=== PATIENT | female | born 1935 | race Caucasian/White ===

== ENCOUNTER 2020-04-13 07:12 | Inpatient (IN) | payer MEDICARE ==
[~2020-04-13] VITALS: Ht 170 cm; Wt 90.2 kg
[~2020-04-13 07:12] MED LIST: ALBU8.5H2 IH; ASP325T PO; ASP81CT PO; ATOR40TA70 PO; CHOL10003 PO; CLOP75TA PO; CYAN10007 PO; CYAN500T2 PO; ERGO400C PO; ESTR0.3T PO; ESTR0.455 PO; FENO135C4 PO; FENO145T2 PO; FISH OIL 1,2001 EAC1 PO; GEMF600T3 PO; HUM100VI SQ; LISI1TAB10 PO; LISI1TAB6 PO; LVT.112T PO; LVT.15T PO; MAGN250T7 PO; MAGN400T6 PO; MTP25TSR PO; MTP50T PO; MULT-608 PO; NFAMINITAB PO; SIMV40TA4 PO
[2020-04-13] MEDS ORDERED: ACETAMINOPHEN 650 MG SUPP (TYLENOL) ONE (07:26)
[2020-04-13] MEDS ORDERED: LACTATED RINGERS 1,000 ML IV ONE (07:38)
[2020-04-13] MEDS ORDERED: ACETAMINOPHEN 650 MG SUPP (TYLENOL) PR ONE (07:45)
[2020-04-13 07:54] LABS: BASOPHILS % (AUTO) 0 % (0-10); EOSINOPHILS % (AUTO) 0 % (0-10); HEMATOCRIT 35 % (35-52); HEMOGLOBIN 11.5 g/dL (11.5-16.0); LYMPHOCYTES # (AUTO) 0.5 10^3/uL (1.0-4.0); LYMPHOCYTES % (AUTO) 6 % (12-44); MEAN CORPUSCULAR HEMOGLOBIN 27 pg (25-34); MEAN CORPUSCULAR HGB CONC 33 g/dL (32-36); MEAN CORPUSCULAR VOLUME 84 fL (80-99); MEAN PLATELET VOLUME 12.5 fL (9.0-12.2); MONOCYTES # (AUTO) 0.5 10^3/uL (0.0-1.0); MONOCYTES % (AUTO) 6 % (0-12); NEUTROPHILS # (AUTO) 6.9 10^3/uL (1.8-7.8); NEUTROPHILS % (AUTO) 88 % (42-75); PLATELET COUNT 93 10^3/uL (130-400); WHITE BLOOD COUNT 7.9 10^3/uL (4.3-11.0)
[2020-04-13 07:59] LABS: BILIRUBIN,URINE NEGATIVE (NEGATIVE); CLARITY,URINE SL CLOUDY; COLOR,URINE YELLOW; GLUCOSE, URINE (UA) NEGATIVE (NEGATIVE); KETONES,URINE TRACE (NEGATIVE); LEUKOCYTE ESTERASE ,URINE 1+ (NEGATIVE); NITRITE,URINE POSITIVE (NEGATIVE); PH,URINE 5.5 (5-9); PROTEIN,URINE 2+ (NEGATIVE)
[2020-04-13 08:05] LABS: ALBUMIN 3.7 GM/DL (3.2-4.5); POTASSIUM 3.7 MMOL/L (3.6-5.0)
[2020-04-13 08:06] LABS: CALCIUM 8.9 MG/DL (8.5-10.1)
[2020-04-13 08:07] LABS: INR 1.2 (0.8-1.4); PROTHROMBIN TIME PATIENT 15.3 SEC (12.2-14.7); TOTAL PROTEIN 6.9 GM/DL (6.4-8.2)
[2020-04-13 08:09] LABS: BACTERIA,URINE LARGE /HPF; BILIRUBIN,TOTAL 1.3 MG/DL (0.1-1.0); WBC,URINE 25-50 /HPF
[2020-04-13 08:11] LABS: CREATININE SERUM 0.95 MG/DL (0.60-1.30)
--- NOTE | 2020-04-13 08:29 | ED General ---
General Chief Complaint: Fever-Adult/Adol Stated Complaint: FEVER Source of Information: EMS, Family History of Present Illness Date Seen by Provider: Apr 13, 2020 Time Seen by Provider: 07:19 Initial Comments 84-year-old female presents to the emergency room by ambulance today after being found by her son this morning "incoherent". Son reports to the patient's nurse that Bridget his blood sugar started going up last , 4 days ago, Tuesday she had an episode of vomiting and started running fever and this morning he found her "incoherent". EMS reports that the patient was in bed on their arrival in the bed was covered in feces and vomit. Patient is unable to provide any HPI, past medical family or social history secondary to her altered mentation. She is quite febrile at 102 axillary temp. she is moving all 4 extremities equally she does grimace with palpation of the right hip and holds that in a flexed and internally rotated position. 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 She is in a significantly soiled adult diaper, some erythema noted at the pe rineum without any overt ulcerations. This is consistent with only being sick for a couple of days and bedfast for a couple of days. Of note in talking to the son the patient is a full code. Timing/Duration: 2-3 Days Associated Systoms: Fever/Chills Allergies and Home Medications Allergies Coded Allergies: codeine (Verified Allergy, Unknown, 10/14/05) furosemide (Verified Allergy, Unknown, 10/14/05) iodine (Verified Allergy, Unknown, 10/14/05) Home Medications Albuterol 8.5 Gm Hfa.aer.ad, 2 PUFF IH Q4H PRN for SHORTNESS OF BREATH, (Reported) NEEDED FOR SHORTNESS OF BREATH Aspirin 81 Mg Chew, 81 MG PO DAILY, (Reported) Atorvastatin Calcium 40 Mg Tablet, 40 MG PO HS, (Reported) Cholecalciferol 1,000 Unit Tablet, 1,000 UNIT PO DAILY, (Reported) Cyanocobalamin 500 Mcg Tablet, 500 MCG PO DAILY, (Reported) Estrogens Conjugated 0.3 Mg Tab, 0.3 MG PO DAILY, (Reported) Fenofibric Acid (Choline) 135 Mg Capsule.dr, 135 MG PO DAILY, (Reported) Hum Insulin Nph/Reg Insulin Hm 10 Ml Vial, 20 UNIT SQ BEFORE BREAKFAST, (Reported) Hum Insulin Nph/Reg Insulin Hm 10 Ml Vial, 60 UNITS SQ before supper, (Reported) Levothyroxine Sodium 150 Mcg Tablet, 150 MCG PO DAILY, (Reported) Magnesium Oxide 250 Mg Tablet, 250 MG PO DAILY, (Reported) Metoprolol Succinate 25 Mg Tab, 25 MG PO DAILY, (Reported) Multivitamins 1 Tab Tablet, 1 TAB PO DAILY, (Reported) Vitamin C/Vitamin E 1 Tab Tab, 2 TAB PO DAILY, (Reported) Patient Home Medication List Home Medication List Reviewed: Yes Review of Systems Review of Systems Constitutional: other (Patient nonverbal) Unable to complete ROS due to AMS Past Nwxllaz-Eaqskc-Ohwvir Hx Immunizations Up To Date Date of Pneumonia Vaccine: Jun 03, 2009 Date of Influenza Vaccine: May 03, 2013 Physical Exam-Suspected Sepsis Physical Exam Vital Signs Vital Signs - First Documented 04/13/20 04/13/20 07:19 10:20 Temp 39.0 Pulse 114 Resp 39 B/P (MAP) 172/84 (113) Pulse Ox 95 O2 Delivery Room Air O2 Flow Rate 3.00 Capillary Refill : Height, Weight, BMI Height: 5'7.00" Weight: 206lbs. oz. 91.351872jt; BMI Method: General Appearance: WD/WN Eyes: Bilateral Eye Normal Inspection, Bilateral Eye PERRL HEENT: PERRL/EOMI, Other (dry oral mucosa) Respiratory: Lungs Clear, No Respiratory Distress Cardiovascular: Regular Rate, Rhythm, No JVD, Tachycardia Gastrointestinal: Abnormal Bowel Sounds (hyperactive) Rectal: Normal Rectal Tone Back: Normal Inspection Extremity: Normal Capillary Refill, Other (tenderness right hip to palpation; prefers right leg shortened and externally rotated; ) Neurologic/Psychiatric: Other (altered mental status; only yells "Ouch"; will not answer orientation questions or to her name) Skin: normal color, damp, other (erythema at perineum) Focused Exam Lactate Level 04/13/20 07:30: Lactic Acid Level 1.79 Lactic Acid Level Progress/Results/Core Measures Suspected Sepsis Recent Fever Within 48 Hours: Yes Infection Criteria Present: Suspected New Infection New/Unexplained Altered Menta: Yes Within 3hrs of presentation: Admin fluids, Admin ABX, Blood cultures prior to ABX's, Lactate level SIRS Temperature: Pulse: Respiratory Rate: Laboratory Tests 04/13/20 07:30: White Blood Count 7.9 Blood Pressure / Mean: 04/13/20 07:30: Lactic Acid Level 1.79 Laboratory Tests 04/13/20 07:30: Creatinine 0.95, INR Comment 1.2, Platelet Count 93L, Total Bilirubin 1.3H Results/Orders Lab Results Laboratory Tests Test 04/13/20 07:30 04/13/20 07:48 04/13/20 07:50 04/13/20 10:43 Range/Units White Blood Count 7.9 4.3-11.0 10^3/uL Red Blood Count 4.19 3.80-5.11 10^6/uL Hemoglobin 11.5 11.5-16.0 g/dL Hematocrit 35 35-52 % Mean Corpuscular Volume 84 80-99 fL Mean Corpuscular Hemoglobin 27 25-34 pg Mean Corpuscular Hemoglobin Concent 33 32-36 g/dL Red Cell Distribution Width 15.0 H 10.0-14.5 % Platelet Count 93 L 130-400 10^3/uL Mean Platelet Volume 12.5 H 9.0-12.2 fL Immature Granulocyte % (Auto) 0 % Neutrophils (%) (Auto) 88 H 42-75 % Lymphocytes (%) (Auto) 6 L 12-44 % Monocytes (%) (Auto) 6 0-12 % Eosinophils (%) (Auto) 0 0-10 % Basophils (%) (Auto) 0 0-10 % Neutrophils # (Auto) 6.9 1.8-7.8 10^3/uL Lymphocytes # (Auto) 0.5 L 1.0-4.0 10^3/uL Monocytes # (Auto) 0.5 0.0-1.0 10^3/uL Eosinophils # (Auto) 0.0 0.0-0.3 10^3/uL Basophils # (Auto) 0.0 0.0-0.1 10^3/uL Immature Granulocyte # (Auto) 0.0 0.0-0.1 10^3/uL Neutrophils % (Manual) 80 % Lymphocytes % (Manual) 8 % Monocytes % (Manual) 6 % Band Neutrophils 6 % Blood Morphology Comment NORMAL Prothrombin Time 15.3 H 12.2-14.7 SEC INR Comment 1.2 0.8-1.4 Activated Partial Thromboplast Time 45 H 24-35 SEC Urine Color YELLOW Urine Clarity SL CLOUDY Urine pH 5.5 5-9 Urine Specific [place] 1.025 H 1.016-1.022 Urine Protein 2+ H NEGATIVE Urine Glucose (UA) NEGATIVE NEGATIVE Urine Ketones TRACE H NEGATIVE Urine Nitrite POSITIVE H NEGATIVE Urine Bilirubin NEGATIVE NEGATIVE Urine Urobilinogen 0.2 < = 1.0 MG/DL Urine Leukocyte Esterase 1+ H NEGATIVE Urine RBC (Auto) 2+ H NEGATIVE Urine RBC NONE /HPF Urine WBC 25-50 H /HPF Urine Crystals NONE /LPF Urine Bacteria LARGE H /HPF Urine Casts NONE /LPF Urine Mucus NEGATIVE /LPF Urine Culture Indicated YES Sodium Level 133 L 135-145 MMOL/L Potassium Level 3.7 3.6-5.0 MMOL/L Chloride Level 100 98-107 MMOL/L Carbon Dioxide Level 22 21-32 MMOL/L Anion Gap 11 5-14 MMOL/L Blood Urea Nitrogen 21 H 7-18 MG/DL Creatinine 0.95 0.60-1.30 MG/DL Estimat Glomerular Filtration Rate 56 BUN/Creatinine Ratio 22 Glucose Level 219 H 70-105 MG/DL Lactic Acid Level 1.79 0.50-2.00 MMOL/L Calcium Level 8.9 8.5-10.1 MG/DL Corrected Calcium 9.1 8.5-10.1 MG/DL Total Bilirubin 1.3 H 0.1-1.0 MG/DL Aspartate Amino Transf (AST/SGOT) 29 5-34 U/L Alanine Aminotransferase (ALT/SGPT) 29 0-55 U/L Alkaline Phosphatase 98 40-136 U/L Total Protein 6.9 6.4-8.2 GM/DL Albumin 3.7 3.2-4.5 GM/DL Thyroid Stimulating Hormone (TSH) 3.97 0.35-4.94 UIU/ML Free Thyroxine 0.79 0.70-1.48 NG/DL Glucometer 208 H 70-110 MG/DL Micro Results Microbiology 04/13/20 Influenza Types A,B Antigen (TALA) - Final, Complete My Orders Orders - KAREL CORBETT MD Cbc With Automated Diff (04/13/20 07:38) Comprehensive Metabolic Panel (04/13/20 07:38) Blood Culture (04/13/20 07:38) Sputum Culture (04/13/20 07:38) Urinalysis (04/13/20 07:38) Urine Culture (04/13/20 07:38) Protime With Inr (04/13/20 07:38) Partial Thromboplastin Time (04/13/20 07:38) Chest 1 View, Ap/Pa Only (04/13/20 07:38) Ed Iv/Invasive Line Start (04/13/20 07:38) Ed Iv/Invasive Line Start (04/13/20 07:38) Vital Signs Adult Sepsis Patie Q15M (04/13/20 07:38) O2 (04/13/20 07:38) Remove Rings In Anticipation O (04/13/20 07:38) Lactic Acid Analyzer (04/13/20 07:38) Influenza A And B Antigens (04/13/20 07:38) Lactated Ringers (Lr 1000 Ml Iv Solution (04/13/20 07:38) Catheter(Urinary) Insert & Ass 03,15 (04/13/20 07:38) Coronavirus Sars-Cov-2 So 2018 (04/13/20 07:38) Pelvis With Right Hip 2-3views (04/13/20 07:38) Acetaminophen Suppository (Tylenol Suppo (04/13/20 07:45) Thyroid Stimulating Hormone (04/13/20 07:59) Free T4 (Free Thyroxine) (04/13/20 07:59) Ekg Tracing (04/13/20 08:06) Ct Head Wo (04/13/20 08:33) Manual Differential (04/13/20 07:30) Ceftriaxone For Iv Use (Rocephin For I (04/13/20 08:45) Medications Given in ED Current Medications Medications Dose Ordered Sig/Delfino Route Start Time Stop Time Status Last Admin Dose Admin Acetaminophen 650 mg ONCE ONCE MI 04/13/20 07:45 04/13/20 07:46 DC 04/13/20 07:35 650 MG Ceftriaxone Sodium 1000 mg/ Sterile Water 10 ml @ 200 mls/hr ONCE ONCE IV 04/13/20 08:45 04/13/20 08:47 DC 04/13/20 08:52 200 MLS/HR Lactated Ringer's 1,000 ml @ 0 mls/hr Q0M ONCE IV 04/13/20 07:38 04/13/20 07:46 DC 04/13/20 08:02 1,000 MLS/HR Vital Signs/I&O 04/13/20 04/13/20 04/13/20 04/13/20 07:19 10:20 10:21 10:45 Temp 39.0 37.3 36.5 Pulse 114 98 97 Resp 39 18 26 B/P (MAP) 172/84 (113) 134/94 142/67 Pulse Ox 95 98 100 O2 Delivery Room Air Nasal Cannula Nasal Cannula O2 Flow Rate 3.00 2.00 1.00 04/13/20 11:25 Temp 36.6 Pulse 97 Resp 26 B/P (MAP) 142/67 (92) Pulse Ox 100 O2 Delivery Nasal Cannula O2 Flow Rate 2.00 Capillary Refill : Progress Note : Time: 08:34 Progress Note Patient evaluation today includes physical exam, routine blood work to include sepsis protocols. Patient had chest xray with pelvis and right hip to rule out fracture. Later learned from the patient's son she has "post polio syndrome" in that hip. Patient remains primarily non verbal, other than the occasional yelling of "ouch". 0918 Laboratory studies evaluated including CBC, Chem-12, urinalysis, lactic acid. All blood work is grossly within normal limits. Her white blood cell count is 9 with a predominance of neutrophils. Urine is grossly infected with a nitrite positive finding. Case is discussed with Dr. Jamison [facility]. She would like a CT scan of the head done before the patient is admitted. She is advised 1 mg of Haldol IM and half milligram of Ativan IV. At this time the patient is sleeping soundly and not altered or agitated. We will try to do a CT brain without medicating her and if this is not possible we will give her these medications. At this time the patient does not have any objective findings of severe sepsis. She has been fluid resuscitated with 2 L of IV fluids. Rocephin 1 g given for her infection. Plan of care was discussed with the patient son by her nurse. At this time the patient is a full code. ECG Initial ECG Impression Date: Apr 13, 2020 Initial ECG Rhythm: S.Tach Initial ECG Intervals: QRS (LBBB) Initial ECG Intervals paced Initial ECG Comparisson: Unchanged Comment paced rhythm; LBBB - preexisting Diagnostic Imaging Diagonstic Imaging: Xray Plain Films/CT/US/NM/MRI: chest, pelvis Comments [facility] [place], [place] NAME: BRIDGET VAIL [facility] REC#: [id number] PT STATUS: REG ER : 1935 PHYSICIAN: KAREL CORBETT MD ADMIT DATE: 04/13/20/ER Draft Date of Exam:04/13/20 CHEST 1 VIEW, AP/PA ONLY Clinical Indication: Fever of unknown origin. Unable to provide history. Exam: Portable chest x-ray upright view. Comparisons: Chest x-ray dated 10/31/2013. Findings: Lungs/pleura: Interval slight elevation of the right hemidiaphragm with mild bibasilar atelectasis. Otherwise, lungs are clear. There is no pneumothorax. There is no pleural effusion. Mediastinum: Calcified lymph nodes overlying the mediastinal region. Pulmonary vasculature: Unremarkable. Heart: Heart size is within normal limits. Interval placement of cardiac pacemaker overlying the left chest with 2 leads projecting over the heart. Suspected loop recorder overlying the left upper lung field region. Bones/extrathoracic soft tissue: Unremarkable, there are degenerative spurs involving the thoracic spine.. Impression: 1: There is mild elevation of the right hemidiaphragm with mild right basilar atelectasis. There is no definite lung infiltrate seen. 2: Interval placement of cardiac pacemaker and suspected loop recorder overlying the left chest, as described above. Dictated on workstation # [id number] Dict: 04/13/20 0852 Trans: 04/13/20 0857 [facility] [id number] Interpreted by: DARBY AVILES MD Electronically signed by: [facility] [place], [place] NAME: BRIDGET VAIL [facility] REC#: [id number] PT STATUS: REG ER : 1935 PHYSICIAN: KAREL CORBETT MD ADMIT DATE: 04/13/20/ER Signed Date of Exam:04/13/20 PELVIS WITH RIGHT HIP 2-3VIEWS Indication: Patient found down, right hip pain AP view pelvis and 2 views the right hip are obtained Pelvic ring appears intact. Right hip is intact with no fracture or dislocation. There are mild degenerative changes seen in both hips. IMPRESSION: No acute abnormality seen in the pelvis or right hip. Dictated by: Dictated on workstation # [id number] Dict: 04/13/2052 Trans: 04/13/20852 [id number] Interpreted by: DAVID SERRANO MD Electronically signed by: DAVID SERRANO MD 04/13/2053 [facility], [place] NAME: BRIDGET VAIL [facility] REC#: [id number] PT STATUS: REG ER : 1935 PHYSICIAN: KAREL CORBETT MD ADMIT DATE: 04/13/20/ER Draft Date of Exam:04/13/20 CT HEAD WO PROCEDURE: CT head without contrast. TECHNIQUE: Multiple contiguous axial images were obtained through the brain without the use of intravenous contrast. Auto Exposure Controls were utilized during the CT exam to meet ALARA standards for radiation dose reduction. INDICATION: Altered mental status, fever. COMPARISON: None. DISCUSSION: Diffuse brain volume loss is likely age related. White matter hypoattenuation is nonspecific, though greater than expected for age related chronic small vessel ischemic disease. No acute intracranial hemorrhage, mass, midline shift, or hydrocephalus. Small air-fluid levels noted within the right maxillary sinus, possible acute sinusitis. The sinuses, orbits, mastoid air cells, and calvarium are otherwise unremarkable. IMPRESSION: 1. Senescent changes as described. No acute intracranial abnormality identified. 2. Suspect acute right maxillary sinusitis. Dictated on workstation # [id number] Dict: 04/13/2053 Trans: 04/13/2058 [facility] [id number] Interpreted by: MYRA NOBLE MD Electronically signed by: Critical Care Note Critical Care Start Time: 07:19 Stop Time: 09:16 Total Time (minutes) 40 min of critical care time in the evaluation and management of this patient with suspected sepsis. including interpretation of laboratory values, fluid resuscitation, review of medical records, interpretation of xrays, discussion with admitting physician Departure Communication (Admissions) Time/Spoke to Admitting Phy: 09:[address] Jamison Impression Primary Impression: Fever Qualified Codes: R50.9 - Fever, unspecified Additional Impressions: Urinary tract infection Qualified Codes: N30.00 - Acute cystitis without hematuria Altered mental status Qualified Codes: R41.0 - Disorientation, unspecified Disposition: 09 ADMITTED INPATIENT Condition: Stable Admissions Decision to Admit Reason: Admit from ER (General) Decision to Admit/Date: Apr 13, 2020 Time/Decision to Admit Time: 09:10 Departure-Patient Inst. Referrals: MYRA JOSHI MD (PCP/Family) Primary Care Physician KAREL CORBETT MD Apr 13, 2020 08:29
[2020-04-13 08:35] LABS: BAND NEUTROPHILS 6 %; LYMPHOCYTES % (MANUAL) 8 %; MONOCYTES % (MANUAL) 6 %; NEUTROPHILS % (MANUAL) 80 %; RBC MORPH NORMAL
[2020-04-13 08:36] LABS: FREE T4 (FREE THYROXINE) 0.79 NG/DL (0.70-1.48)
[2020-04-13] MEDS ORDERED: cefTRIAXone FOR IV USE 1,000 MG in WATER (STERILE) FOR INJECTION 10 ML IV ONE (08:45)
--- NOTE | 2020-04-13 08:55 | Diagnostic Imaging Report ---
Indication: Patient found down, right hip pain AP view pelvis and 2 views the right hip are obtained Pelvic ring appears intact. Right hip is intact with no fracture or dislocation. There are mild degenerative changes seen in both hips. IMPRESSION: No acute abnormality seen in the pelvis or right hip. Dictated by: Dictated on workstation # [id number]
--- NOTE | 2020-04-13 08:57 | Diagnostic Imaging Report ---
Clinical Indication: Fever of unknown origin. Unable to provide history. Exam: Portable chest x-ray upright view. Comparisons: Chest x-ray dated 10/31/2013. Findings: Lungs/pleura: Interval slight elevation of the right hemidiaphragm with mild bibasilar atelectasis. Otherwise, lungs are clear. There is no pneumothorax. There is no pleural effusion. Mediastinum: Calcified lymph nodes overlying the mediastinal region. Pulmonary vasculature: Unremarkable. Heart: Heart size is within normal limits. Interval placement of cardiac pacemaker overlying the left chest with 2 leads projecting over the heart. Suspected loop recorder overlying the left upper lung field region. Bones/extrathoracic soft tissue: Unremarkable, there are degenerative spurs involving the thoracic spine.. Impression: 1: There is mild elevation of the right hemidiaphragm with mild right basilar atelectasis. There is no definite lung infiltrate seen. 2: Interval placement of cardiac pacemaker and suspected loop recorder overlying the left chest, as described above. Dictated by: Dictated on workstation # [id number]
--- NOTE | 2020-04-13 09:59 | Diagnostic Imaging Report ---
PROCEDURE: CT head without contrast. TECHNIQUE: Multiple contiguous axial images were obtained through the brain without the use of intravenous contrast. Auto Exposure Controls were utilized during the CT exam to meet ALARA standards for radiation dose reduction. INDICATION: Altered mental status, fever. COMPARISON: None. DISCUSSION: Diffuse brain volume loss is likely age related. White matter hypoattenuation is nonspecific, though greater than expected for age related chronic small vessel ischemic disease. No acute intracranial hemorrhage, mass, midline shift, or hydrocephalus. Small air-fluid levels noted within the right maxillary sinus, possible acute sinusitis. The sinuses, orbits, mastoid air cells, and calvarium are otherwise unremarkable. IMPRESSION: 1. Senescent changes as described. No acute intracranial abnormality identified. 2. Suspect acute right maxillary sinusitis. Dictated by: Dictated on workstation # [id number]
--- NOTE | 2020-04-13 10:20 | NUR ---
ANTHONY HAY admitted to room 414-1, with an admitting diagnosis of AMS PUI , on 04/13/20 from ER via CART, accompanied by STAFF.ANTHONY VAIL introduced to surroundings, call light, bed controls, phone, TV, temperature control, lights, meal times, smoking policy, visitor policy, side rail policy, bathrooms and showers. Patient Rights given to patient in the handbook.ANTHONY VAIL verbalizes understanding that [facility] is not responsible for the loss or damage to any personal effects or valuables that are kept in the patients posession during their hospitalization. The following Patient Care Plans were discussed with the PT: Discharge Planning, PAIN CONTROL,IV THERAPY, and TESTS AND PROCEDURES. ANTHONY VAIL verbalizes understanding of Interdisciplinary Patient Education. Patient and/or family were informed about the Rapid Response Team and its purpose.
[2020-04-13 10:21] VITALS: BP 142/67
--- NOTE | 2020-04-13 10:28 | NUR ---
DR MULLINS HERE TO SEE PT
--- NOTE | 2020-04-13 10:30 | NUR ---
PT ADMITTED TO ROOM 414 A PUI AT THIS TIME. BED ALARM IN PLACE.
[2020-04-13] MEDS ORDERED: NS IV 1000 ML 1,000 ML ONE (10:31)
--- NOTE | 2020-04-13 10:57 | History & Physical-Hospitalist ---
History of Present Illness HPI/Chief Complaint CC: Fever with UTI HPI: This is an 84yoWF clinic patient of [facility] who presents to the ER with fever and AMS. Fever was 102 in ER. Sepsis protocol followed. UTI dx but COVID swabbed regardless. Patient in isolation and PPE used to examine. Patient had aggression so ordered Haldol and Ativan for aggression in order to have CT brain done and patient is currently drowsy. Source: RN/MD Exam Limitations: clinical condition Date Seen 04/13/20 Time Seen by a Provider: 11:30 Attending Physician Almita Jamison DO PCP Antonio Walker MD Referring Physician Date of Admission Apr 13, 2020 at 09:10 Home Medications & Allergies Home Medications Reviewed patient Home Medication Reconciliation performed by pharmacy medication reconciliations nuclear fuel enrichment technician and/or nursing. Patients Allergies have been reviewed. Allergies Allergies Coded Allergies codeine (Verified Allergy, Unknown, 10/14/05) furosemide (Verified Allergy, Unknown, 10/14/05) iodine (Verified Allergy, Unknown, 10/14/05) Past Xlfcxdt-Zxzkir-Rctjsj Hx Past Med/Social Hx: Reviewed Nursing Past Med/Soc Hx, Reviewed and Corrections made Patient Social History Marrital Status: single Employed/Student: retired Alcohol Use: Denies Use Recreational Drug Use: No Smoking Status: Never a Smoker Recent Foreign Travel: No Contact w/other who traveled: No Recent Hopitalizations: No Recent Infectious Disease Expo: No Immunizations Up To Date Date of Pneumonia Vaccine: Jun 03, 2009 Date of Influenza Vaccine: May 03, 2013 Past Medical History Surgeries: Pacemaker Endocrine: Diabetes, Insulin dep Review of Systems Constitutional: see HPI, fever, malaise, weakness Psychiatric/Neurological: Other (confusion) Physical Exam Physical Exam Vital Signs Vital Signs - First Documented 04/13/20 04/13/20 07:19 10:20 Temp 39.0 Pulse 114 Resp 39 B/P (MAP) 172/84 (113) Pulse Ox 95 O2 Delivery Room Air O2 Flow Rate 3.00 Capillary Refill : Less Than 3 Seconds Height, Weight, BMI Height: 5'7.00" Weight: 206lbs. oz. 91.079765sc; 31.21 BMI Method: General Appearance: No Apparent Distress, WD/WN, Chronically ill Eyes: Right Eye Normal Inspection, Right Eye PERRL HEENT: PERRL/EOMI, Normal ENT Inspection, Pharynx Normal, Moist Mucous Membranes Neck: Full Range of Motion, Normal Inspection, Non Tender Respiratory: Chest Non Tender, Lungs Clear, Normal Breath Sounds, No Accessory Muscle Use, No Respiratory Distress Cardiovascular: Regular Rate, Rhythm, No Edema, No Gallop, No JVD, No Murmur, Normal Peripheral Pulses Gastrointestinal: Normal Bowel Sounds, No Organomegaly, No Pulsatile Mass, Non Tender, Soft Back: Normal Inspection, No CVA Tenderness, No Vertebral Tenderness Extremity: Normal Capillary Refill, Normal Inspection, Normal Range of Motion, Non Tender, No Calf Tenderness, No Pedal Edema Neurologic/Psychiatric: Disoriented Skin: Normal Color, Warm/Dry Lymphatic: No Adenopathy Results Results/Procedures Labs Laboratory Tests 04/13/20 07:30 Patient resulted labs reviewed. Assessment/Plan Admission Diagnosis Assessment: Sepsis UTI COVID swab pending Delirium Plan: IV abx Monitor fever Supportive care Admission Status: Inpatient Order (span 2 midnights) Reason for Inpatient Admission: ams and uti and covid swabbed Diagnosis/Problems Diagnosis/Problems (1) Fever Status: Acute Qualifiers: Fever type: unspecified Qualified Codes: R50.9 - Fever, unspecified (2) Urinary tract infection Status: Acute Qualifiers: Urinary tract infection type: acute cystitis Hematuria presence: without hematuria Qualified Codes: N30.00 - Acute cystitis without hematuria (3) Altered mental status Status: Acute Qualifiers: Altered mental status type: delirium Qualified Codes: R41.0 - Disorientation, unspecified ALMITA JMAISON DO Apr 13, 2020 10:56
[2020-04-13] MEDS ORDERED: inSUlin ASPART (NovoLOG) 1 UNIT/0.01 ML (CHARGE PER UNIT) ONE (10:59)
[2020-04-13] MEDS ORDERED: inSUlin ASPART (NovoLOG) 1 UNIT/0.01 ML (CHARGE PER UNIT) SC SCH ×3 (11:00→12:00)
[2020-04-13] MEDS: inSUlin ASPART (NovoLOG) 1 UNIT/0.01 ML (CHARGE PER UNIT) SC SCH ×3 (11:00→21:00)
[2020-04-13] MEDS: NS IV 1000 ML 1,000 ML IV SCH ×2 (11:00→21:53)
[2020-04-13 11:25] VITALS: BP 142/67
[2020-04-13] MEDS ORDERED: ACETAMINOPHEN 500 MG TAB (TYLENOL) PO PRN (12:00)
[2020-04-13] MEDS ORDERED: ENOXAPARIN 40 MG/0.4 ML (LOVENOX) SYR SC SCH (12:00)
[2020-04-13] MEDS ORDERED: DOCUSATE SODIUM 100 MG (COLACE) CAP PO PRN (12:00)
[2020-04-13] MEDS ORDERED: CALCIUM CARBONATE 500 MG (TUMS) TAB.CHEW PO PRN (12:00)
[2020-04-13] MEDS ORDERED: LOPERAMIDE 2 MG (IMODIUM) TABLET PO PRN (12:00)
[2020-04-13] MEDS ORDERED: ONDANSETRON 4 MG/2 ML (SDV) Z0FRAN IVP PRN (12:00)
[2020-04-13] MEDS ORDERED: MELATONIN 3 MG TABLET PO PRN (12:00)
[2020-04-13] MEDS ORDERED: HALOPERIDOL 5 MG/ML (HALDOL) VIAL IM PRN (12:00)
[2020-04-13] MEDS ORDERED: HYDROcodone/APAP 5 MG/325 MG (LORTAB) TAB PO PRN (12:00)
[2020-04-13] MEDS ORDERED: diphenhydrAMINE 25 MG TAB (BENADRYL) PO PRN (12:00)
--- NOTE | 2020-04-13 15:02 | NUR ---
PT HAD SELF REMOVED IV WHEN THIS RN ENTERED ROOM RESPIRATIONS NOTED TO BE 36, HR 113 BP 190/84 TEMP 100 96% ON 1L NC DR MURRAY NOTIFIED AND GAVE ORDERS TO CHANGE PO TYLENOL TO SUPPOSITORY AND TO MONITOR BP ONLY FOR NOW.
[2020-04-13] MEDS ORDERED: ACETAMINOPHEN 325 MG SUPP (TYLENOL) ONE (15:14)
[2020-04-13] MEDS: ACETAMINOPHEN 650 MG SUPP (TYLENOL) PR PRN (15:24)
[2020-04-13 15:42] VITALS: BP 178/79
[2020-04-13 16:37] VITALS: BP 141/63
[2020-04-13] MEDS: LORazepam INJ 2 MG/ML (ATIVAN) VIAL IVP PRN (18:25)
--- NOTE | 2020-04-13 18:35 | NUR ---
PT YELLING AND CRYING OUT FOR HELP, WHEN ASKED WHAT'S WRONG PT TEARFULLY SAYS "I DONT KNOW". SHE DENIES ANY PAIN AT THIS TIME. PT WAS REPOSITIONED AND REASSURED THAT EVERYTHING WAS OKAY. PT VOICED UNDERSTANDING AND STOPPED YELLING OUT. PRN ATIVAN GIVEN FOR ANXIETY. WILL CONTINUE TO MONITOR
[2020-04-13 19:06] VITALS: BP 122/57
[2020-04-13] MEDS: SENNA W/DOCUSATE (SENOKOT S) TABLET PO SCH (19:21)
[2020-04-13 23:30] VITALS: BP 128/64
[2020-04-14] VITALS (8 sets, daily range): BP systolic 128–182; BP diastolic 68–82
--- NOTE | 2020-04-14 00:57 | NUR ---
PT'S COVID RESULTS CAME BACK NEGATIVE. DR. MURRAY NOTIFIED- NEW ORDER TO REMOVE PT FROM ISOLATION AT THIS TIME.
[2020-04-14] MEDS: LORazepam INJ 2 MG/ML (ATIVAN) VIAL IVP PRN (01:57)
[2020-04-14] MEDS: NITROGLYCERIN 2% OINT 1 GM UNIT DOSE PACKET TOP PRN (02:05)
[2020-04-14] MEDS: NS IV 1000 ML 1,000 ML IV SCH ×2 (06:16→16:13)
[2020-04-14 06:25] LABS: BASOPHILS % (AUTO) 0 % (0-10); EOSINOPHILS % (AUTO) 0 % (0-10); HEMATOCRIT 31 % (35-52); HEMOGLOBIN 9.9 g/dL (11.5-16.0); LYMPHOCYTES # (AUTO) 0.3 10^3/uL (1.0-4.0); LYMPHOCYTES % (AUTO) 9 % (12-44); MEAN CORPUSCULAR HEMOGLOBIN 27 pg (25-34); MEAN CORPUSCULAR HGB CONC 32 g/dL (32-36); MEAN CORPUSCULAR VOLUME 85 fL (80-99); MEAN PLATELET VOLUME 13.5 fL (9.0-12.2); MONOCYTES # (AUTO) 0.3 10^3/uL (0.0-1.0); MONOCYTES % (AUTO) 9 % (0-12); NEUTROPHILS # (AUTO) 2.5 10^3/uL (1.8-7.8); NEUTROPHILS % (AUTO) 82 % (42-75); PLATELET COUNT 66 10^3/uL (130-400); WHITE BLOOD COUNT 3.1 10^3/uL (4.3-11.0)
[2020-04-14 06:33] LABS: ALANINE AMINOTRANSFERASE 25 U/L (0-55); ALBUMIN 3.1 GM/DL (3.2-4.5); ALKALINE PHOSPHATASE 89 U/L (40-136); BILIRUBIN,TOTAL 0.6 MG/DL (0.1-1.0); BUN/CREATININE RATIO 25; CARBON DIOXIDE 21 MMOL/L (21-32); CHLORIDE 103 MMOL/L (98-107); CREATININE SERUM 0.77 MG/DL (0.60-1.30); GFR ESTIMATED > 60; GLUCOSE 269 MG/DL (70-105); POTASSIUM 3.8 MMOL/L (3.6-5.0); SODIUM 134 MMOL/L (135-145); TOTAL PROTEIN 6.1 GM/DL (6.4-8.2)
[2020-04-14] MEDS: inSUlin ASPART (NovoLOG) 1 UNIT/0.01 ML (CHARGE PER UNIT) SC SCH ×4 (06:38→21:00)
--- NOTE | 2020-04-14 06:39 | NUR ---
BLOOD SUGAR 269 PER AM LABS. SLIDING SCALE INSULIN CALLS FOR NOVOLOG 5 UNITS. HOWEVER THIS PT IS NPO WITH NS INFUSING AT 100 ML/HR. INSTEAD, THIS RN ADMINISTERED NOVOLOG 3 UNITS SQ IN LEFT UPPER ARM. WILL CONTINUE TO MONITOR BLOOD SUGAR LEVELS AND PT CONDITION.
--- NOTE | 2020-04-14 08:30 | NUR ---
PT SON UPDATED VIA PHONE
[2020-04-14] MEDS: cefTRIAXone 1,000 MG/SWFI 10 ML IV PUSH IV SCH ×2 (09:22)
[2020-04-14] MEDS: SENNA W/DOCUSATE (SENOKOT S) TABLET PO SCH ×2 (09:41→20:02)
--- NOTE | 2020-04-14 10:00 | NUR ---
DR EDWARDS AT BEDSIDE, UPDATED ON PT CONDITION, LABS AND VITAL SIGNS. ORDER RECEIVED TO HOLD LOVENOX AT THIS TIME AND TO PLACE CT OF HEAD WO CONTRAST IF PT DOES NOT BECOME MORE ALERT IN ONE HOUR.
--- NOTE | 2020-04-14 10:27 | Progress Note ---
KAREL ELIZABETH MED STUDENT 04/14/20 1027: Subjective Subjective/Events-last exam 84 yo F presents with altered mental status, UTI and bactermeis. pt was laying quietly in bed. pt unable to open eyes. pt was not oriented to person, place or time. pt denied nausea or vomiting. pt denied having any pain. pt also denied having pain with urination. pt kept yelling out "help" but was unable to communicate why she needed help. Review of Systems Pulmonary: No Cough Gastrointestinal: No: Nausea, Vomiting, Abdominal Pain, Diarrhea, Constipation Genitourinary: No Dysuria Focused Exam Lactate Level 04/13/20 07:30: Lactic Acid Level 1.79 Respiratory: Chest Non Tender, Lungs Clear, Normal Breath Sounds, No Accessory Muscle Use, No Respiratory Distress Cardiovascular: Regular Rate, Rhythm, No Murmur, Normal Peripheral Pulses Peripheral Pulses: 2+ Carotid (R), 2+ Carotid (L); 1+ Dorsalis Pedis (R), 1+ Left Dors-Pedis (L); 2+ Radial Pulses (R), 2+ Radial Pulses (L) Skin: normal color, warm/dry Objective Exam Last Set of Vital Signs Vital Signs Date Time Temp Pulse Resp B/P (MAP) Pulse Ox O2 Delivery O2 Flow Rate FiO2 04/14/20 09:50 Nasal Cannula 2.00 04/14/20 08:00 37.1 109 20 158/73 (101) 95 Capillary Refill : Less Than 3 Seconds I&O Intake and Output 04/14/20 00:00 Intake Total 1410 ml Output Total 675 ml Balance 735 ml IV Total 1410 ml Output Urine Total 675 ml Daily Weight Change Unsure/Unresponsive General: Mild Distress Lungs: Clear to Auscultation Heart: Regular Rate, No Murmurs Abdomen: Soft, No Tenderness Extremities: No Cyanosis, No Edema, Normal Pulses Results/Procedures Lab Laboratory Tests 04/13/20 10:43: Glucometer 208H 04/13/20 15:34: Glucometer 237H 04/13/20 21:51: Glucometer 228H 04/14/20 05:30: White Blood Count 3.1L, Red Blood Count 3.64L, Hemoglobin 9.9L, Hematocrit 31L, Mean Corpuscular Volume 85, Mean Corpuscular Hemoglobin 27, Mean Corpuscular Hemoglobin Concent 32, Red Cell Distribution Width 15.1H, Platelet Count 66L, Mean Platelet Volume 13.5H, Immature Granulocyte % (Auto) 0, Neutrophils (%) (Auto) 82H, Lymphocytes (%) (Auto) 9L, Monocytes (%) (Auto) 9, Eosinophils (%) (Auto) 0, Basophils (%) (Auto) 0, Neutrophils # (Auto) 2.5, Lymphocytes # (Auto) 0.3L, Monocytes # (Auto) 0.3, Eosinophils # (Auto) 0.0, Basophils # (Auto) 0.0, Immature Granulocyte # (Auto) 0.0, Sodium Level 134L, Potassium Level 3.8, Chloride Level 103, Carbon Dioxide Level 21, Anion Gap 10, Blood Urea Nitrogen 19H, Creatinine 0.77, Estimat Glomerular Filtration Rate > 60, BUN/Creatinine Ratio 25, Glucose Level 269H, Calcium Level 8.0L, Corrected Calcium 8.7, Total Bilirubin 0.6, Aspartate Amino Transf (AST/SGOT) 30, Alanine Aminotransferase (ALT/SGPT) 25, Alkaline Phosphatase 89, Total Protein 6.1L, Albumin 3.1L 04/14/20 06:33: Glucometer 263H Microbiology 04/13/20 Influenza Types A,B Antigen (TALA) - Final, Complete 04/13/20 Blood Culture - Preliminary, Resulted Gram Negative Bacillus 1 Assessment/Plan Assessment/Plan Assessment & Plan 1 Altered Mental status Hold Ativan and Haldol to see if mental status improves If no improvement with mental status, CT of head, without contrast 2 Urinary Tract Infection continue ceftriaxone add zosyn 3 Bacteremia continue ceftriaxone add zosyn 4 Fever redose acetaminophen suppository prn 5 Normocytic anemia no active bleeding, continue to monitor 6 IDDM check hemoglobin A1C continue NPO status insulin administration per sliding scale 7 Hypothyroidism normal TSH and free T4 levels continue home dose of levothyroxine 8 High blood pressure continue metoprolol 9 high cholesterol continue atorvastatin 10 dvt prophylaxis continue lovenox injections Clinical Quality Measures DVT/VTE Risk/Contraindication: Risk Factor Score Per Nursin RFS Level Per Nursing on Admit: 4+=Very High MELISSA BAUGH MD 04/14/20 0084: Subjective Subjective/Events-last exam Patient altered and not able to communicate or make needs known. Responds to name. Does not open eyes or follow commads Review of Systems Unable to obtain to due altered mental status Objective Exam General: Mild Distress, Other (Not alert or oriented) HEENT: Mucous Memb Moist/[place] Lungs: Clear to Auscultation, Normal Air Movement Heart: Regular Rate, No Murmurs Abdomen: Normal Bowel Sounds, Soft, Other (No guarding or rebound) Extremities: No Edema, No Tenderness/Swelling Skin: No Rashes, No Breakdown Neuro: Other (mumbling to try and answer questions) Assessment/Plan Assessment/Plan Assessment & Plan See Problem List, Patient seen and examined with Erica Elizabeth, MS3 (1) Altered mental status Status: Acute Assessment & Plan: 04/14: Infection vs medication, Add Zosyn, hold sedating medications, CT head today: no acute changes, If no improvement will get MRI in AM Qualifiers: Qualified Codes: R41.0 - Disorientation, unspecified (2) Urinary tract infection Status: Acute Assessment & Plan: 04/14: Added Zosyn today, Continue Rocephin, Continue IVFs, Gram Neg Sang, identification pending Qualifiers: Qualified Codes: N30.00 - Acute cystitis without hematuria (3) Bacteremia Status: Acute (4) Normocytic anemia Status: Acute Assessment & Plan: 04/14: No signs of acute bleeding will continue to monitor (5) Insulin dependent diabetes mellitus Status: Chronic Assessment & Plan: 04/14: NPO, SSI (6) Hypothyroidism Status: Chronic Assessment & Plan: 04/14: Normal TSH/T4, continue home dose Qualifiers: Qualified Codes: E03.9 - Hypothyroidism, unspecified (7) HTN (hypertension) Status: Chronic Qualifiers: Qualified Codes: I10 - Essential (primary) hypertension (8) HLD (hyperlipidemia) Status: Chronic Qualifiers: Qualified Codes: E78.5 - Hyperlipidemia, unspecified (9) DVT prophylaxis Status: Acute Assessment & Plan: Received Lovenox, holding due to thrombocytopenia Supervisory-Addendum Brief Supervisory Addendum Verification and Attestation of Medical Student E/M Service A medical student performed and documented this service in my presence. I reviewed and verified all information documented by the medical student and made modifications to such information, when appropriate. I personally performed the physical exam and medical decision making. Melissa Baugh, Apr 14, 2020,16:52 KAREL ELIZABETH MED STUDENT Apr 14, 2020 10:27 MELISSA BAUGH MD Apr 14, 2020 16:44
--- NOTE | 2020-04-14 11:15 | NUR ---
CM/SS attempted to visit patient for discharge planning. Patient was resting and this sw did not attempt to wake patient. No family at bedside. Will continue to follow and assist with plan of care for discharge.
[2020-04-14] MEDS ORDERED: PIPERACILLIN/TAZO 4.5 GM/NS 100 ML IV ONE ×2 (11:30)
--- NOTE | 2020-04-14 11:44 | NUR ---
PT SON UPDATED VIA PHONE
--- NOTE | 2020-04-14 12:11 | NUR ---
PT TAKEN OFF FLOOR VIA BED FOR CT
--- NOTE | 2020-04-14 12:44 | Diagnostic Imaging Report ---
EXAMINATION: CT head without contrast. TECHNIQUE: Multiple contiguous axial images were obtained through the brain without the use of intravenous contrast. All CT scans use one or more of the following dose optimizing techniques: automated exposure control, MA and/or KvP adjustment based on a patient size and exam type, or iterative reconstruction. HISTORY: Altered mental status. COMPARISON: CT head on 04/13/2020. FINDINGS: No large acute territorial ischemia, mass, or hemorrhage. No midline shift or mass effect. Decreased attenuation is seen in the periventricular and subcortical white matter. The ventricles and cortical sulci are prominent. The basilar cisterns are patent and unremarkable. Left lens implant is noted. Paranasal sinuses are normal. Mastoid air cells are clear. No soft tissue abnormality is seen. No osseus lesions or fractures are seen. IMPRESSION: 1. No large acute territorial ischemia, mass, or hemorrhage. 2. Chronic microvascular disease. 3. Generalized parenchymal volume loss. Dictated by: Dictated on workstation # [id number]
[2020-04-14] MEDS: ACETAMINOPHEN 650 MG SUPP (TYLENOL) PR PRN (12:57)
--- NOTE | 2020-04-14 13:36 | NUR ---
"RD ASSESSMENT PMHx: DM PT INTERACTION: Received dietary consult for MST score. Note pt has AMS, per chart review. Per aide, pt answers yes/no questions, and aide believes pt does not understand the questions she is answering. Note all diet information gathered is per chart review. Note pt is currently NPO x1d. Note no BM has been recorded, and pt currently on bowel regimen of senna BID. Note unable to determine recent wt hx. Note unable to determine current level of DM management, or recent HBA1c. ABNORMAL NUTRITION-RELATED LAB VALUES LOW: Ca 8.4; Pro 5.8 HIGH: glu 115; Est. kcal needs: 1350 kcal | 15 kcal/kg Est. Pro needs: 90 g Pro | 1.0 g Pro/kg PES STATEMENT: Inadequate oral intake (NI-2.1) related to NPO status as evidenced by chart review INTERVENTION: Note pt currently NPO x1d. Would recommend diet advancement as medically able and as tolerated. Did not offer diet education at this time d/t AMS. May offer when family is present at bedside. Will continue to follow and reassess as pt needs, intake, and status change. Piyush Zhong, MS, RD, LD"
[2020-04-14] MEDS: PIPERACILLIN/TAZOBACTAM (BULK) 4.5 GM in NS (IVPB) 100 ML IV SCH (16:13)
--- NOTE | 2020-04-14 18:24 | NUR ---
PT REPOSITIONED AND ORAL CARE GIVEN. PT DID NOT MOAN OR YELL WHEN TURNED. PT OPENED EYES AND LOOKED AT NURSE AND STATED SHE WAS AT THE HOSPITAL WHEN ASKED.
[2020-04-15 00:06] VITALS: BP 162/70
[2020-04-15] MEDS: PIPERACILLIN/TAZOBACTAM (BULK) 4.5 GM in NS (IVPB) 100 ML IV SCH ×3 (01:08→18:04)
[2020-04-15] MEDS: NS IV 1000 ML 1,000 ML IV SCH ×2 (02:45→05:52)
[2020-04-15 04:14] VITALS: BP 165/66
[2020-04-15] MEDS: inSUlin ASPART (NovoLOG) 1 UNIT/0.01 ML (CHARGE PER UNIT) SC SCH ×4 (05:52→20:27)
[2020-04-15 06:15] LABS: BASOPHILS % (AUTO) 1 % (0-10); EOSINOPHILS % (AUTO) 1 % (0-10); HEMATOCRIT 31 % (35-52); HEMOGLOBIN 9.6 g/dL (11.5-16.0); LYMPHOCYTES # (AUTO) 0.4 10^3/uL (1.0-4.0); LYMPHOCYTES % (AUTO) 16 % (12-44); MEAN CORPUSCULAR HEMOGLOBIN 27 pg (25-34); MEAN CORPUSCULAR HGB CONC 32 g/dL (32-36); MEAN CORPUSCULAR VOLUME 86 fL (80-99); MEAN PLATELET VOLUME 13.5 fL (9.0-12.2); MONOCYTES # (AUTO) 0.4 10^3/uL (0.0-1.0); MONOCYTES % (AUTO) 13 % (0-12); NEUTROPHILS # (AUTO) 1.9 10^3/uL (1.8-7.8); NEUTROPHILS % (AUTO) 69 % (42-75); PLATELET COUNT 82 10^3/uL (130-400); WHITE BLOOD COUNT 2.8 10^3/uL (4.3-11.0)
[2020-04-15 06:16] LABS: CHLORIDE 109 MMOL/L (98-107); POTASSIUM 3.7 MMOL/L (3.6-5.0); SODIUM 140 MMOL/L (135-145)
[2020-04-15 06:18] LABS: GLUCOSE 205 MG/DL (70-105); TOTAL PROTEIN 5.8 GM/DL (6.4-8.2)
[2020-04-15 06:19] LABS: CARBON DIOXIDE 23 MMOL/L (21-32)
[2020-04-15 06:20] LABS: BILIRUBIN,TOTAL 0.5 MG/DL (0.1-1.0)
[2020-04-15 06:22] LABS: ALKALINE PHOSPHATASE 82 U/L (40-136); CREATININE SERUM 0.76 MG/DL (0.60-1.30); GFR ESTIMATED > 60
[2020-04-15 06:23] LABS: BUN/CREATININE RATIO 24
[2020-04-15 06:25] LABS: ALANINE AMINOTRANSFERASE 25 U/L (0-55)
[2020-04-15] MEDS: SENNA W/DOCUSATE (SENOKOT S) TABLET PO SCH ×2 (07:46→20:26)
[2020-04-15] MEDS: cefTRIAXone 1,000 MG/SWFI 10 ML IV PUSH IV SCH ×2 (07:46)
[2020-04-15 08:08] VITALS: BP 171/74
--- NOTE | 2020-04-15 08:53 | Progress Note ---
CLARAKAREL MED STUDENT 04/15/20 0853: Subjective Subjective/Events-last exam pt is awake and sitting up in bed watching tv. pt was more alert today than yesterday. pt able to carry on conversation. pt oriented to person and place, but not oriented to time. pt stated that she is feeling much better, said she "must've and gone to [facility]." Review of Systems General: No Chills, No Fatigue Pulmonary: No Dyspnea, No Cough Cardiovascular: No: Chest Pain, Palpitations Gastrointestinal: No: Nausea, Vomiting, Diarrhea, Constipation Genitourinary: No Dysuria Focused Exam Lactate Level 04/13/20 07:30: Lactic Acid Level 1.79 Respiratory: Chest Non Tender, Lungs Clear, Normal Breath Sounds, No Accessory Muscle Use, No Respiratory Distress Cardiovascular: Regular Rate, Rhythm, No Edema, No Murmur, Normal Peripheral Pulses Peripheral Pulses: 2+ Carotid (R), 2+ Carotid (L), 2+ Dorsalis Pedis (R), 2+ Left Dors-Pedis (L), 2+ Radial Pulses (R), 2+ Radial Pulses (L) Skin: normal color, warm/dry; No diaphoresis Objective Exam Last Set of Vital Signs Vital Signs Date Time Temp Pulse Resp B/P (MAP) Pulse Ox O2 Delivery O2 Flow Rate FiO2 04/15/20 08:08 35.8 80 20 171/74 (106) 96 Room Air Capillary Refill : Less Than 3 Seconds I&O Intake and Output 04/15/20 00:00 Intake Total 1240 ml Output Total 1100 ml Balance 140 ml Intake Oral 0 ml IV Total 1240 ml Output Urine Total 1100 ml General: Alert, Cooperative Neck: Supple Lungs: Clear to Auscultation, Other (pt taking shallow breaths ) Heart: Regular Rate, No Murmurs Abdomen: Normal Bowel Sounds, Soft, No Tenderness Extremities: No Cyanosis, No Edema, Normal Pulses Neuro: Normal Speech, Normal Tone Results/Procedures Lab Laboratory Tests 04/14/20 10:52: Glucometer 251H 04/14/20 15:50: Glucometer 215H 04/14/20 18:25: 04/14/20 20:55: Glucometer 192H 04/15/20 05:20: White Blood Count 2.8L, Red Blood Count 3.56L, Hemoglobin 9.6L, Hematocrit 31L, Mean Corpuscular Volume 86, Mean Corpuscular Hemoglobin 27, Mean Corpuscular Hemoglobin Concent 32, Red Cell Distribution Width 15.5H, Platelet Count 82L, Mean Platelet Volume 13.5H, Immature Granulocyte % (Auto) 0, Neutrophils (%) (Auto) 69, Lymphocytes (%) (Auto) 16, Monocytes (%) (Auto) 13H, Eosinophils (%) (Auto) 1, Basophils (%) (Auto) 1, Neutrophils # (Auto) 1.9, Lymphocytes # (Auto) 0.4L, Monocytes # (Auto) 0.4, Eosinophils # (Auto) 0.0, Basophils # (Auto) 0.0, Immature Granulocyte # (Auto) 0.0, Sodium Level 140, Potassium Level 3.7, Chloride Level 109H, Carbon Dioxide Level 23, Anion Gap 8, Blood Urea Nitrogen 18, Creatinine 0.76, Estimat Glomerular Filtration Rate > 60, BUN/Creatinine Ratio 24, Glucose Level 205H, Calcium Level 8.0L, Corrected Calcium 8.8, Total Bilirubin 0.5, Aspartate Amino Transf (AST/SGOT) 25, Alanine Aminotransferase (ALT/SGPT) 25, Alkaline Phosphatase 82, Total Protein 5.8L, Albumin 3.0L 04/15/20 05:47: Glucometer 206H Microbiology 04/13/20 Influenza Types A,B Antigen (TALA) - Final, Complete 04/13/20 Urine Culture - Preliminary, Resulted Gram Negative Sang 04/13/20 Blood Culture - Preliminary, Resulted No growth Assessment/Plan Assessment/Plan Assessment & Plan See Problem List, Patient seen and examined with Karel Elizabeth, MS3 (1) Altered mental status Status: Acute Assessment & Plan: 04/14: Infection vs medication, Add Zosyn, hold sedating medications, CT head today: no acute changes, If no improvement will get MRI in AM Qualifiers: Qualified Codes: R41.0 - Disorientation, unspecified (2) Urinary tract infection Status: Acute Assessment & Plan: 04/14: Added Zosyn today, Continue Rocephin, Continue IVFs, Gram Neg Sang, identification pending Qualifiers: Qualified Codes: N30.00 - Acute cystitis without hematuria (3) Bacteremia Status: Acute (4) Normocytic anemia Status: Acute Assessment & Plan: 04/14: No signs of acute bleeding will continue to monitor (5) Insulin dependent diabetes mellitus Status: Chronic Assessment & Plan: 04/14: NPO, SSI (6) Hypothyroidism Status: Chronic Assessment & Plan: 04/14: Normal TSH/T4, continue home dose Qualifiers: Qualified Codes: E03.9 - Hypothyroidism, unspecified (7) HTN (hypertension) Status: Chronic Qualifiers: Qualified Codes: I10 - Essential (primary) hypertension (8) HLD (hyperlipidemia) Status: Chronic Qualifiers: Qualified Codes: E78.5 - Hyperlipidemia, unspecified (9) DVT prophylaxis Status: Acute Assessment & Plan: Received Lovenox, holding due to thrombocytopenia Clinical Quality Measures DVT/VTE Risk/Contraindication: Risk Factor Score Per Nursin RFS Level Per Nursing on Admit: 4+=Very High MELISSA EDWARDS MD 04/15/20 4523: Subjective Subjective/Events-last exam Patient awake and alert this AM. Denies any pain. She is wanting to eat, will get bedside swallow. BM this AM. Review of Systems General: No Chills; Fatigue, Malaise Pulmonary: No Dyspnea, No Cough Cardiovascular: No: Chest Pain, Palpitations Gastrointestinal: No: Nausea, Vomiting, Diarrhea, Constipation Neurological: Weakness, Incoordination Objective Exam General: Alert, Oriented X3, Cooperative, No Acute Distress HEENT: Mucous Memb Moist/[place] Lungs: Clear to Auscultation, Normal Air Movement Heart: Regular Rate, No Murmurs Abdomen: Normal Bowel Sounds, Soft, No Tenderness, No Masses Extremities: No Edema, No Tenderness/Swelling Skin: No Rashes, No Breakdown Neuro: Normal Speech, Sensation Intact, Cranial Nerves 3-12 NL, Other (Following commads) Assessment/Plan Assessment/Plan (1) E-coli UTI Status: Acute Assessment & Plan: 04/15: Continue IV antibiotics, will transition to PO at discharge (2) Altered mental status Status: Acute Assessment & Plan: 04/15: Resolved this AM, seems to be at baseline Qualifiers: Qualified Codes: R41.0 - Disorientation, unspecified (3) Insulin dependent diabetes mellitus Status: Chronic Assessment & Plan: 04/15: SSI (4) Bacteremia Status: Acute (5) Hypothyroidism Status: Chronic Assessment & Plan: 04/15: Restart home meds as she is able to take PO Qualifiers: Qualified Codes: E03.9 - Hypothyroidism, unspecified (6) Normocytic anemia Status: Acute (7) HTN (hypertension) Status: Chronic Assessment & Plan: 04/15: Restart home meds Qualifiers: Qualified Codes: I10 - Essential (primary) hypertension (8) HLD (hyperlipidemia) Status: Chronic Qualifiers: Qualified Codes: E78.5 - Hyperlipidemia, unspecified (9) Debility Status: Acute Assessment & Plan: - PT ordered, possible IRF consult (10) DVT prophylaxis Status: Acute Assessment & Plan: - OAC KAREL ELIZABETH MED STUDENT Apr 15, 2020 08:53 MELISSA EDWARDS MD Apr 15, 2020 17:59
--- NOTE | 2020-04-15 11:13 | Physical Therapy Evaluation ---
PT Evaluation-General Medical Diagnosis Admission Date Apr 13, 2020 at 09:10 Medical Diagnosis: fever/UTI Onset Date: Apr 13, 2020 Therapy Diagnosis Therapy Diagnosis: generalized weakness/debility Height/Weight Height (Feet): 5 Height (Inches): 7.00 Weight (Pounds): 206 Precautions Precautions/Isolations: Fall Prevention, Standard Precautions, Pressure Ulcer Referral Physician: Amauri Reason for Referral: Evaluation/Treatment Medical History Pertinent Medical History: DM, Post Polio Syndrome Current History EMS secondary patient found "incoherent"/found in bed covered in feces and vomit Reviewed History: Yes Social History Home: Single Level Current Living Status: Alone Entry Into Home: Level Entry Prior Prior Level of Function SCALE: Activities may be completed with or without assistive devices. 2-Mihyjkgxuj-yxtmlef completes the activity by him/herself with no assistance from a helper. 5-Set-up or Clean-up Assistance-helper sets up or cleans up; patient completes activity. [place] assists only prior to or following the activity. 4-Supervision or Touching Assistance-helper provides verbal cues and/or touching/steadying and/or contact guard assistance as patient completes activity. Assistance may be provided throughout the activity or intermittently. 3-Partial/Moderate Assistance-helper does LESS THAN HALF the effort. [place] lifts, holds or supports trunk or limbs, but provides less than half the effort. 2-Substantial/Maximal Assistance-helper does MORE THAN HALF the effort. [place] lifts or holds trunk or limbs and provides more than half the effort. 9-Wroppemic-zhswtl does ALL the effort. Patient does none of the effort to complete the activity. Or, the assistance of 2 or more helpers is required for the patient to complete the activity. If activity was not attempted, code reason: 7-Patient Refused. 9-Not Applicable-not attempted and the patient did not perform the activity before the current illness, exacerbation or injury. 10-Not Attempted due to Environmental Limitations-(lack of equipment, weather restraints, etc.). 88-Not Attempted due to Medical Conditions or Safety Concerns. Bed Mobility: 6 Transfers (B,C,W/C): 6 Gait: 6 Stairs: 9 Wheelchair Mobility: 9 Indoor Mobility (Ambulation): Independent Stairs: Not [place] Prior Devices Use: Walker PT Evaluation-Current Subjective Patient agrees to PT. Objective Patient Orientation: Person, Time, Situation Attachments: Jang Catheter, IV ROM/Strength ROM Lower Extremities bilateral LE WFL Strength Lower Extremities 3/5 grossly bilateral LE Integumentary/Posture Integumentary refer to nursing notes Bladder Incontinence: Jang Cath Posture trunk flexed posture Neuromuscular (Tone, Coordination, Reflexes) diminished coordination due to weakness/debility Sensory Vision: Functional Hearing: Functional Transfers Roll Left to Right (QC): 2 Lying to Sitting/Side of Bed(Q: 2 Sit to Stand (QC): 2 Chair/Mgz-dk-Ndrcd Xfer(QC): 2 chair alarm in recliner and activated Gait Does the Patient Walk?: No and Walking Goal IS indicated Mode of Locomotion: Walk Anticipated Mode of Locomotion: Walk Distance: 3 steps Gait Assistive Device: FWW Comments/Gait Description shuffle gait sequence with trunk flexed posture Balance Sitting Static: Fair Sitting Dynamic: Fair Standing Static: Fair Standing Dynamic: Fair Assessment/Needs 84 y.o. female, will benefit from skilled PT to address functional strength and mobility to improve current LOF to safely return to home or care facility at maximum LOF. Rehab Potential: Fair PT Mcc Goals Flue Lining Dipper Goals PT Mcc Goals Time Frame: Apr 26, 2020 Roll Left & Right (QC): 5 Sit to Lying (QC): 5 Lying-Sitting on Side/Bed(QC): 5 Sit to Stand (QC): 5 Chair/Gtz-qf-Xmxsx Xfer(QC): 5 Toilet Transfer (QC): 5 Car Transfer (QC): 5 Does the Patient Walk: Yes Walk 10 feet (QC): 5 Walk 50ft with 2 Turns (QC): 5 Walk 150 ft (QC): 5 Walking 10ft on Uneven Surface: 5 1 Step (curb) (QC): 9 4 Steps (QC): 9 12 Steps (QC): 9 Picking up an Object (QC): 5 PT Plan Problem List Problem List: Activity Tolerance, Functional Strength, Safety, Balance, Gait, Transfer, Bed Mobility Treatment/Plan Treatment Plan: Continue Plan of Care Treatment Plan: Bed Mobility, Education, Functional Activity Lisa, Functional Strength, Gait, Safety, Therapeutic Exercise, Transfers Treatment Duration: Apr 26, 2020 Frequency: 6 times per week Estimated Hrs Per Day: .25 hour per day Patient and/or Family Agrees t: Yes Time/GCodes Time In: 1045 Time Out: 1102 Total Billed Treatment Time: 17 Total Billed Treatment 1 visit EVModC 17 min MARIANNE DIAZ PT Apr 15, 2020 11:13
--- NOTE | 2020-04-15 11:44 | NUR ---
CM/SS follow up. The patient is alert and oriented x3 at time of visit. She is in good spirits and willing to discuss discharge planning. Son appeared to visit half way through, this sw updated him and discussed discharge planning. CM/SS asked physician if Inpatient Rehab could evaluate patient. She stated yes, this sw contacted June in Inpatient rehab. They will assess to see if patient will meet criteria. Home: The patient lives at home alone. She states that her son does come to check on her everyday. The patient reports that she does have a lxgf-ag-hqolsz and other home modifications. Equipment: The patient reports that she has a 8-fbazogo-admetq, cane, toilet seat riser, and grab bars around shower and toilet. Home Health/ Caregivers/homemaker : None at this time. Patient reports that she is wanting homemaker services. This sw will provide a resource list. CM/SS did discuss going home with home health if denied from irf. Supports: The patient reports that her son helps with her daily needs. He assist with cooking, cleaning, and shopping. CM/SS will continue to follow.
[2020-04-15 12:24] VITALS: BP 162/71
--- NOTE | 2020-04-15 12:56 | NUR ---
IRF Evaluation Determination: Accepted Explanation: Chart review complete and findings discussed with Dr. Jamison - patient accepted for admission. CM/SS notified. Anticipate admission, 04/16/20. Thank you for this referral.
--- NOTE | 2020-04-15 14:39 | Physician Query Clarification ---
Physician Query-General Query to Physician: The medical record reflects the following clinical scenario: History/Risk factors: UTI, Sepsis, Fevers Clinical Findings: Report of being "incoherent" Confusion, GCS as low as 10, now (04/15) more alert, talking and oriented X 2 Treatment: IV ABX, Monitoring, IVF Question: What condition best reflects the above clinical scenario? Please document response in the Progress notes or Discharge Summary. 1. Metabolic encephalopathy 2. Altered mental status (as currently documented) 3. Other , with explanation of the clinical findings 4. Clinically undetermined, no explanation for the clinical findings Please remember a lack of response to the above will prompt a phone page by CDI/coding staff In responding to this query, please exercise your independent professional judgment. The purpose of this communication is to more accurately reflect the complexity of your patients condition. The fact that a question is asked does not imply that any particular answer is desired or expected. Thank you for timely response to this clarification. Ericka Marc, MSN, RN RN Specialist-Clinical Doc Improvement CD -Health Info Mgmt Operations [address] [facility] t: [phone] | f: [phone] If you are unable to reach me at my extension, I may be working from home. Please contact me at [phone] PHYSICIAN RESPONSE: Based on the clinical findings in the record, please respond to the query above on this document as an addendum. Physician Response: Physician Response 2. Altered mental status (as currently documented) If you have questions please contact: Pulp Mill Team Leader: Ext: Thank you for your time and cooperation. Clinical Dock Or Pier Laborer/Pulp Mill Team Leader This is a permanent part of the medical record ERICKA MARC Apr 15, 2020 14:39 ARMANDO MURRAY DO Apr 15, 2020 21:19
--- NOTE | 2020-04-15 15:04 | Physician Query Clarification ---
"Physician Query-General Query to Physician: The medical record reflects the following clinical scenario: History/Risk factors: UTI, Diabetic with Recent elevated Blood Sugars Clinical Findings: Pos blood cultures, Admission VS HR 114, RR 39, Temp 39.0 Treatment: IV ABX, IVFs, Monitoring Question: What condition best reflects the above clinical scenario? Please document response in the Progress notes or Discharge Summary. (Sepsis documented only once in the H and P, not documented as resolved or continued on progress notes) 1. Sepsis, present on admission, now resolving/resolved with IV ABX and IVFs 2. Bacteremia (as currently documented) 3. Other , with explanation of the clinical findings 4. Clinically undetermined, no explanation for the clinical findings Please remember a lack of response to the above will prompt a phone page by CDI/coding staff In responding to this query, please exercise your independent professional judgment. The purpose of this communication is to more accurately reflect the complexity of your patients condition. The fact that a question is asked does not imply that any particular answer is desired or expected. Thank you for timely response to this clarification. Ericka Marc, MSN, RN RN Specialist-Clinical Doc Improvement CD -Health Info Mgmt Operations [address] [facility] t: [phone] | f: [phone] If you are unable to reach me at my extension, I may be working from home. Please contact me at [phone] PHYSICIAN RESPONSE: Based on the clinical findings in the record, please respond to the query above on this document as an addendum. Physician Response: Physician Response 1 If you have questions please contact: Auth Specialist: Ext: Thank you for your time and cooperation. Clinical Digital Project Coordinator/Auth Specialist This is a permanent part of the medical record ERICKA MARC Apr 15, 2020 15:04 MELISSA EDWARDS MD Apr 15, 2020 20:37 ARMANDO MURRAY DO Apr 15, 2020 21:20"
[2020-04-15 15:25] VITALS: BP 148/80
[2020-04-15] MEDS ORDERED: DIPH25CA79 PO (16:02)
[2020-04-15] MEDS ORDERED: LEVO175T5 PO (16:02)
[2020-04-15] MEDS ORDERED: INSU100V7 SC (16:02)
[2020-04-15] MEDS ORDERED: ACET325C7 PO (16:02)
[2020-04-15] MEDS ORDERED: PREG50CA65 PO (16:02)
[2020-04-15] MEDS ORDERED: VIT1CAPS44 PO (16:02)
[2020-04-15] MEDS ORDERED: FENO145T26 PO (16:02)
[2020-04-15] MEDS ORDERED: ATOR10TA66 PO (16:02)
[2020-04-15] MEDS ORDERED: INSU100I29 SQ (16:02)
--- NOTE | 2020-04-15 16:16 | NUR ---
I SPOKE WITH THE PATIENT, HER SON JI, [facility] AND WENT THROUGH THE EXTERNAL MED HISTORY TO COMPLETE THE MED REC. PATIENT'S SON SAYS THAT PATIENT TAKES APIDRA TID PER SLIDING SCALE, BUT PATIENT IS UNAWARE OF WHERE SHE GOT IT AND I VERIFIED WITH [facility] THAT THEY HAVEN'T FILLED IT FENOFIBRATE HAS BEEN NEWLY PRESCRIBED, I VERIFIED WITH [facility] THAT PATIENT HAD PICKED IT UP. SON IS UNAWARE OF IF SHE IS STILL TAKING THIS MEDICATIONS AND SO IS PATIENT. OTC: BENADRYL PRESERVISION TYLENOL
[2020-04-15] MEDS ORDERED: RIVAROXABAN 10 MG TABLET (XARELTO) PO SCH (18:00)
[2020-04-15 19:15] VITALS: BP 166/77
[2020-04-16] VITALS: BP 194/84
[2020-04-16] MEDS: NITROGLYCERIN 2% OINT 1 GM UNIT DOSE PACKET TOP PRN (00:03)
[2020-04-16] MEDS: NS IV 1000 ML 1,000 ML IV SCH ×2 (00:25→09:07)
[2020-04-16 01:42] VITALS: BP 182/84
[2020-04-16] MEDS: PIPERACILLIN/TAZOBACTAM (BULK) 4.5 GM in NS (IVPB) 100 ML IV SCH ×2 (01:45→09:07)
[2020-04-16 04:36] VITALS: BP 187/77
[2020-04-16 06:19] LABS: BASOPHILS % (AUTO) 1 % (0-10); EOSINOPHILS # (AUTO) 0.1 10^3/uL (0.0-0.3); EOSINOPHILS % (AUTO) 4 % (0-10); HEMATOCRIT 31 % (35-52); HEMOGLOBIN 9.9 g/dL (11.5-16.0); LYMPHOCYTES # (AUTO) 0.7 10^3/uL (1.0-4.0); LYMPHOCYTES % (AUTO) 21 % (12-44); MEAN CORPUSCULAR HEMOGLOBIN 27 pg (25-34); MEAN CORPUSCULAR HGB CONC 32 g/dL (32-36); MEAN CORPUSCULAR VOLUME 85 fL (80-99); MEAN PLATELET VOLUME 11.8 fL (9.0-12.2); MONOCYTES # (AUTO) 0.4 10^3/uL (0.0-1.0); MONOCYTES % (AUTO) 10 % (0-12); NEUTROPHILS # (AUTO) 2.3 10^3/uL (1.8-7.8); NEUTROPHILS % (AUTO) 65 % (42-75); PLATELET COUNT 69 10^3/uL (130-400); WHITE BLOOD COUNT 3.6 10^3/uL (4.3-11.0)
[2020-04-16] MEDS ORDERED: LEVOTHYROXINE 75 MCG (LEVOTHROID) TABLET PO SCH (06:30)
[2020-04-16] MEDS ORDERED: LEVOTHYROXINE 100 MCG (LEVOTHROID) TAB PO SCH (06:30)
[2020-04-16 06:33] LABS: ALBUMIN 3.1 GM/DL (3.2-4.5)
[2020-04-16 06:34] LABS: CHLORIDE 105 MMOL/L (98-107); POTASSIUM 3.3 MMOL/L (3.6-5.0); SODIUM 138 MMOL/L (135-145)
[2020-04-16 06:35] LABS: CALCIUM 8.1 MG/DL (8.5-10.1)
[2020-04-16 06:36] LABS: GLUCOSE 194 MG/DL (70-105); TOTAL PROTEIN 5.8 GM/DL (6.4-8.2)
[2020-04-16 06:37] LABS: CARBON DIOXIDE 23 MMOL/L (21-32)
[2020-04-16 06:38] LABS: BILIRUBIN,TOTAL 0.5 MG/DL (0.1-1.0)
[2020-04-16 06:39] LABS: ALKALINE PHOSPHATASE 95 U/L (40-136)
[2020-04-16] MEDS: inSUlin ASPART (NovoLOG) 1 UNIT/0.01 ML (CHARGE PER UNIT) SC SCH (06:39)
[2020-04-16 06:40] LABS: CREATININE SERUM 0.68 MG/DL (0.60-1.30); GFR ESTIMATED > 60
[2020-04-16 06:41] LABS: BUN/CREATININE RATIO 16
[2020-04-16 06:42] LABS: ALANINE AMINOTRANSFERASE 28 U/L (0-55)
[2020-04-16 08:00] VITALS: BP 155/91
[2020-04-16] MEDS ORDERED: NON-FORMULARY MEDICATION 1 EA EA (Levothyroxine Sodium 175 MCG) PO SCH (09:00)
--- NOTE | 2020-04-16 09:05 | NUR ---
[facility] Attempted to meet with patient; however, she was on the bed pineda and request this designer writer to return at a later time. This designer writer exited room and called patient's son, Crispin (DPOA). Crispin provided information in regard to rehab program and intensity of therapy provided. He is agreeable to admission. Will notify him of room number.
[2020-04-16] MEDS: SENNA W/DOCUSATE (SENOKOT S) TABLET PO SCH (09:07)
[2020-04-16] MEDS ORDERED: TRIM/SULFAMETH 160/800 (SEPTRA DS) TAB PO SCH (18:00)
== END 2020-04-16 09:41 | DRG 872 ==
LOC: EDUNIT# 07:12 → ER 07:14 → 4TH 09:10
PROVIDERS: ADMIT Internal Medicine; ATTEND Family Medicine
DX: A41.51 Sepsis due to Escherichia coli [E. coli] (principal); N39.0 Urinary tract infection, site not specified; R41.0 Disorientation, unspecified; E11.9 Type 2 diabetes mellitus without complications; G14 Postpolio syndrome; I10 Essential (primary) hypertension; E78.00 Pure hypercholesterolemia, unspecified; E78.5 Hyperlipidemia, unspecified; E03.9 Hypothyroidism, unspecified; D64.9 Anemia, unspecified; Z79.4 Long term (current) use of insulin; Z20.828 Contact with and (suspected) exposure to other viral communicable diseases; Z95.0 Presence of cardiac pacemaker
CPT/HCPCS: 36415; 51702; 70450; 71045; 80053; 81000; 82962; 83605; 84439; 84443; 85007; 85025; 85027; 85610; 85730; 86022; 87040; 87077; 87088; 87186; 87635; 87804; 93005

== ENCOUNTER 2020-04-16 09:52 | Inpatient (IN) | payer MEDICARE ==
[~2020-04-16] VITALS: Ht 167.7 cm; Wt 88.9 kg
--- NOTE | 2020-04-16 09:41 | NUR ---
ANTHONY YARED admitted to room 227-1, with an admitting diagnosis of ACUTE EXACERBATION AND POST POLIO, on 04/16/20 from 4TH MED/SURG via W/C, accompanied by PT STAFF .ANTHONY VAIL introduced to surroundings, call light, bed controls, phone, TV, temperature control, lights, meal times, smoking policy, visitor policy, side rail policy, bathrooms and showers. Patient Rights given to patient in the handbook.ANTHONY VAIL verbalizes understanding that [facility] is not responsible for the loss or damage to any personal effects or valuables that are kept in the patients posession during their hospitalization. The following Patient Care Plans were discussed with the PT: Discharge Planning, PAIN CONTROL,IV THERAPY, and PT/OT. ANTHONY VAIL verbalizes understanding of Interdisciplinary Patient Education. Patient and/or family were informed about the Rapid Response Team and its purpose. Patient received Patient Rights Booklet, which includes Privacy Act Statement and Data Collection Information Summary.
[~2020-04-16 09:52] MED LIST changes: +ACET325C7 PO; +ALPRAZolam 0.25 MG (XANAX) TAB PO PRN; +ATOR10TA66 PO; +BISACODYL 10 MG SUPP (DULCOLAX) PR PRN; +DIPH25CA79 PO; +DOCUSATE SODIUM 100 MG (COLACE) CAP PO PRN; +FENO145T26 PO; +FLEET ENEMA ADULT 1 EA BTL PR PRN; +INSU100I29 SQ; +INSU100V7 SC; +LACTULOSE SYRUP 10GM/15ML (ENULOSE) 30ML UDC PO PRN; +LEVO175T5 PO; +LOPERAMIDE 2 MG (IMODIUM) TABLET PO PRN; +PREG50CA65 PO; +VIT1CAPS44 PO; +diphenhydrAMINE 25 MG TAB (BENADRYL) PO PRN; +guaiFENesin/CODEINE (ROBITUSSIN AC) 10ML UDC PO PRN
--- NOTE | 2020-04-16 09:55 | PM&R Post Admission Assessment ---
PM&R Date of Visit: Apr 16, 2020 Time of Visit: 10:00 History of Present Illness CC: Debility from metabolic encephalopathy HPI: This is an 84yoWF clinic pt of [facility] who previously was my pt who presents to inpatient rehab for recovery following a lengthy hospital stay on 4th floor in room 414 for several days from UTI and required Haldol and Ativan for significant delirium and agitation. She presents to inpatient rehab. 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 Her bowels are moving, she is eating and drinking, and we will DC the catheter, heplock the fluid, and change the antibiotics to PO in preparation to completing UTI treatment. At this current time she is striving to get better to DC home with family and have an improved quality of life with increased mobility and fall prevention. Past Gjrnsgx-Gkqiuz-Elcdbj Hx Past Med/Social Hx: Reviewed Nursing Past Med/Soc Hx, Reviewed and Corrections made Patient Social History Marrital Status: single Employed/Student: retired Alcohol Use: Denies Use Smoking Status: Former Smoker Recent Hopitalizations: No Immunizations Up To Date Date of Pneumonia Vaccine: Jun 03, 2009 Date of Influenza Vaccine: May 03, 2013 Past Medical History Surgeries: Pacemaker Cardiac: High Cholesterol, Hypertension Endocrine: Diabetes, Insulin dep PM&R Allergy/Meds/Data Review Allergies Coded Allergies: codeine (Verified Allergy, Unknown, 10/14/05) furosemide (Verified Allergy, Unknown, 10/14/05) iodine (Verified Allergy, Unknown, 10/14/05) Home Medications Scheduled Atorvastatin Calcium (Atorvastatin Calcium), 10 MG PO DAILY, (Reported) Fenofibrate Nanocrystallized (Fenofibrate), 145 MG PO DAILY, (Reported) Insulin Detemir (Levemir Flextouch), 10 UNITS SQ DAILY, (Reported) Insulin Glulisine (Apidra), 0 SC TID, (Reported) Levothyroxine Sodium (Levothyroxine Sodium), 175 MCG PO DAILY, (Reported) Pregabalin (Pregabalin), 50 MG PO TID, (Reported) Vit C/E/Zn/Coppr/Lutein/Zeaxan (Preservision Areds 2 Softgel), 1 EACH PO DAILY, (Reported) Scheduled PRN Acetaminophen (Tylenol), 650 MG PO Q6H PRN for PAIN-MILD (1-4), (Reported) Diphenhydramine HCl (Benadryl), 25 MG PO PRN PRN for ALLERGIES, (Reported) Discontinued Medications Albuterol (Proair Hfa), 2 PUFF IH Q4H PRN for SHORTNESS OF BREATH, (Reported) Discontinued Reason: No Longer Taking Aspirin (Aspirin 81 Mg Chew Tab), 81 MG PO DAILY, (Reported) Discontinued Reason: No Longer Taking Atorvastatin Calcium (Atorvastatin Calcium), 40 MG PO HS, (Reported) Discontinued Reason: No Longer Taking Cholecalciferol (Vitamin D), 1,000 UNIT PO DAILY, (Reported) Discontinued Reason: No Longer Taking Cyanocobalamin (Vitamin B-12), 500 MCG PO DAILY, (Reported) Discontinued Reason: No Longer Taking Estrogens Conjugated (Premarin Tab), 0.3 MG PO DAILY, (Reported) Discontinued Reason: No Longer Taking Fenofibric Acid (Choline) (Fenofibric Acid), 135 MG PO DAILY, (Reported) Discontinued Reason: No Longer Taking Hum Insulin Nph/Reg Insulin Hm (Humulin 70-30 Vial), 20 UNIT SQ BEFORE BREAKFAST, (Reported) Discontinued Reason: No Longer Taking Hum Insulin Nph/Reg Insulin Hm (Humulin 70-30 Vial), 60 UNITS SQ before supper, (Reported) Discontinued Reason: No Longer Taking Levothyroxine Sodium (Levothyroxine 150 Mcg Tab), 175 MCG PO DAILY, (Reported) Discontinued Reason: No Longer Taking Magnesium Oxide (Magnesium), 250 MG PO DAILY, (Reported) Discontinued Reason: No Longer Taking Metoprolol Succinate (Toprol Xl), 25 MG PO DAILY, (Reported) Discontinued Reason: No Longer Taking Multivitamins (Multiple Vitamin), 1 TAB PO DAILY, (Reported) Discontinued Reason: No Longer Taking Vitamin C/Vitamin E (Ocuvite), 2 TAB PO DAILY, (Reported) Discontinued Reason: No Longer Taking Current Medications Current Medications Reviewed Review of Systems Constitutional: see HPI, dizziness, malaise, weakness EENTM: no symptoms reported Respiratory: no symptoms reported Cardiovascular: no symptoms reported Gastrointestinal: no symptoms reported Genitourinary: no symptoms reported Musculoskeletal: joint pain, muscle pain, muscle stiffness, muscle cramps Skin: no symptoms reported Psychiatric/Neurological: Anxiety, Depressed All Other Systems Reviewed Negative Unless Noted: Yes Physical Exam Physical Exam Vital Signs Capillary Refill : Height, Weight, BMI Height: 5'7.00" Weight: 206lbs. oz. 91.710551lm; 31.21 BMI Method: General Appearance: No Apparent Distress, WD/WN, Chronically ill Eyes: Bilateral Eye Normal Inspection, Bilateral Eye PERRL HEENT: PERRL/EOMI, Normal ENT Inspection, Pharynx Normal Neck: Full Range of Motion, Normal Inspection, Non Tender, Supple, Carotid Bruit Respiratory: Chest Non Tender, Lungs Clear, Normal Breath Sounds, No Accessory Muscle Use, No Respiratory Distress Cardiovascular: Regular Rate, Rhythm, No Edema, No Gallop, No JVD, No Murmur, Normal Peripheral Pulses Gastrointestinal: Normal Bowel Sounds, No Organomegaly, No Pulsatile Mass, Non Tender, Soft Back: Normal Inspection, No CVA Tenderness, No Vertebral Tenderness Extremity: Normal Capillary Refill, Normal Inspection, Normal Range of Motion, Non Tender, No Calf Tenderness, No Pedal Edema Neurologic/Psychiatric: Alert, Oriented x3, No Motor/Sensory Deficits, Normal Mood/Affect, 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 Norm as Tested, Abnormal Gait, Motor Weakness (generalized 3/5 all extremities) Skin: Normal Color, Warm/Dry Lymphatic: No Adenopathy PM&R Medical Assessment & Plan REHAB/MEDICAL ASSESSMENT AND PLAN: REHAB IMPAIRMENT GROUP: Post polio weakness wit debility ETIOLOGIC DIAGNOSIS: Post polio weakness wit debility The comorbidities that impact the patients function and/or functional outcome by: confusion, remaining delirium, DM, lives alone REHAB PLAN: The patient is being admitted to our comprehensive inpatient rehabilitation facility and can tolerate the intensity of service consisting of at least: 180 minutes of therapy a day, 5 out of 7 days a week Rehab treatment will consist of: PT OT will focus on regaining strength and fall prevention sessions and help ambulate safely and ST will help clear residual delirium The patient/family has a good understanding of our discharge process and will benefit from an interdisciplinary inpatient rehabilitation program. The patient has potential to make improvement and is in need of at least two of the following multidisciplinary therapies including but not limited to physical, occupational, speech, and prosthetics and orthotics. Additionally the patient will need services from respiratory, nutritional services, wound care, psychology, etc. (Customize this to each patient). Given the patients complex condition and risk of further medical complications, rehabilitation services cannot be safely or effectively provided at a lower level of care such as a [place] [facility] facility. BARRIERS TO DISCHARGE: Lives alone ESTIMATED LOS: 7 days DISPOSITION: Home RELEVANT CHANGES SINCE PREADMISSION SCREENING: I have compared the patients medical and functional status at the time of the preadmission screening and there are: no changes PROGNOSIS: Fair REHABILITATION GOALS: 1. PT OT will focus on regaining strength and fall prevention sessions and help ambulate safely and ST will help clear residual delirium All the above goals were reviewed with the patient and he/she is in agreement. By signing this document, I acknowledge that I have personally performed a full physical examination on this patient within 24 hours of admission to this inpatient rehabilitation facility and have determined the patient to be able to tolerate the above course of treatment at an intensive level for a reasonable period of time. I will be completing a detailed individualized Plan of Care for this patient by day #4 of the patients stay based upon the Preadmission Screen, the Post-Admission Evaluation, and the therapy evaluations. Admission Dx/Comorbidities: (1) Altered mental status Status: Resolved ICD Codes: R41.82 - Altered mental status, unspecified (2) Debility Status: Acute ICD Codes: R53.81 - Other malaise (3) HTN (hypertension) Status: Chronic ICD Codes: I10 - Essential (primary) hypertension (4) HLD (hyperlipidemia) Status: Chronic ICD Codes: E78.5 - Hyperlipidemia, unspecified (5) DVT prophylaxis Status: Acute ICD Codes: Z29.9 - Encounter for prophylactic measures, unspecified (6) Normocytic anemia Status: Acute ICD Codes: D64.9 - Anemia, unspecified (7) Hypothyroidism Status: Chronic ICD Codes: E03.9 - Hypothyroidism, unspecified (8) Bacteremia Status: Acute ICD Codes: R78.81 - Bacteremia (9) Insulin dependent diabetes mellitus Status: Chronic (10) Urinary tract infection Status: Acute ICD Codes: N39.0 - Urinary tract infection, site not specified (11) Post-polio syndrome ICD Codes: G14 - Postpolio syndrome Assessment/Plan Assessment and Plan Assess & Plan/Chief Complaint Assessment: Debility Post polio muscle weakness DM HTN HLP Confusion Jang cath will DC Plan: Monitor BP and BS Home meds DC catheter BM regimen ARMANDO MURRAY DO Apr 16, 2020 09:55
[2020-04-16 10:05] VITALS: BP 154/70
--- NOTE | 2020-04-16 10:12 | Progress Note ---
CARRILLO BEASLEY,MED STUDENT 04/16/20 1012: Progress Note HPI: Bridget Stockton is an 84yo female patient who presented to ED via EMS on 04/13 c/o fever and AMS. She states her son comes to visit her often and he found her in her bed "incoherent" and unable to communicate. In ED sepsis protocol was followed and she was given a dx of UTI. She was started on Rocephin and IV fluids and was admitted as an inpatient. When her AMS did not improve the following day Zosyn was added. A head CT did not show any acute changes. Her mental status subsequently improved back to her baseline and she was able to ans wer questions. Due to generalized weakness she was determined to be a good candidate for inpatient rehabilitation. Prior to presentation she lived at home by herself with her dog. She was able to cook for herself, wash dishes, do her laundry, walk comfortably from her bedroom to the kitchen and to the living room, and transfer herself to and from her bed and chair to walking by herself and uses a walker due to a hx of falls. She has a son that lives in town and comes to visit her often. PMH: Insulin-dependent diabetes mellitus Hypothyroidism Hypertension Hyperlipidemia Post-polio syndrome Herpes zoster PSH: Pacemaker SH: Retired, lives alone at home Former smoker, quit 45 years ago Occasional alcohol use Allergies: Codeine Furosemide Iodine Home Medications: Albuterol 8.5 Gm Hfa.aer.ad, 2 PUFF IH Q4H PRN for SHORTNESS OF BREATH, (Reported) NEEDED FOR SHORTNESS OF BREATH Aspirin 81 Mg Chew, 81 MG PO DAILY, (Reported) Atorvastatin Calcium 40 Mg Tablet, 40 MG PO HS, (Reported) Cholecalciferol 1,000 Unit Tablet, 1,000 UNIT PO DAILY, (Reported) Cyanocobalamin 500 Mcg Tablet, 500 MCG PO DAILY, (Reported) Estrogens Conjugated 0.3 Mg Tab, 0.3 MG PO DAILY, (Reported) Fenofibric Acid (Choline) 135 Mg Capsule.dr, 135 MG PO DAILY, (Reported) Hum Insulin Nph/Reg Insulin Hm 10 Ml Vial, 20 UNIT SQ BEFORE BREAKFAST, (Reported) Hum Insulin Nph/Reg Insulin Hm 10 Ml Vial, 60 UNITS SQ before supper, (Reported) Levothyroxine Sodium 150 Mcg Tablet, 150 MCG PO DAILY, (Reported) Magnesium Oxide 250 Mg Tablet, 250 MG PO DAILY, (Reported) Metoprolol Succinate 25 Mg Tab, 25 MG PO DAILY, (Reported) Multivitamins 1 Tab Tablet, 1 TAB PO DAILY, (Reported) Vitamin C/Vitamin E 1 Tab Tab, 2 TAB PO DAILY, (Reported) ROS: General: no fever, no chills Skin: painful lesions on trunk HEENT: no CARLOS's, no hearing changes, no vision changes Pulmonary: no cough, no SOB Cardiovascular: no chest pain, no palpitations, no edema GI: no n/v/abdominal pain, no constipation Urinary: no pain/burning, no urgency Neurologic: weakness, no dizziness, no numbness/tingling Physical Exam: General: alert, oriented, no acute distress HEENT: normocephalic, atraumatic, moist mucous membranes, EOMI Lungs: CTAB, no wheezes, rales, rhonchi, normal air movement Heart: RRR, S1 S2 normal, no murmurs Abdomen: soft, nontender, normal bowel sounds Extremities: no edema, no tenderness Neuro: normal speech, sensation intact, pleasant, cooperative Assessment/Plan ETIOLOGIC DIAGNOSIS: Debility from UTI/sepsis with AMS The comorbidities that impact the patients function and/or functional outcome by: pacemaker, post-polio syndrome, herpes zoster REHAB PLAN: Rehab treatment will consist of: PT, OT will focus on regaining strength and coordination while in IRF in order to return to live independently in her home BARRIERS TO DISCHARGE: New onset weakness/debility due to UTI/sepsis, lives alone ESTIMATED LOS: 7 days DISPOSITION: Home PROGNOSIS: Good REHABILITATION GOALS: 1. PT, OT with a focus on regaining strength and coordination 2. Regain independence in ADL's to return home ALMITA MURRAY DO 04/18/20 1637: Supervisory-Addendum Brief Verification & Attestation Participated in pt care: history, MDM, physical Personally performed: exam, history, MDM, supervision of care Care discussed with: Medical Student Procedures: n/a Results interpretation: Verified all documentation Verification and Attestation of Medical Student E/M Service A medical student performed and documented this service in my presence. I reviewed and verified all information documented by the medical student and made modifications to such information, when appropriate. I personally performed the physical exam and medical decision making. Almita Murray, Apr 18, 2020,16:37 CARRILLO BEASLEY,MED STUDENT Apr 16, 2020 10:12 ALMITA MURRAY DO Apr 18, 2020 16:37
--- NOTE | 2020-04-16 10:41 | Occupational Therapy Eval ---
OT Evaluation-General/PLF Medical Diagnosis Admission Date Apr 16, 2020 at 09:52 Medical Diagnosis: acute exacerbation & post polio Onset Date: Apr 13, 2020 Therapy Diagnosis Therapy Diagnosis: decreased ADL status, impaired functional mobility Height/Weight Height (Feet): 5 Height (Inches): 7.00 Weight (Pounds): 206 Precautions Precautions/Isolations: Fall Prevention, Standard Precautions, Pressure Ulcer Referral Physician: Yaquelin Referral Reason: Evaluation/Treatment Medical History Pertinent Medical History: DM, Post Polio Syndrome Additional Medical History pacemaker, DM, HLD, HTN Current History ED via EMS 04/13/2020 with c/o fever & AMS. Pt's son found her in bed "incoherent" and unable to communicate. Pt admitted acutely, transferring to ARU 04/16/2020 Social History Home: Single Level Current Living Status: Alone Entry Into Home: Stairs With Railing Steps Into Home: 3 ADL-Prior Level of Function SCALE: Activities may be completed with or without assistive devices. 9-Siwmshqxlh-muvmeed completes the activity by him/herself with no assistance from a helper. 5-Set-up or Clean-up Assistance-helper sets up or cleans up; patient completes activity. [place] assists only prior to or following the activity. 4-Supervision or Touching Assistance-helper provides verbal cues and/or touching/steadying and/or contact guard assistance as patient completes activity. Assistance may be provided throughout the activity or intermittently. 3-Partial/Moderate Assistance-helper does LESS THAN HALF the effort. [place] lifts, holds or supports trunk or limbs, but provides less than half the effort. 2-Substantial/Maximal Assistance-helper does MORE THAN HALF the effort. [place] lifts or holds trunk or limbs and provides more than half the effort. 4-Sceloyrui-rnvunt does ALL the effort. Patient does none of the effort to complete the activity. Or, the assistance of 2 or more helpers is required for the patient to complete the activity. If activity was not attempted, code reason: 7-Patient Refused. 9-Not Applicable-not attempted and the patient did not perform the activity before the current illness, exacerbation or injury. 10-Not Attempted due to Environmental Limitations-(lack of equipment, weather restraints, etc.). 88-Not Attempted due to Medical Conditions or Safety Concerns. ADL PLOF Comments Pt reports living alone, her son lives close by and checks in on her. She indicates she is able to get dressed and shower herself. Based on chart review, son assists with cooking, cleaning, and shopping but pt indicates she is able to complete the cooking and cleaning. Pt has a 4WW which she uses inside her house, she indicates she no longer has brakes on this walker because she tore them off, accidentally. Pt has a FWW which she uses in the community. She has a walk in shower (with a small step), and a toilet riser. She completes showering in standing and she does not have a bench/chair. Self Care: Needed Some Help Functional Cognition: Independent DME/Equipment: Shower, Toilet/Riser DME/Equipment Comments FWW, [address]WW Drive Self: No OT Current Status Subjective Pt agreeable to OT tx, denies pain at this time. Pt oriented x2 to person and place, she states the year is "2029" and she is unable to recall the president. Mental Status/Objective Patient Orientation: Person, Confused, Place Attachments: Jang Catheter, IV Current Glasses/Contacts: No Hearing Aids: No Dentures/Partials: No Hand Dominance: Right Upper Extremity ROM grossly 110 degrees shoulder flexion, pt is able to touch back of head with hands Upper Extremity Coordination WFL thumb opposition Upper Extremity Sensation pt denies tingling/numbness BUEs at this time. Pt states she sometimes has tingling/numbness in her hands in the morning but it goes away. Upper Extremity Strength grossly 3+/5 ADL-Treatment Eating (QC): 5 (assist opening containers) Oral Hygiene (QC): 3 (assistance opening toothpaste, pt held the bottom of toothbrush in water requiring cue to find bristles. Pt then able to complete task.) Shower/Bathe Self (QC): 7 (Pt refused task today, stating "I can do it at home". OT educated pt on rehab process but pt continues to refuse.) Upper Body Dressing (QC): 7 Lower Body Dressing (QC): 1 (Assist to thread BLEs into pants, assist x2 in stance, pt able to manage briefs up.) On/Off Footwear (QC): 7 Toileting Hygiene (QC): 7 Other Treatments OT introduced self, educating pt on purpose and benefit of OT, she verbalized understanding. Pt transferred from supine to sit EOB with max A, pt confused asking why she had to move. OT educated pt about the rehab process, encouraging pt to participate. Pt then transferred EOB to w/c, assist x2, max cues for sequencing of task, and assistance to keep FWW in front of pt during transfer. Pt provided information about home set up and PLOF, then participated in UE screen. Pt indicates she needs to use the restroom, OT asked pt if she needed to have a BM, pt declined stating she needs to urinate. OT informed pt she has a catheter. Pt taken into bathroom, pt brushed her teeth with min A seated in w/c at sink, then she brushed her hair. Pt required min A with hair brushing. Pt then donned brief, requiring multiple cues for task. Pt dropped brief onto ground, requiring assistance threading BLEs, assist x2 in stand at FWW, pt able to manage pants up. OT assisted pt out of restroom, post OT tx, pt seated in w/c, call light in reach and all needs met. Education OT Patient Education: Correct positioning, Energy conservation, Modified ADL techniques, Progress toward Goal/Update tx plan, Rehab process, Safety issues, Transfer techniques Teaching Recipient: Patient Teaching Methods: Discussion Response to Teaching: Verbalize Understanding, Reinforcement Needed OT Short Term Goals Short Term Goals Time Frame: Apr 25, 2020 Toileting hygiene: 4 Lower body dressin Putting on/taking off footwear: 4 OT Longterm Goals Plant Operations Manager Goals Time Frame: May 09, 2020 Eating (QC): 6 Oral Hygiene (QC): 6 Toileting Hygiene (QC): 6 Shower/Bathe Self (QC): 6 Upper Body Dressing (QC): 6 Lower Body Dressing (QC): 6 On/Off Footwear (QC): 6 Additional Goals: 1-Demonstrate ADL Tasks, 2-Verbalize Understanding, 3- ImproveStrength/Lisa 1=Demonstrate adherence to instructed precautions during ADL tasks. 2=Patient will verbalize/demonstrate understanding of assistive devices/modifications for ADL. 3=Patient will improve strength/tolerance for activity to enable patient to perform ADL's. OT Education/Plan Problem List/Assessment Assessment: Decreased Activ Tolerance, Decreased UE Strength, Impaired Bed Mobility, Impaired Funct Balance, Impaired I ADL's, Impaired Self-Care Skills, Restricted Funct UE ROM Discharge Recommendations Plan/Recommendations: Continue POC Comment discharge location and equipment recommendations to be determined. Treatment Plan/Plan of Care Patient would benefit from OT for education, treatment and training to promote independence in ADL's, mobility, safety and/or upper extremity function for ADL's. Plan of Care: ADL Retraining, Caregiver Training, Cognitive Retraining, Functional Mobility, Group Exercise/Act as Ind, UE Funct Exercise/Act, W/C Management Training Treatment Duration: May 09, 2020 Frequency: At least 5 of 7 days/Wk (IRF) Estimated Hrs Per Day: 1.5 hours per day Agreement: Yes Rehab Potential: Fair Time/GCodes Start Time: 09:30 Stop Time: 10:30 Total Time Billed (hr/min): 60 Billed Treatment Time 1, EVM (20'), ADL 3 (40') PETER YAN OT Apr 16, 2020 10:41
[2020-04-16] MEDS: SENNA W/DOCUSATE (SENOKOT S) TABLET PO SCH ×3 (10:43→21:08)
[2020-04-16] MEDS: DOCUSATE SODIUM 100 MG (COLACE) CAP PO SCH ×2 (10:44→21:07)
[2020-04-16] MEDS: polyethylene glycoL POWDER 17 GM (MIRALAX) PACK PO SCH ×2 (10:44→21:08)
--- NOTE | 2020-04-16 11:31 | Discharge Summary ---
Diagnosis/Chief Complaint Date of Admission Apr 16, 2020 at 09:52 Date of Discharge Discharge Summary-Simple/Stand Discharge Physical Examination Allergies: Coded Allergies: codeine (Verified Allergy, Unknown, 10/14/05) furosemide (Verified Allergy, Unknown, 10/14/05) iodine (Verified Allergy, Unknown, 10/14/05) Vitals & I&Os Vital Sign - Last 12Hours Date Time Temp Pulse Resp B/P (MAP) Pulse Ox O2 Delivery O2 Flow Rate FiO2 04/16/20 10:54 Room Air 04/16/20 10:05 36.5 86 18 154/70 96 Hospital Course See final discharge diagnosis. Discharge Instructions to patient/family Please see electronic discharge instructions given to patient. Discharge Medications Reviewed and agree with Discharge Medication list on patient's Discharge Instruction sheet Clinical Quality Measures DVT/VTE Risk/Contraindication: Risk Factor Score Per Nursin RFS Level Per Nursing on Admit: 4+=Very High MELISSA EDWARDS MD Apr 16, 2020 11:31
--- NOTE | 2020-04-16 11:37 | Progress Note ---
CLARAKAREL MED STUDENT 04/16/20 1137: Subjective Subjective/Events-last exam pt was awake and alert. pt oriented to person, place and time. pt stated that she has been feeling well and does not have any current complaints. pt started crying while I was in there saying that she wanted to go home because she thinks that she is being a burden. pt was reassured that we are there to help her. pt reminded that she is going to the rehab unit to work on being independent when back at home. Review of Systems General: No Chills, No Fatigue Pulmonary: No Dyspnea, No Cough Cardiovascular: No: Chest Pain, Palpitations Gastrointestinal: No: Nausea, Vomiting, Abdominal Pain, Diarrhea, Constipation Genitourinary: No Dysuria, No Incontinence Focused Exam Respiratory: Chest Non Tender, Lungs Clear, Normal Breath Sounds, No Accessory Muscle Use, No Respiratory Distress Cardiovascular: Regular Rate, Rhythm, No Edema, No Murmur, Normal Peripheral Pulses Peripheral Pulses: 2+ Carotid (R), 2+ Carotid (L), 2+ Dorsalis Pedis (R), 2+ Left Dors-Pedis (L), 2+ Radial Pulses (R), 2+ Radial Pulses (L) Skin: normal color, warm/dry; No diaphoresis Objective Exam Last Set of Vital Signs Vital Signs Date Time Temp Pulse Resp B/P (MAP) Pulse Ox O2 Delivery O2 Flow Rate FiO2 04/16/20 10:54 Room Air 04/16/20 10:05 36.5 86 18 154/70 96 Capillary Refill : General: Alert, Oriented X3, Cooperative Neck: Supple Lungs: Clear to Auscultation Heart: Regular Rate, No Murmurs Abdomen: Normal Bowel Sounds, Soft Extremities: No Cyanosis, No Edema Neuro: Normal Speech, Normal Tone Psych/Mental Status: Mental Status NL, Mood NL Results/Procedures Lab Laboratory Tests 04/16/20 10:51: Glucometer 334H Assessment/Plan Assessment/Plan (1) Altered mental status Status: Resolved (2) Urinary tract infection Status: Acute Assessment & Plan: continue piperacillin/tazobactam (3) Fever Status: Resolved (4) Insulin dependent diabetes mellitus Status: Chronic Assessment & Plan: continue insulin detemir and inslun glulisine (5) Bacteremia Status: Acute Assessment & Plan: continue piperacillin/tazobactam (6) Hypothyroidism Status: Chronic Assessment & Plan: continue home dosage of levothyroxine (7) Normocytic anemia Status: Acute Assessment & Plan: continue to monitor for changes associated with acute blood loss (8) HTN (hypertension) Status: Chronic (9) HLD (hyperlipidemia) Status: Chronic Assessment & Plan: continue home dosage of fenofibrate and atorvastatin (10) DVT prophylaxis Status: Acute Assessment & Plan: lovenox injections (11) E-coli UTI Status: Acute Assessment & Plan: continue piperacillin/tazobactam (12) Debility Status: Acute Clinical Quality Measures DVT/VTE Risk/Contraindication: Risk Factor Score Per Nursin RFS Level Per Nursing on Admit: 4+=Very High MAGUE BAUGH MD 04/16/20 2323: Assessment/Plan Assessment/Plan Assessment & Plan See Discharge Summary Supervisory-Addendum Brief Supervisory Addendum Verification and Attestation of Medical Student E/M Service A medical student performed and documented this service in my presence. I reviewed and verified all information documented by the medical student and made modifications to such information, when appropriate. I personally performed the physical exam and medical decision making. Mague Baugh, Apr 16, 2020,23:23 KAREL ELIZABETH MED STUDENT Apr 16, 2020 11:37 MAGUE BAUGH MD Apr 16, 2020 23:23
--- NOTE | 2020-04-16 11:38 | Physical Therapy Evaluation ---
PT Evaluation-General Medical Diagnosis Admission Date Apr 16, 2020 at 09:52 Medical Diagnosis: acute exacerbation & post polio Onset Date: Apr 13, 2020 Therapy Diagnosis Therapy Diagnosis: weakness; abn gait Height/Weight Height (Feet): 5 Height (Inches): 7.00 Weight (Pounds): 206 Precautions Precautions/Isolations: Fall Prevention, Standard Precautions Bed/chair alarm Referral Physician: Yaquelin Reason for Referral: Evaluation/Treatment Medical History Pertinent Medical History: DM, HTN, Post Polio Syndrome Additional Medical History pacemaker. Current History Pt transferred to ARU post acute hospital stay with dx of fever, UTI and AMS. Admitted to ARU for continued medical management and skilled therapy services. Reviewed History: Yes Social History Home: Single Level Current Living Status: Alone (son assists with household duties and cooking) Entry Into Home: Stairs With Railing PT Steps Into Home: 3 Prior Prior Level of Function SCALE: Activities may be completed with or without assistive devices. 6-Zqtfqahele-hsazaax completes the activity by him/herself with no assistance from a helper. 5-Set-up or Clean-up Assistance-helper sets up or cleans up; patient completes activity. [place] assists only prior to or following the activity. 4-Supervision or Touching Assistance-helper provides verbal cues and/or touching/steadying and/or contact guard assistance as patient completes activity. Assistance may be provided throughout the activity or intermittently. 3-Partial/Moderate Assistance-helper does LESS THAN HALF the effort. [place] lifts, holds or supports trunk or limbs, but provides less than half the effort. 2-Substantial/Maximal Assistance-helper does MORE THAN HALF the effort. [place] lifts or holds trunk or limbs and provides more than half the effort. 4-Jwjtrplcp-nsocgo does ALL the effort. Patient does none of the effort to complete the activity. Or, the assistance of 2 or more helpers is required for the patient to complete the activity. If activity was not attempted, code reason: 7-Patient Refused. 9-Not Applicable-not attempted and the patient did not perform the activity before the current illness, exacerbation or injury. 10-Not Attempted due to Environmental Limitations-(lack of equipment, weather restraints, etc.). 88-Not Attempted due to Medical Conditions or Safety Concerns. Bed Mobility: 6 Transfers (B,C,W/C): 6 Gait: 6 Stairs: 4 (pt reports she needed some assist on her steps. ) Indoor Mobility (Ambulation): Independent Stairs: Needed Some Help Prior Devices Use: Walker Prior Device Use: pt reports she uses a rollator in her home and FWW out of home PT Evaluation-Current Subjective Agrees to PT. Reports she lives alone. her son visits intermittently and assists with household tasks and cooking. Pt reports she was mod indep with mobility in her home prior to admit. Reports she has a rollator in her home but it does not have brakes. Reports she uses a FWW out of her home. Notes she needs assist to go up/down her steps. Pain Numeric Pain Scale: 0-No Pain Location: No Pain Reported Objective Patient Orientation: Person, Confused (extra time to process and cues for initiation and safety.), Place, Time, Situation Attachments: Jang Catheter, IV ROM/Strength ROM Lower Extremities WNL Strength Lower Extremities B LE strength is grossly 4/5 throughout Integumentary/Posture Integumentary Refer to nursing notes for full assessment. Bowel Incontinence: No Bladder Incontinence: Jang Cath Posture Rounded shoulders and forward head but functional and typical for noted age. Neuromuscular (Tone, Coordination, Reflexes) intact and functional Sensory Vision: Wears Glasses (macular degeneration) Hearing: Functional Hand Dominance: Right Sensation Right Lower Extremit: Intact Sensation Left Lower Extremity: Intact Transfers Roll Left to Right (QC): 3 Sit to Lying (QC): 2 (assist with legs and trunk) Lying to Sitting/Side of Bed(Q: 2 (assist to lift trunk) Sit to Stand (QC): 2 (mod assist to come to a stand) Chair/Fxl-jl-Dmqua Xfer(QC): 3 Toilet Transfer (QC): 2 Car Transfer (QC): 88 Pt requires heavy cue to initiate and sequence task; in addition, she requires c ue to stay on task to complete. she takes extra time and seems to have some difficulty processing at times. Slightly retropulsive with initial standing and requires assist and cues to weight shift forward. Gait Does the Patient Walk?: Yes Mode of Locomotion: Walk Anticipated Mode of Locomotion: Walk Walk 10 feet (QC): 3 Walk 50 ft with 2 Turns(QC): 3 Walk 150 ft (QC): 88 Walking 10ft/uneven surface-QC: 3 Distance: 50 ft x 2 Gait Assistive Device: FWW Comments/Gait Description Slow gait with head down, decreased step length and foot clearance. Slightly unsteady and needs min assist for balance at times. Wheelchair Training Does the Pt Use a Wheelchair?: No Wheel 50 ft with 2 turns (QC): 9 Wheel 150 ft (QC): 9 Stairs 1 Step (curb) (QC): 7 (approached step and pt declined to attempt noting she did not feel she could perform it. ) 4 Steps (QC): 7 12 Steps (QC): 7 Balance Sitting Static: Normal Sitting Dynamic: Normal Standing Static: Fair Standing Dynamic: Fair Picking up an Object (QC): 88 (unsteady and fall risk) Treatment Treatment consisted of multiple sit to stand transfers from EOB, wc and chair with heavy cues for sequencing, hand placement and initiation. Pt takes extra time, heavy cues and mod assist to come to a stand. Also worked on functional bed mobility and gait. Chair alarm activated post treatment. Assessment/Needs Post acute hospital stay with noted decreased functional strength and balance as well as impaired bed mobility, transfers and gait. She is unable to safely return to her home at this time or mobilize without assist. She will benefit from skilled therapy services to address her deficits to return to a mod indep level of in home mobility. She does seem to have slight confusion with impaired safety/task initiation. She requires cues to stay on task and to complete. She does have potential to make functional gains, as she was mod indep prior to admit. Rehab Potential: Good PT Short Term Goals Short Term Goals Time Frame: Apr 23, 2020 Sit to lyin Lying to sitting on side of be: 4 Walk 150 feet: 4 1 step (curb): 3 PT Prison Goals Front Desk Host Goals PT Prison Goals Time Frame: May 07, 2020 Roll Left & Right (QC): 6 Sit to Lying (QC): 6 Lying-Sitting on Side/Bed(QC): 6 Sit to Stand (QC): 6 Chair/Qdt-te-Cvnfo Xfer(QC): 6 Toilet Transfer (QC): 6 Car Transfer (QC): 4 Does the Patient Walk: Yes Walk 10 feet (QC): 6 Walk 50ft with 2 Turns (QC): 6 Walk 150 ft (QC): 6 Walking 10ft on Uneven Surface: 5 1 Step (curb) (QC): 4 4 Steps (QC): 4 12 Steps (QC): 10 Picking up an Object (QC): 10 Does the Pt use WC or Scooter?: No Wheel 50 feet with 2 turns (QC: 9 Wheel 150 feet: 9 PT Plan Problem List Problem List: Activity Tolerance, Functional Strength, Safety, Balance, Gait, Transfer, Bed Mobility Treatment/Plan Treatment Plan: Continue Plan of Care Treatment Plan: Bed Mobility, Education, Functional Activity Lisa, Functional Strength, Group Therapy, Gait, Safety, Therapeutic Exercise, Transfers Treatment Duration: May 07, 2020 Frequency: At least 5 of 7 days/Wk (IRF) Estimated Hrs Per Day: 1.5 hours per day Patient and/or Family Agrees t: Yes Safety Risks/Education Patient Education: Transfer Techniques, Safety Issues Teaching Recipient: Patient Teaching Methods: Demonstration, Discussion Response to Teaching: Reinforcement Needed Discharge Recommendations Therapy Discharge Recommendati: Post Acute PT Time/GCodes Time In: 1030 Time Out: 1130 Total Billed Treatment Time: 60 Total Billed Treatment visit EVM 15 GT 15 FA 30 JERAD AN PT Apr 16, 2020 11:38
[2020-04-16] MEDS ORDERED: ACETAMINOPHEN 500 MG TAB (TYLENOL) PO PRN (11:45)
[2020-04-16] MEDS ORDERED: CALCIUM CARBONATE 500 MG (TUMS) TAB.CHEW PO PRN (11:45)
[2020-04-16] MEDS ORDERED: ACETAMINOPHEN 650 MG SUPP (TYLENOL) PR PRN (11:45)
[2020-04-16] MEDS ORDERED: ONDANSETRON 4 MG/2 ML (SDV) Z0FRAN IVP PRN (11:45)
[2020-04-16] MEDS ORDERED: MELATONIN 3 MG TABLET PO PRN (11:45)
[2020-04-16] MEDS ORDERED: DOCUSATE SODIUM 100 MG (COLACE) CAP PO PRN (11:45)
[2020-04-16] MEDS ORDERED: LOPERAMIDE 2 MG (IMODIUM) TABLET PO PRN (11:45)
[2020-04-16] MEDS ORDERED: inSUlin ASPART (NovoLOG) 1 UNIT/0.01 ML (CHARGE PER UNIT) ONE (12:04)
[2020-04-16] MEDS: inSUlin ASPART (NovoLOG) 1 UNIT/0.01 ML (CHARGE PER UNIT) SC SCH ×3 (12:12→21:04)
--- NOTE | 2020-04-16 13:36 | Occupational Ther Daily Note ---
OT Current Status-Daily Note Subjective Pt seen in recliner chair. Pt oriented to person, place. Pt reoriented to situation and purpose of rehab. Pt continues to state, "I need to go back upstairs..." Pt educated she will be here multiple days. Pt states must be home before birthday (Apr [birth year]). Pt states she will be able to do everything at home. Through tx, pt is encouraged to complete as much as possible and also educated on the amount of assist OT is providing . Mental Status/Objective Patient Orientation: Person, Confused, Place ADL-Treatment Therapy Code Descriptions/Definitions Functional [place] Measure: 0=Not Assessed/NA 4=Minimal Assistance 1=Total Assistance 5=Supervision or Setup 2=Maximal Assistance 6=Modified [place] 3=Moderate Assistance 7=Complete IndependenceSCALE: Activities may be completed with or without assistive devices. 1-Wurjzrhddv-ndijmga completes the activity by him/herself with no assistance from a helper. 5-Set-up or Clean-up Assistance-helper sets up or cleans up; patient completes activity. [place] assists only prior to or following the activity. 4-Supervision or Touching Assistance-helper provides verbal cues and/or touching/steadying and/or contact guard assistance as patient completes activity. Assistance may be provided throughout the activity or intermittently. 3-Partial/Moderate Assistance-helper does LESS THAN HALF the effort. [place] lifts, holds or supports trunk or limbs, but provides less than half the effort. 2-Substantial/Maximal Assistance-helper does MORE THAN HALF the effort. [place] lifts or holds trunk or limbs and provides more than half the effort. 2-Rtojqbkec-vjcuvp does ALL the effort. Patient does none of the effort to complete the activity. Or, the assistance of 2 or more helpers is required for the patient to complete the activity. If activity was not attempted, code reason: 7-Patient Refused. 9-Not Applicable-not attempted and the patient did not perform the activity before the current illness, exacerbation or injury. 10-Not Attempted due to Environmental Limitations-(lack of equipment, weather restraints, etc.). 88-Not Attempted due to Medical Conditions or Safety Concerns. Eating (QC): 6 (states ate lunch IND.) Upper Body Dressing (QC): 3 (s/u and min A rolling shirt down on back) Lower Body Dressing (QC): 3 (Pt threads LLE with IND, min A RLE, stands with mod A and assist for pulling up over hips.) Other Treatment Pt seen in recliner. Pt pleasant. Agrees to therapy. Pt completes shirt/ pant donning in recliner, sit to stand with mod A. Requires assist pulling over hips. Pt sits. Pt educated on need of OT/ PT for increased strength and balance for fx activities. Pt states, "I can do that at home." Pt educated on assist required to don pants, pt denies needing therapy. Pt desires to go to bed, stating, "I can't do any more exercises," sit to stand with min A (increased time). Pt walks with CGA to bed, requires cues for body positions for successful transfer. Pt sits EOB, sit to supine and reaches mid-bed with increased time and CGA intermittently. Pt reoriented to purpose of therapy and purpose of rehab floor. Education OT Patient Education: Correct positioning, Purpose of tx/functional activities, Safety issues, Transfer techniques Teaching Recipient: Patient Teaching Methods: Demonstration, Discussion Response to Teaching: Verbalize Understanding, Return Demonstration, Reinforcement Needed OT Short Term Goals Short Term Goals Time Frame: Apr 25, 2020 Toileting hygiene: 4 Lower body dressin Putting on/taking off footwear: 4 OT [employer] Kettle Tender Goals [facility] Goals Time Frame: May 09, 2020 Eating (QC): 6 Oral Hygiene (QC): 6 Toileting Hygiene (QC): 6 Shower/Bathe Self (QC): 6 Upper Body Dressing (QC): 6 Lower Body Dressing (QC): 6 On/Off Footwear (QC): 6 Additional Goals: 1-Demonstrate ADL Tasks, 2-Verbalize Understanding, 3- ImproveStrength/Lisa 1=Demonstrate adherence to instructed precautions during ADL tasks. 2=Patient will verbalize/demonstrate understanding of assistive device s/modifications for ADL. 3=Patient will improve strength/tolerance for activity to enable patient to perform ADL's. OT Education/Plan Problem List/Assessment Assessment: Decreased Activ Tolerance, Dependent Transfers, Impaired Bed Mobility, Impaired Funct Balance, Impaired I ADL's, Impaired Self-Care Skills Discharge Recommendations Plan/Recommendations: Continue POC Therapy Discharge Recommendati: Intermittent Supervision, Home & Family Treatment Plan/Plan of Care Treatment,Training & Education: Yes Patient would benefit from OT for education, treatment and training to promote independence in ADL's, mobility, safety and/or upper extremity function for ADL's. Plan of Care: ADL Retraining, Caregiver Training, Cognitive Retraining, Functional Mobility, Group Exercise/Act as Ind, UE Funct Exercise/Act, W/C Management Training Treatment Duration: May 09, 2020 Frequency: At least 5 of 7 days/Wk (IRF) Estimated Hrs Per Day: 1.5 hours per day Agreement: Yes Rehab Potential: Fair Time/GCodes Start Time: 13:00 Stop Time: 13:30 Total Time Billed (hr/min): 30 Billed Treatment Time 1, ADL 2 (30) KHLOE ALEX OTR Apr 16, 2020 13:36
--- NOTE | 2020-04-16 14:35 | Physical Therapy Daily Note ---
PT Daily Note-Current Subjective Pt laying Supine in bed upon arrival. When asked to see [facility]IO SPECIALIST for tx, pt declines EX or short ambulation. Pain Comment: Pt reports pain from Shingles (pt had in Nov.). Not rated. Mental Status Patient Orientation: Person, Confused, Place Transfers SCALE: Activities may be completed with or without assistive devices. 4-Qcwjjbpqrz-elsrxfs completes the activity by him/herself with no assistance from a helper. 5-Set-up or Clean-up Assistance-helper sets up or cleans up; patient completes activity. [place] assists only prior to or following the activity. 4-Supervision or Touching Assistance-helper provides verbal cues and/or touching/steadying and/or contact guard assistance as patient completes activity . Assistance may be provided throughout the activity or intermittently. 3-Partial/Moderate Assistance-helper does LESS THAN HALF the effort. [place] lifts, holds or supports trunk or limbs, but provides less than half the effort. 2-Substantial/Maximal Assistance-helper does MORE THAN HALF the effort. [place] lifts or holds trunk or limbs and provides more than half the effort. 0-Vdnujgxmm-vftjgg does ALL the effort. Patient does none of the effort to complete the activity. Or, the assistance of 2 or more helpers is required for the patient to complete the activity. If activity was not attempted, code reason: 7-Patient Refused. 9-Not Applicable-not attempted and the patient did not perform the activity before the current illness, exacerbation or injury. 10-Not Attempted due to Environmental Limitations-(lack of equipment, weather restraints, etc.). 88-Not Attempted due to Medical Conditions or Safety Concerns. Exercises Supine Ex: Ankle pumps, Quad Set Supine Reps: 15 Treatments Pt declines tx but after a conversation completes a couple types of Supine Ex before refusing any additional tx. Pt asks to be left alone to sleep. Pt has all needs met. call light in hand. Assessment Current Status: Poor Progress Pt is confused and unaware of why she is receiving tx, unable to retain information given. PT Short Term Goals Short Term Goals Time Frame: Apr 23, 2020 Sit to lyin Lying to sitting on side of be: 4 Walk 150 feet: 4 1 step (curb): 3 PT Long-Term Goals Long-Term Goals PT Mechanical Development Engineer Goals Time Frame: May 07, 2020 Roll Left & Right (QC): 6 Sit to Lying (QC): 6 Lying-Sitting on Side/Bed(QC): 6 Sit to Stand (QC): 6 Chair/Gma-os-Ekjxs Xfer(QC): 6 Toilet Transfer (QC): 6 Car Transfer (QC): 4 Does the Patient Walk: Yes Walk 10 feet (QC): 6 Walk 50ft with 2 Turns (QC): 6 Walk 150 ft (QC): 6 Walking 10ft on Uneven Surface: 5 1 Step (curb) (QC): 4 4 Steps (QC): 4 12 Steps (QC): 10 Picking up an Object (QC): 10 Does the Pt use WC or Scooter?: No Wheel 50 feet with 2 turns (QC: 9 Wheel 150 feet: 9 PT Plan Problem List Problem List: Activity Tolerance, Functional Strength, Safety, Balance, Gait, Transfer Treatment/Plan Treatment Plan: Continue Plan of Care Treatment Plan: Bed Mobility, Education, Functional Activity Lisa, Functional Strength, Group Therapy, Gait, Safety, Therapeutic Exercise, Transfers Treatment Duration: May 07, 2020 Frequency: At least 5 of 7 days/Wk (IRF) Estimated Hrs Per Day: 1.5 hours per day Patient and/or Family Agrees t: Yes Safety Risks/Education Patient Education: Correct Positioning, Safety Issues Teaching Recipient: Patient Teaching Methods: Discussion Response to Teaching: Reinforcement Needed Time/GCodes Time In: 1400 Time Out: 1415 Total Billed Treatment Time: 15 Total Billed Treatment 1, FA (15m) SAMUEL OLIVER PORTFOLIO SPECIALIST Apr 16, 2020 14:35
[2020-04-16] MEDS: TRIM/SULFAMETH 160/800 (SEPTRA DS) TAB PO SCH (15:36)
[2020-04-16] MEDS ORDERED: inSUlin ASPART (NovoLOG) 1 UNIT/0.01 ML (CHARGE PER UNIT) SC SCH (16:00)
[2020-04-16 17:10] VITALS: BP 172/74
[2020-04-16] MEDS: RIVAROXABAN 10 MG TABLET (XARELTO) PO SCH (18:22)
[2020-04-16] MEDS: NITROGLYCERIN 2% OINT 1 GM UNIT DOSE PACKET TOP PRN (18:49)
--- NOTE | 2020-04-16 19:08 | NUR ---
bedside report received from LAN HUTCHINSON, assume care of pt
[2020-04-16 21:00] VITALS: BP 165/74
--- NOTE | 2020-04-16 21:04 | NUR ---
pt refused Colace, Senokot & miralax, day shift nurse reports pt had diarrhea today, fsbs 215, NovoLog 3 units with vanilla puding as hs snack, pt was incontinent of bladder, to bathroom & changed, bed alarm on
[2020-04-16] MEDS: MELATONIN 3 MG TABLET PO PRN (21:05)
[2020-04-17 05:20] VITALS: BP 168/80
[2020-04-17] MEDS: LEVOTHYROXINE 75 MCG (LEVOTHROID) TABLET PO SCH (06:12)
[2020-04-17] MEDS: LEVOTHYROXINE 100 MCG (LEVOTHROID) TAB PO SCH (06:12)
[2020-04-17] MEDS: inSUlin ASPART (NovoLOG) 1 UNIT/0.01 ML (CHARGE PER UNIT) SC SCH ×4 (06:14→20:42)
[2020-04-17 06:59] LABS: BASOPHILS % (AUTO) 1 % (0-10); EOSINOPHILS # (AUTO) 0.2 10^3/uL (0.0-0.3); EOSINOPHILS % (AUTO) 4 % (0-10); HEMATOCRIT 32 % (35-52); HEMOGLOBIN 10.1 g/dL (11.5-16.0); LYMPHOCYTES # (AUTO) 0.8 10^3/uL (1.0-4.0); LYMPHOCYTES % (AUTO) 21 % (12-44); MEAN CORPUSCULAR HEMOGLOBIN 27 pg (25-34); MEAN CORPUSCULAR HGB CONC 32 g/dL (32-36); MEAN CORPUSCULAR VOLUME 84 fL (80-99); MEAN PLATELET VOLUME 11.1 fL (9.0-12.2); MONOCYTES # (AUTO) 0.4 10^3/uL (0.0-1.0); MONOCYTES % (AUTO) 9 % (0-12); NEUTROPHILS # (AUTO) 2.7 10^3/uL (1.8-7.8); NEUTROPHILS % (AUTO) 66 % (42-75); PLATELET COUNT 76 10^3/uL (130-400); WHITE BLOOD COUNT 4.1 10^3/uL (4.3-11.0)
[2020-04-17 07:16] LABS: ALANINE AMINOTRANSFERASE 32 U/L (0-55); ALBUMIN 3.1 GM/DL (3.2-4.5); ALKALINE PHOSPHATASE 103 U/L (40-136); BILIRUBIN,TOTAL 0.5 MG/DL (0.1-1.0); BUN/CREATININE RATIO 13; CALCIUM 8.3 MG/DL (8.5-10.1); CARBON DIOXIDE 24 MMOL/L (21-32); CHLORIDE 103 MMOL/L (98-107); CREATININE SERUM 0.69 MG/DL (0.60-1.30); GFR ESTIMATED > 60; GLUCOSE 283 MG/DL (70-105); POTASSIUM 3.2 MMOL/L (3.6-5.0); SODIUM 138 MMOL/L (135-145)
[2020-04-17] MEDS: DOCUSATE SODIUM 100 MG (COLACE) CAP PO SCH ×2 (08:15→23:42)
[2020-04-17] MEDS: SENNA W/DOCUSATE (SENOKOT S) TABLET PO SCH ×4 (08:16→23:43)
[2020-04-17] MEDS: polyethylene glycoL POWDER 17 GM (MIRALAX) PACK PO SCH ×2 (08:16→23:42)
[2020-04-17] MEDS: TRIM/SULFAMETH 160/800 (SEPTRA DS) TAB PO SCH ×2 (08:17→17:20)
--- NOTE | 2020-04-17 09:11 | Physical Therapy Daily Note ---
PT Daily Note-Current Subjective Pt presents sitting upright in recliner. Pt agrees to PT. Pt reports sharp pain on back due to shingles. Patient needs to use the restroom, she ambulates to the restroom, needs assist with brief down and up but was able to wipe herself. Appearance At conclusion of treatment pt is assisted into bed where she is left with access to tray, call button, and all needs being met. Mental Status Patient Orientation: Person, Place, Time, Eyes Open Transfers SCALE: Activities may be completed with or without assistive devices. 5-Kfzrooaiih-tgjmgpg completes the activity by him/herself with no assistance from a helper. 5-Set-up or Clean-up Assistance-helper sets up or cleans up; patient completes activity. [place] assists only prior to or following the activity. 4-Supervision or Touching Assistance-helper provides verbal cues and/or touching/steadying and/or contact guard assistance as patient completes activity. Assistance may be provided throughout the activity or intermittently. 3-Partial/Moderate Assistance-helper does LESS THAN HALF the effort. [place] lifts, holds or supports trunk or limbs, but provides less than half the effort. 2-Substantial/Maximal Assistance-helper does MORE THAN HALF the effort. [place] lifts or holds trunk or limbs and provides more than half the effort. 6-Aaefjljwe-nlugoj does ALL the effort. Patient does none of the effort to c omplete the activity. Or, the assistance of 2 or more helpers is required for the patient to complete the activity. If activity was not attempted, code reason: 7-Patient Refused. 9-Not Applicable-not attempted and the patient did not perform the activity before the current illness, exacerbation or injury. 10-Not Attempted due to Environmental Limitations-(lack of equipment, weather restraints, etc.). 88-Not Attempted due to Medical Conditions or Safety Concerns. Sit to Lying (QC): 3 Sit to Stand (QC): 3 Chair/Hgz-kc-Mpzwm Xfer(QC): 3 Pt require mod assist with sit-stand activities. Pt requires mod assist to swing legs into bed and repositioning self once in bed. Gait Training Does the Patient Walk?: Yes Distance: 75', 25' Walk 10 feet (QC): 4 Walk 50 ft with 2 Turns(QC): 4 Gait Assistive Device: FWW Pt ambulates very slowly; she requires rest breaks due to shortness of breath. Wheelchair Training Does the Pt Use a Wheelchair?: Yes Wheel 50 ft with 2 turns (QC): 3 Type of Wheelchair: Manual 100'. Pt instructed to propel self with LEs and UEs; pt makes minimum forward progress therefore therapist pushed from behind to supplement movement. Exercises Seated Therapy Exercises: Ankle pumps, Long arc quads, Hip flexion, Hip abd/add Seated Reps: 20 Treatments Gait Training and LE strengthening Assessment Current Status: Fair Progress Pt is improving gait endurance. Pt is fearful of falling and forgetful with instructions. PT Short Term Goals Short Term Goals Time Frame: Apr 23, 2020 Sit to lyin Lying to sitting on side of be: 4 Walk 150 feet: 4 1 step (curb): 3 PT Custodial Goals Custodial Goals PT Cna Per Diem Goals Time Frame: May 07, 2020 Roll Left & Right (QC): 6 Sit to Lying (QC): 6 Lying-Sitting on Side/Bed(QC): 6 Sit to Stand (QC): 6 Chair/Vim-en-Vwnqp Xfer(QC): 6 Toilet Transfer (QC): 6 Car Transfer (QC): 4 Does the Patient Walk: Yes Walk 10 feet (QC): 6 Walk 50ft with 2 Turns (QC): 6 Walk 150 ft (QC): 6 Walking 10ft on Uneven Surface: 5 1 Step (curb) (QC): 4 4 Steps (QC): 4 12 Steps (QC): 10 Picking up an Object (QC): 10 Does the Pt use WC or Scooter?: No Wheel 50 feet with 2 turns (QC: 9 Wheel 150 feet: 9 PT Plan Problem List Problem List: Activity Tolerance, Functional Strength, Safety, Balance, Gait, Transfer, Bed Mobility, ROM Treatment/Plan Treatment Plan: Continue Plan of Care Treatment Plan: Bed Mobility, Education, Functional Activity Lisa, Functional Strength, Group Therapy, Gait, Safety, Therapeutic Exercise, Transfers Treatment Duration: May 07, 2020 Frequency: At least 5 of 7 days/Wk (IRF) Estimated Hrs Per Day: 1.5 hours per day Patient and/or Family Agrees t: Yes Safety Risks/Education Patient Education: Gait Training, Transfer Techniques, Correct Positioning, W/C Management, Safety Issues Teaching Recipient: Patient Teaching Methods: Demonstration, Discussion Response to Teaching: Reinforcement Needed Time/GCodes Time In: 0815 Time Out: 899 Total Billed Treatment Time: 45 Total Billed Treatment 1 visit FA 35' EX 10' ITALO ALLEN PT Apr 17, 2020 09:11
[2020-04-17] MEDS ORDERED: KCL 10 MEQ TAB (MICRO K) PO NR (10:15)
--- NOTE | 2020-04-17 10:16 | PM&R Progress Note ---
Subjective HPI/CC On Admission Date Seen by Provider: Apr 17, 2020 Time Seen by Provider: 10:15 Subjective/Events-last exam Pt a little bit confused so she was moved closer to the desk at 2:33 Had a little bit of diarrhea so holding laxatives Wants to start taking her Shingles medication BP is doing well Hgb is stable at 10.5 We will check her stools for hemoccult because of tarry stool noted by nurses to day CHecked meds and labs Conferred with RN Reviewed therapy notes Review of Systems General: Fatigue, Malaise Objective Exam Vital Signs Vital Signs Date Time Temp Pulse Resp B/P (MAP) Pulse Ox O2 Delivery O2 Flow Rate FiO2 04/17/20 20:45 Room Air 04/17/20 18:16 36.7 82 18 144/67 (92) 94 Capillary Refill : Less Than 3 Seconds General Appearance: No Apparent Distress, WD/WN, Chronically ill HEENT: PERRL/EOMI, Normal ENT Inspection, Pharynx Normal Neck: Full Range of Motion, Normal Inspection, Non Tender, Supple, Carotid Bruit Respiratory: Chest Non Tender, Lungs Clear, Normal Breath Sounds, No Accessory Muscle Use, No Respiratory Distress Cardiovascular: Regular Rate, Rhythm, No Edema, No Gallop, No JVD, No Murmur, Normal Peripheral Pulses Gastrointestinal: Normal Bowel Sounds, No Organomegaly, No Pulsatile Mass, Non Tender, Soft Back: Normal Inspection, No CVA Tenderness, No Vertebral Tenderness Extremity: Normal Capillary Refill, Normal Inspection, Normal Range of Motion, Non Tender, No Calf Tenderness, No Pedal Edema Neurologic/Psychiatric: Alert, Oriented x3, No Motor/Sensory Deficits, Normal Mood/Affect, sizer hand II-XII Norm as Tested, Abnormal Gait, Motor Weakness (general ized 3/5 all extremities) Skin: Normal Color, Warm/Dry Lymphatic: No Adenopathy Results/Procedures Lab Laboratory Tests 04/17/20 06:40 Patient resulted labs reviewed. FIM Transfers Therapy Code Descriptions/Definitions Functional [place] Measure: 0=Not Assessed/NA 4=Minimal Assistance 1=Total Assistance 5=Supervision or Setup 2=Maximal Assistance 6=Modified [place] 3=Moderate Assistance 7=Complete IndependenceSCALE: Activities may be completed with or without assistive devices. 6-Kniqbmiihu-xqmtawh completes the activity by him/herself with no assistance from a helper. 5-Set-up or Clean-up Assistance-helper sets up or cleans up; patient completes activity. [place] assists only prior to or following the activity. 4-Supervision or Touching Assistance-helper provides verbal cues and/or touching/steadying and/or contact guard assistance as patient completes activity. Assistance may be provided throughout the activity or intermittently. 3-Partial/Moderate Assistance-helper does LESS THAN HALF the effort. [place] lifts, holds or supports trunk or limbs, but provides less than half the effort. 2-Substantial/Maximal Assistance-helper does MORE THAN HALF the effort. [place] lifts or holds trunk or limbs and provides more than half the effort. 9-Xggqlaxpq-ixoaca does ALL the effort. Patient does none of the effort to complete the activity. Or, the assistance of 2 or more helpers is required for the patient to complete the activity. If activity was not attempted, code reason: 7-Patient Refused. 9-Not Applicable-not attempted and the patient did not perform the activity before the current illness, exacerbation or injury. 10-Not Attempted due to Environmental Limitations-(lack of equipment, weather restraints, etc.). 88-Not Attempted due to Medical Conditions or Safety Concerns. Roll Left to Right (QC): 3 Sit to Lying (QC): 3 Sit to Stand (QC): 3 Chair/Skt-bw-Rcmbu Xfer(QC): 3 Car Transfer (QC): 88 Gait Training Does the Patient Walk?: Yes Distance: 75', 25' Walk 10 feet (QC): 4 Walk 50 ft with 2 Turns(QC): 4 Walk 150 ft (QC): 88 Walking 10ft/uneven surface-QC: 3 Gait Assistive Device: FWW Wheelchair Training Does the Pt Use a Wheelchair?: Yes Wheel 50 ft with 2 turns (QC): 3 Type of Wheelchair: Manual Stair Training 1 Step (curb) (QC): 7 (approached step and pt declined to attempt noting she did not feel she could perform it. ) 4 Steps (QC): 7 12 Steps (QC): 7 Balance Picking up an Object (QC): 88 (unsteady and fall risk) ADL-Treatment Eating (QC): 6 (states ate lunch IND.) Oral Hygiene (QC): 3 (assistance opening toothpaste, pt held the bottom of toothbrush in water requiring cue to find bristles. Pt then able to complete task.) Shower/Bathe Self (QC): 7 (Pt refused task today, stating "I can do it at home". OT educated pt on rehab process but pt continues to refuse.) Upper Body Dressing (QC): 3 (s/u and min A rolling shirt down on back) Lower Body Dressing (QC): 3 (Pt threads LLE with IND, min A RLE, stands with mod A and assist for pulling up over hips.) On/Off Footwear (QC): 7 Toileting Hygiene (QC): 7 Assessment/Plan Assessment and Plan Assess & Plan/Chief Complaint Assessment: Debility Post polio muscle weakness DM HTN HLP Confusion Jang cath will DC Plan: Monitor BP and BS Home meds DC catheter BM regimen 04/17/20: Monitor sugar No pain reported except shingles pain Fall risk Monitor confusion (1) Altered mental status Status: Resolved Resolution Date/Time: 04/16/20 @ 11:38 (2) Debility Status: Acute (3) HTN (hypertension) Status: Chronic (4) HLD (hyperlipidemia) Status: Chronic (5) DVT prophylaxis Status: Acute (6) Normocytic anemia Status: Acute (7) Hypothyroidism Status: Chronic (8) Bacteremia Status: Acute (9) Insulin dependent diabetes mellitus Status: Chronic (10) Urinary tract infection Status: Acute (11) Post-polio syndrome ARMANDO MURRAY DO Apr 17, 2020 10:16
--- NOTE | 2020-04-17 10:16 | Individualized Plan of Care ---
Individualized Plan of Care Rehab Nursing IPOC Order Admission Date Apr 16, 2020 at 09:52 Current Orders Orders Admission Order(Inpt,Obs,Sdc) (04/16/20 06:57) Vital Signs: Per Unit Policy ( 08,16,00 (04/16/20 06:57) Yahir Medellin 09,21 (04/16/20 06:57) Sequential Compression Device Q4H (04/16/20 06:57) Breastfeeding Program Coordinator-Inpt Rehab Con (04/16/20 06:57) Rehab Nursing Orders-Ipoc (04/16/20 06:57) Physical Therapy Rehab Orders (04/16/20 06:57) Occupational Therapy Rehab Ord (04/16/20 06:57) Speech Therapy Rehab Orders (04/16/20 06:57) Cbc With Automated Diff (04/17/20 06:00) Comprehensive Metabolic Panel (04/17/20 06:00) General/Regular (04/16/20 Breakfast) Intake & Output 06,14,22 (04/16/20 06:57) Precautions (Aru) (04/16/20 06:57) Rehab-Intensity Of Therapy (04/16/20 06:57) Initiate Admission Nursing Pro .admission (04/16/20 06:57) Alprazolam Tablet (Xanax Tablet) (04/16/20 07:00) Calcium Carbonate Chew Tablet (Antacid C (04/16/20 07:00) Diphenhydramine Tablet (Benadryl Tablet) (04/16/20 07:00) Docusate Sodium Capsule (Colace Capsule) (04/16/20 09:00) Docusate Sodium Capsule (Colace Capsule) (04/16/20 07:00) Bisacodyl Suppository (Dulcolax Supposit (04/16/20 07:00) Lactulose Oral Solution (Enulose Oral So (04/16/20 07:00) Na Phos/Na Biphos Enema (Fleet Enema Mariusz (04/16/20 07:00) Guaifenesin/Codeine Syrup (Robitussin Ac (04/16/20 07:00) Loperamide Tablet (Imodium Tablet) (04/16/20 07:00) Melatonin Tablet (Melatonin Tablet) (04/16/20 07:00) Polyethylene Glycol Powder Pkt (Miralax (04/16/20 09:00) Ondansetron Oral Dissolve Tab (Zofran (04/16/20 07:00) Senna S Tablet (Senokot S Tablet) (04/16/20 09:00) Admission Arrival Bed Request (04/16/20 09:45) Acetaminophen Tablet/Caplet (Tylenol T (04/16/20 10:15) Cho 60g/M 1snack (16-2000 Anselmo) (04/16/20 Lunch) Attending Discharge Inpt/Inobs (04/16/20 11:32) Code/Resuscitation (04/16/20 11:33) Accucheck Achs ACHS (04/16/20 11:33) Ambulate ,12,20 (04/16/20 11:33) Acetaminophen Tablet (Tylenol Tablet) (04/16/20 11:45) Acetaminophen Suppository (Tylenol Suppo (04/16/20 11:45) Atorvastatin Tablet (Lipitor Tablet) (04/17/20 09:00) Levothyroxine Tablet (Synthroid Tablet) (04/17/20 06:30) Levothyroxine Tablet (Synthroid Tablet) (04/17/20 06:30) Nitroglycerin Ointment (Nitrobid Ointme (04/16/20 11:45) Insulin Aspart (Novolog) (Novolog (Charg (04/16/20 16:00) Ondansetron Injection (Zofran Injectio (04/16/20 11:45) Rivaroxaban Tablet (Xarelto Tablet) (04/16/20 18:00) Senna S Tablet (Senokot S Tablet) (04/16/20 21:00) Sulfamethoxazole/Trimet Ds Tab (Bactrim (04/16/20 18:00) Insulin Aspart (Novolog) (Novolog (Charg (04/16/20 12:15) Insulin Aspart (Novolog) (Novolog (Charg (04/16/20 12:04) Patient Visit (04/16/20 ) Pt Eval High Complexity (04/16/20 ) Gait Training, Ea 15 Min (04/16/20 ) Functional Activities, Ea 15 (04/16/20 ) Patient Visit (04/16/20 ) Speech Sound Lang Comp (04/16/20 ) Treat. Speech/Lang/Voice (04/16/20 ) Patient Visit (04/16/20 ) Functional Activities, Ea 15 (04/16/20 ) Catheter(Urinary) Discontinue (04/16/20 18:53) Occult Blood Stool (04/17/20 10:09) Potassium Chloride (Tablet) (Klor Con Ta (04/17/20 10:15) Potassium Chloride (Tablet) (Klor Con Ta (04/18/20 07:00) Transfer - Bed/Room/Location (04/17/20 12:30) Patient Visit (04/17/20 ) Treat. Speech/Lang/Voice (04/17/20 ) Patient Visit (04/17/20 ) Functional Activities, Ea 15 (04/17/20 ) Exercise Therap, Ea 15 Min (04/17/20 ) Patient Visit (04/17/20 ) Gait Training, Ea 15 Min (04/17/20 ) Atorvastatin Tablet (Lipitor Tablet) (04/18/20 09:00) Pregabalin Capsule (Lyrica Capsule) (04/17/20 21:00) (Nf) Acetaminophen (Tylenol) (04/17/20 17:45) (Nf) Diphenhydramine Hcl (Benadryl) (04/17/20 17:45) (Nf) Fenofibrate Nanocrystallized (Fenof (04/18/20 09:00) (Nf) Levothyroxine Sodium (04/18/20 09:00) Insulin Determir (Per Unit) (Levemir (Pe (04/17/20 21:00) Fenofibrate,Micronized Capsule (Lofibra (04/18/20 09:00) Rehab Nursing Orders: Ongoing Assess. of Cognitive Status, Ongoing Assess. of Function Status, Bladder Management, Bladder Scan, Bladder Training, Bowel Management, Bowel Training, Disease Management & Educaiton, DVT Prophylaxis, Fall Prevention, Fluid/Electrolyte/Nutrition Mgmt, Infection Prevention, Medication Management & Education, Management of Risks & Complications, Nutrition Management, Pain Management, Patient/Family Support, Safety Management Intensity of Therapy to be met Patient to be seen: Min.3h per day/5 of 7d PT IPOC Problem List: Activity Tolerance, Functional Strength, Safety, Balance, Gait, Transfer, Bed Mobility, ROM Treatment Plan: Continue Plan of Care Bed Mobility, Education, Functional Activity Lisa, Functional Strength, Group Therapy, Gait, Safety, Therapeutic Exercise, Transfers Treatment Duration: May 07, 2020 Frequency: At least 5 of 7 days/Wk (IRF) Estimated Hrs Per Day: 1.5 hours per day OT IPOC Problems: Decreased Activ Tolerance, Dependent Transfers, Impaired Bed Mobility, Impaired Funct Balance, Impaired I ADL's, Impaired Self-Care Skills OT Treatment, Training and Edu: Yes Plan of Care: ADL Retraining, Caregiver Training, Cognitive Retraining, Functional Mobility, Group Exercise/Act as Ind, UE Funct Exercise/Act, W/C Management Training Treatment Duration: May 09, 2020 Frequency: At least 5 of 7 days/Wk (IRF) Estimated Hrs Per Day: 1.[address] IPOC Speech Therapy Treatment Plan: Continue Plan of Care Treatment Duration: Apr 17, 2020 Frequency: Modified Program (IRF) Estimated Hrs Per Day: Other Breastfeeding Program Coordinator/Case Mgmt Breastfeeding Program Coordinator/Case Managemen: Discharge Planning Dietitian/Special Education Para Professional Dietitian/Special Education Para Professional to monitor nutritional status and make changes and/or recommendations as needed and work with speech pathology on dietary upgrades as the occur. Physician IPOC Medical Issues being managed closely and that require the 24 hour availability of a physician: Recent severe delirium with ARF and UTI with h/o poorly controlled DM will need close monitoring for falls and recurrent confusion Medical Issues: Bowel/Bladder Function, DVT Prophylaxis, Falls Precautions, Fluid/Electrolyte/Nutrition Balance, Infection Protection, Pain Management Brief Synthesis of Preadmission Screen, Post-Admission Evaluation, and Therapy Evaluations: PT OT will focus on regaining function and strengthening in order to return home to live independently with ST helping to clear residual delirium Medical Prognosis: Guarded Anticipated Length of Stay: 7 days ARMANDO MURRAY DO Apr 17, 2020 10:16
--- NOTE | 2020-04-17 10:22 | ST Cognitive Linguistic Eval ---
Speech Evaluation-General Medical Diagnosis acute exacerbation & post polio Onset Date: Apr 13, 2020 Therapy Diagnosis Therapy Diagnosis: Cognitive-communication Referral Referring Physician: Dr. Jamison Medical History Pertinent Medical History: DM, HTN, Post Polio Syndrome Reviewed History: Yes Social History Current Living Status: Alone (son assists with household duties and cooking) Speech PLF-Current Status Prior Level of Function Patient lives in her home alone, however her son assists her as needed. Subjective Patient was pleasant and cooperative with the cognitive assessment. Language Eval: Auditory Comprehends Simple Yes/No Ques: Functional Indent/Objects Multiple [place]: Functional Ident/Pics in Multiple Walsh: Functional Follows 1-Step Commands: Functional Follows Complex Directions: Mild Follows General Conversations: Mild Language Eval: Verbal Language Completes Spontaneous Greeting: Functional Produces Auto, Serial Info: Functional Imitates Simple Words/Phrases: Functional Word Finding: Mild Requests Basic Needs: Functional States Basic Personal Info: Functional Expresses Complex Ideas: Mild Objective Cognitive Domain Attention: Mild Memory: Mild Problem Solving: Mild Executive Functions: Mild Visuospatial Skills: WNL Composite Severity Rating: Mild Clock Drawing Severity Rating: Mild Objective Formal/Standardized Tests [facility] Status ([facility]) Results 22/30, within Mild Neurocognitive Disorder range of function Oral Motor/Speech Production Within Normal Limits Impression Patient is a pleasantly confused 84 y/o woman who was admitted to the ARU for strengthening. She was given the SLUMS with a score of 22/30 obtained. This score is within the MNCD range of function. The patient exhibits deficits with memory, problem solving and safety awareness. ST to provide services with focus on these deficits. Speech Patient Assess Expression of Ideas/Wants: Exhibits (3) Understanding Verbal Content: Usually Understands (3) Brief Interview-Mental Status: Yes Repetition of Three Words: Three (3) Temporal Orientation: Year: Correct (3) Temporal Orientation: Month: Accurate within 5 days(2) Temporal Orientation: Day: Correct (1) Recall : Wear to say "Sock": No, could not recall (0) Recall : Color: Yes, after cueing (1) Recall : Bed: Yes,after cueing (1) Memory/Recall Ability: Current season, That he or she is in a hsp/hsp unit Speech Short Term Goals Short Term Goals Short Term Goals 1) Patient will complete memory tasks related to her daily needs at 80% or greater. 2) Patient will complete safety awareness tasks related to her daily needs at 80% or greater. 3) Patient will complete problem solving tasks related to her daily needs at 80% or greater. Speech Snf Goals Snf Goals Patient will improve cognitive-communication ability in order to require decreased assistance with daily tasks. Speech-Plan Patient/Family Goals Patient/Family Goals: Patient plans on returning to her home where her son assists her as needed. Treatment Plan Speech Therapy Treatment Plan: Continue Plan of Care Frequency: 4 times per week (Patient will receive skilled ST 4-5x per week) Estimated Hrs Per Day: .5 hour per day Rehab Potential: Fair Barriers to Learning: Patient's decreased level of cognitive function Pt/Family Agrees to Plan: Yes Safety Risks/Education Teaching Recipient: Patient Teaching Methods: Discussion Response to Teaching: Verbalize Understanding Education Topics Provided: Safety within her room, communication of wants/needs Time Speech Therapy Time In: 12:30 Speech Therapy Time Out: 13:00 Total Billed Time: 30 Billed Treatment Time 1, JOHN LAMB BETH[address] ST Apr 17, 2020 10:22
[2020-04-17] MEDS: CALCIUM CARBONATE 500 MG (TUMS) TAB.CHEW PO PRN (10:42)
--- NOTE | 2020-04-17 11:13 | Speech Therapy Daily Note ---
Speech Daily Progress Note Subjective Date Seen by Provider: Apr 17, 2020 Time Seen by Provider: 00:30 Patient alert and more oriented this date. Patient states she likes her new room, although it's identical to the old one. Objective Patient completed a series of q/a related to her daily needs with 80% given minimal cues and/or redirection. Assessment Assessment Current Status: Good Progress Treatment Plan Continue Plan of Care Speech Short Term Goals Short Term Goals Short Term Goals 1) Patient will complete memory tasks related to her daily needs at 80% or greater. 2) Patient will complete safety awareness tasks related to her daily needs at 80% or greater. 3) Patient will complete problem solving tasks related to her daily needs at 80% or greater. Speech District Or District Office Director Goals District Or District Office Director Goals Patient will improve cognitive-communication ability in order to require decreased assistance with daily tasks. Speech-Plan Patient/Family Goals Patient/Family Goals: Patient plans on returning to her home where her son is involved with assisting her in her daily needs. Treatment Plan Speech Therapy Treatment Plan: Continue Plan of Care Treatment Duration: Apr 25, 2020 Frequency: 4 times per week (Patient will receive skilled ST 4-5x per week) Estimated Hrs Per Day: .5 hour per day Rehab Potential: Fair Barriers to Learning: Patient's medical needs, age Pt/Family Agrees to Plan: Yes Safety Risks/Education Teaching Recipient: Patient Teaching Methods: Demonstration, Discussion Response to Teaching: Verbalize Understanding, Return Demonstration Education Topics Provided: Safety within her room and communication of wants/needs Time Speech Therapy Time In: 10:30 Speech Therapy Time Out: 11:00 Total Billed Time: 30 Billed Treatment Time 1, PAIGE Guevara Apr 17, 2020 11:13
--- NOTE | 2020-04-17 11:46 | Occupational Ther Daily Note ---
OT Current Status-Daily Note Subjective Pt laying in bed, post PT tx. Pt required moderate encouragement to participate in tx. Pt reports she just wants to go home. Pt tearful throughout tx. ADL-Treatment Therapy Code Descriptions/Definitions Functional [place] Measure: 0=Not Assessed/NA 4=Minimal Assistance 1=Total Assistance 5=Supervision or Setup 2=Maximal Assistance 6=Modified [place] 3=Moderate Assistance 7=Complete IndependenceSCALE: Activities may be completed with or without assistive devices. 4-Gnovudddcd-amzvfwg completes the activity by him/herself with no assistance from a helper. 5-Set-up or Clean-up Assistance-helper sets up or cleans up; patient completes activity. [place] assists only prior to or following the activity. 4-Supervision or Touching Assistance-helper provides verbal cues and/or touching/steadying and/or contact guard assistance as patient completes activity. Assistance may be provided throughout the activity or intermittently. 3-Partial/Moderate Assistance-helper does LESS THAN HALF the effort. [place] lifts, holds or supports trunk or limbs, but provides less than half the effort. 2-Substantial/Maximal Assistance-helper does MORE THAN HALF the effort. [place] lifts or holds trunk or limbs and provides more than half the effort. 9-Rubdfytqt-etvcmg does ALL the effort. Patient does none of the effort to complete the activity. Or, the assistance of 2 or more helpers is required for the patient to complete the activity. If activity was not attempted, code reason: 7-Patient Refused. 9-Not Applicable-not attempted and the patient did not perform the activity before the current illness, exacerbation or injury. 10-Not Attempted due to Environmental Limitations-(lack of equipment, weather restraints, etc.). 88-Not Attempted due to Medical Conditions or Safety Concerns. Oral Hygiene (QC): 5 (set up at sink) Shower/Bathe Self (QC): 3 (Pt completed spongebath. Assist washing buttocks, periarea and BLE feet.) Upper Body Dressing (QC): 5 (set up) Lower Body Dressing (QC): 3 (Min A managing pants up and tying pants. CGA in stand at FWW) On/Off Footwear: 3 (Mod A. Pt able to doff socks. Assist donning) Pt required increased time with all ADLs, and moderate encouragement. Other Treatment Pt laying in bed, transferred supine to sit EOB with SBA. Pt completed sponge bath and dressing EOB, then transferred to w/c using FWW, min A with management of walker. OT provided mod cues for safety/sequencing throughout transfer. Pt then taken into the bathroom where she performed oral care and hair brushing seated at sink. In order to increase BUE strength and functional endurance, pt self-propelled w/c from room to therapy area, slow movements and frequent rest breaks. Pt then completed fine motor task, placing x25 1" pegs into pegboard, in order to increase UE strength/endurance. Pt required assistance guiding pegs into holes due to macular degeneration. Pt taken back to room, transferring w/c to bed, FWW with CGA. Supine to sit SBA. Post OT tx, pt laying in bed, call light in reach and all needs met. Education OT Patient Education: Correct positioning, Energy conservation, Modified ADL techniques, Progress toward Goal/Update tx plan, Purpose of tx/functional activities, Safety issues, Transfer techniques Teaching Recipient: Patient Teaching Methods: Discussion Response to Teaching: Verbalize Understanding OT Short Term Goals Short Term Goals Time Frame: Apr 25, 2020 Toileting hygiene: 4 Lower body dressin Putting on/taking off footwear: 4 OT Fdc Goals Inspector Air Carrier Goals Time Frame: May 09, 2020 Eating (QC): 6 Oral Hygiene (QC): 6 Toileting Hygiene (QC): 6 Shower/Bathe Self (QC): 6 Upper Body Dressing (QC): 6 Lower Body Dressing (QC): 6 On/Off Footwear (QC): 6 Additional Goals: 1-Demonstrate ADL Tasks, 2-Verbalize Understanding, 3- ImproveStrength/Lisa 1=Demonstrate adherence to instructed precautions during ADL tasks. 2=Patient will verbalize/demonstrate understanding of assistive devices/modifications for ADL. 3=Patient will improve strength/tolerance for activity to enable patient to perform ADL's. OT Education/Plan Problem List/Assessment Assessment: Decreased Activ Tolerance, Decreased UE Strength, Impaired Cognition, Impaired Funct Balance, Impaired I ADL's, Impaired Self-Care Skills, Restricted Funct UE ROM Discharge Recommendations Plan/Recommendations: Continue POC Treatment Plan/Plan of Care Patient would benefit from OT for education, treatment and training to promote independence in ADL's, mobility, safety and/or upper extremity function for ADL's. Plan of Care: ADL Retraining, Caregiver Training, Cognitive Retraining, Functional Mobility, Group Exercise/Act as Ind, UE Funct Exercise/Act, W/C Management Training Treatment Duration: May 09, 2020 Frequency: At least 5 of 7 days/Wk (IRF) Estimated Hrs Per Day: 1.5 hours per day Agreement: Yes Rehab Potential: Fair Time/GCodes Start Time: 09:00 Stop Time: 10:15 Total Time Billed (hr/min): 75 Billed Treatment Time 1, ADL 3 (45'), FA 2 (30') PETER YAN OT Apr 17, 2020 11:46
--- NOTE | 2020-04-17 12:53 | Progress Note ---
CARRILLO BEASLEY,MED STUDENT 04/17/20 1253: Progress Note Progress note: 04/17/20 Still having pain due to shingles Bowels moving, but notes they are loose Able to ambulate slowly to bathroom, still requiring assistance with sit-stand and repositioning K+ 3.2 this morning, started on PO K+ replacement today No other questions or concerns this morning ALMITA MURRAY DO 04/18/20 1637: Supervisory-Addendum Brief Verification & Attestation Participated in pt care: history, MDM, physical Personally performed: exam, history, MDM, supervision of care Care discussed with: Medical Student Procedures: n/a Results interpretation: Verified all documentation Verification and Attestation of Medical Student E/M Service A medical student performed and documented this service in my presence. I reviewed and verified all information documented by the medical student and made modifications to such information, when appropriate. I personally performed the physical exam and medical decision making. Almita Murray Apr 18, 2020,16:37 CARRILLO BEASLEY,MED STUDENT Apr 17, 2020 12:53 ALMITA MURRAY DO Apr 18, 2020 16:37
--- NOTE | 2020-04-17 14:33 | NUR ---
CM/SS ADMISSION Patient admitted to ARU from [facility] 04/16/20 for post-polio muscle weakness, UTI. Additional diagnoses are, in part, post polio syndrome, HTN, HLD, normocytic anemia, hypothyroidism, bacteremia, IDDM, confusion. Patient resides at home alone with intermittent support from her son, Crispin Stockton (Joey). Both reside in [place] within a short distance of each other. Patient plans to return home when safe to do so. Her [birth year] is [birth year], she was hopeful to be at home; however, this appears unlikely. PCP: WILLIAM BRITTON, Dr. Antonio Walker MD PHARMACY: [facility] INSURANCE: Medicare. Patient confirms she has no supplement. DME: Patient has 2 walkers, one FWW and one 4WW. Patient and son indicate she has no shower chair, the son proposed he could bring in one of the plastic chairs off the patio. Therapy team to recommend appropriate assistive equipment for post hospital care plan. BARRIERS TO DISCHARGE PLANNING: Patient's ability to be home alone to be determined. Son is able to stay periodically only. He does get her groceries and help with household duties. Patient desires a "lead housekeeper", but fired a recent HH agency when the RN came and refused to do housework. Complex dynamics, team members should clarify that patient and family have answers and explanations to full understanding of best practice. CONTACTS: Catrachito Phillip (Joey) [address] [place] [address] [phone] Lyle Mirza Stockton [place], [place] or [place] Personal: [phone] Work: Patient and son Bradley understand the purpose and process of weekly patient care conference and that patient's first review will be Thursday, April 23, 2020.
--- NOTE | 2020-04-17 14:44 | NUR ---
RD ASSESSMENT PMHx: hypercholesterolemia; HTN; DM PT INTERACTION: Pt was awake and pleasant during nutrition assessment. Note pt has AMS, per chart review. Pt states current appetite is good. Note avg PO intake 66% x1d, per chart review. Pt states following a regular diet at home, and has no issues with chewing/swallowing food. Pt states recent issues with nausea, vomiting, and diarrhea. Note last BM was 04/17, and pt currently on bowel regimen of colace BID; senna BID; and miralax BID, per chart review. Pt states no recent wt changes. Note unable to determine recent wt hx, per chart review. When asked about current DM management, pt stated "no" and would not elaborate on current level of control after redirection. Note unable to determine recent HbA1c, per chart review. ABNORMAL NUTRITION-RELATED LAB VALUES LOW: K 3.2; Ca 8.3; Pro 6.0; alb 3.1 HIGH: Est. kcal needs: 1350 kcal | 15 kcal/kg Est. Pro needs: 90 g Pro | 1.0 g Pro/kg PES STATEMENT: Inadequate oral intake (NI-2.1) related to loss of appetite | confusion | nausea | vomiting | diarrhea as evidenced by pt interview | chart review | avg PO intake 66% x1d INTERVENTION: Continue with current diet order of CHO 60g/m 1snack diet. Pt may benefit from nutrition supplementation if PO intake declines. Did not offer diet education at this time d/t pt's AMS. May attempt to offer when family is present at bedside. Will continue to follow and reassess as pt needs, intake, and status change. Piyush Zhong, MS RD LD
--- NOTE | 2020-04-17 15:05 | Physical Therapy Daily Note ---
PT Daily Note-Current Subjective Pt presents laying supine in bed. Pt agrees to PT. Pt reports pain due to shingles and is emotionally upset. Appearance At conclusion of PT tx patient returned to bed where she has access to tray, call button, and all needs have been met. Mental Status Patient Orientation: Person, Time, Eyes Open, Situation Transfers SCALE: Activities may be completed with or without assistive devices. 0-Famxqzhxbu-umubewb completes the activity by him/herself with no assistance from a helper. 5-Set-up or Clean-up Assistance-helper sets up or cleans up; patient completes activity. [place] assists only prior to or following the activity. 4-Supervision or Touching Assistance-helper provides verbal cues and/or touching/steadying and/or contact guard assistance as patient completes activity. Assistance may be provided throughout the activity or intermittently. 3-Partial/Moderate Assistance-helper does LESS THAN HALF the effort. [place] lifts, holds or supports trunk or limbs, but provides less than half the effort. 2-Substantial/Maximal Assistance-helper does MORE THAN HALF the effort. [place] lifts or holds trunk or limbs and provides more than half the effort. 1-Uncrfdids-nroibo does ALL the effort. Patient does none of the effort to complete the activity. Or, the assistance of 2 or more helpers is required for the patient to complete the activity. If activity was not attempted, code reason: 7-Patient Refused. 9-Not Applicable-not attempted and the patient did not perform the activity b efore the current illness, exacerbation or injury. 10-Not Attempted due to Environmental Limitations-(lack of equipment, weather restraints, etc.). 88-Not Attempted due to Medical Conditions or Safety Concerns. Sit to Lying (QC): 3 Lying to Sitting/Side of Bed(Q: 3 Sit to Stand (QC): 3 Chair/Tfo-zk-Abnym Xfer(QC): 3 Pt requires min assist to stand. To complete bed mobility pt needs assistance to hold therapists forearm to act as handrail and pull self up; returning to bed pt needs mod assist to swing feet into bed. Gait Training Does the Patient Walk?: Yes Distance: 100'x3 Walk 10 feet (QC): 4 Walk 50 ft with 2 Turns(QC): 4 Gait Assistive Device: FWW Pt uses step-through pattern with ambulation. Pt requires motivation to keep walking, but requires a seated rest break every approx 100'. Treatments Gait Training Assessment Current Status: Good Progress Pt struggles with emotions, she cries multiple times throughout therapy because she does not want to do any work. Pt is given consistent motivation. Pt is improving with gait mobility. PT Short Term Goals Short Term Goals Time Frame: Apr 23, 2020 Sit to lyin Lying to sitting on side of be: 4 Walk 150 feet: 4 1 step (curb): 3 PT Jail Goals Jail Goals PT Jail Goals Time Frame: May 07, 2020 Roll Left & Right (QC): 6 Sit to Lying (QC): 6 Lying-Sitting on Side/Bed(QC): 6 Sit to Stand (QC): 6 Chair/Tld-hw-Jgslr Xfer(QC): 6 Toilet Transfer (QC): 6 Car Transfer (QC): 4 Does the Patient Walk: Yes Walk 10 feet (QC): 6 Walk 50ft with 2 Turns (QC): 6 Walk 150 ft (QC): 6 Walking 10ft on Uneven Surface: 5 1 Step (curb) (QC): 4 4 Steps (QC): 4 12 Steps (QC): 10 Picking up an Object (QC): 10 Does the Pt use WC or Scooter?: No Wheel 50 feet with 2 turns (QC: 9 Wheel 150 feet: 9 PT Plan Problem List Problem List: Activity Tolerance, Functional Strength, Safety, Balance, Gait, Transfer, Bed Mobility, ROM Treatment/Plan Treatment Plan: Continue Plan of Care Treatment Plan: Bed Mobility, Education, Functional Activity Lisa, Functional Strength, Group Therapy, Gait, Safety, Therapeutic Exercise, Transfers Treatment Duration: May 07, 2020 Frequency: At least 5 of 7 days/Wk (IRF) Estimated Hrs Per Day: 1.5 hours per day Patient and/or Family Agrees t: Yes Safety Risks/Education Patient Education: Gait Training, Correct Positioning, Safety Issues Teaching Recipient: Patient Teaching Methods: Demonstration, Discussion Response to Teaching: Reinforcement Needed Time/GCodes Time In: 1300 Time Out: 1330 Total Billed Treatment Time: 30 Total Billed Treatment 1 visit GT 30' ITALO ALLEN PT Apr 17, 2020 15:05
[2020-04-17] MEDS: RIVAROXABAN 10 MG TABLET (XARELTO) PO SCH (17:20)
[2020-04-17] MEDS ORDERED: NON-FORMULARY MEDICATION 1 EA EA (Diphenhydramine HCl (Benadryl) 25 MG) PO PRN (17:45)
[2020-04-17] MEDS ORDERED: NON-FORMULARY MEDICATION 1 EA EA (Acetaminophen (Tylenol) 650 MG) PO PRN (17:45)
[2020-04-17 18:16] VITALS: BP 144/67
[2020-04-17] MEDS: PREGABALIN 50 MG (LYRICA) CAP PO SCH (20:34)
--- NOTE | 2020-04-18 | NUR ---
BLADDER ACCIDENT SPILLING ONTO LINENS. PATIENT REPORTS OCCASIONAL INCONTINENCE MANAGED BY DEPENDS AT HOME. PATIENT SIT TO STAND WITH MOD STAFF X 1, ROCK AND COUNTING TO THREE TO OBTAIN STANDING POSITION. TO BR, CONTACT GUARD, FWW, GAIT BELT FOR SAFETY. PATIENT REQUIRED STAFF TO MANAGE CLOTHING. PATIENT ENCOURAGED TO PERFORM JEFF CARE. STAFF ASSISTANCE NEEDED FOR THOROUGH CLEANING. DEPENDS CHANGED BY STAFF, LINENS CHANGED. TO BED. STAFF MODERATE ASSISTANCE TO PLACE PATIENT'S LEGS IN BED. COMPRESSION PUMPS ON. PATIENT TURNED TO RIGHT SIDE. PILLOWS PLACED FOR OPTIMAL ANATOMICAL BODY POSITIONING. DENIES NEEDS OR C/O AT THIS TIME. PATIENT IS ALERT AND ORIENTED. HAS LABILE MOODS, CHEERFUL BECOMING TEARFUL THROUGHOUT EVENING. PATIENT UNABLE TO RECOGNIZE THE CAUSE OF HER SUDDEN OUTBURSTS, "OH BOOHOO KATE, " SHE RANDOMLY STATES IN A CRYING VOICE. WHEN QUESTIONED BY THIS RN SHE RESPONDS NORMALLY AND APPROPRIATELY WITH NO SADNESS NOTED, "I'M FINE, BABYDOLL." BED ALARM IS ON. CALL LIGHT IN REACH. CONT TO MONITOR.
--- NOTE | 2020-04-18 05:49 | NUR ---
NITROPASTE APPLIED TO LEFT UPPPER BACK FOR SBP 179. PATIENT IS ASYMTPOMATIC, NO C/O. CURRENT URINARY ACCIDENT. LINENS CHANGED, PATIENT REQUIRES MUCH ENCOURAGEMENT TO PARTICIPATE IN HER OWN CARE. PTIENT ABLE TO MANEUVER CLOTHING AND DEPEND OFF. STAFF TO DON AND HYGIENE. PATIENT IS AX2 TO ASSIST TO STANDING POSITION. TO CHAIR AT THIS TIME. B/C ALARM ON. CONT TO MONITOR.
[2020-04-18] MEDS: NITROGLYCERIN 2% OINT 1 GM UNIT DOSE PACKET TOP PRN (05:52)
[2020-04-18] MEDS: LEVOTHYROXINE 100 MCG (LEVOTHROID) TAB PO SCH (05:54)
[2020-04-18] MEDS: KCL 10 MEQ TAB (MICRO K) PO SCH (05:55)
[2020-04-18] MEDS: LEVOTHYROXINE 75 MCG (LEVOTHROID) TABLET PO SCH (05:55)
[2020-04-18] MEDS: inSUlin ASPART (NovoLOG) 1 UNIT/0.01 ML (CHARGE PER UNIT) SC SCH ×4 (06:04→21:09)
[2020-04-18 06:10] VITALS: BP 179/76
[2020-04-18] MEDS: polyethylene glycoL POWDER 17 GM (MIRALAX) PACK PO SCH ×2 (08:02→21:00)
[2020-04-18] MEDS: DOCUSATE SODIUM 100 MG (COLACE) CAP PO SCH ×2 (08:02→21:00)
[2020-04-18] MEDS: SENNA W/DOCUSATE (SENOKOT S) TABLET PO SCH ×5 (08:02→21:16)
[2020-04-18] MEDS: PREGABALIN 50 MG (LYRICA) CAP PO SCH ×3 (08:06→21:08)
[2020-04-18] MEDS: FENOFIBRATE 134 MG (LOFIBRA) CAPSULE PO SCH (08:06)
[2020-04-18] MEDS: TRIM/SULFAMETH 160/800 (SEPTRA DS) TAB PO SCH ×2 (08:07→17:43)
[2020-04-18] MEDS ORDERED: NON-FORMULARY MEDICATION 1 EA EA (Fenofibrate Nanocrystallized (Fenofibrate) 145 MG) PO SCH (09:00)
[2020-04-18] MEDS ORDERED: NON-FORMULARY MEDICATION 1 EA EA (Levothyroxine Sodium 175 MCG) PO SCH (09:00)
--- NOTE | 2020-04-18 09:46 | Occupational Ther Daily Note ---
OT Current Status-Daily Note Subjective Pt seated in recliner, agreeable to OT Tx. Pt did not verbalize pain rating during tx, but indicates some stomach pain, and pain from shingles ADL-Treatment Therapy Code Descriptions/Definitions Functional [place] Measure: 0=Not Assessed/NA 4=Minimal Assistance 1=Total Assistance 5=Supervision or Setup 2=Maximal Assistance 6=Modified [place] 3=Moderate Assistance 7=Complete IndependenceSCALE: Activities may be completed with or without assistive devices. 4-Gqaotwpphz-xxbpgjh completes the activity by him/herself with no assistance from a helper. 5-Set-up or Clean-up Assistance-helper sets up or cleans up; patient completes activity. [place] assists only prior to or following the activity. 4-Supervision or Touching Assistance-helper provides verbal cues and/or touching/steadying and/or contact guard assistance as patient completes activity. Assistance may be provided throughout the activity or intermittently. 3-Partial/Moderate Assistance-helper does LESS THAN HALF the effort. [place] lifts, holds or supports trunk or limbs, but provides less than half the effort. 2-Substantial/Maximal Assistance-helper does MORE THAN HALF the effort. [place] lifts or holds trunk or limbs and provides more than half the effort. 7-Ctpnppwxh-ivbjqn does ALL the effort. Patient does none of the effort to complete the activity. Or, the assistance of 2 or more helpers is required for the patient to complete the activity. If activity was not attempted, code reason: 7-Patient Refused. 9-Not Applicable-not attempted and the patient did not perform the activity before the current illness, exacerbation or injury. 10-Not Attempted due to Environmental Limitations-(lack of equipment, weather restraints, etc.). 88-Not Attempted due to Medical Conditions or Safety Concerns. Oral Hygiene (QC): 4 (SBA seated at sink. Pt required min cues for sequencing of task) Toileting Hygiene (QC): 3 (Min A with managing brief down, pt able to complete hygiene and managing brief up with CGA) Toilet Transfer (QC): 3 (Min A, Pt required cues for sequencing throughout transfer.) Other Treatment [id number] OT tx: Pt seated in recliner, donned clean hospital gown. Pt then transferred from recliner to / with CGA. Pt taken into bathroom sink. Pt initially stated she did not need to use the restroom but once in the bathroom indicated she needed to urinate. Pt used FWW to transfer to toilet, she comple nano toileting, then transferred back to w/c. Pt sat at sink to complete oral care and hair brushing. [id number] OT/PT cotreat: OT/PT cotreat due to skill of 2 clinicians that a director of rehabilitation could not perform, in order to coordinate UE/LEs, increase dynamic standing balance, and decrease fall risk. OT focused on UE placement, and cues for sequencing and safety while PT focused on gross overall movements, dynamic standing balance, and LE placement. Pt stood at FWW, ambulating to therapy area, requiring 1 seated rest break. Once in gym, pt took another rest break. Tx focused on increasing dynamic standing balance while using her arms to perform task. PT assisted pt with balance throughout task while pt batted a balloon back and forth with OT. Pt completed task x2 trials each hand, tolerating 1-2 mins of activity each trial with a seated rest break between. Pt required moderate encouragement throughout task. Pt initially hesitant to cross midline to hit the balloon, but throughout task she reached further and crossed midline more. Post OT/PT cotreat, pt seated in chair at gym with PT, all needs met. Education OT Patient Education: Correct positioning, Energy conservation, Exercise program, Modified ADL techniques, Progress toward Goal/Update tx plan, Purpose of tx/functional activities, Safety issues, Transfer techniques Teaching Recipient: Patient Teaching Methods: Discussion Response to Teaching: Verbalize Understanding OT Short Term Goals Short Term Goals Time Frame: Apr 25, 2020 Toileting hygiene: 4 Lower body dressin Putting on/taking off footwear: 4 OT Terminal Clerk Goals Terminal Clerk Goals Time Frame: May 09, 2020 Eating (QC): 6 Oral Hygiene (QC): 6 Toileting Hygiene (QC): 6 Shower/Bathe Self (QC): 6 Upper Body Dressing (QC): 6 Lower Body Dressing (QC): 6 On/Off Footwear (QC): 6 Additional Goals: 1-Demonstrate ADL Tasks, 2-Verbalize Understanding, 3- ImproveStrength/Lisa 1=Demonstrate adherence to instructed precautions during ADL tasks. 2=Patient will verbalize/demonstrate understanding of assistive devices/modifications for ADL. 3=Patient will improve strength/tolerance for activity to enable patient to perform ADL's. OT Education/Plan Problem List/Assessment Assessment: Decreased Activ Tolerance, Decreased UE Strength, Impaired Funct Balance, Impaired I ADL's, Impaired Self-Care Skills Discharge Recommendations Plan/Recommendations: Continue POC Treatment Plan/Plan of Care Patient would benefit from OT for education, treatment and training to promote independence in ADL's, mobility, safety and/or upper extremity function for ADL's. Plan of Care: ADL Retraining, Caregiver Training, Cognitive Retraining, Functional Mobility, Group Exercise/Act as Ind, UE Funct Exercise/Act, W/C Management Training Treatment Duration: May 09, 2020 Frequency: At least 5 of 7 days/Wk (IRF) Estimated Hrs Per Day: 1.5 hours per day Agreement: Yes Rehab Potential: Fair Time/GCodes Start Time: 08:00 Stop Time: 09:15 Total Time Billed (hr/min): 75 Billed Treatment Time 0620-0482 OT tx (40'), [id number] OT/PT cotreat (35') 1, ADL 3 (40'), FA 2 (35') PETER YAN OT Apr 18, 2020 09:46
--- NOTE | 2020-04-18 09:48 | PM&R Progress Note ---
Subjective HPI/CC On Admission Date Seen by Provider: Apr 18, 2020 Time Seen by Provider: 10:00 Subjective/Events-last exam 04/18/20: Lyrica ordered and she is very pleased to have that on board for post shingles pain post herpetic neuralgia Confusion improved but she tells me the same story every day with her pacemaker and such BP elevated required NTG paste Levemir started and her sugars are improved Pt a little bit confused so she was moved closer to the desk at 2:33 Had a little bit of diarrhea so holding laxatives Wants to start taking her Shingles medication BP is doing well Hgb is stable at 10.5 We will check her stools for hemoccult because of tarry stool noted by nurses today CHecked meds and labs Conferred with RN Reviewed therapy notes Review of Systems General: Fatigue, Malaise Neurological: Confusion Objective Exam Vital Signs Vital Signs Date Time Temp Pulse Resp B/P (MAP) Pulse Ox O2 Delivery O2 Flow Rate FiO2 04/18/20 21:00 Room Air 04/18/20 16:00 36.6 70 14 140/63 (88) 94 Capillary Refill : Less Than 3 Seconds General Appearance: No Apparent Distress, WD/WN, Chronically ill HEENT: PERRL/EOMI, Normal ENT Inspection, Pharynx Normal Neck: Full Range of Motion, Normal Inspection, Non Tender, Supple, Carotid Bruit Respiratory: Chest Non Tender, Lungs Clear, Normal Breath Sounds, No Accessory Muscle Use, No Respiratory Distress Cardiovascular: Regular Rate, Rhythm, No Edema, No Gallop, No JVD, No Murmur, Normal Peripheral Pulses Gastrointestinal: Normal Bowel Sounds, No Organomegaly, No Pulsatile Mass, Non Tender, Soft Back: Normal Inspection, No CVA Tenderness, No Vertebral Tenderness Extremity: Normal Capillary Refill, Normal Inspection, Normal Range of Motion, Non Tender, No Calf Tenderness, No Pedal Edema Neurologic/Psychiatric: Alert, Oriented x3, No Motor/Sensory Deficits, Normal Mood/Affect, associate merchandiser II-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 FIM Transfers Therapy Code Descriptions/Definitions Functional [place] Measure: 0=Not Assessed/NA 4=Minimal Assistance 1=Total Assistance 5=Supervision or Setup 2=Maximal Assistance 6=Modified [place] 3=Moderate Assistance 7=Complete IndependenceSCALE: Activities may be completed with or without assistive devices. 8-Gzbepekymy-xebtfny completes the activity by him/herself with no assistance f rom a helper. 5-Set-up or Clean-up Assistance-helper sets up or cleans up; patient completes activity. [place] assists only prior to or following the activity. 4-Supervision or Touching Assistance-helper provides verbal cues and/or touching/steadying and/or contact guard assistance as patient completes activity. Assistance may be provided throughout the activity or intermittently. 3-Partial/Moderate Assistance-helper does LESS THAN HALF the effort. [place] lifts, holds or supports trunk or limbs, but provides less than half the effort. 2-Substantial/Maximal Assistance-helper does MORE THAN HALF the effort. [place] lifts or holds trunk or limbs and provides more than half the effort. 7-Xkivbinwx-bgmfws does ALL the effort. Patient does none of the effort to complete the activity. Or, the assistance of 2 or more helpers is required for the patient to complete the activity. If activity was not attempted, code reason: 7-Patient Refused. 9-Not Applicable-not attempted and the patient did not perform the activity before the current illness, exacerbation or injury. 10-Not Attempted due to Environmental Limitations-(lack of equipment, weather restraints, etc.). 88-Not Attempted due to Medical Conditions or Safety Concerns. Roll Left to Right (QC): 3 Sit to Lying (QC): 3 Sit to Stand (QC): 3 Chair/Sza-jn-Yccsb Xfer(QC): 3 Car Transfer (QC): 88 Gait Training Does the Patient Walk?: Yes Distance: 100'x3 Walk 10 feet (QC): 4 Walk 50 ft with 2 Turns(QC): 4 Walk 150 ft (QC): 88 Walking 10ft/uneven surface-QC: 3 Gait Assistive Device: FWW Stair Training 1 Step (curb) (QC): 7 (approached step and pt declined to attempt noting she did not feel she could perform it. ) 4 Steps (QC): 7 12 Steps (QC): 7 Balance Picking up an Object (QC): 88 (unsteady and fall risk) ADL-Treatment Eating (QC): 6 (states ate lunch IND.) Oral Hygiene (QC): 4 (SBA seated at sink. Pt required min cues for sequencing of task) Shower/Bathe Self (QC): 3 (Pt completed spongebath. Assist washing buttocks, periarea and BLE feet.) Upper Body Dressing (QC): 5 (set up) Lower Body Dressing (QC): 3 (Min A managing pants up and tying pants. CGA in stand at FWW) On/Off Footwear (QC): 3 (Mod A. Pt able to doff socks. Assist donning) Toileting Hygiene (QC): 3 (Min A with managing brief down, pt able to complete hygiene and managing brief up with CGA) Toilet Transfer (QC): 3 (Min A, Pt required cues for sequencing throughout transfer.) Assessment/Plan Assessment and Plan Assess & Plan/Chief Complaint Assessment: Debility Post polio muscle weakness DM HTN HLP Confusion Jang cath will DC Plan: Monitor BP and BS Home meds DC catheter BM regimen 04/17/20: Monitor sugar No pain reported except shingles pain Fall risk Monitor confusion 04/18/20: Lyrica maintained IRF protocol Monitor sugars (1) Altered mental status Status: Resolved Resolution Date/Time: 04/16/20 @ 11:38 (2) Debility Status: Acute (3) HTN (hypertension) Status: Chronic (4) HLD (hyperlipidemia) Status: Chronic (5) DVT prophylaxis Status: Acute (6) Normocytic anemia Status: Acute (7) Hypothyroidism Status: Chronic (8) Bacteremia Status: Acute (9) Insulin dependent diabetes mellitus Status: Chronic (10) Urinary tract infection Status: Acute (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
--- NOTE | 2020-04-18 10:31 | Physical Therapy Daily Note ---
PT Daily Note-Current Subjective Upon arrival to room, pt up in wheelchair with OT present, completing hygiene at bathroom sink. Pt agreeable to PT treatment. Pt doesnt rate pain during treatment, but states she is having stomach pain "from the shingles." Appearance Following session, pt supine in bed with call light and tray within reach. All needs met at this time. Mental Status Patient Orientation: Person, Confused Transfers SCALE: Activities may be completed with or without assistive devices. 4-Aetgjlgppm-ladttgm completes the activity by him/herself with no assistance from a helper. 5-Set-up or Clean-up Assistance-helper sets up or cleans up; patient completes activity. [place] assists only prior to or following the activity. 4-Supervision or Touching Assistance-helper provides verbal cues and/or touching/steadying and/or contact guard assistance as patient completes activity. Assistance may be provided throughout the activity or intermittently. 3-Partial/Moderate Assistance-helper does LESS THAN HALF the effort. [place] lifts, holds or supports trunk or limbs, but provides less than half the effort. 2-Substantial/Maximal Assistance-helper does MORE THAN HALF the effort. [place] lifts or holds trunk or limbs and provides more than half the effort. 2-Bhsyryicx-krauje does ALL the effort. Patient does none of the effort to complete the activity. Or, the assistance of 2 or more helpers is required for the patient to complete the activity. If activity was not attempted, code reason: 7-Patient Refused. 9-Not Applicable-not attempted and the patient did not perform the activity before the current illness, exacerbation or injury. 10-Not Attempted due to Environmental Limitations-(lack of equipment, weather restraints, etc.). 88-Not Attempted due to Medical Conditions or Safety Concerns. Sit to Lying (QC): 3 Sit to Stand (QC): 3 Gait Training Does the Patient Walk?: Yes Distance: 100' x 4 Walk 10 feet (QC): 4 Gait Assistive Device: FWW Pt requires seated rest breaks following 100' of ambulation with FWW. Pt walks with slow teresita and forward flexed posture. Exercises Seated Therapy Exercises: Ankle pumps, Long arc quads, Hip flexion, Hip abd/add Treatments [id number]: PT/OT cotreat due to pts skilled need for 2 clincians for dynamic balance. Pt initially seated in wheelchair at bathroom sink completing hygiene with OT. Pt then ambulates to therapy gym with FWW and one seated rest break. Once in gym pt completed dynamic balance activities with this PT assisting with standing balance while OT tapped a balloon back and forth. Pt completed 4 trials, 2 with each hand, each consisted of pt standing and tapping balloon for 1-2 minutes before requiring a seated rest break. Pt requires moderate enc ouragement throughout session to complete exercises. [id number]: Pt then completed seated LE exercises in the gym, and then ambulated 2 x 100' with a seated rest break before returning to bed. Pt requires increased encouragement to complete session as she fatigues. Pt frequently acts as if she is crying then quickly returns to a happy demeanor when told she can rest. Pt requires MOD A to return BLE into bed, and then MOD A to position straight within bed. Pt had call light and tray within reach, and all needs met following session. Assessment Current Status: Fair Progress Pt requires moderate encouragement to complete therapy session, and requires frequent rest breaks throughout. Will continue to progress activity tolerance as able. PT Short Term Goals Short Term Goals Time Frame: Apr 23, 2020 Sit to lyin Lying to sitting on side of be: 4 Walk 150 feet: 4 1 step (curb): 3 PT Prison Goals Prison Goals PT Etl Analyst Developer Goals Time Frame: May 07, 2020 Roll Left & Right (QC): 6 Sit to Lying (QC): 6 Lying-Sitting on Side/Bed(QC): 6 Sit to Stand (QC): 6 Chair/Wtr-mi-Fehvg Xfer(QC): 6 Toilet Transfer (QC): 6 Car Transfer (QC): 4 Does the Patient Walk: Yes Walk 10 feet (QC): 6 Walk 50ft with 2 Turns (QC): 6 Walk 150 ft (QC): 6 Walking 10ft on Uneven Surface: 5 1 Step (curb) (QC): 4 4 Steps (QC): 4 12 Steps (QC): 10 Picking up an Object (QC): 10 Does the Pt use WC or Scooter?: No Wheel 50 feet with 2 turns (QC: 9 Wheel 150 feet: 9 PT Plan Problem List Problem List: Activity Tolerance, Functional Strength, Safety, Balance, Gait, Transfer, Bed Mobility, ROM Treatment/Plan Treatment Plan: Continue Plan of Care Treatment Plan: Bed Mobility, Education, Functional Activity Lisa, Functional Strength, Group Therapy, Gait, Safety, Therapeutic Exercise, Transfers Treatment Duration: May 07, 2020 Frequency: At least 5 of 7 days/Wk (IRF) Estimated Hrs Per Day: 1.5 hours per day Patient and/or Family Agrees t: Yes Time/GCodes Time In: 840 Time Out: 940 Total Billed Treatment Time: 60 Total Billed Treatment 1 visit GT (30') EX (15') FA (15') AMANDA BERRY PT Apr 18, 2020 10:31
--- NOTE | 2020-04-18 11:08 | Progress Note ---
CARRILLO BEASLEYMED STUDENT 04/18/20 1108: Progress Note Progress note: 04/18/20 No new questions or concerns this morning Nitroglycerin paste applied this morning for SBP of 179 States shingles pain improved today after restarting Lyrica Denies n/v/abdominal pain Reports some diarrhea yesterday, no bm yet today Plan: Continue PT and OT Continue home medications Monitor BP Fall risk precautions ALMITA MURRAY DO 04/18/20 1637: Supervisory-Addendum Brief Verification & Attestation Participated in pt care: history, MDM, physical Personally performed: exam, history, MDM, supervision of care Care discussed with: Medical Student Procedures: n/a Results interpretation: Verified all documentation Verification and Attestation of Medical Student E/M Service A medical student performed and documented this service in my presence. I reviewed and verified all information documented by the medical student and made modifications to such information, when appropriate. I personally performed the physical exam and medical decision making. Almita Murray Apr 18, 2020,16:37 CARRILLO BEASLEYMED STUDENT Apr 18, 2020 11:08 ALMITA MURRAY DO Apr 18, 2020 16:37
--- NOTE | 2020-04-18 11:37 | Speech Therapy Daily Note ---
Speech Daily Progress Note Subjective Date Seen by Provider: Apr 18, 2020 Time Seen by Provider: 00:30 Patient was resting in bed when I entered her room. She stated "they just wore me out". Objective Patient completed some matching pairs for common phrases with 80% given minimal cues. Assessment Assessment Current Status: Good Progress Treatment Plan Continue Plan of Care Speech Short Term Goals Short Term Goals Short Term Goals 1) Patient will complete memory tasks related to her daily needs at 80% or greater. 2) Patient will complete safety awareness tasks related to her daily needs at 80% or greater. 3) Patient will complete problem solving tasks related to her daily needs at 80% or greater. Speech Transmission Technician Goals Transmission Technician Goals Patient will improve cognitive-communication ability in order to require decreased assistance with daily tasks. Speech-Plan Patient/Family Goals Patient/Family Goals: Patient plans on returning to her home where she lives alone. She has a son near by who assists her with daily needs. Treatment Plan Speech Therapy Treatment Plan: Continue Plan of Care Treatment Duration: Apr 17, 2020 Frequency: 4 times per week (Patient will receive ST 4-5 x per week) Estimated Hrs Per Day: .5 hour per day Rehab Potential: Fair Barriers to Learning: Patient's recent health issues, age Pt/Family Agrees to Plan: Yes Safety Risks/Education Teaching Recipient: Patient Teaching Methods: Demonstration, Discussion Response to Teaching: Verbalize Understanding, Return Demonstration Education Topics Provided: Continued safety within her room Time Speech Therapy Time In: 11:00 Speech Therapy Time Out: 11:30 Total Billed Time: 30 Billed Treatment Time 1, PAIGE Guevara Apr 18, 2020 11:37
--- NOTE | 2020-04-18 12:10 | Physical Therapy Daily Note ---
PT Daily Note-Current Subjective Pt.in bed,states she is so tired. Agrees to bed exercise, short gait and up in recliner for lunch. Pt. requests several rest breaks Pain Location: No Pain Reported Mental Status Patient Orientation: Person, Place Transfers SCALE: Activities may be completed with or without assistive devices. 5-Ckgsqbegtg-hcmrkkj completes the activity by him/herself with no assistance from a helper. 5-Set-up or Clean-up Assistance-helper sets up or cleans up; patient completes activity. [place] assists only prior to or following the activity. 4-Supervision or Touching Assistance-helper provides verbal cues and/or touching/steadying and/or contact guard assistance as patient completes activity. Assistance may be provided throughout the activity or intermittently. 3-Partial/Moderate Assistance-helper does LESS THAN HALF the effort. [place] lifts, holds or supports trunk or limbs, but provides less than half the effort. 2-Substantial/Maximal Assistance-helper does MORE THAN HALF the effort. [place] lifts or holds trunk or limbs and provides more than half the effort. 5-Cbemzogld-amfjok does ALL the effort. Patient does none of the effort to complete the activity. Or, the assistance of 2 or more helpers is required for the patient to complete the activity. If activity was not attempted, code reason: 7-Patient Refused. 9-Not Applicable-not attempted and the patient did not perform the activity before the current illness, exacerbation or injury. 10-Not Attempted due to Environmental Limitations-(lack of equipment, weather restraints, etc.). 88-Not Attempted due to Medical Conditions or Safety Concerns. rolling and pushing self up in bed all with instruction SBA, sup to sit with instruction SBA only, sit to stand CGA Gait Training Gait Assistive Device: FWW 10 ft slow, CGA Exercises Supine Ex: Bridging, Ankle pumps, Quad Set, Rolling, Glut sets, Heel Slides, Short Arc Quads, Scooting, Straight leg raise (x5 only), Hip abd/add Supine Reps: 12 Assessment Current Status: Good Progress fatigues easily PT Short Term Goals Short Term Goals Time Frame: Apr 23, 2020 Sit to lyin Lying to sitting on side of be: 4 Walk 150 feet: 4 1 step (curb): 3 PT Physical Therapy Instructor Goals Physical Therapy Instructor Goals PT Physical Therapy Instructor Goals Time Frame: May 07, 2020 Roll Left & Right (QC): 6 Sit to Lying (QC): 6 Lying-Sitting on Side/Bed(QC): 6 Sit to Stand (QC): 6 Chair/Cwu-zf-Hyhan Xfer(QC): 6 Toilet Transfer (QC): 6 Car Transfer (QC): 4 Does the Patient Walk: Yes Walk 10 feet (QC): 6 Walk 50ft with 2 Turns (QC): 6 Walk 150 ft (QC): 6 Walking 10ft on Uneven Surface: 5 1 Step (curb) (QC): 4 4 Steps (QC): 4 12 Steps (QC): 10 Picking up an Object (QC): 10 Does the Pt use WC or Scooter?: No Wheel 50 feet with 2 turns (QC: 9 Wheel 150 feet: 9 PT Plan Treatment/Plan Treatment Plan: Continue Plan of Care Treatment Plan: Bed Mobility, Education, Functional Activity Lisa, Functional Strength, Group Therapy, Gait, Safety, Therapeutic Exercise, Transfers Treatment Duration: May 07, 2020 Frequency: At least 5 of 7 days/Wk (IRF) Estimated Hrs Per Day: 1.5 hours per day Patient and/or Family Agrees t: Yes Safety Risks/Education Patient Education: Gait Training, Transfer Techniques, Correct Positioning Teaching Recipient: Patient Teaching Methods: Demonstration, Discussion Response to Teaching: Verbalize Understanding, Return Demonstration, Reinforcement Needed Time/GCodes Time In: 1145 Time Out: 1205 Total Billed Treatment Time: 20 Total Billed Treatment 1,EX20m LAZARA CORNEJO STAPLE CUTTER Apr 18, 2020 12:10
[2020-04-18 16:00] VITALS: BP 140/63
[2020-04-18] MEDS: RIVAROXABAN 10 MG TABLET (XARELTO) PO SCH (17:43)
[2020-04-18] MEDS: DOCOSANOL 10 % CREAM (ABREVA) 2 GM TP SCH ×2 (21:08→21:16)
[2020-04-18] MEDS: MELATONIN 3 MG TABLET PO PRN (21:08)
[2020-04-18] MEDS: ONDANSETRON 4 MG (ZOFRAN) ORAL DISSOLVE TAB PO PRN (22:53)
[2020-04-19 06:00] VITALS: BP 136/63
[2020-04-19] MEDS: LEVOTHYROXINE 75 MCG (LEVOTHROID) TABLET PO SCH (06:39)
[2020-04-19] MEDS: KCL 10 MEQ TAB (MICRO K) PO SCH (06:39)
[2020-04-19] MEDS: LEVOTHYROXINE 100 MCG (LEVOTHROID) TAB PO SCH (06:39)
[2020-04-19] MEDS: DOCOSANOL 10 % CREAM (ABREVA) 2 GM TP SCH ×5 (06:42→21:28)
--- NOTE | 2020-04-19 06:51 | PM&R Progress Note ---
Subjective HPI/CC On Admission Date Seen by Provider: Apr 19, 2020 Time Seen by Provider: 12:00 Subjective/Events-last exam 04/19/20: Bdlaura is today Received a lot of phone calls and osborne BM+ Hemoccult was negative UTI on Bactrim to finish up 04/18/20: Lyrica ordered and she is very pleased to have that on board for post shingles pain post herpetic neuralgia Confusion improved but she tells me the same story every day with her pacemaker and such BP elevated required NTG paste Levemir started and her sugars are improved Pt a little bit confused so she was moved closer to the desk at 2:33 Had a little bit of diarrhea so holding laxatives Wants to start taking her Shingles medication BP is doing well Hgb is stable at 10.5 We will check her stools for hemoccult because of tarry stool noted by nurses today CHecked meds and labs Conferred with RN Reviewed therapy notes Review of Systems General: Fatigue, Malaise Neurological: Weakness Objective Exam Vital Signs Vital Signs Date Time Temp Pulse Resp B/P (MAP) Pulse Ox O2 Delivery O2 Flow Rate FiO2 04/20/20 09:00 97 Room Air 04/20/20 06:15 36.2 67 18 139/62 (87) Capillary Refill : Less Than 3 Seconds General Appearance: No Apparent Distress, WD/WN, Chronically ill HEENT: PERRL/EOMI, Normal ENT Inspection, Pharynx Normal Neck: Full Range of Motion, Normal Inspection, Non Tender, Supple, Carotid Bruit Respiratory: Chest Non Tender, Lungs Clear, Normal Breath Sounds, No Accessory Muscle Use, No Respiratory Distress Cardiovascular: Regular Rate, Rhythm, No Edema, No Gallop, No JVD, No Murmur, Normal Peripheral Pulses Gastrointestinal: Normal Bowel Sounds, No Organomegaly, No Pulsatile Mass, Non Tender, Soft Back: Normal Inspection, No CVA Tenderness, No Vertebral Tenderness Extremity: Normal Capillary Refill, Normal Inspection, Normal Range of Motion, Non Tender, No Calf Tenderness, No Pedal Edema Neurologic/Psychiatric: Alert, Oriented x3, No Motor/Sensory Deficits, Normal Mood/Affect, homebirth midwife II-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 FIM Transfers Therapy Code Descriptions/Definitions Functional [place] Measure: 0=Not Assessed/NA 4=Minimal Assistance 1=Total Assistance 5=Supervision or Setup 2=Maximal Assistance 6=Modified [place] 3=Moderate Assistance 7=Complete IndependenceSCALE: Activities may be completed with or without assistive devices. 3-Hctsufxpye-qdylzbp completes the activity by him/herself with no assistance from a helper. 5-Set-up or Clean-up Assistance-helper sets up or cleans up; patient completes activity. [place] assists only prior to or following the activity. 4-Supervision or Touching Assistance-helper provides verbal cues and/or touching/steadying and/or contact guard assistance as patient completes activity. Assistance may be provided throughout the activity or intermittently. 3-Partial/Moderate Assistance-helper does LESS THAN HALF the effort. [place] lifts, holds or supports trunk or limbs, but provides less than half the effort. 2-Substantial/Maximal Assistance-helper does MORE THAN HALF the effort. [place] lifts or holds trunk or limbs and provides more than half the effort. 3-Nbilhuzzm-kiydvm does ALL the effort. Patient does none of the effort to complete the activity. Or, the assistance of 2 or more helpers is required for the patient to complete the activity. If activity was not attempted, code reason: 7-Patient Refused. 9-Not Applicable-not attempted and the patient did not perform the activity before the current illness, exacerbation or injury. 10-Not Attempted due to Environmental Limitations-(lack of equipment, weather restraints, etc.). 88-Not Attempted due to Medical Conditions or Safety Concerns. Roll Left to Right (QC): 3 Sit to Lying (QC): 3 Sit to Stand (QC): 3 Chair/Eim-yw-Sdaut Xfer(QC): 3 Car Transfer (QC): 88 Gait Training Does the Patient Walk?: Yes Distance: 100' x 4 Walk 10 feet (QC): 4 Walk 50 ft with 2 Turns(QC): 4 Walk 150 ft (QC): 88 Walking 10ft/uneven surface-QC: 3 Gait Assistive Device: FWW Stair Training 1 Step (curb) (QC): 7 (approached step and pt declined to attempt noting she did not feel she could perform it. ) 4 Steps (QC): 7 12 Steps (QC): 7 Balance Picking up an Object (QC): 88 (unsteady and fall risk) ADL-Treatment Eating (QC): 6 (states ate lunch IND.) Oral Hygiene (QC): 4 (SBA seated at sink. Pt required min cues for sequencing of task) Shower/Bathe Self (QC): 3 (Pt completed spongebath. Assist washing buttocks, periarea and BLE feet.) Upper Body Dressing (QC): 5 (set up) Lower Body Dressing (QC): 3 (Min A managing pants up and tying pants. CGA in stand at FWW) On/Off Footwear (QC): 3 (Mod A. Pt able to doff socks. Assist donning) Toileting Hygiene (QC): 3 (Min A with managing brief down, pt able to complete hygiene and managing brief up with CGA) Toilet Transfer (QC): 3 (Min A, Pt required cues for sequencing throughout transfer.) Assessment/Plan Assessment and Plan Assess & Plan/Chief Complaint Assessment: Debility Post polio muscle weakness DM HTN HLP Confusion Jang cath will DC Plan: Monitor BP and BS Home meds DC catheter BM regimen 04/17/20: Monitor sugar No pain reported except shingles pain Fall risk Monitor confusion 04/18/20: Lyrica maintained IRF protocol Monitor sugars 04/19/20: Complete Bactrim Monitor BP and sugar IRF protocol Monitor confusion (1) Altered mental status Status: Resolved Resolution Date/Time: 04/16/20 @ 11:38 (2) Debility Status: Acute (3) HTN (hypertension) Status: Chronic (4) HLD (hyperlipidemia) Status: Chronic (5) DVT prophylaxis Status: Acute (6) Normocytic anemia Status: Acute (7) Hypothyroidism Status: Chronic (8) Bacteremia Status: Acute (9) Insulin dependent diabetes mellitus Status: Chronic (10) Urinary tract infection Status: Acute (11) Post-polio syndrome ARMANDO MURRAY DO Apr 19, 2020 06:51
[2020-04-19] MEDS: inSUlin ASPART (NovoLOG) 1 UNIT/0.01 ML (CHARGE PER UNIT) SC SCH ×4 (07:33→21:17)
[2020-04-19] MEDS: FENOFIBRATE 134 MG (LOFIBRA) CAPSULE PO SCH (08:01)
[2020-04-19] MEDS: polyethylene glycoL POWDER 17 GM (MIRALAX) PACK PO SCH ×2 (08:01→21:27)
[2020-04-19] MEDS: SENNA W/DOCUSATE (SENOKOT S) TABLET PO SCH ×4 (08:01→21:27)
[2020-04-19] MEDS: PREGABALIN 50 MG (LYRICA) CAP PO SCH ×3 (08:01→21:04)
[2020-04-19] MEDS: TRIM/SULFAMETH 160/800 (SEPTRA DS) TAB PO SCH ×2 (08:01→17:55)
[2020-04-19] MEDS: DOCUSATE SODIUM 100 MG (COLACE) CAP PO SCH ×2 (08:01→21:27)
--- NOTE | 2020-04-19 09:12 | Physical Therapy Daily Note ---
PT Daily Note-Current Subjective Pt in bed and states, "Its my birthday and I didnt really think Id have to do anything today", agrees to up in chair and some LE exerc Pain Location: No Pain Reported Mental Status Patient Orientation: Normal For Age Transfers SCALE: Activities may be completed with or without assistive devices. 5-Iufpjoyxru-sckvprj completes the activity by him/herself with no assistance from a helper. 5-Set-up or Clean-up Assistance-helper sets up or cleans up; patient completes activity. [place] assists only prior to or following the activity. 4-Supervision or Touching Assistance-helper provides verbal cues and/or touching/steadying and/or contact guard assistance as patient completes activity. Assistance may be provided throughout the activity or intermittently. 3-Partial/Moderate Assistance-helper does LESS THAN HALF the effort. [place] lifts, holds or supports trunk or limbs, but provides less than half the effort. 2-Substantial/Maximal Assistance-helper does MORE THAN HALF the effort. [place] lifts or holds trunk or limbs and provides more than half the effort. 1-Qrfrwegow-dlcunt does ALL the effort. Patient does none of the effort to complete the activity. Or, the assistance of 2 or more helpers is required for the patient to complete the activity. If activity was not attempted, code reason: 7-Patient Refused. 9-Not Applicable-not attempted and the patient did not perform the activity before the current illness, exacerbation or injury. 10-Not Attempted due to Environmental Limitations-(lack of equipment, weather restraints, etc.). 88-Not Attempted due to Medical Conditions or Safety Concerns. Roll Left & Right (QC): 6 Lying to Sitting/Side of Bed(Q: 6 Sit to Stand (QC): 6 Chair/Mhn-ik-Wxmgj Xfer(QC): 6 Gait Training Does the Patient Walk?: Yes Gait Assistive Device: FWW 8 ft CGA, no LOB, FWW Exercises Seated Therapy Exercises: Ankle pumps, Sit to stand, Long arc quads, Hip flexion, Hip abd/add Seated Reps: 10 Assessment Current Status: Good Progress PT Short Term Goals Short Term Goals Time Frame: Apr 23, 2020 Sit to lyin Lying to sitting on side of be: 4 Walk 150 feet: 4 1 step (curb): 3 PT Dimensional Integration Engineer Goals Dimensional Integration Engineer Goals PT Dimensional Integration Engineer Goals Time Frame: May 07, 2020 Roll Left & Right (QC): 6 Sit to Lying (QC): 6 Lying-Sitting on Side/Bed(QC): 6 Sit to Stand (QC): 6 Chair/Syw-lm-Cbocs Xfer(QC): 6 Toilet Transfer (QC): 6 Car Transfer (QC): 4 Does the Patient Walk: Yes Walk 10 feet (QC): 6 Walk 50ft with 2 Turns (QC): 6 Walk 150 ft (QC): 6 Walking 10ft on Uneven Surface: 5 1 Step (curb) (QC): 4 4 Steps (QC): 4 12 Steps (QC): 10 Picking up an Object (QC): 10 Does the Pt use WC or Scooter?: No Wheel 50 feet with 2 turns (QC: 9 Wheel 150 feet: 9 PT Plan Treatment/Plan Treatment Plan: Continue Plan of Care Treatment Plan: Bed Mobility, Education, Functional Activity Lisa, Functional Strength, Group Therapy, Gait, Safety, Therapeutic Exercise, Transfers Treatment Duration: May 07, 2020 Frequency: At least 5 of 7 days/Wk (IRF) Estimated Hrs Per Day: 1.5 hours per day Patient and/or Family Agrees t: Yes Safety Risks/Education Patient Education: Gait Training, Transfer Techniques, Correct Positioning, Disease Process, Safety Issues Teaching Recipient: Patient Teaching Methods: Demonstration, Discussion Response to Teaching: Verbalize Understanding, Return Demonstration, Reinfor cement Needed Time/GCodes Time In: 855 Time Out: 910 Total Billed Treatment Time: 15 Total Billed Treatment 1,FA15m LAZARA CORNEJO PTA Apr 19, 2020 09:12
[2020-04-19] MEDS: RIVAROXABAN 10 MG TABLET (XARELTO) PO SCH (17:55)
[2020-04-19 18:00] VITALS: BP 160/67
[2020-04-19] MEDS: MELATONIN 3 MG TABLET PO PRN (21:05)
[2020-04-20] MEDS: DOCOSANOL 10 % CREAM (ABREVA) 2 GM TP SCH ×5 (06:06→20:36)
[2020-04-20] MEDS: KCL 10 MEQ TAB (MICRO K) PO SCH (06:06)
[2020-04-20] MEDS: LEVOTHYROXINE 75 MCG (LEVOTHROID) TABLET PO SCH (06:06)
[2020-04-20] MEDS: LEVOTHYROXINE 100 MCG (LEVOTHROID) TAB PO SCH (06:06)
[2020-04-20 06:15] VITALS: BP 139/62
[2020-04-20] MEDS: inSUlin ASPART (NovoLOG) 1 UNIT/0.01 ML (CHARGE PER UNIT) SC SCH ×4 (06:15→20:32)
--- NOTE | 2020-04-20 06:31 | PM&R Progress Note ---
Subjective HPI/CC On Admission Date Seen by Provider: Apr 20, 2020 Time Seen by Provider: 12:30 Subjective/Events-last exam 04/20/20: Walking now to the bathroom and has improved a lot BM+ Confusion is less 04/18/20: Lyrica ordered and she is very pleased to have that on board for post shingles p ain post herpetic neuralgia Confusion improved but she tells me the same story every day with her pacemaker and such BP elevated required NTG paste Levemir started and her sugars are improved Pt a little bit confused so she was moved closer to the desk at 2:33 Had a little bit of diarrhea so holding laxatives Wants to start taking her Shingles medication BP is doing well Hgb is stable at 10.5 We will check her stools for hemoccult because of tarry stool noted by nurses today CHecked meds and labs Conferred with RN Reviewed therapy notes Review of Systems General: Fatigue Neurological: Confusion Objective Exam Vital Signs Vital Signs Date Time Temp Pulse Resp B/P (MAP) Pulse Ox O2 Delivery O2 Flow Rate FiO2 04/20/20 09:00 97 Room Air 04/20/20 06:15 36.2 67 18 139/62 (87) Capillary Refill : Less Than 3 Seconds General Appearance: No Apparent Distress, WD/WN, Chronically ill HEENT: PERRL/EOMI, Normal ENT Inspection, Pharynx Normal Neck: Full Range of Motion, Normal Inspection, Non Tender, Supple, Carotid Bruit Respiratory: Chest Non Tender, Lungs Clear, Normal Breath Sounds, No Accessory Muscle Use, No Respiratory Distress Cardiovascular: Regular Rate, Rhythm, No Edema, No Gallop, No JVD, No Murmur, Normal Peripheral Pulses Gastrointestinal: Normal Bowel Sounds, No Organomegaly, No Pulsatile Mass, Non Tender, Soft Back: Normal Inspection, No CVA Tenderness, No Vertebral Tenderness Extremity: Normal Capillary Refill, Normal Inspection, Normal Range of Motion, Non Tender, No Calf Tenderness, No Pedal Edema Neurologic/Psychiatric: Alert, Oriented x3, No Motor/Sensory Deficits, Normal Mood/Affect, instrument man II-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 FIM Transfers Therapy Code Descriptions/Definitions Functional [place] Measure: 0=Not Assessed/NA 4=Minimal Assistance 1=Total Assistance 5=Supervision or Setup 2=Maximal Assistance 6=Modified [place] 3=Moderate Assistance 7=Complete IndependenceSCALE: Activities may be completed with or without assistive devices. 0-Obhelaqewh-ovpjuvb completes the activity by him/herself with no assistance from a helper. 5-Set-up or Clean-up Assistance-helper sets up or cleans up; patient completes activity. [place] assists only prior to or following the activity. 4-Supervision or Touching Assistance-helper provides verbal cues and/or touching/steadying and/or contact guard assistance as patient completes activity. Assistance may be provided throughout the activity or intermittently. 3-Partial/Moderate Assistance-helper does LESS THAN HALF the effort. [place] lifts, holds or supports trunk or limbs, but provides less than half the effort. 2-Substantial/Maximal Assistance-helper does MORE THAN HALF the effort. [place] lifts or holds trunk or limbs and provides more than half the effort. 1-Ljhgtwsvb-fktnfy does ALL the effort. Patient does none of the effort to complete the activity. Or, the assistance of 2 or more helpers is required for the patient to complete the activity. If activity was not attempted, code reason: 7-Patient Refused. 9-Not Applicable-not attempted and the patient did not perform the activity before the current illness, exacerbation or injury. 10-Not Attempted due to Environmental Limitations-(lack of equipment, weather restraints, etc.). 88-Not Attempted due to Medical Conditions or Safety Concerns. Roll Left to Right (QC): 6 Sit to Lying (QC): 3 Sit to Stand (QC): 6 Chair/Gma-sj-Elttv Xfer(QC): 6 Car Transfer (QC): 88 Gait Training Does the Patient Walk?: Yes Distance: 100' x 4 Walk 10 feet (QC): 4 Walk 50 ft with 2 Turns(QC): 4 Walk 150 ft (QC): 88 Walking 10ft/uneven surface-QC: 3 Gait Assistive Device: FWW Stair Training 1 Step (curb) (QC): 7 (approached step and pt declined to attempt noting she did not feel she could perform it. ) 4 Steps (QC): 7 12 Steps (QC): 7 Balance Picking up an Object (QC): 88 (unsteady and fall risk) ADL-Treatment Eating (QC): 6 (states ate lunch IND.) Oral Hygiene (QC): 4 (SBA seated at sink. Pt required min cues for sequencing of task) Shower/Bathe Self (QC): 3 (Pt completed spongebath. Assist washing buttocks, periarea and BLE feet.) Upper Body Dressing (QC): 5 (set up) Lower Body Dressing (QC): 3 (Min A managing pants up and tying pants. CGA in stand at FWW) On/Off Footwear (QC): 3 (Mod A. Pt able to doff socks. Assist donning) Toileting Hygiene (QC): 3 (Min A with managing brief down, pt able to complete hygiene and managing brief up with CGA) Toilet Transfer (QC): 3 (Min A, Pt required cues for sequencing throughout transfer.) Assessment/Plan Assessment and Plan Assess & Plan/Chief Complaint Assessment: Debility Post polio muscle weakness DM HTN HLP Confusion Jang cath will DC Plan: Monitor BP and BS Home meds DC catheter BM regimen 04/17/20: Monitor sugar No pain reported except shingles pain Fall risk Monitor confusion 04/18/20: Lyrica maintained IRF protocol Monitor sugars 04/20/20: Monitor sugars Check labs in am Pain management (1) Altered mental status Status: Resolved Resolution Date/Time: 04/16/20 @ 11:38 (2) Debility Status: Acute (3) HTN (hypertension) Status: Chronic (4) HLD (hyperlipidemia) Status: Chronic (5) DVT prophylaxis Status: Acute (6) Normocytic anemia Status: Acute (7) Hypothyroidism Status: Chronic (8) Bacteremia Status: Acute (9) Insulin dependent diabetes mellitus Status: Chronic (10) Urinary tract infection Status: Acute (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
[2020-04-20] MEDS: TRIM/SULFAMETH 160/800 (SEPTRA DS) TAB PO SCH ×2 (08:57→17:01)
[2020-04-20] MEDS: DOCUSATE SODIUM 100 MG (COLACE) CAP PO SCH ×2 (08:57→20:23)
[2020-04-20] MEDS: FENOFIBRATE 134 MG (LOFIBRA) CAPSULE PO SCH (08:57)
[2020-04-20] MEDS: PREGABALIN 50 MG (LYRICA) CAP PO SCH ×3 (08:57→20:23)
[2020-04-20] MEDS: polyethylene glycoL POWDER 17 GM (MIRALAX) PACK PO SCH ×2 (08:57→20:24)
[2020-04-20] MEDS: SENNA W/DOCUSATE (SENOKOT S) TABLET PO SCH ×4 (08:57→20:25)
[2020-04-20] MEDS: RIVAROXABAN 10 MG TABLET (XARELTO) PO SCH (17:01)
[2020-04-20 18:06] VITALS: BP 148/69
[2020-04-20] MEDS: MELATONIN 3 MG TABLET PO PRN (20:23)
[2020-04-21] MEDS: ACETAMINOPHEN 325 MG TABLET PO PRN ×2 (01:04→05:18)
[2020-04-21] MEDS: LEVOTHYROXINE 100 MCG (LEVOTHROID) TAB PO SCH (05:18)
[2020-04-21] MEDS: LEVOTHYROXINE 75 MCG (LEVOTHROID) TABLET PO SCH (05:18)
[2020-04-21 05:43] VITALS: BP 138/64
[2020-04-21 06:38] LABS: BASOPHILS % (AUTO) 1 % (0-10); EOSINOPHILS # (AUTO) 0.1 10^3/uL (0.0-0.3); EOSINOPHILS % (AUTO) 2 % (0-10); HEMATOCRIT 28 % (35-52); HEMOGLOBIN 8.7 g/dL (11.5-16.0); LYMPHOCYTES # (AUTO) 1.1 10^3/uL (1.0-4.0); LYMPHOCYTES % (AUTO) 19 % (12-44); MEAN CORPUSCULAR HEMOGLOBIN 27 pg (25-34); MEAN CORPUSCULAR HGB CONC 32 g/dL (32-36); MEAN CORPUSCULAR VOLUME 87 fL (80-99); MEAN PLATELET VOLUME 12.6 fL (9.0-12.2); MONOCYTES # (AUTO) 0.4 10^3/uL (0.0-1.0); MONOCYTES % (AUTO) 6 % (0-12); NEUTROPHILS # (AUTO) 4.1 10^3/uL (1.8-7.8); NEUTROPHILS % (AUTO) 70 % (42-75); PLATELET COUNT 137 10^3/uL (130-400)
[2020-04-21 06:39] LABS: ALBUMIN 3.1 GM/DL (3.2-4.5); POTASSIUM 4.7 MMOL/L (3.6-5.0)
[2020-04-21 06:41] LABS: CALCIUM 8.6 MG/DL (8.5-10.1)
[2020-04-21 06:42] LABS: TOTAL PROTEIN 5.8 GM/DL (6.4-8.2)
[2020-04-21] MEDS: KCL 10 MEQ TAB (MICRO K) PO SCH (06:43)
[2020-04-21] MEDS: inSUlin ASPART (NovoLOG) 1 UNIT/0.01 ML (CHARGE PER UNIT) SC SCH ×4 (06:43→21:04)
[2020-04-21 06:44] LABS: BILIRUBIN,TOTAL 0.3 MG/DL (0.1-1.0)
[2020-04-21] MEDS: DOCOSANOL 10 % CREAM (ABREVA) 2 GM TP SCH ×5 (06:44→21:08)
[2020-04-21 06:45] LABS: CREATININE SERUM 1.15 MG/DL (0.60-1.30)
--- NOTE | 2020-04-21 07:55 | PM&R Progress Note ---
Subjective HPI/CC On Admission Date Seen by Provider: Apr 21, 2020 Time Seen by Provider: 10:00 Subjective/Events-last exam 04/21/20: Pt doing very well Less confusion Labs okay Hgb 8.7 Blood sugar is elevated so increase Levemir to 10 twice a day and sliding scale C Sore throat is helped with cough drops 04/20/20: Walking now to the bathroom and has improved a lot BM+ Confusion is less 04/18/20: Lyrica ordered and she is very pleased to have that on board for post shingles pain post herpetic neuralgia Confusion improved but she tells me the same story every day with her pacemaker and such BP elevated required NTG paste Levemir started and her sugars are improved Pt a little bit confused so she was moved closer to the desk at 2:33 Had a little bit of diarrhea so holding laxatives Wants to start taking her Shingles medication BP is doing well Hgb is stable at 10.5 We will check her stools for hemoccult because of tarry stool noted by nurses today CHecked meds and labs Conferred with RN Reviewed therapy notes Review of Systems General: Fatigue, Malaise Neurological: Weakness Objective Exam Vital Signs Vital Signs Date Time Temp Pulse Resp B/P (MAP) Pulse Ox O2 Delivery O2 Flow Rate FiO2 04/21/20 17:04 36.4 77 18 172/78 (109) 95 Room Air Capillary Refill : Less Than 3 Seconds General Appearance: No Apparent Distress, WD/WN, Chronically ill HEENT: PERRL/EOMI, Normal ENT Inspection, Pharynx Normal Neck: Full Range of Motion, Normal Inspection, Non Tender, Supple, Carotid Bruit Respiratory: Chest Non Tender, Lungs Clear, Normal Breath Sounds, No Accessory Muscle Use, No Respiratory Distress Cardiovascular: Regular Rate, Rhythm, No Edema, No Gallop, No JVD, No Murmur, Normal Peripheral Pulses Gastrointestinal: Normal Bowel Sounds, No Organomegaly, No Pulsatile Mass, Non Tender, Soft Back: Normal Inspection, No CVA Tenderness, No Vertebral Tenderness Extremity: Normal Capillary Refill, Normal Inspection, Normal Range of Motion, Non Tender, No Calf Tenderness, No Pedal Edema Neurologic/Psychiatric: Alert, Oriented x3, No Motor/Sensory Deficits, Normal Mood/Affect, 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 FIM Transfers Therapy Code Descriptions/Definitions Functional [place] Measure: 0=Not Assessed/NA 4=Minimal Assistance 1=Total Assistance 5=Supervision or Setup 2=Maximal Assistance 6=Modified [place] 3=Moderate Assistance 7=Complete IndependenceSCALE: Activities may be completed with or without assistive devices. 7-Alpxgbcfdl-njgcoyy completes the activity by him/herself with no assistance from a helper. 5-Set-up or Clean-up Assistance-helper sets up or cleans up; patient completes activity. [place] assists only prior to or following the activity. 4-Supervision or Touching Assistance-helper provides verbal cues and/or touching/steadying and/or contact guard assistance as patient completes activity. Assistance may be provided throughout the activity or intermittently. 3-Partial/Moderate Assistance-helper does LESS THAN HALF the effort. [place] lifts, holds or supports trunk or limbs, but provides less than half the effort. 2-Substantial/Maximal Assistance-helper does MORE THAN HALF the effort. [place] lifts or holds trunk or limbs and provides more than half the effort. 8-Ivsqftaln-rwmtyp does ALL the effort. Patient does none of the effort to complete the activity. Or, the assistance of 2 or more helpers is required for the patient to complete the activity. If activity was not attempted, code reason: 7-Patient Refused. 9-Not Applicable-not attempted and the patient did not perform the activity before the current illness, exacerbation or injury. 10-Not Attempted due to Environmental Limitations-(lack of equipment, weather restraints, etc.). 88-Not Attempted due to Medical Conditions or Safety Concerns. Roll Left to Right (QC): 6 Sit to Lying (QC): 3 Sit to Stand (QC): 6 Chair/Wte-et-Ndqeb Xfer(QC): 6 Car Transfer (QC): 88 Gait Training Does the Patient Walk?: Yes Distance: 100' x 4 Walk 10 feet (QC): 4 Walk 50 ft with 2 Turns(QC): 4 Walk 150 ft (QC): 88 Walking 10ft/uneven surface-QC: 3 Gait Assistive Device: FWW Stair Training 1 Step (curb) (QC): 7 (approached step and pt declined to attempt noting she did not feel she could perform it. ) 4 Steps (QC): 7 12 Steps (QC): 7 Balance Picking up an Object (QC): 88 (unsteady and fall risk) ADL-Treatment Eating (QC): 6 (states ate lunch IND.) Oral Hygiene (QC): 4 (SBA seated at sink. Pt required min cues for sequencing of task) Shower/Bathe Self (QC): 3 (Pt completed spongebath. Assist washing buttocks, periarea and BLE feet.) Upper Body Dressing (QC): 5 (set up) Lower Body Dressing (QC): 3 (Min A managing pants up and tying pants. CGA in stand at FWW) On/Off Footwear (QC): 3 (Mod A. Pt able to doff socks. Assist donning) Toileting Hygiene (QC): 3 (Min A with managing brief down, pt able to complete hygiene and managing brief up with CGA) Toilet Transfer (QC): 3 (Min A, Pt required cues for sequencing throughout transfer.) Assessment/Plan Assessment and Plan Assess & Plan/Chief Complaint Assessment: Debility Post polio muscle weakness DM HTN HLP Confusion Jang cath will DC Plan: Monitor BP and BS Home meds DC catheter BM regimen 04/17/20: Monitor sugar No pain reported except shingles pain Fall risk Monitor confusion 04/18/20: Lyrica maintained IRF protocol Monitor sugars 04/20/20: Monitor sugars Check labs in am Pain management 04/21/20: Monitor confusion Increase insulin Cough drops for sore throat (1) Altered mental status Status: Resolved Resolution Date/Time: 04/16/20 @ 11:38 (2) Debility Status: Acute (3) HTN (hypertension) Status: Chronic (4) HLD (hyperlipidemia) Status: Chronic (5) DVT prophylaxis Status: Acute (6) Normocytic anemia Status: Acute (7) Hypothyroidism Status: Chronic (8) Bacteremia Status: Acute (9) Insulin dependent diabetes mellitus Status: Chronic (10) Urinary tract infection Status: Acute (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
[2020-04-21] MEDS: FENOFIBRATE 134 MG (LOFIBRA) CAPSULE PO SCH (08:30)
[2020-04-21] MEDS: SENNA W/DOCUSATE (SENOKOT S) TABLET PO SCH ×4 (08:30→21:10)
[2020-04-21] MEDS: polyethylene glycoL POWDER 17 GM (MIRALAX) PACK PO SCH ×2 (08:30→21:09)
[2020-04-21] MEDS: PREGABALIN 50 MG (LYRICA) CAP PO SCH ×3 (08:30→21:00)
[2020-04-21] MEDS: TRIM/SULFAMETH 160/800 (SEPTRA DS) TAB PO SCH ×2 (08:30→17:05)
[2020-04-21] MEDS: DOCUSATE SODIUM 100 MG (COLACE) CAP PO SCH ×2 (08:31→21:09)
--- NOTE | 2020-04-21 09:36 | Occupational Ther Daily Note ---
OT Current Status-Daily Note Subjective Pt seated in recliner, agreeable to OT tx. Pt did not verbalize any pain during tx. ADL-Treatment Therapy Code Descriptions/Definitions Functional [place] Measure: 0=Not Assessed/NA 4=Minimal Assistance 1=Total Assistance 5=Supervision or Setup 2=Maximal Assistance 6=Modified [place] 3=Moderate Assistance 7=Complete IndependenceSCALE: Activities may be completed with or without assistive devices. 5-Pziwfcmyds-acpohkq completes the activity by him/herself with no assistance from a helper. 5-Set-up or Clean-up Assistance-helper sets up or cleans up; patient completes a ctivity. [place] assists only prior to or following the activity. 4-Supervision or Touching Assistance-helper provides verbal cues and/or touching/steadying and/or contact guard assistance as patient completes activity. Assistance may be provided throughout the activity or intermittently. 3-Partial/Moderate Assistance-helper does LESS THAN HALF the effort. [place] lifts, holds or supports trunk or limbs, but provides less than half the effort. 2-Substantial/Maximal Assistance-helper does MORE THAN HALF the effort. [place] lifts or holds trunk or limbs and provides more than half the effort. 9-Bevhsfvpl-qtixpd does ALL the effort. Patient does none of the effort to complete the activity. Or, the assistance of 2 or more helpers is required for the patient to complete the activity. If activity was not attempted, code reason: 7-Patient Refused. 9-Not Applicable-not attempted and the patient did not perform the activity before the current illness, exacerbation or injury. 10-Not Attempted due to Environmental Limitations-(lack of equipment, weather restraints, etc.). 88-Not Attempted due to Medical Conditions or Safety Concerns. Oral Hygiene (QC): 4 (SBA, seated in w/c at sink. Pt required min verbal cues throughout task.) Shower/Bathe Self (QC): 4 (CGA in stand, pt able to wash all parts with encouragement.) Upper Body Dressing (QC): 4 (SBA, pt required verbal cues to orient shirt.) Lower Body Dressing (QC): 4 (CGA in stand at FWW. Pt able to thread BLE into pants, and manage pants up with encouragement.) On/Off Footwear: 3 (Mod A. Pt able to doff socks with increased time. Mod A doinning after education on sock aide. OT then educated pt on using dressing stick to doff, requiring mod vebal cues) Toileting Hygiene (QC): 4 (CGA in stand at FWW for clothing management and hygiene, pt required encouragement and verbal cues for sequencing.) Toilet Transfer (QC): 4 (CGA on/off toilet) Other Treatment Pt seated in recliner, agreeable to OT tx. Pt declined shower, stating she wants to do a sponge bath. OT encouraged pt to take a shower since this is what she would do at home, pt still declined. Pt completed sponge bath and dressing at recliner. OT educated pt on AE for footwear. Pt then used FWW to ambulate to [facility] sink. Pt completed oral care and hair brushing seated at sink with cues for sequencing. Pt then transferred to toilet to complete toileting, then returned to recliner using FWW. During functional mobility with FWW, pt required cues to keep walker close to her, and with stand to sit transfers, pt required cues to reach back for chair. Poor carryover of techniques for transfers. Post OT tx, pt seated in recliner, call light in reach and all needs met. Education OT Patient Education: Correct positioning, Energy conservation, Modified ADL techniques, Progress toward Goal/Update tx plan, Purpose of tx/functional activities, Safety issues, Transfer techniques Teaching Recipient: Patient Teaching Methods: Discussion Response to Teaching: Verbalize Understanding, Reinforcement Needed OT Short Term Goals Short Term Goals Time Frame: Apr 25, 2020 Toileting hygiene: 4 Lower body dressin Putting on/taking off footwear: 4 OT Skilled Nursing Goals Skilled Nursing Goals Time Frame: May 09, 2020 Eating (QC): 6 Oral Hygiene (QC): 6 Toileting Hygiene (QC): 6 Shower/Bathe Self (QC): 6 Upper Body Dressing (QC): 6 Lower Body Dressing (QC): 6 On/Off Footwear (QC): 6 Additional Goals: 1-Demonstrate ADL Tasks, 2-Verbalize Understanding, 3- ImproveStrength/Lisa 1=Demonstrate adherence to instructed precautions during ADL tasks. 2=Patient will verbalize/demonstrate understanding of assistive devices/modifications for ADL. 3=Patient will improve strength/tolerance for activity to enable patient to perform ADL's. OT Education/Plan Problem List/Assessment Assessment: Decreased Activ Tolerance, Decreased Safety Aware, Decreased UE Strength, Impaired Funct Balance, Impaired I ADL's, Impaired Self-Care Skills Discharge Recommendations Plan/Recommendations: Continue POC Treatment Plan/Plan of Care Patient would benefit from OT for education, treatment and training to promote independence in ADL's, mobility, safety and/or upper extremity function for ADL's. Plan of Care: ADL Retraining, Caregiver Training, Cognitive Retraining, Functional Mobility, Group Exercise/Act as Ind, UE Funct Exercise/Act, W/C Management Training Treatment Duration: May 09, 2020 Frequency: At least 5 of 7 days/Wk (IRF) Estimated Hrs Per Day: 1.5 hours per day Agreement: Yes Rehab Potential: Fair Time/GCodes Start Time: 08:00 Stop Time: 09:15 Total Time Billed (hr/min): 75 Billed Treatment Time 1, ADL 5 PETER YAN OT Apr 21, 2020 09:36
--- NOTE | 2020-04-21 11:15 | Speech Therapy Daily Note ---
Speech Daily Progress Note Subjective Date Seen by Provider: Apr 21, 2020 Time Seen by Provider: 00:30 Patient was resting in her recliner following her PT when I entered her room. Objective Patient completed a series of "what's wrong with this picture" safety awareness pictures at 80% with min to mod cues. Assessment Assessment Current Status: Good Progress Treatment Plan Continue Plan of Care Speech Short Term Goals Short Term Goals Short Term Goals 1) Patient will complete memory tasks related to her daily needs at 80% or greater. 2) Patient will complete safety awareness tasks related to her daily needs at 80% or greater. 3) Patient will complete problem solving tasks related to her daily needs at 80% or greater. Speech Mcc Goals Web Content Developer Goals Patient will improve cognitive-communication ability in order to require decreased assistance with daily tasks. Speech-Plan Patient/Family Goals Patient/Family Goals: Patient plans on returning to her home upon discharge. Treatment Plan Speech Therapy Treatment Plan: Continue Plan of Care Treatment Duration: Apr 25, 2020 Frequency: 4 times per week (Patient will receive ST 4-5 x per week) Estimated Hrs Per Day: .5 hour per day Rehab Potential: Fair Barriers to Learning: Patient's mild cognitive deficits, age Pt/Family Agrees to Plan: Yes Safety Risks/Education Teaching Recipient: Patient Teaching Methods: Demonstration, Discussion Response to Teaching: Verbalize Understanding, Return Demonstration Education Topics Provided: Continued safety within her room, communication of wants/needs Time Speech Therapy Time In: 09:30 Speech Therapy Time Out: 10:00 Total Billed Time: 30 Billed Treatment Time 1, PAIGE Guevara Apr 21, 2020 11:15
--- NOTE | 2020-04-21 11:25 | Progress Note ---
CARRILLO BEASLEY,MED STUDENT 04/21/20 1125: Progress Note Progress note: 04/21/20 She reports a sore throat this morning, has had some cough drops and tea which helped Had breakfast this morning, no nausea Had a normal BM this morning, denies diarrhea Denies pain Confusion seems improved today Plan: Continue PT/OT Monitor labs Continue home medications ALMITA MURRAY DO 04/21/20 2143: Supervisory-Addendum Brief Verification & Attestation Participated in pt care: history, MDM, physical Personally performed: exam, history, MDM, supervision of care Care discussed with: Medical Student Procedures: n/a Results interpretation: Verified all documentation Verification and Attestation of Medical Student E/M Service A medical student performed and documented this service in my presence. I reviewed and verified all information documented by the medical student and made modifications to such information, when appropriate. I personally performed the physical exam and medical decision making. Almita Murray, Apr 21, 2020,21:42 CARRILLO BEASLEY MED STUDENT Apr 21, 2020 11:25 ALMITA MURRAY DO Apr 21, 2020 21:43
--- NOTE | 2020-04-21 11:56 | Physical Therapy Daily Note ---
PT Daily Note-Current Subjective Pt. up in recliner, agrees to Rx. Shares again that she is not very active at home, her son delivers groceries and she stays inside most of the time. Pt. shares several times that she is fearful of falling melanie sup to sit and sit top sup Pain Location: No Pain Reported Mental Status Patient Orientation: Person, Place Attachments: Other-See Comments (mask while out of room) Transfers SCALE: Activities may be completed with or without assistive devices. 6-Hxtlaqohqu-lobboia completes the activity by him/herself with no assistance from a helper. 5-Set-up or Clean-up Assistance-helper sets up or cleans up; patient completes activity. [place] assists only prior to or following the activity. 4-Supervision or Touching Assistance-helper provides verbal cues and/or touching/steadying and/or contact guard assistance as patient completes activity. Assistance may be provided throughout the activity or intermittently. 3-Partial/Moderate Assistance-helper does LESS THAN HALF the effort. [place] lifts, holds or supports trunk or limbs, but provides less than half the effort. 2-Substantial/Maximal Assistance-helper does MORE THAN HALF the effort. [place] lifts or holds trunk or limbs and provides more than half the effort. 5-Ccjzyylcr-achgoq does ALL the effort. Patient does none of the effort to complete the activity. Or, the assistance of 2 or more helpers is required for the patient to complete the activity. If activity was not attempted, code reason: 7-Patient Refused. 9-Not Applicable-not attempted and the patient did not perform the activity before the current illness, exacerbation or injury. 10-Not Attempted due to Environmental Limitations-(lack of equipment, weather restraints, etc.). 88-Not Attempted due to Medical Conditions or Safety Concerns. Roll Left & Right (QC): 5 Sit to Lying (QC): 4 Lying to Sitting/Side of Bed(Q: 4 Sit to Stand (QC): 4 Chair/Gcn-bf-Qbgew Xfer(QC): 4 Toilet Transfer (QC): 4 all TRFs were emphasized this date with safety instruction for approaching a chair as pt.tends to abandon FWW and plop in to chair before having reached it with LEs in safe position.Pt. fearful of falling when in position change. sit to sup instruction and CGA, again pt. fearful and needs reassurance for TRF Gait Training Does the Patient Walk?: Yes Walk 10 feet (QC): 4 Walk 50 ft with 2 Turns(QC): 4 Gait Persons Needed: 1 Gait Assistive Device: FWW flexed posture, decreased stride length, poor awareness of surroundings , followed by w/c as pt. fatigues quickly Wheelchair Training Does the Pt Use a Wheelchair?: Yes Wheel 50 ft with 2 turns (QC): 3 Type of Wheelchair: Manual instructed in braking and required hand over hand for turns and manuevering Exercises Supine Ex: Bridging, Ankle pumps, Rolling, Heel Slides, Scooting, Hip abd/add Supine Reps: 12 Seated Therapy Exercises: Ankle pumps, Sit to stand, Long arc quads, Hip flexion, Hip abd/add Seated Reps: 15 Assessment Current Status: Good Progress pt. is somewhat confused and has low vision which contribute to safety concerns PT Short Term Goals Short Term Goals Time Frame: Apr 23, 2020 Sit to lyin Lying to sitting on side of be: 4 Walk 150 feet: 4 1 step (curb): 3 PT Fpc Goals Sole Trimmer Goals PT Fpc Goals Time Frame: May 07, 2020 Roll Left & Right (QC): 6 Sit to Lying (QC): 6 Lying-Sitting on Side/Bed(QC): 6 Sit to Stand (QC): 6 Chair/Yjn-zf-Csyxe Xfer(QC): 6 Toilet Transfer (QC): 6 Car Transfer (QC): 4 Does the Patient Walk: Yes Walk 10 feet (QC): 6 Walk 50ft with 2 Turns (QC): 6 Walk 150 ft (QC): 6 Walking 10ft on Uneven Surface: 5 1 Step (curb) (QC): 4 4 Steps (QC): 4 12 Steps (QC): 10 Picking up an Object (QC): 10 Does the Pt use WC or Scooter?: No Wheel 50 feet with 2 turns (QC: 9 Wheel 150 feet: 9 PT Plan Treatment/Plan Treatment Plan: Continue Plan of Care Treatment Plan: Bed Mobility, Education, Functional Activity Lisa, Functional Strength, Group Therapy, Gait, Safety, Therapeutic Exercise, Transfers Treatment Duration: May 07, 2020 Frequency: At least 5 of 7 days/Wk (IRF) Estimated Hrs Per Day: 1.5 hours per day Patient and/or Family Agrees t: Yes Safety Risks/Education Patient Education: Gait Training, Transfer Techniques, Correct Positioning, W/C Management, Disease Process, Safety Issues Teaching Recipient: Patient Teaching Methods: Demonstration, Discussion Response to Teaching: Verbalize Understanding, Return Demonstration, Reinforcement Needed Time/GCodes Time In: 1030 Time Out: 1200 Total Billed Treatment Time: 90 Total Billed Treatment 1,FA30m,GT15m,EX30m,WC15m LAZARA CORNEJO EXCELSIOR MACHINE FEEDER Apr 21, 2020 11:56
[2020-04-21 17:04] VITALS: BP 172/78
[2020-04-21] MEDS: RIVAROXABAN 10 MG TABLET (XARELTO) PO SCH (17:05)
[2020-04-21] MEDS: NITROGLYCERIN 2% OINT 1 GM UNIT DOSE PACKET TOP PRN (17:08)
--- NOTE | 2020-04-21 19:14 | NUR ---
bedside report received from DIMPLE HUTCHINSON, assume care of pt
[2020-04-21] MEDS: MELATONIN 3 MG TABLET PO PRN (21:00)
--- NOTE | 2020-04-21 21:04 | NUR ---
pt refused Colace, Senliza & miralax, fsbs 329, NovoLog 14 units & Levemir 10 units given
[2020-04-22 05:50] VITALS: BP 145/65
[2020-04-22] MEDS: LEVOTHYROXINE 100 MCG (LEVOTHROID) TAB PO SCH (06:31)
[2020-04-22] MEDS: KCL 10 MEQ TAB (MICRO K) PO SCH (06:31)
[2020-04-22] MEDS: LEVOTHYROXINE 75 MCG (LEVOTHROID) TABLET PO SCH (06:31)
[2020-04-22] MEDS: inSUlin ASPART (NovoLOG) 1 UNIT/0.01 ML (CHARGE PER UNIT) SC SCH ×4 (06:32→21:32)
[2020-04-22] MEDS: DOCOSANOL 10 % CREAM (ABREVA) 2 GM TP SCH ×5 (08:06→21:31)
[2020-04-22] MEDS: FENOFIBRATE 134 MG (LOFIBRA) CAPSULE PO SCH (08:10)
[2020-04-22] MEDS: PREGABALIN 50 MG (LYRICA) CAP PO SCH ×3 (08:10→21:31)
[2020-04-22] MEDS: TRIM/SULFAMETH 160/800 (SEPTRA DS) TAB PO SCH ×2 (08:10→17:07)
[2020-04-22] MEDS: DOCUSATE SODIUM 100 MG (COLACE) CAP PO SCH ×2 (08:15→21:31)
[2020-04-22] MEDS: polyethylene glycoL POWDER 17 GM (MIRALAX) PACK PO SCH ×2 (08:15→21:37)
[2020-04-22] MEDS: SENNA W/DOCUSATE (SENOKOT S) TABLET PO SCH ×4 (08:15→21:38)
--- NOTE | 2020-04-22 08:43 | PM&R Progress Note ---
Subjective HPI/CC On Admission Date Seen by Provider: Apr 22, 2020 Time Seen by Provider: 10:00 Subjective/Events-last exam 04/22/20: Bowels moved today Blood sugar is much better Motivation issues today Will monitor closely 04/21/20: Pt doing very well Less confusion Labs okay Hgb 8.7 Blood sugar is elevated so increase Levemir to 10 twice a day and sliding scale C Sore throat is helped with cough drops 04/20/20: Walking now to the bathroom and has improved a lot BM+ Confusion is less 04/18/20: Lyrica ordered and she is very pleased to have that on board for post shingles pain post herpetic neuralgia Confusion improved but she tells me the same story every day with her pacemaker and such BP elevated required NTG paste Levemir started and her sugars are improved Pt a little bit confused so she was moved closer to the desk at 2:33 Had a little bit of diarrhea so holding laxatives Wants to start taking her Shingles medication BP is doing well Hgb is stable at 10.5 We will check her stools for hemoccult because of tarry stool noted by nurses today CHecked meds and labs Conferred with RN Reviewed therapy notes Review of Systems General: Fatigue, Malaise Neurological: Weakness Objective Exam Vital Signs Vital Signs Date Time Temp Pulse Resp B/P (MAP) Pulse Ox O2 Delivery O2 Flow Rate FiO2 04/22/20 21:35 Room Air 04/22/20 16:20 37.2 79 14 159/70 (99) 92 Capillary Refill : Less Than 3 Seconds General Appearance: No Apparent Distress, WD/WN, Chronically ill HEENT: PERRL/EOMI, Normal ENT Inspection, Pharynx Normal Neck: Full Range of Motion, Normal Inspection, Non Tender, Supple, Carotid Bruit Respiratory: Chest Non Tender, Lungs Clear, Normal Breath Sounds, No Accessory Muscle Use, No Respiratory Distress Cardiovascular: Regular Rate, Rhythm, No Edema, No Gallop, No JVD, No Murmur, Normal Peripheral Pulses Gastrointestinal: Normal Bowel Sounds, No Organomegaly, No Pulsatile Mass, Non Tender, Soft Back: Normal Inspection, No CVA Tenderness, No Vertebral Tenderness Extremity: Normal Capillary Refill, Normal Inspection, Normal Range of Motion, Non Tender, No Calf Tenderness, No Pedal Edema Neurologic/Psychiatric: Alert, Oriented x3, No Motor/Sensory Deficits, Normal Mood/Affect, quantitative researcher II-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 FIM Transfers Therapy Code Descriptions/Definitions Functional [place] Measure: 0=Not Assessed/NA 4=Minimal Assistance 1=Total Assistance 5=Supervision or Setup 2=Maximal Assistance 6=Modified [place] 3=Moderate Assistance 7=Complete IndependenceSCALE: Activities may be completed with or without assistive devices. 3-Vjvfeajyph-llnmdqk completes the activity by him/herself with no assistance from a helper. 5-Set-up or Clean-up Assistance-helper sets up or cleans up; patient completes activity. [place] assists only prior to or following the activity. 4-Supervision or Touching Assistance-helper provides verbal cues and/or touching/steadying and/or contact guard assistance as patient completes activity. Assistance may be provided throughout the activity or intermittently. 3-Partial/Moderate Assistance-helper does LESS THAN HALF the effort. [place] lifts, holds or supports trunk or limbs, but provides less than half the effort. 2-Substantial/Maximal Assistance-helper does MORE THAN HALF the effort. [place] lifts or holds trunk or limbs and provides more than half the effort. 0-Netojhebv-zzmjhi does ALL the effort. Patient does none of the effort to co mplete the activity. Or, the assistance of 2 or more helpers is required for the patient to complete the activity. If activity was not attempted, code reason: 7-Patient Refused. 9-Not Applicable-not attempted and the patient did not perform the activity before the current illness, exacerbation or injury. 10-Not Attempted due to Environmental Limitations-(lack of equipment, weather restraints, etc.). 88-Not Attempted due to Medical Conditions or Safety Concerns. Roll Left to Right (QC): 5 Sit to Lying (QC): 4 Sit to Stand (QC): 4 Chair/Umo-xk-Esfod Xfer(QC): 4 Car Transfer (QC): 88 Gait Training Does the Patient Walk?: Yes Distance: 100' x 4 Walk 10 feet (QC): 4 Walk 50 ft with 2 Turns(QC): 4 Walk 150 ft (QC): 88 Walking 10ft/uneven surface-QC: 3 Gait Persons Needed: 1 Gait Assistive Device: FWW Wheelchair Training Does the Pt Use a Wheelchair?: Yes Wheel 50 ft with 2 turns (QC): 3 Type of Wheelchair: Manual Stair Training 1 Step (curb) (QC): 7 (approached step and pt declined to attempt noting she did not feel she could perform it. ) 4 Steps (QC): 7 12 Steps (QC): 7 Balance Picking up an Object (QC): 88 (unsteady and fall risk) ADL-Treatment Eating (QC): 6 (states ate lunch IND.) Oral Hygiene (QC): 4 (SBA, seated in w/c at sink. Pt required min verbal cues throughout task.) Shower/Bathe Self (QC): 4 (CGA in stand, pt able to wash all parts with encouragement.) Upper Body Dressing (QC): 4 (SBA, pt required verbal cues to orient shirt.) Lower Body Dressing (QC): 4 (CGA in stand at FWW. Pt able to thread BLE into pants, and manage pants up with encouragement.) On/Off Footwear (QC): 3 (Mod A. Pt able to doff socks with increased time. Mod A doinning after education on sock aide. OT then educated pt on using dressing stick to doff, requiring mod vebal cues) Toileting Hygiene (QC): 4 (CGA in stand at FWW for clothing management and hygiene, pt required encouragement and verbal cues for sequencing.) Toilet Transfer (QC): 4 (CGA on/off toilet) Assessment/Plan Assessment and Plan Assess & Plan/Chief Complaint Assessment: Debility Post polio muscle weakness DM HTN HLP Confusion Jang cath will DC Plan: Monitor BP and BS Home meds DC catheter BM regimen 04/17/20: Monitor sugar No pain reported except shingles pain Fall risk Monitor confusion 04/18/20: Lyrica maintained IRF protocol Monitor sugars 04/20/20: Monitor sugars Check labs in am Pain management 04/21/20: Monitor confusion Increase insulin Cough drops for sore throat 04/22/20: Monitor blood sugar Try to motivate Improving (1) Altered mental status Status: Resolved Resolution Date/Time: 04/16/20 @ 11:38 (2) Debility Status: Acute (3) HTN (hypertension) Status: Chronic (4) HLD (hyperlipidemia) Status: Chronic (5) DVT prophylaxis Status: Acute (6) Normocytic anemia Status: Acute (7) Hypothyroidism Status: Chronic (8) Bacteremia Status: Acute (9) Insulin dependent diabetes mellitus Status: Chronic (10) Urinary tract infection Status: Acute (11) Post-polio syndrome ARMANDO MURRAY DO Apr 22, 2020 08:43
--- NOTE | 2020-04-22 08:43 | Occupational Ther Daily Note ---
OT Current Status-Daily Note Subjective Pt laying in bed, agreeable to OT Tx. Pt stated she has no pain today. ADL-Treatment Therapy Code Descriptions/Definitions Functional [place] Measure: 0=Not Assessed/NA 4=Minimal Assistance 1=Total Assistance 5=Supervision or Setup 2=Maximal Assistance 6=Modified [place] 3=Moderate Assistance 7=Complete IndependenceSCALE: Activities may be completed with or without assistive devices. 7-Rfwwdykkpr-hoyzdwi completes the activity by him/herself with no assistance from a helper. 5-Set-up or Clean-up Assistance-helper sets up or cleans up; patient completes activity. [place] assists only prior to or following the activity. 4-Supervision or Touching Assistance-helper provides verbal cues and/or touching/steadying and/or contact guard assistance as patient completes activity. Assistance may be provided throughout the activity or intermittently. 3-Partial/Moderate Assistance-helper does LESS THAN HALF the effort. [place] lifts, holds or supports trunk or limbs, but provides less than half the effort. 2-Substantial/Maximal Assistance-helper does MORE THAN HALF the effort. [place] lifts or holds trunk or limbs and provides more than half the effort. 3-Xryulkjbr-qnnljk does ALL the effort. Patient does none of the effort to complete the activity. Or, the assistance of 2 or more helpers is required for the patient to complete the activity. If activity was not attempted, code reason: 7-Patient Refused. 9-Not Applicable-not attempted and the patient did not perform the activity before the current illness, exacerbation or injury. 10-Not Attempted due to Environmental Limitations-(lack of equipment, weather restraints, etc.). 88-Not Attempted due to Medical Conditions or Safety Concerns. Oral Hygiene (QC): 4 (SBA standing at sink, FWW) Other Treatment Pt laying in bed, transferred supine to sit EOB with SBA. Pt's nurse present to give meds, pt able to take meds with water independently. She then stood with CGA, ambulating into the restroom with FWW with CGA. Pt stood at the sink to brush her teeth and hair with SBA. Pt then sat in w/c, and self-propelled w/c to therapy gym. Pt required max cues for w/c mobility around turns, and min A with w/c in order to maintain straight line. In order to increase BUE strength and functional endurance, pt completed arm bike, min resistance x10 mins, with rest breaks as needed. In order to increase fine motor strength and coordination, pt completed fine motor task with moderate resistance theraputty, pt instructed to remove beads. Pt self-propelled w/c back to room, with assistance through doorways and cues to lock breaks. Pt requested to return to bed, using FWW, with CGA sit to stand, and CGA to bed. Pt sat EOB and took a drink independently, then SBA sit to supine. Pt required cues to scoot hips over in bed towards the left side. Post OT tx, pt laying in bed, call light in reach and all needs met. Education OT Patient Education: Correct positioning, Energy conservation, Modified ADL techniques, Progress toward Goal/Update tx plan, Purpose of tx/functional activities, Safety issues, Transfer techniques, W/C management Teaching Recipient: Patient Teaching Methods: Discussion Response to Teaching: Verbalize Understanding OT Short Term Goals Short Term Goals Time Frame: Apr 25, 2020 Toileting hygiene: 4 Lower body dressin Putting on/taking off footwear: 4 OT Fdc Goals Office Assistance Goals Time Frame: May 09, 2020 Eating (QC): 6 Oral Hygiene (QC): 6 Toileting Hygiene (QC): 6 Shower/Bathe Self (QC): 6 Upper Body Dressing (QC): 6 Lower Body Dressing (QC): 6 On/Off Footwear (QC): 6 Additional Goals: 1-Demonstrate ADL Tasks, 2-Verbalize Understanding, 3- ImproveStrength/Lisa 1=Demonstrate adherence to instructed precautions during ADL tasks. 2=Patient will verbalize/demonstrate understanding of assistive devices/modifications for ADL. 3=Patient will improve strength/tolerance for activity to enable patient to perform ADL's. OT Education/Plan Problem List/Assessment Assessment: Decreased Activ Tolerance, Decreased UE Strength, Impaired Funct Balance, Impaired I ADL's, Impaired Self-Care Skills Discharge Recommendations Plan/Recommendations: Continue POC Treatment Plan/Plan of Care Patient would benefit from OT for education, treatment and training to promote independence in ADL's, mobility, safety and/or upper extremity function for ADL's. Plan of Care: ADL Retraining, Caregiver Training, Cognitive Retraining, Functional Mobility, Group Exercise/Act as Ind, UE Funct Exercise/Act, W/C Management Training Treatment Duration: May 09, 2020 Frequency: At least 5 of 7 days/Wk (IRF) Estimated Hrs Per Day: 1.5 hours per day Agreement: Yes Rehab Potential: Fair Time/GCodes Start Time: 08:00 Stop Time: 09:15 Total Time Billed (hr/min): 75 Billed Treatment Time 1, ADL (20'), EX (15'), FA 3 (40')` PETER YAN OT Apr 22, 2020 08:43
--- NOTE | 2020-04-22 10:33 | Speech Therapy Daily Note ---
Speech Daily Progress Note Subjective Date Seen by Provider: Apr 22, 2020 Time Seen by Provider: 00:30 Patient was resting in her bed and difficult to arouse, however she did awaken and participated with therapist. Objective Patient completed a series of memory questions of general information at 85% with minimal cues. Assessment Assessment Current Status: Good Progress Treatment Plan Continue Plan of Care Speech Short Term Goals Short Term Goals Short Term Goals 1) Patient will complete memory tasks related to her daily needs at 80% or greater. 2) Patient will complete safety awareness tasks related to her daily needs at 80% or greater. 3) Patient will complete problem solving tasks related to her daily needs at 80% or greater. Speech Alf Goals Alf Goals Patient will improve cognitive-communication ability in order to require decreased assistance with daily tasks. Speech-Plan Patient/Family Goals Patient/Family Goals: Patient plans on returning to her home with family and other support as determined by the rehab team. Treatment Plan Speech Therapy Treatment Plan: Continue Plan of Care Treatment Duration: Apr 25, 2020 Frequency: 4 times per week (Patient will receive ST 4-5 x per week) Estimated Hrs Per Day: .5 hour per day Rehab Potential: Fair Barriers to Learning: Patient's cognitive deficits, age, medical status Pt/Family Agrees to Plan: Yes Safety Risks/Education Teaching Recipient: Patient Teaching Methods: Demonstration, Discussion Response to Teaching: Verbalize Understanding, Return Demonstration Education Topics Provided: Patient's safety within her room Time Speech Therapy Time In: 09:30 Speech Therapy Time Out: 10:00 Total Billed Time: 30 Billed Treatment Time 1, PAIGE Guevara Apr 22, 2020 10:33
--- NOTE | 2020-04-22 12:15 | Physical Therapy Daily Note ---
PT Daily Note-Current Subjective Pt laying R sidelying in bed upon arrival. Pt agrees to PT. Pain Location: No Pain Reported Mental Status Patient Orientation: Person, Confused, Place Transfers SCALE: Activities may be completed with or without assistive devices. 5-Qxoofnlqgo-daqcucz completes the activity by him/herself with no assistance from a helper. 5-Set-up or Clean-up Assistance-helper sets up or cleans up; patient completes activity. [place] assists only prior to or following the activity. 4-Supervision or Touching Assistance-helper provides verbal cues and/or touching/steadying and/or contact guard assistance as patient completes activity. Assistance may be provided throughout the activity or intermittently. 3-Partial/Moderate Assistance-helper does LESS THAN HALF the effort. [place] lifts, holds or supports trunk or limbs, but provides less than half the effort. 2-Substantial/Maximal Assistance-helper does MORE THAN HALF the effort. [place] lifts or holds trunk or limbs and provides more than half the effort. 3-Oshpjjyuo-dafzdn does ALL the effort. Patient does none of the effort to complete the activity. Or, the assistance of 2 or more helpers is required for the patient to complete the activity. If activity was not attempted, code reason: 7-Patient Refused. 9-Not Applicable-not attempted and the patient did not perform the activity befo re the current illness, exacerbation or injury. 10-Not Attempted due to Environmental Limitations-(lack of equipment, weather re straints, etc.). 88-Not Attempted due to Medical Conditions or Safety Concerns. Roll Left & Right (QC): 4 Lying to Sitting/Side of Bed(Q: 3 Sit to Stand (QC): 4 Toilet Transfer (QC): 4 Weight Bearing Full Weight Bearing Full Weight Bearing Gait Training Does the Patient Walk?: Yes Distance: 15', 25', 50' Walk 10 feet (QC): 4 Walk 50 ft with 2 Turns(QC): 4 Gait Persons Needed: 1 Gait Assistive Device: FWW Pt reports fatigue and SOA, needing RB. Wheelchair Training Does the Pt Use a Wheelchair?: Yes Wheel 50 ft with 2 turns (QC): 3 Wheel 150 ft (QC): 3 Type of Wheelchair: Manual TC & VC for turns especially. Exercises Seated Therapy Exercises: Ankle pumps, Long arc quads, Hip flexion, Kicking activity Seated Reps: 15 NuStep Minutes: 3 NuStep Workload: 1 Treatments TF to standing amb. short distance before RB. Amb in hallway, RB then Seated Ex. Amb. in hallway, RB & attempts to use NuStep first at WL 3 then to WL 1 for just ROM due to inability to complete at WL 3. Pt again tries for a couple of minutes but reports too fatigued to continue. Pt propels WCH in hallway, needing TC & VC for turning TF to recliner to rest for lunch, all needs met, call light in hand. Assessment Current Status: Poor Progress Pt needs frequent RB, citing fatigue. Pt needs extended time to complete all tasks. PT Short Term Goals Short Term Goals Time Frame: Apr 23, 2020 Sit to lyin Lying to sitting on side of be: 4 Walk 150 feet: 4 1 step (curb): 3 PT Retirement Goals Screen And Cyclone Repairer Goals PT Retirement Goals Time Frame: May 07, 2020 Roll Left & Right (QC): 6 Sit to Lying (QC): 6 Lying-Sitting on Side/Bed(QC): 6 Sit to Stand (QC): 6 Chair/Yrv-qz-Zkrxz Xfer(QC): 6 Toilet Transfer (QC): 6 Car Transfer (QC): 4 Does the Patient Walk: Yes Walk 10 feet (QC): 6 Walk 50ft with 2 Turns (QC): 6 Walk 150 ft (QC): 6 Walking 10ft on Uneven Surface: 5 1 Step (curb) (QC): 4 4 Steps (QC): 4 12 Steps (QC): 10 Picking up an Object (QC): 10 Does the Pt use WC or Scooter?: No Wheel 50 feet with 2 turns (QC: 9 Wheel 150 feet: 9 PT Plan Problem List Problem List: Activity Tolerance, Functional Strength, Safety, Balance, Gait, Transfer Treatment/Plan Treatment Plan: Continue Plan of Care Treatment Plan: Bed Mobility, Education, Functional Activity Lisa, Functional Strength, Group Therapy, Gait, Safety, Therapeutic Exercise, Transfers Treatment Duration: May 07, 2020 Frequency: At least 5 of 7 days/Wk (IRF) Estimated Hrs Per Day: 1.5 hours per day Patient and/or Family Agrees t: Yes Safety Risks/Education Patient Education: Gait Training, Transfer Techniques, Correct Positioning, W/C Management, Safety Issues Teaching Recipient: Patient Teaching Methods: Discussion Response to Teaching: Verbalize Understanding, Reinforcement Needed Time/GCodes Time In: 1045 Time Out: 1200 Total Billed Treatment Time: 75 Total Billed Treatment 1, GT x2 (30m), FA x2 (25m) & EX (20m) SAMUEL OLIVER SOUND EFFECTS MANAGER Apr 22, 2020 12:15
[2020-04-22 16:20] VITALS: BP 159/70
[2020-04-22] MEDS: RIVAROXABAN 10 MG TABLET (XARELTO) PO SCH (17:08)
--- NOTE | 2020-04-22 19:14 | NUR ---
bedside report received from UMAIR HUTCHINSON, assume care of pt
[2020-04-22] MEDS: MELATONIN 3 MG TABLET PO PRN (21:31)
--- NOTE | 2020-04-22 21:32 | NUR ---
pt took Colace, refused Senokot, fsbs 310 NovoLog 14 units & scheduled Levemir 10 units given
[2020-04-23 05:21] VITALS: BP 153/73
[2020-04-23] MEDS: ONDANSETRON 4 MG (ZOFRAN) ORAL DISSOLVE TAB PO PRN ×2 (06:27→14:52)
--- NOTE | 2020-04-23 06:27 | NUR ---
c/o nausea, zofran 4mg po given, will wait on by mouth meds until nausea better
[2020-04-23] MEDS: inSUlin ASPART (NovoLOG) 1 UNIT/0.01 ML (CHARGE PER UNIT) SC SCH ×4 (06:29→21:02)
[2020-04-23] MEDS: LEVOTHYROXINE 75 MCG (LEVOTHROID) TABLET PO SCH (06:55)
[2020-04-23] MEDS: LEVOTHYROXINE 100 MCG (LEVOTHROID) TAB PO SCH (06:55)
[2020-04-23] MEDS: KCL 10 MEQ TAB (MICRO K) PO SCH (06:55)
[2020-04-23] MEDS: FENOFIBRATE 134 MG (LOFIBRA) CAPSULE PO SCH (08:20)
[2020-04-23] MEDS: TRIM/SULFAMETH 160/800 (SEPTRA DS) TAB PO SCH (08:20)
[2020-04-23] MEDS: PREGABALIN 50 MG (LYRICA) CAP PO SCH ×3 (08:20→20:53)
[2020-04-23] MEDS: polyethylene glycoL POWDER 17 GM (MIRALAX) PACK PO SCH ×2 (08:24→21:01)
[2020-04-23] MEDS: DOCUSATE SODIUM 100 MG (COLACE) CAP PO SCH ×2 (08:24→21:00)
[2020-04-23] MEDS: DOCOSANOL 10 % CREAM (ABREVA) 2 GM TP SCH ×5 (08:24→20:59)
[2020-04-23] MEDS: SENNA W/DOCUSATE (SENOKOT S) TABLET PO SCH ×4 (08:24→21:01)
--- NOTE | 2020-04-23 08:54 | Occupational Ther Daily Note ---
OT Current Status-Daily Note Subjective Pt laying in bed, states she is having stomach pain and nausea. Nurse notified, pt already had nausea meds prior to OT Tx. ADL-Treatment Therapy Code Descriptions/Definitions Functional [place] Measure: 0=Not Assessed/NA 4=Minimal Assistance 1=Total Assistance 5=Supervision or Setup 2=Maximal Assistance 6=Modified [place] 3=Moderate Assistance 7=Complete IndependenceSCALE: Activities may be completed with or without assistive devices. 3-Btwvqxqgfv-gxalvls completes the activity by him/herself with no assistance from a helper. 5-Set-up or Clean-up Assistance-helper sets up or cleans up; patient completes activity. [place] assists only prior to or following the activity. 4-Supervision or Touching Assistance-helper provides verbal cues and/or touching/steadying and/or contact guard assistance as patient completes ac tivity. Assistance may be provided throughout the activity or intermittently. 3-Partial/Moderate Assistance-helper does LESS THAN HALF the effort. [place] lifts, holds or supports trunk or limbs, but provides less than half the effort. 2-Substantial/Maximal Assistance-helper does MORE THAN HALF the effort. [place] lifts or holds trunk or limbs and provides more than half the effort. 7-Vfyvxgfyg-unhpcv does ALL the effort. Patient does none of the effort to complete the activity. Or, the assistance of 2 or more helpers is required for the patient to complete the activity. If activity was not attempted, code reason: 7-Patient Refused. 9-Not Applicable-not attempted and the patient did not perform the activity before the current illness, exacerbation or injury. 10-Not Attempted due to Environmental Limitations-(lack of equipment, weather restraints, etc.). 88-Not Attempted due to Medical Conditions or Safety Concerns. Eating (QC): 6 (Pt reports no difficulty eating) Oral Hygiene (QC): 6 (Pt seated at sink, able to use hands to feel bristles to know which side to put toothpaste on.) Shower/Bathe Self (QC): 4 (SBA with task, pt required moderate verbal cues for sequencing of task) Upper Body Dressing (QC): 5 (set up) Lower Body Dressing (QC): 4 (SBA in stand at FWW, pt required max verbal cues with sequencing of task. Pt had decreased problem solving, putting R leg into underwear incorrectly, but unable to self correct. Max verbal cues for pt to properly don underwear.) On/Off Footwear: 4 (Pt attempted to don socks without AE, but states "I am going to fall forward". OT then instructed pt to use sock aide. Pt able to don socks without verbal cues) Toileting Hygiene (QC): 4 (CGA during clothing management and hygiene, pt required cues for sequencing of task.) Toilet Transfer (QC): 4 (CGA on/off toilet.) Other Treatment Pt laying in bed, states she doesn't feel good. Declines showering but agreeable to sponge bath with encouragement. OT placed shower cap on pt's head, pt able to scrub and dry hair. Pt then requested to use restroom, using FWW with CGA, pt transferred into bathroom and onto toilet. Pt completed toileting, then used FWW to return EOB. Pt completed sponge bath and dressing, requiring mod-max verbal cues with tasks. Pt educated on using dressing stick to don underwear, required max verbal cues with donning lower body clothing due to pt putting R leg into wrong place. Pt unable to identify problem or self correct error. Pt then donned socks using sock aide without assistance. Pt used FWW to ambulate into restroom, w/c brought behind pt and she sat at sink to complete oral care and hair brushing independently. In order to increase BUE strength/endurance, pt self- propelled w/c around INU common area, requiring education on maintaining straight line, and education on turning w/c with mod assist during turns. Pt returned to room, using FWW to return to EOB, then supine. During functional mobility with FWW, pt required cues to stay inside the walker, pt walking with walker out in front of her. Pt has poor carryover of using walker close by. When sitting, pt required cues to reach back for surface to lower herself down, requiring cues for sequencing with each transfer due to poor carryover. Post OT tx, pt laying in bed, call light in reach and all needs met. Education OT Patient Education: Correct positioning, Modified ADL techniques, Progress toward Goal/Update tx plan, Purpose of tx/functional activities, Safety issues, Transfer techniques, Use of adapted equipment Teaching Recipient: Patient Teaching Methods: Discussion Response to Teaching: Verbalize Understanding OT Short Term Goals Short Term Goals Time Frame: Apr 25, 2020 Toileting hygiene: 4 Lower body dressin Putting on/taking off footwear: 4 OT Mcfp Goals Inside Horticultural Specialty Grower Goals Time Frame: May 09, 2020 Eating (QC): 6 Oral Hygiene (QC): 6 Toileting Hygiene (QC): 6 Shower/Bathe Self (QC): 6 Upper Body Dressing (QC): 6 Lower Body Dressing (QC): 6 On/Off Footwear (QC): 6 Additional Goals: 1-Demonstrate ADL Tasks, 2-Verbalize Understanding, 3-ImproveStrength/Lisa 1=Demonstrate adherence to instructed precautions during ADL tasks. 2=Patient will verbalize/demonstrate understanding of assistive devices/modifications for ADL. 3=Patient will improve strength/tolerance for activity to enable patient to perform ADL's. OT Education/Plan Problem List/Assessment Assessment: Decreased Activ Tolerance, Decreased Safety Aware, Decreased UE Strength, Impaired Funct Balance, Impaired I ADL's, Impaired Self-Care Skills Discharge Recommendations Plan/Recommendations: Continue POC Treatment Plan/Plan of Care Patient would benefit from OT for education, treatment and training to promote independence in ADL's, mobility, safety and/or upper extremity function for ADL's. Plan of Care: ADL Retraining, Caregiver Training, Cognitive Retraining, Functional Mobility, Group Exercise/Act as Ind, UE Funct Exercise/Act, W/C Management Training Treatment Duration: May 09, 2020 Frequency: At least 5 of 7 days/Wk (IRF) Estimated Hrs Per Day: 1.5 hours per day Agreement: Yes Rehab Potential: Fair Time/GCodes Start Time: 08:00 Stop Time: 09:15 Total Time Billed (hr/min): 75 Billed Treatment Time 1, ADL 4 (60'), FA (15') PETER YAN OT Apr 23, 2020 08:53
--- NOTE | 2020-04-23 09:05 | PM&R Progress Note ---
Subjective HPI/CC On Admission Date Seen by Provider: Apr 23, 2020 Time Seen by Provider: 10:00 Subjective/Events-last exam 04/23/20: Zofran was given for nausea Sugars are still pretty elevated so may need to increase insulin soon Cough drops have been helpful Overall doing pretty well, finishing up antibiotics 04/22/20: Bowels moved today Blood sugar is much better Motivation issues today Will monitor closely 04/21/20: Pt doing very well Less confusion Labs okay Hgb 8.7 Blood sugar is elevated so increase Levemir to 10 twice a day and sliding scale C Sore throat is helped with cough drops 04/20/20: Walking now to the bathroom and has improved a lot BM+ Confusion is less 04/18/20: Lyrica ordered and she is very pleased to have that on board for post shingles pain post herpetic neuralgia Confusion improved but she tells me the same story every day with her pacemaker and such BP elevated required NTG paste Levemir started and her sugars are improved Pt a little bit confused so she was moved closer to the desk at 2:33 Had a little bit of diarrhea so holding laxatives Wants to start taking her Shingles medication BP is doing well Hgb is stable at 10.5 We will check her stools for hemoccult because of tarry stool noted by nurses today CHecked meds and labs Conferred with RN Reviewed therapy notes Review of Systems General: Fatigue, Malaise Neurological: Weakness Objective Exam Vital Signs Vital Signs Date Time Temp Pulse Resp B/P (MAP) Pulse Ox O2 Delivery O2 Flow Rate FiO2 04/23/20 17:36 36.4 84 18 143/63 (89) 94 Room Air Capillary Refill : Less Than 3 Seconds General Appearance: No Apparent Distress, WD/WN, Chronically ill HEENT: PERRL/EOMI, Normal ENT Inspection, Pharynx Normal Neck: Full Range of Motion, Normal Inspection, Non Tender, Supple, Carotid Bruit Respiratory: Chest Non Tender, Lungs Clear, Normal Breath Sounds, No Accessory Muscle Use, No Respiratory Distress Cardiovascular: Regular Rate, Rhythm, No Edema, No Gallop, No JVD, No Murmur, Normal Peripheral Pulses Gastrointestinal: Normal Bowel Sounds, No Organomegaly, No Pulsatile Mass, Non Tender, Soft Back: Normal Inspection, No CVA Tenderness, No Vertebral Tenderness Extremity: Normal Capillary Refill, Normal Inspection, Normal Range of Motion, Non Tender, No Calf Tenderness, No Pedal Edema Neurologic/Psychiatric: Alert, Oriented x3, No Motor/Sensory Deficits, Normal Mood/Affect, electron tube assembler II-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 FIM Transfers Therapy Code Descriptions/Definitions Functional [place] Measure: 0=Not Assessed/NA 4=Minimal Assistance 1=Total Assistance 5=Supervision or Setup 2=Maximal Assistance 6=Modified [place] 3=Moderate Assistance 7=Complete IndependenceSCALE: Activities may be completed with or without assistive devices. 3-Kpwvvloxpj-rsreotj completes the activity by him/herself with no assistance from a helper. 5-Set-up or Clean-up Assistance-helper sets up or cleans up; patient completes activity. [place] assists only prior to or following the activity. 4-Supervision or Touching Assistance-helper provides verbal cues and/or touching/steadying and/or contact guard assistance as patient completes activity. Assistance may be provided throughout the activity or intermittently. 3-Partial/Moderate Assistance-helper does LESS THAN HALF the effort. [place] lifts, holds or supports trunk or limbs, but provides less than half the effort. 2-Substantial/Maximal Assistance-helper does MORE THAN HALF the effort. [place] lifts or holds trunk or limbs and provides more than half the effort. 7-Umnhjnbzu-jhinlx does ALL the effort. Patient does none of the effort to complete the activity. Or, the assistance of 2 or more helpers is required for the patient to complete the activity. If activity was not attempted, code reason: 7-Patient Refused. 9-Not Applicable-not attempted and the patient did not perform the activity before the current illness, exacerbation or injury. 10-Not Attempted due to Environmental Limitations-(lack of equipment, weather restraints, etc.). 88-Not Attempted due to Medical Conditions or Safety Concerns. Roll Left to Right (QC): 4 Sit to Lying (QC): 4 Sit to Stand (QC): 4 Chair/Pyg-hn-Leomx Xfer(QC): 4 Car Transfer (QC): 88 Gait Training Does the Patient Walk?: Yes Distance: 15', 25', 50' Walk 10 feet (QC): 4 Walk 50 ft with 2 Turns(QC): 4 Walk 150 ft (QC): 88 Walking 10ft/uneven surface-QC: 3 Gait Persons Needed: 1 Gait Assistive Device: FWW Wheelchair Training Does the Pt Use a Wheelchair?: Yes Wheel 50 ft with 2 turns (QC): 3 Wheel 150 ft (QC): 3 Type of Wheelchair: Manual Stair Training 1 Step (curb) (QC): 7 (approached step and pt declined to attempt noting she did not feel she could perform it. ) 4 Steps (QC): 7 12 Steps (QC): 7 Balance Picking up an Object (QC): 88 (unsteady and fall risk) ADL-Treatment Eating (QC): 6 (Pt reports no difficulty eating) Oral Hygiene (QC): 6 (Pt seated at sink, able to use hands to feel bristles to know which side to put toothpaste on.) Shower/Bathe Self (QC): 4 (SBA with task, pt required moderate verbal cues for sequencing of task) Upper Body Dressing (QC): 5 (set up) Lower Body Dressing (QC): 4 (SBA in stand at FWW, pt required max verbal cues with sequencing of task. Pt had decreased problem solving, putting R leg into underwear incorrectly, but unable to self correct. Max verbal cues for pt to properly don underwear.) On/Off Footwear (QC): 4 (Pt attempted to don socks without AE, but states "I am going to fall forward". OT then instructed pt to use sock aide. Pt able to don socks without verbal cues) Toileting Hygiene (QC): 4 (CGA during clothing management and hygiene, pt required cues for sequencing of task.) Toilet Transfer (QC): 4 (CGA on/off toilet.) Assessment/Plan Assessment and Plan Assess & Plan/Chief Complaint Assessment: Debility Post polio muscle weakness DM HTN HLP Confusion Jang cath will DC Plan: Monitor BP and BS Home meds DC catheter BM regimen 04/17/20: Monitor sugar No pain reported except shingles pain Fall risk Monitor confusion 04/18/20: Lyrica maintained IRF protocol Monitor sugars 04/20/20: Monitor sugars Check labs in am Pain management 04/21/20: Monitor confusion Increase insulin Cough drops for sore throat 04/22/20: Monitor blood sugar Try to motivate Improving 04/23/20: Treat nausea with Zofran Cough drops as needed Sugars are still elevated DC planned for 04/30/20. (1) Altered mental status Status: Resolved Resolution Date/Time: 04/16/20 @ 11:38 (2) Debility Status: Acute (3) HTN (hypertension) Status: Chronic (4) HLD (hyperlipidemia) Status: Chronic (5) DVT prophylaxis Status: Acute (6) Normocytic anemia Status: Acute (7) Hypothyroidism Status: Chronic (8) Bacteremia Status: Acute (9) Insulin dependent diabetes mellitus Status: Chronic (10) Urinary tract infection Status: Acute (11) Post-polio syndrome ARMANDO MURRAY DO Apr 23, 2020 09:05
--- NOTE | 2020-04-23 09:42 | Speech Therapy Daily Note ---
Speech Daily Progress Note Subjective Date Seen by Provider: Apr 23, 2020 Time Seen by Provider: 00:30 Patient resting in the bed, states she has an upset stomach. Sprite and basin were both near by on her bedside table. Objective Patient answered questions related to the past 24 hours with 90% given minimal cues Assessment Assessment Current Status: Good Progress Treatment Plan Continue Plan of Care Speech Short Term Goals Short Term Goals Short Term Goals 1) Patient will complete memory tasks related to her daily needs at 80% or greater. 2) Patient will complete safety awareness tasks related to her daily needs at 80% or greater. 3) Patient will complete problem solving tasks related to her daily needs at 80% or greater. Speech Commodities Trader Goals Commodities Trader Goals Patient will improve cognitive-communication ability in order to require decreased assistance with daily tasks. Speech-Plan Patient/Family Goals Patient/Family Goals: Patient plans on returning to her home with family and other support as determined by the rehab team. Treatment Plan Speech Therapy Treatment Plan: Continue Plan of Care Treatment Duration: Apr 25, 2020 Frequency: 4 times per week (Patient will receive ST 4-5 x per week) Estimated Hrs Per Day: .5 hour per day Rehab Potential: Fair Barriers to Learning: Patient's health issues and age Pt/Family Agrees to Plan: Yes Safety Risks/Education Teaching Recipient: Patient Teaching Methods: Demonstration, Discussion Response to Teaching: Verbalize Understanding, Return Demonstration Education Topics Provided: Safety within her room and communication of wants/needs Time Speech Therapy Time In: 09:30 Speech Therapy Time Out: 10:00 Total Billed Time: 30 Billed Treatment Time 1, PAIGE Guevara Apr 23, 2020 09:42
[2020-04-23] MEDS ORDERED: CHLORASEPTIC LOZENGE MM PRN (10:00)
--- NOTE | 2020-04-23 11:18 | Physical Therapy Daily Note ---
PT Daily Note-Current Subjective Pt R sidelying in bed upon arrival. Pt agrees to PT although reporting "stomach burning" and nausea. Nurse is notified. Pain Location: No Pain Reported Mental Status Patient Orientation: Person, Place, Situation Transfers SCALE: Activities may be completed with or without assistive devices. 6-Xnrzibcvda-adavblp completes the activity by him/herself with no assistance from a helper. 5-Set-up or Clean-up Assistance-helper sets up or cleans up; patient completes activity. [place] assists only prior to or following the activity. 4-Supervision or Touching Assistance-helper provides verbal cues and/or touching/steadying and/or contact guard assistance as patient completes activity. Assistance may be provided throughout the activity or intermittently. 3-Partial/Moderate Assistance-helper does LESS THAN HALF the effort. [place] lifts, holds or supports trunk or limbs, but provides less than half the effort. 2-Substantial/Maximal Assistance-helper does MORE THAN HALF the effort. [place] lifts or holds trunk or limbs and provides more than half the effort. 0-Ltusywbuy-afjopy does ALL the effort. Patient does none of the effort to complete the activity. Or, the assistance of 2 or more helpers is required for the patient to complete the activity. If activity was not attempted, code reason: 7-Patient Refused. 9-Not Applicable-not attempted and the patient did not perform the activity before the current illness, exacerbation or injury. 10-Not Attempted due to Environmental Limitations-(lack of equipment, weather restraints, etc.). 88-Not Attempted due to Medical Conditions or Safety Concerns. Sit to Lying (QC): 4 Lying to Sitting/Side of Bed(Q: 4 Weight Bearing Full Weight Bearing Full Weight Bearing Exercises Supine Ex: Ankle pumps, Quad Set, Rolling, Glut sets, Heel Slides, Straight leg raise, Hip abd/add Supine Reps: 15 (2 sets of 15 reps) Seated Therapy Exercises: Ankle pumps, Long arc quads, Hip flexion, Kicking activity, Hip abd/add, Glut set Seated Reps: 15 Treatments TF from Supine to EOB and completes Seated Ex. Pt takes frequent RB due to fatigue and nausea. Pt asks if she could return to bed to rest. TF EOB to Supine. After RB, pt completes Supine Ex in bed. Pt has all needs met, call light in hand at end of tx. Assessment Current Status: Fair Progress VC for safety, retention is poor. Pt limited by fatigue and nausea today. Nursing aware. PT Short Term Goals Short Term Goals Time Frame: Apr 23, 2020 Sit to lyin Lying to sitting on side of be: 4 Walk 150 feet: 4 1 step (curb): 3 PT Telecommunications Technician Goals Telecommunications Technician Goals PT Senior Care Goals Time Frame: May 07, 2020 Roll Left & Right (QC): 6 Sit to Lying (QC): 6 Lying-Sitting on Side/Bed(QC): 6 Sit to Stand (QC): 6 Chair/Iec-lr-Liqjw Xfer(QC): 6 Toilet Transfer (QC): 6 Car Transfer (QC): 4 Does the Patient Walk: Yes Walk 10 feet (QC): 6 Walk 50ft with 2 Turns (QC): 6 Walk 150 ft (QC): 6 Walking 10ft on Uneven Surface: 5 1 Step (curb) (QC): 4 4 Steps (QC): 4 12 Steps (QC): 10 Picking up an Object (QC): 10 Does the Pt use WC or Scooter?: No Wheel 50 feet with 2 turns (QC: 9 Wheel 150 feet: 9 PT Plan Problem List Problem List: Activity Tolerance, Functional Strength, Safety, Gait, Transfer Treatment/Plan Treatment Plan: Continue Plan of Care Treatment Plan: Bed Mobility, Education, Functional Activity Lisa, Functional Strength, Group Therapy, Gait, Safety, Therapeutic Exercise, Transfers Treatment Duration: May 07, 2020 Frequency: At least 5 of 7 days/Wk (IRF) Estimated Hrs Per Day: 1.5 hours per day Patient and/or Family Agrees t: Yes Safety Risks/Education Patient Education: Transfer Techniques, Correct Positioning, Safety Issues Teaching Recipient: Patient Teaching Methods: Discussion Response to Teaching: Reinforcement Needed Time/GCodes Time In: 1000 Time Out: 1115 Total Billed Treatment Time: 75 Total Billed Treatment 1, FA x2 (25m) & EX x3 (50m) SAMUEL OLIVER PTA Apr 23, 2020 11:18
[2020-04-23] MEDS: CALCIUM CARBONATE 500 MG (TUMS) TAB.CHEW PO PRN (12:16)
[2020-04-23] MEDS: RIVAROXABAN 10 MG TABLET (XARELTO) PO SCH (17:24)
[2020-04-23 17:36] VITALS: BP 143/63
--- NOTE | 2020-04-23 19:04 | NUR ---
bedside report received from KILLIAN HUTCHINSON, assume care of pt
[2020-04-23] MEDS: MELATONIN 3 MG TABLET PO PRN (20:53)
--- NOTE | 2020-04-23 21:02 | NUR ---
fsbs 195, NovoLog 5 units given, pt refused Colace, miralax & Senokot
[2020-04-24 05:29] VITALS: BP 124/57
[2020-04-24] MEDS: inSUlin ASPART (NovoLOG) 1 UNIT/0.01 ML (CHARGE PER UNIT) SC SCH ×4 (06:05→20:27)
[2020-04-24] MEDS: LEVOTHYROXINE 75 MCG (LEVOTHROID) TABLET PO SCH (06:05)
[2020-04-24] MEDS: LEVOTHYROXINE 100 MCG (LEVOTHROID) TAB PO SCH (06:06)
[2020-04-24] MEDS: DOCOSANOL 10 % CREAM (ABREVA) 2 GM TP SCH ×5 (06:06→20:28)
[2020-04-24] MEDS: KCL 10 MEQ TAB (MICRO K) PO SCH (06:06)
--- NOTE | 2020-04-24 08:00 | NUR ---
DENIES NAUSEA THIS AM. STATES "I FEEL GOOD TODAY".
[2020-04-24] MEDS: FENOFIBRATE 134 MG (LOFIBRA) CAPSULE PO SCH (08:02)
[2020-04-24] MEDS: PREGABALIN 50 MG (LYRICA) CAP PO SCH ×3 (08:02→20:27)
[2020-04-24] MEDS: DOCUSATE SODIUM 100 MG (COLACE) CAP PO SCH ×2 (08:02→20:27)
[2020-04-24] MEDS: SENNA W/DOCUSATE (SENOKOT S) TABLET PO SCH ×4 (08:04→20:28)
[2020-04-24] MEDS: polyethylene glycoL POWDER 17 GM (MIRALAX) PACK PO SCH ×2 (08:04→20:27)
--- NOTE | 2020-04-24 08:43 | Occupational Ther Daily Note ---
OT Current Status-Daily Note Subjective Pt seated in recliner, agreeable to OT Tx. Pt reports 0/10 pain. ADL-Treatment Therapy Code Descriptions/Definitions Functional Nolan Measure: 0=Not Assessed/NA 4=Minimal Assistance 1=Total Assistance 5=Supervision or Setup 2=Maximal Assistance 6=Modified Nolan 3=Moderate Assistance 7=Complete IndependenceSCALE: Activities may be completed with or without assistive devices. 7-Xubukeftuv-vapakus completes the activity by him/herself with no assistance from a helper. 5-Set-up or Clean-up Assistance-helper sets up or cleans up; patient completes activity. Mora assists only prior to or following the activity. 4-Supervision or Touching Assistance-helper provides verbal cues and/or touc dania/steadying and/or contact guard assistance as patient completes activity. Assistance may be provided throughout the activity or intermittently. 3-Partial/Moderate Assistance-helper does LESS THAN HALF the effort. Mora lifts, holds or supports trunk or limbs, but provides less than half the effort. 2-Substantial/Maximal Assistance-helper does MORE THAN HALF the effort. Mora lifts or holds trunk or limbs and provides more than half the effort. 0-Iegmezdug-xpiucu does ALL the effort. Patient does none of the effort to complete the activity. Or, the assistance of 2 or more helpers is required for the patient to complete the activity. If activity was not attempted, code reason: 7-Patient Refused. 9-Not Applicable-not attempted and the patient did not perform the activity before the current illness, exacerbation or injury. 10-Not Attempted due to Environmental Limitations-(lack of equipment, weather restraints, etc.). 88-Not Attempted due to Medical Conditions or Safety Concerns. Oral Hygiene (QC): 4 (SBA standing at sink) Other Treatment Pt seated in recliner, used FWW to ambulate into restroom, pt completed oral care standing at sink with FWW, SBA. Pt then sat at w/c in order to wash her face and comb her hair. In order to increase BUE strength and problem solving, pt self-propelled w/c to therapy area. Pt propelled at slow pace, requiring moderate cues during task in order to not run into perez/objects, and min A with turns. In order to increase fine motor strength and coordination, pt completed fine motor task with moderate resistance red theraputty. Pt instructed to remove beads from putty. Then pt completed fine motor task of placing 1" pegs into foam pegboard. Pt encouraged to use fingers to feel for holes to compensate for her macular degeneration. Pt then self-propelled w/c back to her room, requiring assistance locating her room. OT educated pt on compensation strategies to find her room, including looking at different objects on the perez to her room, and attempting to establish visual reminders. Pt used FWW to return to bed with SBA. Before pt sat at EOB, OT asked pt what she is supposed to do for a safe transfer, pt able to bring legs back to touch edge of bed, but required reminder to keep walker with her and to reach back for bed prior to sitting, pt able to follow instructions to slowly lower self to bed. Pt then transferred to side lying on R side. Post OT tx, pt laying in bed, call light in reach and all needs met. Education OT Patient Education: Correct positioning, Energy conservation, Modified ADL techniques, Progress toward Goal/Update tx plan, Purpose of tx/functional activities, Safety issues, Transfer techniques, W/C management Teaching Recipient: Patient Teaching Methods: Discussion Response to Teaching: Verbalize Understanding OT Short Term Goals Short Term Goals Time Frame: Apr 25, 2020 Toileting hygiene: 4 Lower body dressin Putting on/taking off footwear: 4 OT Intermediate Goals Intermediate Goals Time Frame: May 09, 2020 Eating (QC): 6 Oral Hygiene (QC): 6 Toileting Hygiene (QC): 6 Shower/Bathe Self (QC): 6 Upper Body Dressing (QC): 6 Lower Body Dressing (QC): 6 On/Off Footwear (QC): 6 Additional Goals: 1-Demonstrate ADL Tasks, 2-Verbalize Understanding, 3- ImproveStrength/Lisa 1=Demonstrate adherence to instructed precautions during ADL tasks. 2=Patient will verbalize/demonstrate understanding of assistive devices/modifications for ADL. 3=Patient will improve strength/tolerance for activity to enable patient to perform ADL's. OT Education/Plan Problem List/Assessment Assessment: Decreased Activ Tolerance, Decreased Safety Aware, Decreased UE Strength, Impaired Funct Balance, Impaired I ADL's, Impaired Self-Care Skills Discharge Recommendations Plan/Recommendations: Continue POC Treatment Plan/Plan of Care Patient would benefit from OT for education, treatment and training to promote independence in ADL's, mobility, safety and/or upper extremity function for ADL's. Plan of Care: ADL Retraining, Caregiver Training, Cognitive Retraining, Functional Mobility, Group Exercise/Act as Ind, UE Funct Exercise/Act, W/C Management Training Treatment Duration: May 09, 2020 Frequency: At least 5 of 7 days/Wk (IRF) Estimated Hrs Per Day: 1.5 hours per day Agreement: Yes Rehab Potential: Fair Time/GCodes Start Time: 08:00 Stop Time: 09:15 Total Time Billed (hr/min): 75 Billed Treatment Time 1, ADL (15'), FA 4 (60') PETER YAN OT Apr 24, 2020 08:43
--- NOTE | 2020-04-24 09:48 | Speech Therapy Daily Note ---
Speech Daily Progress Note Subjective Date Seen by Provider: Apr 24, 2020 Time Seen by Provider: 00:30 Patient resting in her bed and was very lethargic, difficult to engage this date. Objective Patient completed a series of memory/recall of verbally presented 4 and 5 items. Order recall at 60% with maximum cues, what's missing at 45% with maximum cues. Assessment Assessment Current Status: Fair Progress Treatment Plan Continue Plan of Care Speech Short Term Goals Short Term Goals Short Term Goals 1) Patient will complete memory tasks related to her daily needs at 80% or g reater. 2) Patient will complete safety awareness tasks related to her daily needs at 80% or greater. 3) Patient will complete problem solving tasks related to her daily needs at 80% or greater. 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 Speech-Plan Patient/Family Goals Patient/Family Goals: Patient will return home next week with family and home health support. Treatment Plan Speech Therapy Treatment Plan: Continue Plan of Care Treatment Duration: May 01, 2020 Frequency: 4 times per week (Patient will receive ST 4-5 x per week) Estimated Hrs Per Day: .5 hour per day Rehab Potential: Fair Barriers to Learning: Patient's recent health issues, age, cognitive deficits Pt/Family Agrees to Plan: Yes Safety Risks/Education Teaching Recipient: Patient Teaching Methods: Demonstration, Discussion Response to Teaching: Verbalize Understanding, Return Demonstration Education Topics Provided: Continued safety within her room, communication of wants/needs Time Speech Therapy Time In: 09:30 Speech Therapy Time Out: 10:00 Total Billed Time: 30 Billed Treatment Time 1, PAIGE Guevara Apr 24, 2020 09:48
--- NOTE | 2020-04-24 10:59 | PM&R Progress Note ---
Subjective HPI/CC On Admission Date Seen by Provider: Apr 24, 2020 Time Seen by Provider: 12:40 Subjective/Events-last exam 04/24/20: Patient feels good today Motivation is up too Sugars are still high No pain reported 04/23/20: Zofran was given for nausea Sugars are still pretty elevated so may need to increase insulin soon Cough drops have been helpful Overall doing pretty well, finishing up antibiotics 04/22/20: Bowels moved today Blood sugar is much better Motivation issues today Will monitor closely 04/21/20: Pt doing very well Less confusion Labs okay Hgb 8.7 Blood sugar is elevated so increase Levemir to 10 twice a day and sliding scale C Sore throat is helped with cough drops 04/20/20: Walking now to the bathroom and has improved a lot BM+ Confusion is less 04/18/20: Lyrica ordered and she is very pleased to have that on board for post shingles pain post herpetic neuralgia Confusion improved but she tells me the same story every day with her pacemaker and such BP elevated required NTG paste Levemir started and her sugars are improved Pt a little bit confused so she was moved closer to the desk at 2:33 Had a little bit of diarrhea so holding laxatives Wants to start taking her Shingles medication BP is doing well Hgb is stable at 10.5 We will check her stools for hemoccult because of tarry stool noted by nurses today CHecked meds and labs Conferred with RN Reviewed therapy notes Review of Systems General: Fatigue, Malaise Objective Exam Vital Signs Vital Signs Date Time Temp Pulse Resp B/P (MAP) Pulse Ox O2 Delivery O2 Flow Rate FiO2 04/24/20 21:00 Room Air 04/24/20 17:34 36.0 78 18 114/50 (71) 92 Capillary Refill : Less Than 3 Seconds General Appearance: No Apparent Distress, WD/WN, Chronically ill HEENT: PERRL/EOMI, Normal ENT Inspection, Pharynx Normal Neck: Full Range of Motion, Normal Inspection, Non Tender, Supple, Carotid Bruit Respiratory: Chest Non Tender, Lungs Clear, Normal Breath Sounds, No Accessory Muscle Use, No Respiratory Distress Cardiovascular: Regular Rate, Rhythm, No Edema, No Gallop, No JVD, No Murmur, Normal Peripheral Pulses Gastrointestinal: Normal Bowel Sounds, No Organomegaly, No Pulsatile Mass, Non Tender, Soft Back: Normal Inspection, No CVA Tenderness, No Vertebral Tenderness Extremity: Normal Capillary Refill, Normal Inspection, Normal Range of Motion, Non Tender, No Calf Tenderness, No Pedal Edema Neurologic/Psychiatric: Alert, Oriented x3, No Motor/Sensory Deficits, Normal Mood/Affect, 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 FIM Transfers Therapy Code Descriptions/Definitions Functional Spangler Measure: 0=Not Assessed/NA 4=Minimal Assistance 1=Total Assistance 5=Supervision or Setup 2=Maximal Assistance 6=Modified Spangler 3=Moderate Assistance 7=Complete IndependenceSCALE: Activities may be completed with or without assistive devices. 9-Dulntceeve-hnrdyfo completes the activity by him/herself with no assistance from a helper. 5-Set-up or Clean-up Assistance-helper sets up or cleans up; patient completes activity. [place] assists only prior to or following the activity. 4-Supervision or Touching Assistance-helper provides verbal cues and/or touching/steadying and/or contact guard assistance as patient completes activity. Assistance may be provided throughout the activity or intermittently. 3-Partial/Moderate Assistance-helper does LESS THAN HALF the effort. [place] lifts, holds or supports trunk or limbs, but provides less than half the effort. 2-Substantial/Maximal Assistance-helper does MORE THAN HALF the effort. [place] lifts or holds trunk or limbs and provides more than half the effort. 9-Saqmzrdsp-zebbtv does ALL the effort. Patient does none of the effort to complete the activity. Or, the assistance of 2 or more helpers is required for the patient to complete the activity. If activity was not attempted, code reason: 7-Patient Refused. 9-Not Applicable-not attempted and the patient did not perform the activity before the current illness, exacerbation or injury. 10-Not Attempted due to Environmental Limitations-(lack of equipment, weather restraints, etc.). 88-Not Attempted due to Medical Conditions or Safety Concerns. Roll Left to Right (QC): 4 Sit to Lying (QC): 4 Sit to Stand (QC): 4 Chair/Whd-mm-Lmuwp Xfer(QC): 4 Car Transfer (QC): 88 Gait Training Does the Patient Walk?: Yes Distance: 15', 25', 50' Walk 10 feet (QC): 4 Walk 50 ft with 2 Turns(QC): 4 Walk 150 ft (QC): 88 Walking 10ft/uneven surface-QC: 3 Gait Persons Needed: 1 Gait Assistive Device: FWW Wheelchair Training Does the Pt Use a Wheelchair?: Yes Wheel 50 ft with 2 turns (QC): 3 Wheel 150 ft (QC): 3 Type of Wheelchair: Manual Stair Training 1 Step (curb) (QC): 7 (approached step and pt declined to attempt noting she did not feel she could perform it. ) 4 Steps (QC): 7 12 Steps (QC): 7 Balance Picking up an Object (QC): 88 (unsteady and fall risk) ADL-Treatment Eating (QC): 6 (Pt reports no difficulty eating) Oral Hygiene (QC): 4 (SBA standing at sink) Shower/Bathe Self (QC): 4 (SBA with task, pt required moderate verbal cues for sequencing of task) Upper Body Dressing (QC): 5 (set up) Lower Body Dressing (QC): 4 (SBA in stand at FWW, pt required max verbal cues with sequencing of task. Pt had decreased problem solving, putting R leg into underwear incorrectly, but unable to self correct. Max verbal cues for pt to properly don underwear.) On/Off Footwear (QC): 4 (Pt attempted to don socks without AE, but states "I am going to fall forward". OT then instructed pt to use sock aide. Pt able to don socks without verbal cues) Toileting Hygiene (QC): 4 (CGA during clothing management and hygiene, pt required cues for sequencing of task.) Toilet Transfer (QC): 4 (CGA on/off toilet.) Assessment/Plan Assessment and Plan Assess & Plan/Chief Complaint Assessment: Debility Post polio muscle weakness DM HTN HLP Confusion Jang cath will DC Plan: Monitor BP and BS Home meds DC catheter BM regimen 04/17/20: Monitor sugar No pain reported except shingles pain Fall risk Monitor confusion 04/18/20: Lyrica maintained IRF protocol Monitor sugars 04/20/20: Monitor sugars Check labs in am Pain management 04/21/20: Monitor confusion Increase insulin Cough drops for sore throat 04/22/20: Monitor blood sugar Try to motivate Improving 04/23/20: Treat nausea with Zofran Cough drops as needed Sugars are still elevated DC planned for 04/30/20. 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
[2020-04-24] MEDS: CALCIUM CARBONATE 500 MG (TUMS) TAB.CHEW PO PRN (11:03)
--- NOTE | 2020-04-24 11:20 | Physical Therapy Daily Note ---
PT Daily Note-Current Subjective Pt laying in bed upon arrival. Pt agrees to PT. Mental Status Patient Orientation: Person, Confused, Place Transfers SCALE: Activities may be completed with or without assistive devices. 3-Cvxtuztaeb-ybbiicu completes the activity by him/herself with no assistance from a helper. 5-Set-up or Clean-up Assistance-helper sets up or cleans up; patient completes activity. Rousseau assists only prior to or following the activity. 4-Supervision or Touching Assistance-helper provides verbal cues and/or to uching/steadying and/or contact guard assistance as patient completes activity. Assistance may be provided throughout the activity or intermittently. 3-Partial/Moderate Assistance-helper does LESS THAN HALF the effort. Rousseau lifts, holds or supports trunk or limbs, but provides less than half the effort. 2-Substantial/Maximal Assistance-helper does MORE THAN HALF the effort. Rousseau lifts or holds trunk or limbs and provides more than half the effort. 9-Idlxzefst-ngpwbm does ALL the effort. Patient does none of the effort to complete the activity. Or, the assistance of 2 or more helpers is required for the patient to complete the activity. If activity was not attempted, code reason: 7-Patient Refused. 9-Not Applicable-not attempted and the patient did not perform the activity before the current illness, exacerbation or injury. 10-Not Attempted due to Environmental Limitations-(lack of equipment, weather restraints, etc.). 88-Not Attempted due to Medical Conditions or Safety Concerns. Sit to Stand (QC): 4 Toilet Transfer (QC): 4 Weight Bearing Full Weight Bearing Full Weight Bearing Gait Training Does the Patient Walk?: Yes Distance: 150' Walk 10 feet (QC): 4 Walk 50 ft with 2 Turns(QC): 4 Walk 150 ft (QC): 4 Gait Persons Needed: 1 Gait Assistive Device: FWW Wheelchair Training Does the Pt Use a Wheelchair?: Yes Wheel 50 ft with 2 turns (QC): 5 Wheel 150 ft (QC): 5 Type of Wheelchair: Manual Exercises Supine Ex: Ankle pumps, Quad Set, Glut sets, Heel Slides, Straight leg raise, Hip abd/add Supine Reps: 15 Seated Therapy Exercises: Ankle pumps, Long arc quads, Hip flexion, Kicking activity, Hip abd/add, Glut set Seated Reps: 15 Standing: Marching, Mini squats Standing Reps: 15 NuStep Minutes: 9 NuStep Workload: 4 (Rest break after every couple of minutes) Treatments TF to standing and uses BR before leaving room. Amb in hallway then Seated Ex followed by NuStep. Pt attempts a few Standing Ex at //bars. Pt takes RB then propels WCH to room. TF to EOB then Supine & completes Supine EX. All needs met, call light in hand. Assessment Current Status: Good Progress Pt fatigues and needs frequent RB. PT Short Term Goals Short Term Goals Time Frame: Apr 23, 2020 Sit to lyin Lying to sitting on side of be: 4 Walk 150 feet: 4 1 step (curb): 3 PT Fpc Goals Model Artists' Goals PT Fpc Goals Time Frame: May 07, 2020 Roll Left & Right (QC): 6 Sit to Lying (QC): 6 Lying-Sitting on Side/Bed(QC): 6 Sit to Stand (QC): 6 Chair/Tnv-cl-Xddfk Xfer(QC): 6 Toilet Transfer (QC): 6 Car Transfer (QC): 4 Does the Patient Walk: Yes Walk 10 feet (QC): 6 Walk 50ft with 2 Turns (QC): 6 Walk 150 ft (QC): 6 Walking 10ft on Uneven Surface: 5 1 Step (curb) (QC): 4 4 Steps (QC): 4 12 Steps (QC): 10 Picking up an Object (QC): 10 Does the Pt use WC or Scooter?: No Wheel 50 feet with 2 turns (QC: 9 Wheel 150 feet: 9 PT Plan Problem List Problem List: Activity Tolerance, Functional Strength Treatment/Plan Treatment Plan: Continue Plan of Care Treatment Plan: Bed Mobility, Education, Functional Activity Lisa, Functional Strength, Group Therapy, Gait, Safety, Therapeutic Exercise, Transfers Treatment Duration: May 07, 2020 Frequency: At least 5 of 7 days/Wk (IRF) Estimated Hrs Per Day: 1.5 hours per day Patient and/or Family Agrees t: Yes Safety Risks/Education Patient Education: Gait Training, Transfer Techniques, Correct Positioning, Safety Issues Teaching Recipient: Patient Teaching Methods: Discussion Response to Teaching: Reinforcement Needed Time/GCodes Time In: 1000 Time Out: 1115 Total Billed Treatment Time: 75 Total Billed Treatment 1, GT (15m), WCH (15m), EX x2 (30m) & FA (15m) SAMUEL OLIVER FIELD HAND Apr 24, 2020 11:20
--- NOTE | 2020-04-24 14:54 | NUR ---
"RD ASSESSMENT PMHx: hypercholesterolemia; HTN; DM PT INTERACTION: Pt was awake and pleasant during nutrition follow-up. Pt states she has been eating well since last assessment. Note avg PO intake 85% x4d, per chart review. Pt states no issues with nausea, vomiting, constipation, or diarrhea since last assessment. Note last BM was 04/23, and pt currently on bowel regimen of colace BID; senna BID; and miralax BID, per chart review. ABNORMAL NUTRITION-RELATED LAB VALUES LOW: Pro 5.8; alb 3.1 HIGH: BUN 20; glu 228 Est. kcal needs: 1350 kcal | 15 kcal/kg Est. Pro needs: 90 g Pro | 1.0 g Pro/kg PES STATEMENT: Given current appetite and PO intake, no nutrition diagnosis at this time (NO-1.1) INTERVENTION: Continue with current diet order of CHO 60g/m 1snack diet. Will continue to follow and reassess as pt needs, intake, and status change. Piyush Zhong, MS RD LD"
--- NOTE | 2020-04-24 15:15 | NUR ---
CM/SS PATIENT CARE CONFERENCE Presented Summary to patient, she is in agreement to proposed target discharge of April 30. Shared that team agreed there was concern about her returning home alone. She had insight that she needed to continue to increase her stamina and rebuild maximum strength, and said she wanted to work as hard as possible to achieve this. Explored other options, like assisted living. Patient was living with her other son in [place], now . She apparently owned this current residence in [place] and her grandson had been living there and, per her description, not responsibly. She had necessary repairs performed and has lived there now 4 years with her furbaby suresh [place]. Patient has a neighbor who cuts her grass for free and the children walk her dog for potty breaks. Patient is quite comfortable and speaks of enjoying the features of her home. Patient also indicates her son Bradley comes 2-3 times a day to check on her then comes at night to lock everything up. Conversationally, she said she calls [place] police at times because she gets scared, they come and check the perimeter of the house and that all doors/windows are secure, and update her all is well. Patient conversed appropriately with promotion writer this afternoon, perhaps mornings are not her best time for cognition clarity. Discharge concerns, safe ambulation, independent personal care. Cognition clarity for decision-making, safety. Residing alone with exception of son intermittent status checks. Patient has no interest in moving from her home. Continue to follow progress, reevaluate first of week for positive changes. Will speak with surjit Huerta to discuss team concerns.
[2020-04-24] MEDS: RIVAROXABAN 10 MG TABLET (XARELTO) PO SCH (17:03)
[2020-04-24 17:34] VITALS: BP 114/50
[2020-04-24] MEDS: MELATONIN 3 MG TABLET PO PRN (20:27)
[2020-04-25 06:00] VITALS: BP 145/76
[2020-04-25] MEDS: LEVOTHYROXINE 100 MCG (LEVOTHROID) TAB PO SCH (06:15)
[2020-04-25] MEDS: KCL 10 MEQ TAB (MICRO K) PO SCH (06:15)
[2020-04-25] MEDS: LEVOTHYROXINE 75 MCG (LEVOTHROID) TABLET PO SCH (06:15)
[2020-04-25] MEDS: inSUlin ASPART (NovoLOG) 1 UNIT/0.01 ML (CHARGE PER UNIT) SC SCH ×4 (06:20→21:26)
[2020-04-25] MEDS: DOCOSANOL 10 % CREAM (ABREVA) 2 GM TP SCH ×5 (06:20→21:29)
[2020-04-25] MEDS: DOCUSATE SODIUM 100 MG (COLACE) CAP PO SCH ×2 (08:20→20:04)
[2020-04-25] MEDS: SENNA W/DOCUSATE (SENOKOT S) TABLET PO SCH ×4 (08:21→20:05)
[2020-04-25] MEDS: polyethylene glycoL POWDER 17 GM (MIRALAX) PACK PO SCH ×2 (08:21→20:04)
[2020-04-25] MEDS: PREGABALIN 50 MG (LYRICA) CAP PO SCH ×3 (08:25→21:26)
[2020-04-25] MEDS: FENOFIBRATE 134 MG (LOFIBRA) CAPSULE PO SCH (08:25)
--- NOTE | 2020-04-25 08:58 | Occupational Ther Daily Note ---
OT Current Status-Daily Note Subjective Pt seated in recliner, agreeable to OT tx. Pt denied having pain this AM. ADL-Treatment Therapy Code Descriptions/Definitions Functional [place] Measure: 0=Not Assessed/NA 4=Minimal Assistance 1=Total Assistance 5=Supervision or Setup 2=Maximal Assistance 6=Modified [place] 3=Moderate Assistance 7=Complete IndependenceSCALE: Activities may be completed with or without assistive devices. 0-Stsaiawwht-omxecit completes the activity by him/herself with no assistance from a helper. 5-Set-up or Clean-up Assistance-helper sets up or cleans up; patient completes activity. [place] assists only prior to or following the activity. 4-Supervision or Touching Assistance-helper provides verbal cues and/or touching/steadying and/or contact guard assistance as patient completes activity. Assistance may be provided throughout the activity or intermittently. 3-Partial/Moderate Assistance-helper does LESS THAN HALF the effort. [place] lifts, holds or supports trunk or limbs, but provides less than half the effort. 2-Substantial/Maximal Assistance-helper does MORE THAN HALF the effort. [place] lifts or holds trunk or limbs and provides more than half the effort. 8-Mtrxzxvkt-jbnlct does ALL the effort. Patient does none of the effort to complete the activity. Or, the assistance of 2 or more helpers is required for the patient to complete the activity. If activity was not attempted, code reason: 7-Patient Refused. 9-Not Applicable-not attempted and the patient did not perform the activity before the current illness, exacerbation or injury. 10-Not Attempted due to Environmental Limitations-(lack of equipment, weather restraints, etc.). 88-Not Attempted due to Medical Conditions or Safety Concerns. Oral Hygiene (QC): 4 (Pt attempted to take off cap of toothpaste, required verbal cue that the cap was already off, pt states difficulty seeing due to macular degeneration. Pt then able to complete task.) Shower/Bathe Self (QC): 4 (CGA in stand to wash periarea and buttocks, pt able to wash all other parts wtih SBA seated at FL with cues for sequencing of task.) Upper Body Dressing (QC): 5 (set up) Lower Body Dressing (QC): 3 (Min A, Pt required increased time with donning pants/underwear, min A in stand to manage pants up.) On/Off Footwear: 3 (Min A, pt required increased time using sock aide to don LLE sock, min A to use sock aide to don RLE.) Other Treatment Pt seated in recliner, used FWW to ambulate into bathroom and onto shower chair. Pt doffed clothes, completed showering/drying and then donned clothes at shower chair. Pt required min cues for sequencing of tasks. Pt then transferred from FL to w/c using FWW. Pt complete hair brushing and oral care seated at sink. Pt then used FWW to go to bed, SBA with max cues for safety during transfer. During all transfers, pt required cues for sequencing and safety, pt has poor carryover of transfer techniques between txs, requiring step by step cues. Pt transferred sit to supine with supervision. Post OT tx, pt laying in bed, call light in reach and all needs met. Education OT Patient Education: Correct positioning, Modified ADL techniques, Progress toward Goal/Update tx plan, Purpose of tx/functional activities, Safety issues, Transfer techniques Teaching Recipient: Patient Teaching Methods: Discussion Response to Teaching: Verbalize Understanding OT Short Term Goals Short Term Goals Time Frame: Apr 25, 2020 Toileting hygiene: 4 Lower body dressin Putting on/taking off footwear: 4 OT Mcc Goals Certified Surgical Technician Goals Time Frame: May 09, 2020 Eating (QC): 6 Oral Hygiene (QC): 6 Toileting Hygiene (QC): 6 Shower/Bathe Self (QC): 6 Upper Body Dressing (QC): 6 Lower Body Dressing (QC): 6 On/Off Footwear (QC): 6 Additional Goals: 1-Demonstrate ADL Tasks, 2-Verbalize Understanding, 3- ImproveStrength/Lisa 1=Demonstrate adherence to instructed precautions during ADL tasks. 2=Patient will verbalize/demonstrate understanding of assistive devices/modifications for ADL. 3=Patient will improve strength/tolerance for activity to enable patient to perform ADL's. OT Education/Plan Problem List/Assessment Assessment: Decreased Activ Tolerance, Decreased Safety Aware, Decreased UE Strength, Impaired I ADL's, Impaired Self-Care Skills Discharge Recommendations Plan/Recommendations: Continue POC Treatment Plan/Plan of Care Patient would benefit from OT for education, treatment and training to promote independence in ADL's, mobility, safety and/or upper extremity function for ADL's. Plan of Care: ADL Retraining, Caregiver Training, Cognitive Retraining, Functional Mobility, Group Exercise/Act as Ind, UE Funct Exercise/Act, W/C Management Training Treatment Duration: May 09, 2020 Frequency: At least 5 of 7 days/Wk (IRF) Estimated Hrs Per Day: 1.5 hours per day Agreement: Yes Rehab Potential: Fair Time/GCodes Start Time: 07:55 Stop Time: 08:55 Total Time Billed (hr/min): 60 Billed Treatment Time 1, ADL 4 PETER YAN OT Apr 25, 2020 08:58
--- NOTE | 2020-04-25 10:26 | Speech Therapy Daily Note ---
Speech Daily Progress Note Subjective Date Seen by Provider: Apr 25, 2020 Time Seen by Provider: 00:30 Patient was resting in bed, agreed to ST, however she was difficult to keep engaged with therapy. Patient required frequent verbal prompts to stay on therapy task. Objective Patient completed a series of q/a related to self, past 24 hour events and needs upon her return home with 70% given max cues. Assessment Assessment Current Status: Fair Progress Treatment Plan Continue Plan of Care Speech Short Term Goals Short Term Goals Short Term Goals 1) Patient will complete memory tasks related to her daily needs at 80% or greater. 2) Patient will complete safety awareness tasks related to her daily needs at 80% or greater. 3) Patient will complete problem solving tasks related to her daily needs at 80% or greater. Speech Corsage Maker Goals Corsage Maker Goals Patient will improve cognitive-communication ability in order to require decreased assistance with daily tasks. Speech-Plan Patient/Family Goals Patient/Family Goals: Patient is scheduled to return home next week. She will receive home health services and family support. Treatment Plan Speech Therapy Treatment Plan: Continue Plan of Care Treatment Duration: May 01, 2020 Frequency: 4 times per week (Patient will receive ST 4-5 x per week) Estimated Hrs Per Day: .5 hour per day Rehab Potential: Fair Barriers to Learning: Patient's cognitive deficits, recall of information deficit, age Pt/Family Agrees to Plan: Yes Safety Risks/Education Teaching Recipient: Patient Teaching Methods: Demonstration, Discussion Response to Teaching: Verbalize Understanding, Return Demonstration, Reinforcement Needed Education Topics Provided: Safety while on the ARU and upon her return home. Time Speech Therapy Time In: 10:00 Speech Therapy Time Out: 10:30 Total Billed Time: 30 Billed Treatment Time 1JOHN BETH[address] ST Apr 25, 2020 10:26
[2020-04-25] MEDS: CALCIUM CARBONATE 500 MG (TUMS) TAB.CHEW PO PRN ×2 (10:30→15:39)
--- NOTE | 2020-04-25 10:48 | PM&R Progress Note ---
Subjective HPI/CC On Admission Date Seen by Provider: Apr 25, 2020 Time Seen by Provider: 12:30 Subjective/Events-last exam 04/25/20: Monitor sugar and BP since both are high No falls Denies pain DC planned for next week 04/24/20: Patient feels good today Motivation is up too Sugars are still high No pain reported 04/23/20: Zofran was given for nausea Sugars are still pretty elevated so may need to increase insulin soon Cough drops have been helpful Overall doing pretty well, finishing up antibiotics 04/22/20: Bowels moved today Blood sugar is much better Motivation issues today Will monitor closely 04/21/20: Pt doing very well Less confusion Labs okay Hgb 8.7 Blood sugar is elevated so increase Levemir to 10 twice a day and sliding scale C Sore throat is helped with cough drops 04/20/20: Walking now to the bathroom and has improved a lot BM+ Confusion is less 04/18/20: Lyrica ordered and she is very pleased to have that on board for post shingles pain post herpetic neuralgia Confusion improved but she tells me the same story every day with her pacemaker and such BP elevated required NTG paste Levemir started and her sugars are improved Pt a little bit confused so she was moved closer to the desk at 2:33 Had a little bit of diarrhea so holding laxatives Wants to start taking her Shingles medication BP is doing well Hgb is stable at 10.5 We will check her stools for hemoccult because of tarry stool noted by nurses today CHecked meds and labs Conferred with RN Reviewed therapy notes Objective Exam Vital Signs Vital Signs Date Time Temp Pulse Resp B/P (MAP) Pulse Ox O2 Delivery O2 Flow Rate FiO2 04/25/20 20:30 Room Air 04/25/20 18:00 36.7 80 18 119/58 (78) 93 Capillary Refill : Less Than 3 Seconds General Appearance: No Apparent Distress, WD/WN, Chronically ill HEENT: PERRL/EOMI, Normal ENT Inspection, Pharynx Normal Neck: Full Range of Motion, Normal Inspection, Non Tender, Supple, Carotid Bruit Respiratory: Chest Non Tender, Lungs Clear, Normal Breath Sounds, No Accessory Muscle Use, No Respiratory Distress Cardiovascular: Regular Rate, Rhythm, No Edema, No Gallop, No JVD, No Murmur, Normal Peripheral Pulses Gastrointestinal: Normal Bowel Sounds, No Organomegaly, No Pulsatile Mass, Non Tender, Soft Back: Normal Inspection, No CVA Tenderness, No Vertebral Tenderness Extremity: Normal Capillary Refill, Normal Inspection, Normal Range of Motion, Non Tender, No Calf Tenderness, No Pedal Edema Neurologic/Psychiatric: Alert, Oriented x3, No Motor/Sensory Deficits, Normal Mood/Affect, 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 FIM Transfers Therapy Code Descriptions/Definitions Functional [place] Measure: 0=Not Assessed/NA 4=Minimal Assistance 1=Total Assistance 5=Supervision or Setup 2=Maximal Assistance 6=Modified [place] 3=Moderate Assistance 7=Complete IndependenceSCALE: Activities may be completed with or without assistive devices. 1-Iffqqpflku-aaroyod completes the activity by him/herself with no assistance from a helper. 5-Set-up or Clean-up Assistance-helper sets up or cleans up; patient completes activity. [place] assists only prior to or following the activity. 4-Supervision or Touching Assistance-helper provides verbal cues and/or touching/steadying and/or contact guard assistance as patient completes activity. Assistance may be provided throughout the activity or intermittently. 3-Partial/Moderate Assistance-helper does LESS THAN HALF the effort. [place] lifts, holds or supports trunk or limbs, but provides less than half the effort. 2-Substantial/Maximal Assistance-helper does MORE THAN HALF the effort. [place] lifts or holds trunk or limbs and provides more than half the effort. 5-Mspeowbtp-cczprz does ALL the effort. Patient does none of the effort to complete the activity. Or, the assistance of 2 or more helpers is required for the patient to complete the activity. If activity was not attempted, code reason: 7-Patient Refused. 9-Not Applicable-not attempted and the patient did not perform the activity before the current illness, exacerbation or injury. 10-Not Attempted due to Environmental Limitations-(lack of equipment, weather restraints, etc.). 88-Not Attempted due to Medical Conditions or Safety Concerns. Roll Left to Right (QC): 4 Sit to Lying (QC): 4 Sit to Stand (QC): 4 Chair/Sju-ry-Zueml Xfer(QC): 4 Car Transfer (QC): 88 Gait Training Does the Patient Walk?: Yes Distance: 150' Walk 10 feet (QC): 4 Walk 50 ft with 2 Turns(QC): 4 Walk 150 ft (QC): 4 Walking 10ft/uneven surface-QC: 3 Gait Persons Needed: 1 Gait Assistive Device: FWW Wheelchair Training Does the Pt Use a Wheelchair?: Yes Wheel 50 ft with 2 turns (QC): 5 Wheel 150 ft (QC): 5 Type of Wheelchair: Manual Stair Training 1 Step (curb) (QC): 7 (approached step and pt declined to attempt noting she did not feel she could perform it. ) 4 Steps (QC): 7 12 Steps (QC): 7 Balance Picking up an Object (QC): 88 (unsteady and fall risk) ADL-Treatment Eating (QC): 6 (Pt reports no difficulty eating) Oral Hygiene (QC): 4 (Pt attempted to take off cap of toothpaste, required verbal cue that the cap was already off, pt states difficulty seeing due to macular degeneration. Pt then able to complete task.) Shower/Bathe Self (QC): 4 (CGA in stand to wash periarea and buttocks, pt able to wash all other parts wtih SBA seated at PR with cues for sequencing of task.) Upper Body Dressing (QC): 5 (set up) Lower Body Dressing (QC): 3 (Min A, Pt required increased time with donning pants/underwear, min A in stand to manage pants up.) On/Off Footwear (QC): 3 (Min A, pt required increased time using sock aide to don LLE sock, min A to use sock aide to don RLE.) Toileting Hygiene (QC): 4 (CGA during clothing management and hygiene, pt required cues for sequencing of task.) Toilet Transfer (QC): 4 (CGA on/off toilet.) Assessment/Plan Assessment and Plan Assess & Plan/Chief Complaint Assessment: Debility Post polio muscle weakness DM HTN HLP Confusion Jang cath will DC Plan: Monitor BP and BS Home meds DC catheter BM regimen 04/17/20: Monitor sugar No pain reported except shingles pain Fall risk Monitor confusion 04/18/20: Lyrica maintained IRF protocol Monitor sugars 04/20/20: Monitor sugars Check labs in am Pain management 04/21/20: Monitor confusion Increase insulin Cough drops for sore throat 04/22/20: Monitor blood sugar Try to motivate Improving 04/23/20: Treat nausea with Zofran Cough drops as needed Sugars are still elevated DC planned for 04/30/20. 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
--- NOTE | 2020-04-25 12:08 | Physical Therapy Daily Note ---
PT Daily Note-Current Subjective Pt. up in recliner, wants to eat cheese and crackers before she leaves the room, pt. unable to open either after struggling, needs assist as cracker is now in crumbs. Pt. states she is fearful of falling and this comes in to play with chair approaches and sup to sit. Pain Location: No Pain Reported Mental Status Patient Orientation: Person, Place Attachments: Other-See Comments (maskwhile out of room) Transfers SCALE: Activities may be completed with or without assistive devices. 5-Dexgqbkurv-trswzhi completes the activity by him/herself with no assistance from a helper. 5-Set-up or Clean-up Assistance-helper sets up or cleans up; patient completes activity. [place] assists only prior to or following the activity. 4-Supervision or Touching Assistance-helper provides verbal cues and/or touching/steadying and/or contact guard assistance as patient completes activity. Assistance may be provided throughout the activity or intermittently. 3-Partial/Moderate Assistance-helper does LESS THAN HALF the effort. [place] lifts, holds or supports trunk or limbs, but provides less than half the effort. 2-Substantial/Maximal Assistance-helper does MORE THAN HALF the effort. [place] lifts or holds trunk or limbs and provides more than half the effort. 1-Uulyreqqy-batkhl does ALL the effort. Patient does none of the effort to complete the activity. Or, the assistance of 2 or more helpers is required for the patient to complete the activity. If activity was not attempted, code reason: 7-Patient Refused. 9-Not Applicable-not attempted and the patient did not perform the activity before the current illness, exacerbation or injury. 10-Not Attempted due to Environmental Limitations-(lack of equipment, weather restraints, etc.). 88-Not Attempted due to Medical Conditions or Safety Concerns. Roll Left & Right (QC): 5 Sit to Lying (QC): 5 Lying to Sitting/Side of Bed(Q: 5 Sit to Stand (QC): 5 Toilet Transfer (QC): 5 needs much instruction for TRFs, melanie chair approaches Weight Bearing Full Weight Bearing Full Weight Bearing Gait Training Does the Patient Walk?: Yes Walk 10 feet (QC): 4 Walk 50 ft with 2 Turns(QC): 4 Gait Persons Needed: 1 Gait Assistive Device: FWW short choppy guarded steps, heavy wt bearing on walker but positions self far behind it, poor awareness as she approaches a chair and bed as to what is safe sitting preparation Exercises Supine Ex: Bridging, Ankle pumps, Quad Set, Rolling, Glut sets, Heel Slides, Scooting, Straight leg raise, Hip abd/add Supine Reps: 12 NuStep Minutes: 8 NuStep Workload: 4 Treatments toileting with assist for clean up Assessment Current Status: Good Progress PT Short Term Goals Short Term Goals Time Frame: Apr 23, 2020 Sit to lyin Lying to sitting on side of be: 4 Walk 150 feet: 4 1 step (curb): 3 PT Usp Goals Mechatronics Technician Goals PT Usp Goals Time Frame: May 07, 2020 Roll Left & Right (QC): 6 Sit to Lying (QC): 6 Lying-Sitting on Side/Bed(QC): 6 Sit to Stand (QC): 6 Chair/Ccf-dd-Sfkmu Xfer(QC): 6 Toilet Transfer (QC): 6 Car Transfer (QC): 4 Does the Patient Walk: Yes Walk 10 feet (QC): 6 Walk 50ft with 2 Turns (QC): 6 Walk 150 ft (QC): 6 Walking 10ft on Uneven Surface: 5 1 Step (curb) (QC): 4 4 Steps (QC): 4 12 Steps (QC): 10 Picking up an Object (QC): 10 Does the Pt use WC or Scooter?: No Wheel 50 feet with 2 turns (QC: 9 Wheel 150 feet: 9 PT Plan Treatment/Plan Treatment Plan: Continue Plan of Care Treatment Plan: Bed Mobility, Education, Functional Activity Lisa, Functional Strength, Group Therapy, Gait, Safety, Therapeutic Exercise, Transfers Treatment Duration: May 07, 2020 Frequency: At least 5 of 7 days/Wk (IRF) Estimated Hrs Per Day: 1.5 hours per day Patient and/or Family Agrees t: Yes Safety Risks/Education Patient Education: Gait Training, Transfer Techniques, Correct Positioning, Disease Process, Safety Issues Teaching Recipient: Patient Teaching Methods: Demonstration, Discussion Response to Teaching: Verbalize Understanding, Return Demonstration, Reinforcement Needed Time/GCodes Time In: 1100 Time Out: 1200 Total Billed Treatment Time: 60 Total Billed Treatment 1,FA20m,GT25m,EX15m LAZARA CORNEJO PTA Apr 25, 2020 12:08
--- NOTE | 2020-04-25 13:55 | NUR ---
CM/SS CONCURRENT DOCUMENTATION Telephone conversation with son Bradley regarding planning activities surrounding target discharge next week. Shared team concerns about patient's short term memory and confusion. Clarified, Bradley reports he checks on his mom [phone], 1200, then [phone] at which time he locks up the house for the night. Bradley also indicates a neighbor checks often on patient. Confirmed that patient can exit house freely but has never wandered or left the home in an unsafe manner. Discussed assisted living, private pay, estimated cost. Bradley stated that patient monthly income is $1400 and, therefore, he is doubtful of her ability to pay. Recommended he check into Medicaid qualifications on her behalf. Provided Financial Assistance application via email attachment, patient is insured Medicare only, no supplement. Bradley also updated that patient gets meal delivery from [employer], that she makes her own breakfast and dinner. [facility]: Discussed recommendation for RN PT OT and reviewed Medicare Compare agencies in service area. Bradley selected [facility], referral will be completed timely. Continue to follow patient progress knowing that returning home continues the utmost goal of patient and son.
--- NOTE | 2020-04-25 14:22 | Therapy Group Daily Note ---
Therapy Daily Group Note Patient Education Topic Other List Below (ARU orientation, planning DC) Exercises LE Seated Exercise, UE Exercise Session Ratio (pt:therapist): 4:1 Goal of Session: Education on ARU Expectations, Memory Strategies, UE/LE Strengthing Goal Met for this Session: Yes Pt Benefit of Group: Contributions to Others, Increased Functional Strength, Improved Cognition, Recognition of Peers, Socialization Other/Notes Pt. participated in group PT OT session this date. Pt. ambulated to and from with CGA. Pt. was social, introduced herself and shared "how she made her first dollar" Pts were educated on ARU practices and expectations. Seated U&L extremity exercises were done with some being lead by patients who were willing to share exercises the y either used at home or have learned here and have incorporated in to their routine. Pts. participated in memory challenge by establishing 3 categories and 3 words in the beginning of the group session then recalling them later. Pt. returned to room and to bed with assist and aaron at hand Start Time: 13:00 Stop Time: 14:10 Total Billed Treatment Time: 70 Total Billed Treatment 1,GRP 70m LAZARA CORNEJO FOOD BROKER Apr 25, 2020 14:22
[2020-04-25 18:00] VITALS: BP 119/58
[2020-04-25] MEDS: RIVAROXABAN 10 MG TABLET (XARELTO) PO SCH (18:21)
[2020-04-25] MEDS: MELATONIN 3 MG TABLET PO PRN (21:27)
[2020-04-26 05:37] VITALS: BP 163/68
[2020-04-26] MEDS: inSUlin ASPART (NovoLOG) 1 UNIT/0.01 ML (CHARGE PER UNIT) SC SCH ×4 (05:41→21:18)
[2020-04-26] MEDS: LEVOTHYROXINE 100 MCG (LEVOTHROID) TAB PO SCH (06:05)
[2020-04-26] MEDS: LEVOTHYROXINE 75 MCG (LEVOTHROID) TABLET PO SCH (06:05)
[2020-04-26] MEDS: KCL 10 MEQ TAB (MICRO K) PO SCH (06:05)
[2020-04-26] MEDS: DOCOSANOL 10 % CREAM (ABREVA) 2 GM TP SCH ×5 (06:06→21:19)
[2020-04-26] MEDS: DOCUSATE SODIUM 100 MG (COLACE) CAP PO SCH ×2 (08:34→20:03)
[2020-04-26] MEDS: PREGABALIN 50 MG (LYRICA) CAP PO SCH ×3 (08:34→21:18)
[2020-04-26] MEDS: SENNA W/DOCUSATE (SENOKOT S) TABLET PO SCH ×4 (08:34→20:04)
[2020-04-26] MEDS: FENOFIBRATE 134 MG (LOFIBRA) CAPSULE PO SCH (08:34)
[2020-04-26] MEDS: polyethylene glycoL POWDER 17 GM (MIRALAX) PACK PO SCH ×2 (08:35→20:04)
--- NOTE | 2020-04-26 09:48 | Physical Therapy Daily Note ---
PT Daily Note-Current Subjective Patient in recliner pre tx, agrees to PT, has no complaints of pain Appearance Patient in recliner post tx with nurse call, phone, tray, all needs met. Mental Status Patient Orientation: Person, Place, Situation Transfers SCALE: Activities may be completed with or without assistive devices. 2-Fzywppqmcc-qqcuald completes the activity by him/herself with no assistance from a helper. 5-Set-up or Clean-up Assistance-helper sets up or cleans up; patient completes activity. [place] assists only prior to or following the activity. 4-Supervision or Touching Assistance-helper provides verbal cues and/or touc dania/steadying and/or contact guard assistance as patient completes activity. Assistance may be provided throughout the activity or intermittently. 3-Partial/Moderate Assistance-helper does LESS THAN HALF the effort. [place] lifts, holds or supports trunk or limbs, but provides less than half the effort. 2-Substantial/Maximal Assistance-helper does MORE THAN HALF the effort. [place] lifts or holds trunk or limbs and provides more than half the effort. 3-Uxlrhldmi-elxpwc does ALL the effort. Patient does none of the effort to complete the activity. Or, the assistance of 2 or more helpers is required for the patient to complete the activity. If activity was not attempted, code reason: 7-Patient Refused. 9-Not Applicable-not attempted and the patient did not perform the activity before the current illness, exacerbation or injury. 10-Not Attempted due to Environmental Limitations-(lack of equipment, weather restraints, etc.). 88-Not Attempted due to Medical Conditions or Safety Concerns. Sit to Stand (QC): 3 Chair/Tha-ug-Vhsne Xfer(QC): 4 Min assist for sit to stand the first time from the recliner, CGA after that Weight Bearing Full Weight Bearing Full Weight Bearing Gait Training Distance: 50'x2 Walk 10 feet (QC): 4 Walk 50 ft with 2 Turns(QC): 4 Gait Assistive Device: FWW CGA, very slow ambulation, slumped posture Exercises Seated Therapy Exercises: Ankle pumps, Long arc quads Seated Reps: 20 Treatments transfers, ambulation, LE exercise Assessment Current Status: Fair Progress improved endurance PT Short Term Goals Short Term Goals Time Frame: Apr 23, 2020 Sit to lyin Lying to sitting on side of be: 4 Walk 150 feet: 4 1 step (curb): 3 PT Nursing Home Goals Nursing Home Goals PT Certified Composites Technician Goals Time Frame: May 07, 2020 Roll Left & Right (QC): 6 Sit to Lying (QC): 6 Lying-Sitting on Side/Bed(QC): 6 Sit to Stand (QC): 6 Chair/Xgm-qe-Wrmpn Xfer(QC): 6 Toilet Transfer (QC): 6 Car Transfer (QC): 4 Does the Patient Walk: Yes Walk 10 feet (QC): 6 Walk 50ft with 2 Turns (QC): 6 Walk 150 ft (QC): 6 Walking 10ft on Uneven Surface: 5 1 Step (curb) (QC): 4 4 Steps (QC): 4 12 Steps (QC): 10 Picking up an Object (QC): 10 Does the Pt use WC or Scooter?: No Wheel 50 feet with 2 turns (QC: 9 Wheel 150 feet: 9 PT Plan Problem List Problem List: Activity Tolerance, Functional Strength, Safety, Balance, Gait, Transfer, Bed Mobility, ROM Treatment/Plan Treatment Plan: Continue Plan of Care Treatment Plan: Bed Mobility, Education, Functional Activity Lisa, Functional Strength, Group Therapy, Gait, Safety, Therapeutic Exercise, Transfers Treatment Duration: May 07, 2020 Frequency: At least 5 of 7 days/Wk (IRF) Estimated Hrs Per Day: 1.5 hours per day Patient and/or Family Agrees t: Yes Safety Risks/Education Patient Education: Gait Training, Transfer Techniques, Correct Positioning, Safety Issues Teaching Recipient: Patient Teaching Methods: Demonstration, Discussion Response to Teaching: Reinforcement Needed Time/GCodes Time In: 932 Time Out: 946 Total Billed Treatment Time: 14 Total Billed Treatment 1 visit FA ITALO FONSECA PT Apr 26, 2020 09:48
--- NOTE | 2020-04-26 12:24 | PM&R Progress Note ---
Subjective HPI/CC On Admission Date Seen by Provider: Apr 26, 2020 Time Seen by Provider: 12:30 Subjective/Events-last exam 04/26/20: Monitor sugar Increase insulin IRF protocol 04/25/20: Monitor sugar and BP since both are high No falls Denies pain DC planned for next week 04/24/20: Patient feels good today Motivation is up too Sugars are still high No pain reported 04/23/20: Zofran was given for nausea Sugars are still pretty elevated so may need to increase insulin soon Cough drops have been helpful Overall doing pretty well, finishing up antibiotics 04/22/20: Bowels moved today Blood sugar is much better Motivation issues today Will monitor closely 04/21/20: Pt doing very well Less confusion Labs okay Hgb 8.7 Blood sugar is elevated so increase Levemir to 10 twice a day and sliding scale C Sore throat is helped with cough drops 04/20/20: Walking now to the bathroom and has improved a lot BM+ Confusion is less 04/18/20: Lyrica ordered and she is very pleased to have that on board for post shingles pain post herpetic neuralgia Confusion improved but she tells me the same story every day with her pacemaker and such BP elevated required NTG paste Levemir started and her sugars are improved Pt a little bit confused so she was moved closer to the desk at 2:33 Had a little bit of diarrhea so holding laxatives Wants to start taking her Shingles medication BP is doing well Hgb is stable at 10.5 We will check her stools for hemoccult because of tarry stool noted by nurses today CHecked meds and labs Conferred with RN Reviewed therapy notes Review of Systems General: Fatigue, Malaise Objective Exam Vital Signs Vital Signs Date Time Temp Pulse Resp B/P (MAP) Pulse Ox O2 Delivery O2 Flow Rate FiO2 04/27/20 05:19 36.6 84 18 118/53 (74) 93 Room Air Capillary Refill : Less Than 3 Seconds General Appearance: No Apparent Distress, WD/WN, Chronically ill HEENT: PERRL/EOMI, Normal ENT Inspection, Pharynx Normal Neck: Full Range of Motion, Normal Inspection, Non Tender, Supple, Carotid Bruit Respiratory: Chest Non Tender, Lungs Clear, Normal Breath Sounds, No Accessory Muscle Use, No Respiratory Distress Cardiovascular: Regular Rate, Rhythm, No Edema, No Gallop, No JVD, No Murmur, Normal Peripheral Pulses Gastrointestinal: Normal Bowel Sounds, No Organomegaly, No Pulsatile Mass, Non Tender, Soft Back: Normal Inspection, No CVA Tenderness, No Vertebral Tenderness Extremity: Normal Capillary Refill, Normal Inspection, Normal Range of Motion, Non Tender, No Calf Tenderness, No Pedal Edema Neurologic/Psychiatric: Alert, Oriented x3, No Motor/Sensory Deficits, Normal 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 FIM Transfers Therapy Code Descriptions/Definitions Functional [place] Measure: 0=Not Assessed/NA 4=Minimal Assistance 1=Total Assistance 5=Supervision or Setup 2=Maximal Assistance 6=Modified [place] 3=Moderate Assistance 7=Complete IndependenceSCALE: Activities may be completed with or without assistive devices. 2-Axdkvlgctb-clawooy completes the activity by him/herself with no assistance from a helper. 5-Set-up or Clean-up Assistance-helper sets up or cleans up; patient completes activity. [place] assists only prior to or following the activity. 4-Supervision or Touching Assistance-helper provides verbal cues and/or touching/steadying and/or contact guard assistance as patient completes activity. Assistance may be provided throughout the activity or intermittently. 3-Partial/Moderate Assistance-helper does LESS THAN HALF the effort. [place] lifts, holds or supports trunk or limbs, but provides less than half the effort. 2-Substantial/Maximal Assistance-helper does MORE THAN HALF the effort. [place] lifts or holds trunk or limbs and provides more than half the effort. 8-Pccwksmhf-bgsnao does ALL the effort. Patient does none of the effort to complete the activity. Or, the assistance of 2 or more helpers is required for the patient to complete the activity. If activity was not attempted, code reason: 7-Patient Refused. 9-Not Applicable-not attempted and the patient did not perform the activity bef ore the current illness, exacerbation or injury. 10-Not Attempted due to Environmental Limitations-(lack of equipment, weather r estraints, etc.). 88-Not Attempted due to Medical Conditions or Safety Concerns. Roll Left to Right (QC): 5 Sit to Lying (QC): 5 Sit to Stand (QC): 3 Chair/Jif-qh-Nggpp Xfer(QC): 4 Car Transfer (QC): 88 Gait Training Does the Patient Walk?: Yes Distance: 50'x2 Walk 10 feet (QC): 4 Walk 50 ft with 2 Turns(QC): 4 Walk 150 ft (QC): 4 Walking 10ft/uneven surface-QC: 3 Gait Persons Needed: 1 Gait Assistive Device: FWW Wheelchair Training Does the Pt Use a Wheelchair?: Yes Wheel 50 ft with 2 turns (QC): 5 Wheel 150 ft (QC): 5 Type of Wheelchair: Manual Stair Training 1 Step (curb) (QC): 7 (approached step and pt declined to attempt noting she did not feel she could perform it. ) 4 Steps (QC): 7 12 Steps (QC): 7 Balance Picking up an Object (QC): 88 (unsteady and fall risk) ADL-Treatment Eating (QC): 6 (Pt reports no difficulty eating) Oral Hygiene (QC): 4 (Pt attempted to take off cap of toothpaste, required verbal cue that the cap was already off, pt states difficulty seeing due to macular degeneration. Pt then able to complete task.) Shower/Bathe Self (QC): 4 (CGA in stand to wash periarea and buttocks, pt able to wash all other parts wtih SBA seated at OR with cues for sequencing of task.) Upper Body Dressing (QC): 5 (set up) Lower Body Dressing (QC): 3 (Min A, Pt required increased time with donning pants/underwear, min A in stand to manage pants up.) On/Off Footwear (QC): 3 (Min A, pt required increased time using sock aide to don LLE sock, min A to use sock aide to don RLE.) Toileting Hygiene (QC): 4 (CGA during clothing management and hygiene, pt required cues for sequencing of task.) Toilet Transfer (QC): 4 (CGA on/off toilet.) Assessment/Plan Assessment and Plan Assess & Plan/Chief Complaint Assessment: Debility Post polio muscle weakness DM HTN HLP Confusion Jang cath will DC Plan: Monitor BP and BS Home meds DC catheter BM regimen 04/17/20: Monitor sugar No pain reported except shingles pain Fall risk Monitor confusion 10/2/20: Lyrica maintained IRF protocol Monitor sugars 04/20/20: Monitor sugars Check labs in am Pain management 04/21/20: Monitor confusion Increase insulin Cough drops for sore throat 04/22/20: Monitor blood sugar Try to motivate Improving 04/23/20: Treat nausea with Zofran Cough drops as needed Sugars are still elevated DC planned for 04/30/20. 04/24/20: Increase motivation Fall risk Monitor sugars and will increase insulin tomorrow if remains high 04/25/20: Increase insulin to 15 BID DC planned next week 04/26/20: Monitor sugar Fall risk (1) Altered mental status Status: Resolved Resolution Date/Time: 04/16/20 @ 11:38 (2) Debility Status: Acute (3) HTN (hypertension) Status: Chronic (4) HLD (hyperlipidemia) Status: Chronic (5) DVT prophylaxis Status: Acute (6) Normocytic anemia Status: Acute (7) Hypothyroidism Status: Chronic (8) Bacteremia Status: Acute (9) Insulin dependent diabetes mellitus Status: Chronic (10) Urinary tract infection Status: Acute (11) Post-polio syndrome ARMANDO MURRAY DO Apr 26, 2020 12:24
[2020-04-26 16:00] VITALS: BP 115/64
[2020-04-26] MEDS: CALCIUM CARBONATE 500 MG (TUMS) TAB.CHEW PO PRN ×2 (17:33→22:34)
[2020-04-26] MEDS: RIVAROXABAN 10 MG TABLET (XARELTO) PO SCH (17:33)
[2020-04-26] MEDS: MELATONIN 3 MG TABLET PO PRN (21:18)
[2020-04-26] MEDS: ONDANSETRON 4 MG (ZOFRAN) ORAL DISSOLVE TAB PO PRN (23:48)
[2020-04-27 05:19] VITALS: BP 118/53
[2020-04-27] MEDS: inSUlin ASPART (NovoLOG) 1 UNIT/0.01 ML (CHARGE PER UNIT) SC SCH ×4 (06:37→21:01)
[2020-04-27] MEDS: LEVOTHYROXINE 75 MCG (LEVOTHROID) TABLET PO SCH (06:38)
[2020-04-27] MEDS: KCL 10 MEQ TAB (MICRO K) PO SCH (06:38)
[2020-04-27] MEDS: DOCOSANOL 10 % CREAM (ABREVA) 2 GM TP SCH ×5 (06:38→21:01)
[2020-04-27] MEDS: LEVOTHYROXINE 100 MCG (LEVOTHROID) TAB PO SCH (06:39)
--- NOTE | 2020-04-27 07:01 | PM&R Progress Note ---
Subjective HPI/CC On Admission Date Seen by Provider: Apr 27, 2020 Time Seen by Provider: 13:00 Subjective/Events-last exam 04/27/20: No issues In good mood Zofran given today 04/26/20: Monitor sugar Increase insulin IRF protocol 04/25/20: Monitor sugar and BP since both are high No falls Denies pain DC planned for next week 04/24/20: Patient feels good today Motivation is up too Sugars are still high No pain reported 04/23/20: Zofran was given for nausea Sugars are still pretty elevated so may need to increase insulin soon Cough drops have been helpful Overall doing pretty well, finishing up antibiotics 04/22/20: Bowels moved today Blood sugar is much better Motivation issues today Will monitor closely 04/21/20: Pt doing very well Less confusion Labs okay Hgb 8.7 Blood sugar is elevated so increase Levemir to 10 twice a day and sliding scale C Sore throat is helped with cough drops 04/20/20: Walking now to the bathroom and has improved a lot BM+ Confusion is less 04/18/20: Lyrica ordered and she is very pleased to have that on board for post shingles pain post herpetic neuralgia Confusion improved but she tells me the same story every day with her pacemaker and such BP elevated required NTG paste Levemir started and her sugars are improved Pt a little bit confused so she was moved closer to the desk at 2:33 Had a little bit of diarrhea so holding laxatives Wants to start taking her Shingles medication BP is doing well Hgb is stable at 10.5 We will check her stools for hemoccult because of tarry stool noted by nurses today CHecked meds and labs Conferred with RN Reviewed therapy notes Review of Systems General: Fatigue, Malaise Objective Exam Vital Signs Vital Signs Date Time Temp Pulse Resp B/P (MAP) Pulse Ox O2 Delivery O2 Flow Rate FiO2 04/27/20 20:40 Room Air 04/27/20 17:21 36.3 82 20 140/62 (88) 93 Capillary Refill : Less Than 3 Seconds General Appearance: No Apparent Distress, WD/WN, Chronically ill HEENT: PERRL/EOMI, Normal ENT Inspection, Pharynx Normal Neck: Full Range of Motion, Normal Inspection, Non Tender, Supple, Carotid Bruit Respiratory: Chest Non Tender, Lungs Clear, Normal Breath Sounds, No Accessory Muscle Use, No Respiratory Distress Cardiovascular: Regular Rate, Rhythm, No Edema, No Gallop, No JVD, No Murmur, Normal Peripheral Pulses Gastrointestinal: Normal Bowel Sounds, No Organomegaly, No Pulsatile Mass, Non Tender, Soft Back: Normal Inspection, No CVA Tenderness, No Vertebral Tenderness Extremity: Normal Capillary Refill, Normal Inspection, Normal Range of Motion, Non Tender, No Calf Tenderness, No Pedal Edema Neurologic/Psychiatric: Alert, Oriented x3, No Motor/Sensory Deficits, Normal 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 FIM Transfers Therapy Code Descriptions/Definitions Functional [place] Measure: 0=Not Assessed/NA 4=Minimal Assistance 1=Total Assistance 5=Supervision or Setup 2=Maximal Assistance 6=Modified [place] 3=Moderate Assistance 7=Complete IndependenceSCALE: Activities may be completed with or without assistive devices. 0-Cuxscvjfvx-ihkjmeg completes the activity by him/herself with no assistance from a helper. 5-Set-up or Clean-up Assistance-helper sets up or cleans up; patient completes activity. [place] assists only prior to or following the activity. 4-Supervision or Touching Assistance-helper provides verbal cues and/or touching/steadying and/or contact guard assistance as patient completes activity. Assistance may be provided throughout the activity or intermittently. 3-Partial/Moderate Assistance-helper does LESS THAN HALF the effort. [place] lifts, holds or supports trunk or limbs, but provides less than half the effort. 2-Substantial/Maximal Assistance-helper does MORE THAN HALF the effort. [place] lifts or holds trunk or limbs and provides more than half the effort. 5-Mrnpfywek-fnbogn does ALL the effort. Patient does none of the effort to complete the activity. Or, the assistance of 2 or more helpers is required for the patient to complete the activity. If activity was not attempted, code reason: 7-Patient Refused. 9-Not Applicable-not attempted and the patient did not perform the activity before the current illness, exacerbation or injury. 10-Not Attempted due to Environmental Limitations-(lack of equipment, weather restraints, etc.). 88-Not Attempted due to Medical Conditions or Safety Concerns. Roll Left to Right (QC): 5 Sit to Lying (QC): 5 Sit to Stand (QC): 3 Chair/Jll-lw-Qoith Xfer(QC): 4 Car Transfer (QC): 88 Gait Training Does the Patient Walk?: Yes Distance: 50'x2 Walk 10 feet (QC): 4 Walk 50 ft with 2 Turns(QC): 4 Walk 150 ft (QC): 4 Walking 10ft/uneven surface-QC: 3 Gait Persons Needed: 1 Gait Assistive Device: FWW Wheelchair Training Does the Pt Use a Wheelchair?: Yes Wheel 50 ft with 2 turns (QC): 5 Wheel 150 ft (QC): 5 Type of Wheelchair: Manual Stair Training 1 Step (curb) (QC): 7 (approached step and pt declined to attempt noting she did not feel she could perform it. ) 4 Steps (QC): 7 12 Steps (QC): 7 Balance Picking up an Object (QC): 88 (unsteady and fall risk) ADL-Treatment Eating (QC): 6 (Pt reports no difficulty eating) Oral Hygiene (QC): 4 (Pt attempted to take off cap of toothpaste, required verbal cue that the cap was already off, pt states difficulty seeing due to macular degeneration. Pt then able to complete task.) Shower/Bathe Self (QC): 4 (CGA in stand to wash periarea and buttocks, pt able to wash all other parts wtih SBA seated at MS with cues for sequencing of task.) Upper Body Dressing (QC): 5 (set up) Lower Body Dressing (QC): 3 (Min A, Pt required increased time with donning pants/underwear, min A in stand to manage pants up.) On/Off Footwear (QC): 3 (Min A, pt required increased time using sock aide to don LLE sock, min A to use sock aide to don RLE.) Toileting Hygiene (QC): 4 (CGA during clothing management and hygiene, pt required cues for sequencing of task.) Toilet Transfer (QC): 4 (CGA on/off toilet.) Assessment/Plan Assessment and Plan Assess & Plan/Chief Complaint Assessment: Debility Post polio muscle weakness DM HTN HLP Confusion Jang cath will DC Plan: Monitor BP and BS Home meds DC catheter BM regimen 10/1/20: Monitor sugar No pain reported except shingles pain Fall risk Monitor confusion 04/18/20: Lyrica maintained IRF protocol Monitor sugars 04/20/20: Monitor sugars Check labs in am Pain management 04/21/20: Monitor confusion Increase insulin Cough drops for sore throat 04/22/20: Monitor blood sugar Try to motivate Improving 04/23/20: Treat nausea with Zofran Cough drops as needed Sugars are still elevated DC planned for 04/30/20. 04/24/20: Increase motivation Fall risk Monitor sugars and will increase insulin tomorrow if remains high 04/25/20: Increase insulin to 15 BID DC planned next week 04/26/20: Monitor sugar Fall risk 04/27/20: Monitor sugar Monitor pain (1) Altered mental status Status: Resolved Resolution Date/Time: 04/16/20 @ 11:38 (2) Debility Status: Acute (3) HTN (hypertension) Status: Chronic (4) HLD (hyperlipidemia) Status: Chronic (5) DVT prophylaxis Status: Acute (6) Normocytic anemia Status: Acute (7) Hypothyroidism Status: Chronic (8) Bacteremia Status: Acute (9) Insulin dependent diabetes mellitus Status: Chronic (10) Urinary tract infection Status: Acute (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
[2020-04-27] MEDS: polyethylene glycoL POWDER 17 GM (MIRALAX) PACK PO SCH ×2 (08:10→19:31)
[2020-04-27] MEDS: FENOFIBRATE 134 MG (LOFIBRA) CAPSULE PO SCH (08:10)
[2020-04-27] MEDS: SENNA W/DOCUSATE (SENOKOT S) TABLET PO SCH ×4 (08:10→21:06)
[2020-04-27] MEDS: PREGABALIN 50 MG (LYRICA) CAP PO SCH ×3 (08:10→21:01)
[2020-04-27] MEDS: DOCUSATE SODIUM 100 MG (COLACE) CAP PO SCH ×2 (08:10→21:01)
--- NOTE | 2020-04-27 10:51 | NUR ---
Bridegt is a 85 yo female who is currently admitted to ARU due to acute exacerbation of COPD and UTI. Bridget is A&O X 3, she is unable to report the day to this nurse. She has been very pleasant and voiced no pain/complaints. Patient is currently on A[facility] accu checks and has requiring sliding scale insulin frequently. Patient's appetite is very good she eat 80-100% of most all meals. Bridget is physically doing well. She is able to ambulate X1/SBA if given the proper time. She has been cont. of bowel but does have some bladder stress incont. noted. No concerns noted at this time with Bridget. This nurse will continue to monitor her closely throughout shift.
[2020-04-27] MEDS: RIVAROXABAN 10 MG TABLET (XARELTO) PO SCH (16:48)
[2020-04-27 17:21] VITALS: BP 140/62
[2020-04-27] MEDS: MELATONIN 3 MG TABLET PO PRN (21:01)
[2020-04-28 05:16] VITALS: BP 118/53
[2020-04-28] MEDS: LEVOTHYROXINE 75 MCG (LEVOTHROID) TABLET PO SCH (06:03)
[2020-04-28] MEDS: LEVOTHYROXINE 100 MCG (LEVOTHROID) TAB PO SCH (06:03)
[2020-04-28] MEDS: KCL 10 MEQ TAB (MICRO K) PO SCH (06:03)
[2020-04-28] MEDS: DOCOSANOL 10 % CREAM (ABREVA) 2 GM TP SCH ×5 (06:05→21:44)
[2020-04-28 06:33] LABS: MONOCYTES % (AUTO) 8 % (0-12)
[2020-04-28 06:35] LABS: BASOPHILS # (AUTO) 0.1 10^3/uL (0.0-0.1); BASOPHILS % (AUTO) 1 % (0-10); EOSINOPHILS # (AUTO) 0.1 10^3/uL (0.0-0.3); EOSINOPHILS % (AUTO) 2 % (0-10); HEMATOCRIT 23 % (35-52); LYMPHOCYTES # (AUTO) 1.2 10^3/uL (1.0-4.0); LYMPHOCYTES % (AUTO) 23 % (12-44); MEAN CORPUSCULAR HEMOGLOBIN 27 pg (25-34); MEAN CORPUSCULAR HGB CONC 30 g/dL (32-36); MEAN CORPUSCULAR VOLUME 89 fL (80-99); MEAN PLATELET VOLUME 13.5 fL (9.0-12.2); MONOCYTES # (AUTO) 0.4 10^3/uL (0.0-1.0); NEUTROPHILS # (AUTO) 3.3 10^3/uL (1.8-7.8); NEUTROPHILS % (AUTO) 66 % (42-75); PLATELET COUNT 89 10^3/uL (130-400); WHITE BLOOD COUNT 5.1 10^3/uL (4.3-11.0)
[2020-04-28 06:53] LABS: ALBUMIN 3.4 GM/DL (3.2-4.5); POTASSIUM 4.5 MMOL/L (3.6-5.0)
[2020-04-28 06:55] LABS: CALCIUM 8.9 MG/DL (8.5-10.1)
[2020-04-28 06:56] LABS: TOTAL PROTEIN 6.2 GM/DL (6.4-8.2)
[2020-04-28 06:57] LABS: BILIRUBIN,TOTAL 0.4 MG/DL (0.1-1.0)
[2020-04-28 06:59] LABS: CREATININE SERUM 1.02 MG/DL (0.60-1.30)
[2020-04-28] MEDS: inSUlin ASPART (NovoLOG) 1 UNIT/0.01 ML (CHARGE PER UNIT) SC SCH ×4 (07:11→21:40)
--- NOTE | 2020-04-28 08:36 | PM&R Progress Note ---
Subjective HPI/CC On Admission Date Seen by Provider: Apr 28, 2020 Time Seen by Provider: 10:00 Subjective/Events-last exam 04/28/20: Hgb 7.0 Giving 1 dose of IV iron and checking iron studies in a peripheral smear and consulting hematology Dr. Mccabe will see her in consultation even though her hemoccult was negative Urinating quite a bit, 8x last night Discharge is planned for Tuesday Overall doing very well 04/27/20: No issues In good mood Zofran given today 04/26/20: Monitor sugar Increase insulin IRF protocol 04/25/20: Monitor sugar and BP since both are high No falls Denies pain DC planned for next week 04/24/20: Patient feels good today Motivation is up too Sugars are still high No pain reported 04/23/20: Zofran was given for nausea Sugars are still pretty elevated so may need to increase insulin soon Cough drops have been helpful Overall doing pretty well, finishing up antibiotics 04/22/20: Bowels moved today Blood sugar is much better Motivation issues today Will monitor closely 04/21/20: Pt doing very well Less confusion Labs okay Hgb 8.7 Blood sugar is elevated so increase Levemir to 10 twice a day and sliding scale C Sore throat is helped with cough drops 04/20/20: Walking now to the bathroom and has improved a lot BM+ Confusion is less 04/18/20: Lyrica ordered and she is very pleased to have that on board for post shingles pain post herpetic neuralgia Confusion improved but she tells me the same story every day with her pacemaker and such BP elevated required NTG paste Levemir started and her sugars are improved Pt a little bit confused so she was moved closer to the desk at 2:33 Had a little bit of diarrhea so holding laxatives Wants to start taking her Shingles medication BP is doing well Hgb is stable at 10.5 We will check her stools for hemoccult because of tarry stool noted by nurses today CHecked meds and labs Conferred with RN Reviewed therapy notes Review of Systems General: Fatigue, Malaise Neurological: Weakness Objective Exam Vital Signs Vital Signs Date Time Temp Pulse Resp B/P (MAP) Pulse Ox O2 Delivery O2 Flow Rate FiO2 04/28/20 18:00 Room Air 04/28/20 15:15 36.8 81 16 135/63 (87) 95 Capillary Refill : Less Than 3 Seconds General Appearance: No Apparent Distress, WD/WN, Chronically ill HEENT: PERRL/EOMI, Normal ENT Inspection, Pharynx Normal Neck: Full Range of Motion, Normal Inspection, Non Tender, Supple, Carotid Bruit Respiratory: Chest Non Tender, Lungs Clear, Normal Breath Sounds, No Accessory Muscle Use, No Respiratory Distress Cardiovascular: Regular Rate, Rhythm, No Edema, No Gallop, No JVD, No Murmur, Normal Peripheral Pulses Gastrointestinal: Normal Bowel Sounds, No Organomegaly, No Pulsatile Mass, Non Tender, Soft Back: Normal Inspection, No CVA Tenderness, No Vertebral Tenderness Extremity: Normal Capillary Refill, Normal Inspection, Normal Range of Motion, Non Tender, No Calf Tenderness, No Pedal Edema Neurologic/Psychiatric: Alert, Oriented x3, No Motor/Sensory Deficits, Normal Mood/Affect, 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 FIM Transfers Therapy Code Descriptions/Definitions Functional [place] Measure: 0=Not Assessed/NA 4=Minimal Assistance 1=Total Assistance 5=Supervision or Setup 2=Maximal Assistance 6=Modified [place] 3=Moderate Assistance 7=Complete IndependenceSCALE: Activities may be completed with or without assistive devices. 4-Whvyjaqqvj-wgbthxv completes the activity by him/herself with no assistance from a helper. 5-Set-up or Clean-up Assistance-helper sets up or cleans up; patient completes activity. [place] assists only prior to or following the activity. 4-Supervision or Touching Assistance-helper provides verbal cues and/or touching/steadying and/or contact guard assistance as patient completes activity. Assistance may be provided throughout the activity or intermittently. 3-Partial/Moderate Assistance-helper does LESS THAN HALF the effort. [place] lifts, holds or supports trunk or limbs, but provides less than half the effort. 2-Substantial/Maximal Assistance-helper does MORE THAN HALF the effort. [place] lifts or holds trunk or limbs and provides more than half the effort. 7-Agqbmytrn-fdbjaz does ALL the effort. Patient does none of the effort to complete the activity. Or, the assistance of 2 or more helpers is required for the patient to complete the activity. If activity was not attempted, code reason: 7-Patient Refused. 9-Not Applicable-not attempted and the patient did not perform the activity before the current illness, exacerbation or injury. 10-Not Attempted due to Environmental Limitations-(lack of equipment, weather restraints, etc.). 88-Not Attempted due to Medical Conditions or Safety Concerns. Roll Left to Right (QC): 5 Sit to Lying (QC): 5 Sit to Stand (QC): 3 Chair/Xfb-an-Zopyo Xfer(QC): 4 Car Transfer (QC): 88 Gait Training Does the Patient Walk?: Yes Distance: 50'x2 Walk 10 feet (QC): 4 Walk 50 ft with 2 Turns(QC): 4 Walk 150 ft (QC): 4 Walking 10ft/uneven surface-QC: 3 Gait Persons Needed: 1 Gait Assistive Device: FWW Wheelchair Training Does the Pt Use a Wheelchair?: Yes Wheel 50 ft with 2 turns (QC): 5 Wheel 150 ft (QC): 5 Type of Wheelchair: Manual Stair Training 1 Step (curb) (QC): 7 (approached step and pt declined to attempt noting she did not feel she could perform it. ) 4 Steps (QC): 7 12 Steps (QC): 7 Balance Picking up an Object (QC): 88 (unsteady and fall risk) ADL-Treatment Eating (QC): 6 (Pt reports no difficulty eating) Oral Hygiene (QC): 4 (Pt attempted to take off cap of toothpaste, required verbal cue that the cap was already off, pt states difficulty seeing due to macular degeneration. Pt then able to complete task.) Shower/Bathe Self (QC): 4 (CGA in stand to wash periarea and buttocks, pt able to wash all other parts wtih SBA seated at CA with cues for sequencing of task.) Upper Body Dressing (QC): 5 (set up) Lower Body Dressing (QC): 3 (Min A, Pt required increased time with donning pants/underwear, min A in stand to manage pants up.) On/Off Footwear (QC): 3 (Min A, pt required increased time using sock aide to don LLE sock, min A to use sock aide to don RLE.) Toileting Hygiene (QC): 4 (CGA during clothing management and hygiene, pt r equired cues for sequencing of task.) Toilet Transfer (QC): 4 (CGA on/off toilet.) Assessment/Plan Assessment and Plan Assess & Plan/Chief Complaint Assessment: Debility Post polio muscle weakness DM HTN HLP Confusion Jang cath will DC Plan: Monitor BP and BS Home meds DC catheter BM regimen 04/17/20: Monitor sugar No pain reported except shingles pain Fall risk Monitor confusion 04/18/20: Lyrica maintained IRF protocol Monitor sugars 04/20/20: Monitor sugars Check labs in am Pain management 04/21/20: Monitor confusion Increase insulin Cough drops for sore throat 04/22/20: Monitor blood sugar Try to motivate Improving 04/23/20: Treat nausea with Zofran Cough drops as needed Sugars are still elevated DC planned for 04/30/20. 04/24/20: Increase motivation Fall risk Monitor sugars and will increase insulin tomorrow if remains high 04/25/20: Increase insulin to 15 BID DC planned next week 04/26/20: Monitor sugar Fall risk 04/27/20: Monitor sugar Monitor pain 04/28/20: Monitor hemoglobin Appreciate hematology consultation Discharge planned on Tuesday Consult Dr. 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
--- NOTE | 2020-04-28 08:38 | Occupational Ther Daily Note ---
OT Current Status-Daily Note Subjective Pt seated in recliner, agreeable to OT tx. Pt denies pain. ADL-Treatment Therapy Code Descriptions/Definitions Functional [place] Measure: 0=Not Assessed/NA 4=Minimal Assistance 1=Total Assistance 5=Supervision or Setup 2=Maximal Assistance 6=Modified [place] 3=Moderate Assistance 7=Complete IndependenceSCALE: Activities may be completed with or without assistive devices. 7-Zpzkforjsz-ojxzddx completes the activity by him/herself with no assistance from a helper. 5-Set-up or Clean-up Assistance-helper sets up or cleans up; patient completes activity. [place] assists only prior to or following the activity. 4-Supervision or Touching Assistance-helper provides verbal cues and/or touching/steadying and/or contact guard assistance as patient completes activity. Assistance may be provided throughout the activity or intermittently. 3-Partial/Moderate Assistance-helper does LESS THAN HALF the effort. [place] lifts, holds or supports trunk or limbs, but provides less than half the effort. 2-Substantial/Maximal Assistance-helper does MORE THAN HALF the effort. [place] lifts or holds trunk or limbs and provides more than half the effort. 5-Hjlyfgcor-lnkvmt does ALL the effort. Patient does none of the effort to complete the activity. Or, the assistance of 2 or more helpers is required for the patient to complete the activity. If activity was not attempted, code reason: 7-Patient Refused. 9-Not Applicable-not attempted and the patient did not perform the activity before the current illness, exacerbation or injury. 10-Not Attempted due to Environmental Limitations-(lack of equipment, weather restraints, etc.). 88-Not Attempted due to Medical Conditions or Safety Concerns. Eating (QC): 6 (pt reports no difficulty eating) Oral Hygiene (QC): 4 (supervision seated at sink, pt unable to tell cap was off of toothpaste requiring 1 verbal cue, pt then able to complete task.) Shower/Bathe Self (QC): 4 (SBA, pt able to wash/dry all parts with cues for sequencing of task.) Upper Body Dressing (QC): 4 (supervision, pt required 1 verbal cue that shirt was inside out prior to donning, pt indicates she has difficulty seeing due to macular degeneration.) Lower Body Dressing (QC): 4 (SBA, pt able to doff/don pants/brief with min cues for sequencing of task.) On/Off Footwear: 4 (SBA, pt attempted to don socks without AE, but was unsu cessful. Pt unable to recall which AE is used to don socks. OT provided pt wtih correct device, then pt able to don with mod verbal cues and multiple attempts.) Toileting Hygiene (QC): 7 Toilet Transfer (QC): 7 Other Treatment Pt seated in recliner, agreeable to OT Tx. Pt declined showering today, stating she would rather take a shower tomorrow and a sponge bath today. Pt completed sponge bath and dressing seated at recliner, with SBA during standing at FWW, and mod verbal cues for sequencing throughout tasks. Pt used FWW to ambulate into the restroom with SBA, pt sat in w/c at sink to brush teeth and comb hair. Pt declined toileting this morning. Pt then used FWW to return to recliner, prior to sitting, pt able to state she needed to touch the chair with the back of her legs and reach back with her arms before sitting down, pt able to sit down controlled. Post OT Tx, pt seated in recliner, call light in reach and all needs met. Education OT Patient Education: Correct positioning, Modified ADL techniques, Progress toward Goal/Update tx plan, Purpose of tx/functional activities Teaching Recipient: Patient Teaching Methods: Discussion Response to Teaching: Verbalize Understanding OT Short Term Goals Short Term Goals Time Frame: Apr 25, 2020 Toileting hygiene: 4 Lower body dressin Putting on/taking off footwear: 4 OT Fdc Goals Full Time Paramedic Goals Time Frame: May 09, 2020 Eating (QC): 6 Oral Hygiene (QC): 6 Toileting Hygiene (QC): 6 Shower/Bathe Self (QC): 6 Upper Body Dressing (QC): 6 Lower Body Dressing (QC): 6 On/Off Footwear (QC): 6 Additional Goals: 1-Demonstrate ADL Tasks, 2-Verbalize Understanding, 3- ImproveStrength/Lisa 1=Demonstrate adherence to instructed precautions during ADL tasks. 2=Patient will verbalize/demonstrate understanding of assistive devices/modifi cations for ADL. 3=Patient will improve strength/tolerance for activity to enable patient to perform ADL's. OT Education/Plan Problem List/Assessment Assessment: Decreased Activ Tolerance, Decreased Safety Aware, Decreased UE Strength, Impaired I ADL's, Impaired Self-Care Skills Discharge Recommendations Plan/Recommendations: Continue POC Treatment Plan/Plan of Care Patient would benefit from OT for education, treatment and training to promote independence in ADL's, mobility, safety and/or upper extremity function for ADL's. Plan of Care: ADL Retraining, Caregiver Training, Cognitive Retraining, Functional Mobility, Group Exercise/Act as Ind, UE Funct Exercise/Act, W/C Management Training Treatment Duration: May 09, 2020 Frequency: At least 5 of 7 days/Wk (IRF) Estimated Hrs Per Day: 1.5 hours per day Agreement: Yes Rehab Potential: Fair Time/GCodes Start Time: 08:00 Stop Time: 09:00 Total Time Billed (hr/min): 60 Billed Treatment Time 1, ADL 4 PETER YAN OT Apr 28, 2020 08:38
[2020-04-28] MEDS ORDERED: IRON SUCROSE 200 MG/10 ML (VENOFER) VIAL IV NR (08:45)
[2020-04-28 09:44] LABS: LYMPHOCYTES # (AUTO) 1.3 10^3/uL (1.0-4.0)
[2020-04-28 09:47] LABS: ABSOLUTE RETIC # 144 10e9/uL (24-90); BASOPHILS # (AUTO) 0.1 10^3/uL (0.0-0.1); BASOPHILS % (AUTO) 1 % (0-10); EOSINOPHILS # (AUTO) 0.1 10^3/uL (0.0-0.3); EOSINOPHILS % (AUTO) 3 % (0-10); HEMATOCRIT 23 % (35-52); LYMPHOCYTES % (AUTO) 25 % (12-44); MEAN CORPUSCULAR HEMOGLOBIN 27 pg (25-34); MEAN CORPUSCULAR HGB CONC 31 g/dL (32-36); MEAN CORPUSCULAR VOLUME 89 fL (80-99); MEAN PLATELET VOLUME 13.7 fL (9.0-12.2); MONOCYTES # (AUTO) 0.3 10^3/uL (0.0-1.0); MONOCYTES % (AUTO) 6 % (0-12); NEUTROPHILS # (AUTO) 3.3 10^3/uL (1.8-7.8); NEUTROPHILS % (AUTO) 64 % (42-75); PLATELET COUNT 90 10^3/uL (130-400); RETICULOCYTE % 5.61 % (0.50-2.40); WHITE BLOOD COUNT 5.1 10^3/uL (4.3-11.0)
[2020-04-28] MEDS: DOCUSATE SODIUM 100 MG (COLACE) CAP PO SCH ×2 (10:05→21:39)
[2020-04-28] MEDS: FENOFIBRATE 134 MG (LOFIBRA) CAPSULE PO SCH (10:05)
[2020-04-28] MEDS: PREGABALIN 50 MG (LYRICA) CAP PO SCH ×3 (10:08→21:39)
[2020-04-28] MEDS: SENNA W/DOCUSATE (SENOKOT S) TABLET PO SCH ×4 (10:08→21:45)
[2020-04-28 10:14] LABS: ANISOCYTOSIS MODERATE; BASOPHILS % (MANUAL) 1 %; HYPOCHROMASIA MODERATE; LYMPHOCYTES % (MANUAL) 30 %; MONOCYTES % (MANUAL) 5 %; NEUTROPHILS % (MANUAL) 64 %; POLYCHROMASIA SLIGHT
[2020-04-28] MEDS: polyethylene glycoL POWDER 17 GM (MIRALAX) PACK PO SCH ×2 (10:26→21:45)
--- NOTE | 2020-04-28 10:29 | NUR ---
Pt states that Dr. Dave in [place] is her rental agent.
--- NOTE | 2020-04-28 10:34 | Consultation - Surgery ---
TY MILLER MED STUDENT 04/28/20 1034: History of Present Illness History of Present Illness Patient Consulted On(corona/time) 04/28/20 10:29 Date Seen by Provider: Apr 28, 2020 Time Seen by Provider: 10:00 Reason for Visit: Anemia History of Present Illness Bridget Stockton is an 85 year old white female admitted to inpatient rehab under Dr. Jamison. She was admitted to rehab following a short stay for a UTI/AMS on the medical floor. She was treated with antibiotics and then admitted to rehab. Surgery was consulted as her hemoglobin today has dropped to 7.0 from 8.7 on 04-21. She denies nausea, vomiting, or diarrhea at present time. She does report constipation intermittently. Her last BM was yesterday per nursing report. She denies melena or hematochezia. She denies hematemesis as well. She denies abdominal tenderness with palpation. She denies pain. She reports she is taking po well. Allergies and Home Medications Allergies Coded Allergies: codeine (Verified Allergy, Unknown, 10/14/05) furosemide (Verified Allergy, Unknown, 10/14/05) iodine (Verified Allergy, Unknown, 10/14/05) Home Medications Acetaminophen 325 Mg Capsule, 650 MG PO Q6H PRN for PAIN-MILD (1-4), (Reported) Atorvastatin Calcium 10 Mg Tablet, 10 MG PO DAILY, (Reported) Diphenhydramine HCl 25 Mg Capsule, 25 MG PO PRN PRN for ALLERGIES, (Reported) Fenofibrate Nanocrystallized 145 Mg Tablet, 145 MG PO DAILY, (Reported) Insulin Detemir 100 Unit/1 Ml Insuln.pen, 10 UNITS SQ DAILY, (Reported) Insulin Glulisine 100 Unit/1 Ml Vial, 0 SC TID, (Reported) USES PER THE FOLLOWING SLIDING SCALE 150-200=22 UNITS 200-250=24 UNITS 250- 300=26 UNITS Levothyroxine Sodium 175 Mcg Tablet, 175 MCG PO DAILY, (Reported) TAKE WITH WATER ONLY ON AN EMPTY STOMACH Pregabalin 50 Mg Capsule, 50 MG PO TID, (Reported) Vit C/E/Zn/Coppr/Lutein/Zeaxan 1 Each Capsule, 1 EACH PO DAILY, (Reported) Past Wrqtqgr-Szeboz-Lmfqdd Hx Patient Social History Alcohol Use: Denies Use Recreational Drug Use: No Smoking Status: Former Smoker Recent Foreign Travel: No Contact w/Someone Who Travel: No Recent Infectious Disease Expo: No Recent Hopitalizations: No Physical Abuse Screen: No Sexual Abuse: No Immunizations Up To Date Date of Pneumonia Vaccine: Jun 03, 2009 Date of Influenza Vaccine: May 03, 2013 Surgeries History of Surgeries: Yes Surgeries: Pacemaker Respiratory History of Respiratory Disorde: Yes (COPD) Cardiovascular History of Cardiac Disorders: Yes (STENT/PACEMAKER) Cardiac Disorders: High Cholesterol, Hypertension Neurological History of Neurological Disord: Yes (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) Reproductive System : No Genitourinary History of Genitourinary Disor: No Gastrointestinal History of Gastrointestinal Di: No Musculoskeletal 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) Endocrine History of Endocrine Disorders: No Endocrine Disorders: Diabetes, Insulin dep Cancer History of Cancer: No Psychosocial History of Psychiatric Problem: No Family Medical History Significant Family History: Cancer (patient mom had uternine cancer) Review of Systems-General Constitutional: No chills, No diaphoresis, No dizziness, No fever, No malaise; weakness EENTM: no symptoms reported; No blurred vision, No double vision Respiratory: no symptoms reported; No hemoptysis, No short of breath Cardiovascular: no symptoms reported; No chest pain, No edema Gastrointestinal: no symptoms reported; No abdominal pain, No dysphagia, No hematemesis, No loss of appetite, No melena, No nausea, No vomiting Genitourinary: no symptoms reported; No dysuria, No frequency, No hematuria : No Musculoskeletal: muscle stiffness, muscle weakness Skin: no symptoms reported; No change in color, No pruritus Psychiatric/Neurological: No Symptoms Reported; Denies Headache, Denies Numbness, Denies Tingling; Weakness (Patient with post polio weakness) Physical Exam-General Problems Physical Exam Vital Signs Vital Signs - First Documented 04/22/20 05:50 Temp 36.2 Pulse 80 Resp 18 B/P (MAP) 145/65 (91) Pulse Ox 94 O2 Delivery Room Air Capillary Refill : Less Than 3 Seconds General Appearance: WD/WN, no apparent distress Eyes: Bilateral Eye EOMI HEENT: PERRL/EOMI Neck: non-tender, supple Respiratory: chest non-tender, lungs clear, normal breath sounds, no respiratory distress, no accessory muscle use Cardiovascular: normal peripheral pulses, no edema Peripheral Pulses: 2+ Dorsalis Pedis (R), 2+ Left Dors-Pedis (L), 2+ Radial Pulses (R), 2+ Radial Pulses (L) Gastrointestinal: normal bowel sounds, non tender, soft; No guarding, No rebound Extremities: non-tender, no pedal edema, normal capillary refill Neurologic/Psychiatric: alert, other (confusion/repeats answers intermittently) Skin: normal color, warm/dry Data Review Labs Laboratory Tests 04/27/20 11:21: Glucometer 200H 04/27/20 16:23: Glucometer 303H 04/27/20 20:21: Glucometer 216H 04/28/20 06:13: White Blood Count 5.1, Red Blood Count 2.57L, Hemoglobin 7.0L, Hematocrit 23L, Mean Corpuscular Volume 89, Mean Corpuscular Hemoglobin 27, Mean Corpuscular Hemoglobin Concent 31L, Red Cell Distribution Width 15.9H, Platelet Count 90L, Mean Platelet Volume 13.7H, Immature Granulocyte % (Auto) 1, Neutrophils (%) (Auto) 64, Lymphocytes (%) (Auto) 25, Monocytes (%) (Auto) 6, Eosinophils (%) (Auto) 3, Basophils (%) (Auto) 1, Neutrophils # (Auto) 3.3, Lymphocytes # (Auto) 1.3, Monocytes # (Auto) 0.3, Eosinophils # (Auto) 0.1, Basophils # (Auto) 0.1, Immature Granulocyte # (Auto) 0.0, Neutrophils % (Manual) 64, Lymphocytes % (Manual) 30, Monocytes % (Manual) 5, Basophils % (Manual) 1, Polychromasia SLIGHT, Hypochromasia MODERATE, Basophilic Stippling MODERATE, Anisocytosis MODERATE, Absolute Reticulocyte Count 144H, Percent Reticulocyte Count 5.61H, Sodium Level 142, Potassium Level 4.5, Chloride Level 105, Carbon Dioxide Level 28, Anion Gap 9, Blood Urea Nitrogen 22H, Creatinine 1.02, Estimat Glomerular Filtration Rate 52, BUN/Creatinine Ratio 22, Glucose Level 140H, Calcium Level 8.9, Corrected Calcium 9.4, Total Bilirubin 0.4, Aspartate Amino Transf (AST/SGOT) 18, Alanine Aminotransferase (ALT/SGPT) 13, Alkaline Phosphatase 93, Total Protein 6.2L, Albumin 3.4 Assessment/Plan Assessment/Plan Admission Diagonsis UTI Altered Mental Status Anemia Assessment/Plan surgery to evaluate/discuss possible need for Colonoscopy to evaluate decreasing hemoglobin. Would trend hemoglobin and hematocrit serially and closely monitor Vital signs per protocol Clinical Quality Measures DVT/VTE Risk/Contraindication: Risk Factor Score Per Nursin RFS Level Per Nursing on Admit: 4+=Very High LEVAR ROSAS DO 04/28/20 6634: History of Present Illness History of Present Illness Time Seen by Provider: 13:59 History of Present Illness Pt seen and examined. Nursing states she has not had any melena or hematochezia and no hematemesis. Pt admits to being a little weak. Allergies and Home Medications Allergies Coded Allergies: codeine (Verified Allergy, Unknown, 10/14/05) furosemide (Verified Allergy, Unknown, 10/14/05) iodine (Verified Allergy, Unknown, 10/14/05) Home Medications Acetaminophen 325 Mg Capsule, 650 MG PO Q6H PRN for PAIN-MILD (1-4), (Reported) Atorvastatin Calcium 10 Mg Tablet, 10 MG PO DAILY, (Reported) Diphenhydramine HCl 25 Mg Capsule, 25 MG PO PRN PRN for ALLERGIES, (Reported) Fenofibrate Nanocrystallized 145 Mg Tablet, 145 MG PO DAILY, (Reported) Insulin Detemir 100 Unit/1 Ml Insuln.pen, 10 UNITS SQ DAILY, (Reported) Insulin Glulisine 100 Unit/1 Ml Vial, 0 SC TID, (Reported) USES PER THE FOLLOWING SLIDING SCALE 150-200=22 UNITS 200-250=24 UNITS 250- 300=26 UNITS Levothyroxine Sodium 175 Mcg Tablet, 175 MCG PO DAILY, (Reported) TAKE WITH WATER ONLY ON AN EMPTY STOMACH Pregabalin 50 Mg Capsule, 50 MG PO TID, (Reported) Vit C/E/Zn/Coppr/Lutein/Zeaxan 1 Each Capsule, 1 EACH PO DAILY, (Reported) Patient Home Medication List Home Medication List Reviewed: Yes Past Ieanguk-Ljadzz-Pdltca Hx Patient Social History Alcohol Use: Denies Use Recreational Drug Use: No Smoking Status: Never a Smoker Surgeries History of Surgeries: Yes Respiratory History of Respiratory Disorde: Yes Cardiovascular History of Cardiac Disorders: Yes Cardiac Disorders: High Cholesterol Neurological History of Neurological Disord: Yes (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) Genitourinary History of Genitourinary Disor: No Endocrine Endocrine Disorders: Hyperthyroidism, Diabetes, Non-Insulin dep HEENT History of HEENT Disorders: Yes Hearing Impairment: Hard of Hearing Cancer History of Cancer: No Family Medical History Significant Family History: Cancer (patient mom had uternine cancer) Review of Systems-General Constitutional: No chills; diaphoresis, weakness EENTM: No blurred vision, No double vision Respiratory: No hemoptysis, No short of breath Cardiovascular: No chest pain, No edema Gastrointestinal: No abdominal pain, No hematemesis, No melena, No nausea, No vomiting Genitourinary: No dysuria, No frequency, No hematuria Musculoskeletal: back pain, joint pain, joint swelling, muscle stiffness, muscle cramps, muscle weakness Psychiatric/Neurological: Denies Depressed, Denies Headache, Denies Numbness Physical Exam-General Problems Physical Exam General Appearance: WD/WN, no apparent distress Eyes: Bilateral Eye PERRL, Bilateral Eye EOMI HEENT: pharynx normal; No scleral icterus (R), No scleral icterus (L) Respiratory: chest non-tender, lungs clear, normal breath sounds, no respiratory distress, no accessory muscle use Cardiovascular: normal peripheral pulses, no murmur Gastrointestinal: soft; No guarding, No rebound Extremities: non-tender, no pedal edema Neurologic/Psychiatric: alert Skin: normal color, warm/dry Lymphatic: no adenopathy (neck, axilla or groin) Assessment/Plan Assessment/Plan Assessment/Plan Anemia Pt needs a work-up for anemia; plan to do EGD tomorrow and she can then have colonoscopy as an outpt. Discussed risks and complications, not limited to pain, bleeding, infection and even esophageal perforation. All questions answered to her satisfaction. Supervisory-Addendum Brief Verification & Attestation Participated in pt care: history, MDM, physical Personally performed: exam, history, MDM Care discussed with: Medical Student Procedures: n/a Verification and Attestation of Medical Student E/M Service A medical student performed and documented this service. I then reviewed and verified all information documented by the medical student and made modifications to such information, when appropriate. I personally performed a physical exam, medical decision making and then discussed any differences between the notes and made revisions as necessary to create one note. Levar Rosas , 04/28/20 , 18:55 TY MILLER MED STUDENT Apr 28, 2020 10:34 LEVAR ROSAS DO Apr 28, 2020 18:55
--- NOTE | 2020-04-28 12:01 | Physical Therapy Daily Note ---
PT Daily Note-Current Subjective Pt. agrees to Rx. States she has started taking iron. Pt.denies pain but c/o some fatigue with Rx Pain Location: No Pain Reported Mental Status Patient Orientation: Person, Place, Time, Situation Attachments: Other-See Comments (msk while out of room) Transfers SCALE: Activities may be completed with or without assistive devices. 6-Xpmvypexjb-mktdrzv completes the activity by him/herself with no assistance from a helper. 5-Set-up or Clean-up Assistance-helper sets up or cleans up; patient completes activity. Edna assists only prior to or following the activity. 4-Supervision or Touching Assistance-helper provides verbal cues and/or touching/steadying and/or contact guard assistance as patient completes activity. Assistance may be provided throughout the activity or intermittently. 3-Partial/Moderate Assistance-helper does LESS THAN HALF the effort. Edna lifts, holds or supports trunk or limbs, but provides less than half the effort. 2-Substantial/Maximal Assistance-helper does MORE THAN HALF the effort. Edna lifts or holds trunk or limbs and provides more than half the effort. 7-Jcywvzios-waybza does ALL the effort. Patient does none of the effort to complete the activity. Or, the assistance of 2 or more helpers is required for the patient to complete the activity. If activity was not attempted, code reason: 7-Patient Refused. 9-Not Applicable-not attempted and the patient did not perform the activity before the current illness, exacerbation or injury. 10-Not Attempted due to Environmental Limitations-(lack of equipment, weather restraints, etc.). 88-Not Attempted due to Medical Conditions or Safety Concerns. Roll Left & Right (QC): 6 Sit to Lying (QC): 6 Lying to Sitting/Side of Bed(Q: 6 Sit to Stand (QC): 6 Chair/Xgu-qz-Czhvg Xfer(QC): 5 Toilet Transfer (QC): 5 Weight Bearing Full Weight Bearing Full Weight Bearing Gait Training Does the Patient Walk?: Yes Walk 10 feet (QC): 5 Walk 50 ft with 2 Turns(QC): 5 Walk 150 ft (QC): 5 Gait Persons Needed: 1 Gait Assistive Device: FWW needs encouraged to continue, asks to rest frequently but was able to complete 150 ft, 50 ft, 75ft CGAto SBA, flexed posture, short steps Exercises Supine Ex: Bridging, Ankle pumps, Quad Set, Rolling, Glut sets, Heel Slides, Short Arc Quads, Scooting, Straight leg raise, Hip abd/add Supine Reps: 12 Seated Therapy Exercises: Ankle pumps, Sit to stand, Long arc quads, Hip flexion Seated Reps: 12 NuStep Minutes: 10 NuStep Workload: 4 Treatments continued emphasis on safe approaches to chair etc Assessment Current Status: Good Progress PT Short Term Goals Short Term Goals Time Frame: Apr 23, 2020 Sit to lyin Lying to sitting on side of be: 4 Walk 150 feet: 4 1 step (curb): 3 PT Snf Goals Snf Goals PT Snf Goals Time Frame: May 07, 2020 Roll Left & Right (QC): 6 Sit to Lying (QC): 6 Lying-Sitting on Side/Bed(QC): 6 Sit to Stand (QC): 6 Chair/Hul-ui-Umdfh Xfer(QC): 6 Toilet Transfer (QC): 6 Car Transfer (QC): 4 Does the Patient Walk: Yes Walk 10 feet (QC): 6 Walk 50ft with 2 Turns (QC): 6 Walk 150 ft (QC): 6 Walking 10ft on Uneven Surface: 5 1 Step (curb) (QC): 4 4 Steps (QC): 4 12 Steps (QC): 10 Picking up an Object (QC): 10 Does the Pt use WC or Scooter?: No Wheel 50 feet with 2 turns (QC: 9 Wheel 150 feet: 9 PT Plan Treatment/Plan Treatment Plan: Continue Plan of Care Treatment Plan: Bed Mobility, Education, Functional Activity Lisa, Functional Strength, Group Therapy, Gait, Safety, Therapeutic Exercise, Transfers Treatment Duration: May 07, 2020 Frequency: At least 5 of 7 days/Wk (IRF) Estimated Hrs Per Day: 1.5 hours per day Patient and/or Family Agrees t: Yes Safety Risks/Education Patient Education: Gait Training, Transfer Techniques, Correct Positioning, Disease Process, Safety Issues Teaching Recipient: Patient Teaching Methods: Demonstration, Discussion Response to Teaching: Verbalize Understanding, Return Demonstration, Reinforcement Needed Time/GCodes Time In: 1100 Time Out: 1200 Total Billed Treatment Time: 60 Total Billed Treatment 1,EX25m,FA15m,GT20m LAZARA CORNEJO PTA Apr 28, 2020 12:01
--- NOTE | 2020-04-28 12:35 | Progress Note ---
MEKA CORBIN MED STUDENT 04/28/20 1235: Progress Note 84-year-old female elena to [facility] ER for fever and AMS on 04/13/20. Patient was found by son at her home "incoherent" and unable to communicate. Patient diagnosed with UTi and started on Rocephin, later Zosyn was added. After returning to baseline, patient was determined to be a good candidate for rehabilitation. Patient currently tolerating PT well, making good progress. She reports no pain today and is able to walk with her PT though she fatigues. She notes that she may john s tool softener but otherwise no irregular bowel or bladder issues. She is able to eat well and is very excited about going home. Plan: Continue PT and OT Continue home medications Monitor BP Iron replenishment consult surgery for possible evaluation of GI bleed Fall risk precautions ALMITA MURRAY DO 04/29/20 0522: Supervisory-Addendum Brief Verification & Attestation Participated in pt care: history, MDM, physical Personally performed: exam, history, MDM, supervision of care Care discussed with: Medical Student Procedures: n/a Results interpretation: Verified all documentation Verification and Attestation of Medical Student E/M Service A medical student performed and documented this service in my presence. I reviewed and verified all information documented by the medical student and made modifications to such information, when appropriate. I personally performed the physical exam and medical decision making. Almita Murray, Apr 29, 2020,05:21 MEKA CORBIN MED STUDENT Apr 28, 2020 12:35 ALMITA MURRAY DO Apr 29, 2020 05:22
--- NOTE | 2020-04-28 14:33 | Speech Therapy Daily Note ---
Speech Daily Progress Note Subjective Date Seen by Provider: Apr 28, 2020 Time Seen by Provider: 00:30 Patient was resting in her recliner. She states she plans on returning to her home on Tuesday. Assessment Assessment Current Status: Good Progress Treatment Plan Continue Plan of Care Speech Short Term Goals Short Term Goals Short Term Goals 1) Patient will complete memory tasks related to her daily needs at 80% or greater. 2) Patient will complete safety awareness tasks related to her daily needs at 80% or greater. 3) Patient will complete problem solving tasks related to her daily needs at 80% or greater. Speech Care Home Goals Data Quality Consultant Goals Patient will improve cognitive-communication ability in order to require decreased assistance with daily tasks. Speech-Plan Patient/Family Goals Patient/Family Goals: Patient is scheduled to return home on 04/30/2020. Treatment Plan Speech Therapy Treatment Plan: Continue Plan of Care Treatment Duration: May 01, 2020 Frequency: 4 times per week (Patient will receive ST 4-5 x per week) Estimated Hrs Per Day: .5 hour per day Rehab Potential: Fair Barriers to Learning: Patient's cognitive deficits, patient's medical issues Pt/Family Agrees to Plan: Yes Safety Risks/Education Teaching Recipient: Patient Teaching Methods: Demonstration, Discussion Response to Teaching: Verbalize Understanding, Return Demonstration Education Topics Provided: Continued safety upon his return home Time Speech Therapy Time In: 09:00 Speech Therapy Time Out: 09:30 Total Billed Time: 30 Billed Treatment Time 1, PAIGE Guevara Apr 28, 2020 14:33
[2020-04-28] MEDS ORDERED: IRON SUCROSE 200 MG/10 ML (VENOFER) VIAL IV ONE (14:48)
--- NOTE | 2020-04-28 14:55 | Therapy Group Daily Note ---
Therapy Daily Group Note Patient Education Topic Other List Below (memory and strategies) Exercises UE Exercise (cervical and breathing exercises) Session Ratio (pt:therapist): 4:1 Goal of Session: Home Safety Strategies, Memory Strategies Goal Met for this Session: Yes Pt Benefit of Group: Contributions to Others, F/U Use of Strategies @Home, Improved Cognition, Socialization Other/Notes Pt. participated in group PT OT session this date. Pt. ambulated to and from group using FWW. Pt. was social, introduced herself and shared her favorite childhood Joana memory. longterm and short term memory was discussed as well as memory association etc. Pts shared their own experiences with ways to remember important things as well as some important things they have forgotten and the consequences. Pts all participated in memory activity using matching images first shown then hidden challenging pts to recall their location . 5 words were established for recall at later group session. Pts participated in neck exercises as well as breathing exercises. Pt. to room after group with aaron at hand and needs met Start Time: 13:00 Stop Time: 14:25 Total Billed Treatment Time: 85 Total Billed Treatment 1,GRP 85m LAZARA CORNEJO MARK UP DESIGNER Apr 28, 2020 14:55
[2020-04-28 15:15] VITALS: BP 135/63
--- NOTE | 2020-04-28 18:44 | Oncology Consultation ---
Visit Information Visit Information Date of Admission Apr 16, 2020 at 09:52 Attending Physician Almita Murray DO Admitting Physician Antonio Walker MD Chief Complaint Anemia Interval History Ms. Stockton is a 85 year old white female with h/o CAD, cardiac stents, AF on pacemaker on Xarelto. She recently had UTI required hospitalization and then now to rehab. The plan is to possibly discharge home this Tuesday04/30/20. Dr Murray noticed her Hb was slowly trending down from 10.1 on 04/17/2020 to 7 today as well as low plt counts in the 90s . Normal WBC. She had negative stool occult blood test on 04/19/2020. Dr Murray order IV venofer today. She was complaining the IV site burning while she was getting the venofer. Pt is a poor historian. I consulted the patient on: 04/28/20 18:39 Time Seen by Provider: 16:30 Review of Systems Constitutional: no symptoms reported Respiratory: no symptoms reported Cardiovascular: no symptoms reported Health Status Allergies Coded Allergies: codeine (Verified Allergy, Unknown, 10/14/05) furosemide (Verified Allergy, Unknown, 10/14/05) iodine (Verified Allergy, Unknown, 10/14/05) Home Medications Acetaminophen (Tylenol) 325 Mg Capsule, 650 MG PO Q6H PRN for PAIN-MILD (1-4), (Reported) Atorvastatin Calcium (Atorvastatin Calcium) 10 Mg Tablet, 10 MG PO DAILY, (Reported) Diphenhydramine HCl (Benadryl) 25 Mg Capsule, 25 MG PO PRN PRN for ALLERGIES, (Reported) Fenofibrate Nanocrystallized (Fenofibrate) 145 Mg Tablet, 145 MG PO DAILY, (Reported) Insulin Detemir (Levemir Flextouch) 100 Unit/1 Ml Insuln.pen, 10 UNITS SQ BID for 30 Days Prescribed by: ALMITA MURRAY on 04/30/20 0449 Insulin Glulisine (Apidra) 100 Unit/1 Ml Vial, 0 SC TID, (Reported) USES PER THE FOLLOWING SLIDING SCALE 150-200=22 UNITS 200-250=24 UNITS 250- 300=26 UNITS Levothyroxine Sodium (Levothyroxine Sodium) 175 Mcg Tablet, 175 MCG PO DAILY, (Reported) TAKE WITH WATER ONLY ON AN EMPTY STOMACH Pantoprazole Sodium (Pantoprazole Sodium) 40 Mg Tablet.dr 40 MG PO BID, #60 Prescribed by: ALMITA MURRAY on 04/30/20 044 Potassium Chloride (Klor-Con 10) 10 Meq Tablet.er, 10 MEQ PO DAILY@0700, #30 Prescribed by: ALMITA MURRAY on 04/30/20 0449 Pregabalin (Pregabalin) 50 Mg Capsule, 50 MG PO TID, (Reported) Rivaroxaban (Xarelto Tablet) 10 Mg Tablet, 10 MG PO DAILY@1800 for 14 Days Hold until approved by your family doctor due to severe anemia and gastritis bleeding Prescribed by: ALMITA MURRAY on 04/30/20 044 Sucralfate (Sucralfate) 1 Gm Tablet, 1 GM PO ACHS, #120 Prescribed by: ALMITA MURRAY on 04/30/20 044 Vit C/E/Zn/Coppr/Lutein/Zeaxan (Preservision Areds 2 Softgel) 1 Each Capsule, 1 EACH PO DAILY, (Reported) BLV-Escyvx-Xbvxvd Hx Patient Social History Marrital Status: single Employed/Student: retired Alcohol Use: Denies Use Recreational Drug Use: No Smoking Status: Former Smoker Recent Foreign Travel: No Contact w/other who traveled: No Recent Infectious Disease Expo: No Recent Hopitalizations: No Physical Abuse Screen: No Sexual Abuse: No Immunizations Up To Date Date of Pneumonia Vaccine: Jun 03, 2009 Date of Influenza Vaccine: May 03, 2013 Family Medical History Significant Family History: Cancer (patient mom had uternine cancer) Physical Exam Vital Signs Vital Signs - First Documented 04/24/20 04/29/20 05:29 20:00 Temp 36.8 Pulse 83 Resp 18 B/P (MAP) 124/57 (79) Pulse Ox 94 O2 Delivery Room Air O2 Flow Rate 2.00 Capillary Refill : Less Than 3 Seconds Height, Weight, BMI Height: 5'7.00" Weight: 206lbs. oz. 91.477317kn; 32.00 BMI Method: General Appearance: No Apparent Distress HEENT: PERRL/EOMI Neck: Non Tender Respiratory: No Accessory Muscle Use, No Respiratory Distress Cardiovascular: Regular Rate, Rhythm Gastrointestinal: Non Tender, Soft Extremity: Non Tender, No Pedal Edema Neurologic/Psychiatric: Alert Data Review Labs Laboratory Tests 10/11/20 20:21: Glucometer 216H 10/12/20 06:13: Red Blood Count 2.57L, Hemoglobin 7.0L, Hematocrit 23L, Mean Corpuscular Hemoglobin Concent 31L, Red Cell Distribution Width 15.9H, Platelet Count 90L, Mean Platelet Volume 13.7H, Absolute Reticulocyte Count 144H, Percent Reticulocyte Count 5.61H, Blood Urea Nitrogen 22H, Glucose Level 140H, Iron Level 24L, Total Iron Binding Capacity 385H, Transferrin % Saturation 6L, Ferritin 19.0L, Total Protein 6.2L 04/28/20 11:01: Glucometer 274H 04/28/20 15:39: Glucometer 244H 04/28/20 20:38: Glucometer 229H 04/29/20 05:24: Glucometer 120H 04/29/20 10:30: Hemoglobin 7.9L, Hematocrit 26L 04/29/20 11:06: Glucometer 127H 04/29/20 15:39: Glucometer 228H 04/29/20 20:15: Glucometer 222H 04/30/20 06:22: Glucometer 189H Impression & Plan Impression & Plan IMP: 1. Normocytic anemia, negative stool occult blood once on 04/19/2020. Elevated retic counts most likely suggesting the reactive to the anemia 2. CAD, h/o AF and on pacemaker. She is also on Xarelto for many years according to the patient. 3. Thrombocytopenia, possible due to recent infection. 4. Recent UTI. 5. General deconditioning due to recent UTI. Plan: 1. I added iron study to the morning blood drawn before the IV venofer iron infusion. I told her nurse to double check with lab today to make sure the blood was before the IV iron infusion. Otherwise cancel the iron study. 2. Check LDH 3. I suggest cardiac evaluation either here or by her primary dehydrogenation converter helper to evaluate her h/o AFib. Can we stop the Xarelto? I would recommend to hold off Xarelto due to her anemia and thrombocytopenia. We can resume the Xarelto if necessary when her Hb is above 10 and her Plt over 100. 4. Pt needs to have a f/u with me in a few weeks after discharge home. MATT RBAND MD Apr 28, 2020 18:44
--- NOTE | 2020-04-28 19:25 | NUR ---
bedside report received from MARTINA HUTCHINSON, assume care of pt
--- NOTE | 2020-04-28 20:00 | NUR ---
telephone consent for ANTHONY from son JI VAIL for EGD tomorrow
--- NOTE | 2020-04-28 21:29 | NUR ---
pt took Colace & one Senokot but refused 2 Senokot & miralax, fsbs 229, NovoLog 8 units & scheduled Levemir 15 units given
[2020-04-29 05:20] VITALS: BP 136/60
[2020-04-29] MEDS: inSUlin ASPART (NovoLOG) 1 UNIT/0.01 ML (CHARGE PER UNIT) SC SCH ×4 (06:00→20:18)
[2020-04-29] MEDS: LEVOTHYROXINE 100 MCG (LEVOTHROID) TAB PO SCH (06:22)
[2020-04-29] MEDS: KCL 10 MEQ TAB (MICRO K) PO SCH (06:22)
[2020-04-29] MEDS: LEVOTHYROXINE 75 MCG (LEVOTHROID) TABLET PO SCH (06:22)
[2020-04-29] MEDS: DOCOSANOL 10 % CREAM (ABREVA) 2 GM TP SCH ×5 (07:31→20:19)
--- NOTE | 2020-04-29 07:45 | Progress Note - Surgery ---
TY MILLER MED STUDENT 04/29/20 0745: Subjective Date Seen by a Provider: Apr 29, 2020 Time Seen by a Provider: 07:20 Subjective/Events-last exam Bridget states she did well overnight. She has no complaints or concerns this morning. Denies nausea, vomiting, or diarrhea. Denies abdominal pain. Abdomen soft and nontender to palpation. She denies melena, hematochezia, or hematemesis overnight. Patient reports she slept fairly well over night. Plan is for EGD this morning. No am labs pending. Vital signs remain stable over night. Review of Systems General: No Chills, No Night Sweats HEENT: No Head Aches, No Visual Changes Pulmonary: No Dyspnea, No Cough Cardiovascular: No: Chest Pain, Edema Gastrointestinal: No: Nausea, Vomiting, Abdominal Pain, Melena, Hematochezia Genitourinary: No Dysuria, No Frequency Neurological: Weakness (post polio weakness); No: Numbness Objective Exam Vital Signs Date Time Temp Pulse Resp B/P (MAP) Pulse Ox O2 Delivery O2 Flow Rate FiO2 04/29/20 05:20 36.4 77 18 136/60 (85) 92 Room Air 04/28/20 21:43 Room Air 04/28/20 18:00 Room Air 04/28/20 15:15 36.8 81 16 135/63 (87) 95 Room Air 04/28/20 08:23 Room Air I & O 04/29/20 07:00 Intake Total 1490 ml Balance 1490 ml Capillary Refill : Less Than 3 Seconds General Appearance: No Apparent Distress, WD/WN, Chronically ill HEENT: PERRL/EOMI, Normal ENT Inspection, Pharynx Normal Neck: Full Range of Motion, Normal Inspection, Non Tender, Supple, Carotid Bruit Respiratory: Chest Non Tender, Lungs Clear, Normal Breath Sounds, No Accessory Muscle Use, No Respiratory Distress Cardiovascular: Regular Rate, Rhythm, No Edema, No Gallop, No Murmur, Normal Peripheral Pulses Peripheral Pulses: 2+ Dorsalis Pedis (R), 2+ Left Dors-Pedis (L), 2+ Radial Pulses (R), 2+ Radial Pulses (L) Gastrointestinal: normal bowel sounds, non tender, soft; No guarding, No rebound, No tenderness Extremity: Normal Capillary Refill, Normal Inspection, Normal Range of Motion, Non Tender, No Calf Tenderness, No Pedal Edema Neurologic/Psychiatric: Alert, Oriented x3, No Motor/Sensory Deficits, Normal 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 Anemia Plan for EGD this morning Clinical Quality Measures DVT/VTE Risk/Contraindication: Risk Factor Score Per Nursin RFS Level Per Nursing on Admit: 4+=Very High ABILIO MCCABE DO 04/29/20 1215: Subjective Time Seen by a Provider: 08:32 Subjective/Events-last exam Pt seen and examined, no questions about EGD. Review of Systems General: No Chills, No Night Sweats; Malaise Pulmonary: No Dyspnea, No Cough Cardiovascular: No: Chest Pain Gastrointestinal: No: Nausea, Vomiting, Abdominal Pain Objective Exam General Appearance: No Apparent Distress HEENT: PERRL/EOMI, Normal ENT Inspection Respiratory: Chest Non Tender, Lungs Clear, Normal Breath Sounds, No Accessory Muscle Use Cardiovascular: Regular Rate, Rhythm, No Murmur Gastrointestinal: normal bowel sounds, non tender, soft Assessment/Plan Assessment/Plan Assessment/Plan Anemia -plan EGD Supervisory-Addendum Brief Verification & Attestation Participated in pt care: history, MDM, physical Personally performed: exam, history, MDM Care discussed with: Medical Student Procedures: n/a Verification and Attestation of Medical Student E/M Service A medical student performed and documented this service. I then reviewed and verified all information documented by the medical student and made modifications to such information, when appropriate. I personally performed a physical exam, medical decision making and then discussed any differences between the notes and made revisions as necessary to create one note. Abilio Mccabe , 04/29/20 , 12:15 TY MILLER MED STUDENT Apr 29, 2020 07:45 ABILIO MCCABE DO Apr 29, 2020 12:15
--- NOTE | 2020-04-29 08:30 | NUR ---
DOWNSTAIRS PER WHEELCHAIR FOR EGD.
--- NOTE | 2020-04-29 08:55 | PM&R Progress Note ---
Subjective HPI/CC On Admission Date Seen by Provider: Apr 29, 2020 Time Seen by Provider: 09:00 Subjective/Events-last exam 04/29/20: EGD showed mild gastritis Holding Xarelto Checking hgb and hematocrit DC planned for tomorrow Will continue to hold oral anticoagulation for now. 04/28/20: Hgb 7.0 Giving 1 dose of IV iron and checking iron studies in a peripheral smear and consulting hematology Dr. Mccabe will see her in consultation even though her hemoccult was negative Urinating quite a bit, 8x last night Discharge is planned for Tuesday Overall doing very well 04/27/20: No issues In good mood Zofran given today 04/26/20: Monitor sugar Increase insulin IRF protocol 04/25/20: Monitor sugar and BP since both are high No falls Denies pain DC planned for next week 04/24/20: Patient feels good today Motivation is up too Sugars are still high No pain reported 04/23/20: Zofran was given for nausea Sugars are still pretty elevated so may need to increase insulin soon Cough drops have been helpful Overall doing pretty well, finishing up antibiotics 04/22/20: Bowels moved today Blood sugar is much better Motivation issues today Will monitor closely 04/21/20: Pt doing very well Less confusion Labs okay Hgb 8.7 Blood sugar is elevated so increase Levemir to 10 twice a day and sliding scale C Sore throat is helped with cough drops 04/20/20: Walking now to the bathroom and has improved a lot BM+ Confusion is less 04/18/20: Lyrica ordered and she is very pleased to have that on board for post shingles pain post herpetic neuralgia Confusion improved but she tells me the same story every day with her pacemaker and such BP elevated required NTG paste Levemir started and her sugars are improved Pt a little bit confused so she was moved closer to the desk at 2:33 Had a little bit of diarrhea so holding laxatives Wants to start taking her Shingles medication BP is doing well Hgb is stable at 10.5 We will check her stools for hemoccult because of tarry stool noted by nurses today CHecked meds and labs Conferred with RN Reviewed therapy notes Review of Systems General: Fatigue, Malaise Neurological: Weakness Objective Exam Vital Signs Vital Signs Date Time Temp Pulse Resp B/P (MAP) Pulse Ox O2 Delivery O2 Flow Rate FiO2 04/30/20 05:20 36.0 92 20 132/62 (85) 91 Room Air 04/29/20 20:00 2.00 Capillary Refill : Less Than 3 Seconds General Appearance: No Apparent Distress, WD/WN, Chronically ill HEENT: PERRL/EOMI, Normal ENT Inspection, Pharynx Normal Neck: Full Range of Motion, Normal Inspection, Non Tender, Supple, Carotid Bruit Respiratory: Chest Non Tender, Lungs Clear, Normal Breath Sounds, No Accessory Muscle Use, No Respiratory Distress Cardiovascular: Regular Rate, Rhythm, No Edema, No Gallop, No Murmur, Normal Peripheral Pulses Gastrointestinal: Normal Bowel Sounds, No Organomegaly, No Pulsatile Mass, Non Tender, Soft Back: Normal Inspection, No CVA Tenderness, No Vertebral Tenderness Extremity: Normal Capillary Refill, Normal Inspection, Normal Range of Motion, Non Tender, No Calf Tenderness, No Pedal Edema Neurologic/Psychiatric: Alert, Oriented x3, No Motor/Sensory Deficits, Normal 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 FIM Transfers Therapy Code Descriptions/Definitions Functional [place] Measure: 0=Not Assessed/NA 4=Minimal Assistance 1=Total Assistance 5=Supervision or Setup 2=Maximal Assistance 6=Modified [place] 3=Moderate Assistance 7=Complete IndependenceSCALE: Activities may be completed with or without assistive devices. 2-Zjwqiptbod-hxevxhg completes the activity by him/herself with no assistance from a helper. 5-Set-up or Clean-up Assistance-helper sets up or cleans up; patient completes activity. [place] assists only prior to or following the activity. 4-Supervision or Touching Assistance-helper provides verbal cues and/or to uching/steadying and/or contact guard assistance as patient completes activity. Assistance may be provided throughout the activity or intermittently. 3-Partial/Moderate Assistance-helper does LESS THAN HALF the effort. [place] lifts, holds or supports trunk or limbs, but provides less than half the effort. 2-Substantial/Maximal Assistance-helper does MORE THAN HALF the effort. [place] lifts or holds trunk or limbs and provides more than half the effort. 7-Scjvyigua-ovrhzs does ALL the effort. Patient does none of the effort to complete the activity. Or, the assistance of 2 or more helpers is required for the patient to complete the activity. If activity was not attempted, code reason: 7-Patient Refused. 9-Not Applicable-not attempted and the patient did not perform the activity before the current illness, exacerbation or injury. 10-Not Attempted due to Environmental Limitations-(lack of equipment, weather restraints, etc.). 88-Not Attempted due to Medical Conditions or Safety Concerns. Roll Left to Right (QC): 6 Sit to Lying (QC): 6 Sit to Stand (QC): 6 Chair/Aog-vk-Ekdem Xfer(QC): 5 Car Transfer (QC): 88 Gait Training Does the Patient Walk?: Yes Distance: 50'x2 Walk 10 feet (QC): 5 Walk 50 ft with 2 Turns(QC): 5 Walk 150 ft (QC): 5 Walking 10ft/uneven surface-QC: 3 Gait Persons Needed: 1 Gait Assistive Device: FWW Wheelchair Training Does the Pt Use a Wheelchair?: Yes Wheel 50 ft with 2 turns (QC): 5 Wheel 150 ft (QC): 5 Type of Wheelchair: Manual Stair Training 1 Step (curb) (QC): 7 (approached step and pt declined to attempt noting she did not feel she could perform it. ) 4 Steps (QC): 7 12 Steps (QC): 7 Balance Picking up an Object (QC): 88 (unsteady and fall risk) ADL-Treatment Eating (QC): 6 (pt reports no difficulty eating) Oral Hygiene (QC): 4 (supervision seated at sink, pt unable to tell cap was off of toothpaste requiring 1 verbal cue, pt then able to complete task.) Shower/Bathe Self (QC): 4 (SBA, pt able to wash/dry all parts with cues for sequencing of task.) Upper Body Dressing (QC): 4 (supervision, pt required 1 verbal cue that shirt was inside out prior to donning, pt indicates she has difficulty seeing due to macular degeneration.) Lower Body Dressing (QC): 4 (SBA, pt able to doff/don pants/brief with min cues for sequencing of task.) On/Off Footwear (QC): 4 (SBA, pt attempted to don socks without AE, but was unsucessful. Pt unable to recall which AE is used to don socks. OT provided pt wtih correct device, then pt able to don with mod verbal cues and multiple attempts.) Toileting Hygiene (QC): 7 Toilet Transfer (QC): 7 Assessment/Plan Assessment and Plan Assess & Plan/Chief Complaint Assessment: Debility Post polio muscle weakness DM HTN HLP Confusion Jang cath will DC Plan: Monitor BP and BS Home meds DC catheter BM regimen 04/17/20: Monitor sugar No pain reported except shingles pain Fall risk Monitor confusion 04/18/20: Lyrica maintained IRF protocol Monitor sugars 04/20/20: Monitor sugars Check labs in am Pain management 04/21/20: Monitor confusion Increase insulin Cough drops for sore throat 04/22/20: Monitor blood sugar Try to motivate Improving 04/23/20: Treat nausea with Zofran Cough drops as needed Sugars are still elevated DC planned for 04/30/20. 04/24/20: Increase motivation Fall risk Monitor sugars and will increase insulin tomorrow if remains high 04/25/20: Increase insulin to 15 BID DC planned next week 04/26/20: Monitor sugar Fall risk 04/27/20: Monitor sugar Monitor pain 04/28/20: Monitor hemoglobin Appreciate hematology consultation Discharge planned on Tuesday Consult Dr. 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 ARMANDO MURRAY DO Apr 29, 2020 08:55
[2020-04-29] MEDS: SENNA W/DOCUSATE (SENOKOT S) TABLET PO SCH ×4 (09:00→20:13)
[2020-04-29] MEDS: DOCUSATE SODIUM 100 MG (COLACE) CAP PO SCH ×2 (09:00→20:12)
[2020-04-29] MEDS: polyethylene glycoL POWDER 17 GM (MIRALAX) PACK PO SCH ×2 (09:00→20:12)
--- NOTE | 2020-04-29 10:15 | NUR ---
BACK TO ROOM. TIRED, BUT NO OTHER COMPLAINTS.
[2020-04-29] MEDS ORDERED: SUCRALFATE 1 GM (CARAFATE) TAB PO NR (10:30)
[2020-04-29 10:43] LABS: HEMOGLOBIN 7.9 g/dL (11.5-16.0)
[2020-04-29] MEDS: PREGABALIN 50 MG (LYRICA) CAP PO SCH ×3 (10:55→20:18)
[2020-04-29] MEDS: FENOFIBRATE 134 MG (LOFIBRA) CAPSULE PO SCH (10:55)
[2020-04-29] MEDS: PANTOPRAZOLE 40 MG (PROTONIX) TAB PO SCH ×2 (10:55→20:18)
--- NOTE | 2020-04-29 11:09 | Physical Therapy Daily Note ---
PT Daily Note-Current Subjective Pt sitting at EOB upon arrival. Pt is just returning from EGD. Pt agrees to PT although reports fatigued & hungry. Pain Location: No Pain Reported Mental Status Patient Orientation: Person, Place Transfers SCALE: Activities may be completed with or without assistive devices. 9-Yyjijslxjj-rorstni completes the activity by him/herself with no assistance from a helper. 5-Set-up or Clean-up Assistance-helper sets up or cleans up; patient completes activity. [place] assists only prior to or following the activity. 4-Supervision or Touching Assistance-helper provides verbal cues and/or touching/steadying and/or contact guard assistance as patient completes activity. Assistance may be provided throughout the activity or intermittently. 3-Partial/Moderate Assistance-helper does LESS THAN HALF the effort. [place] lifts, holds or supports trunk or limbs, but provides less than half the effort. 2-Substantial/Maximal Assistance-helper does MORE THAN HALF the effort. [place] lifts or holds trunk or limbs and provides more than half the effort. 9-Ijlfxowvb-nughay does ALL the effort. Patient does none of the effort to complete the activity. Or, the assistance of 2 or more helpers is required for the patient to complete the activity. If activity was not attempted, code reason: 7-Patient Refused. 9-Not Applicable-not attempted and the patient did not perform the activity before the current illness, exacerbation or injury. 10-Not Attempted due to Environmental Limitations-(lack of equipment, weather restraints, etc.). 88-Not Attempted due to Medical Conditions or Safety Concerns. Roll Left & Right (QC): 6 Sit to Lying (QC): 6 Lying to Sitting/Side of Bed(Q: 5 Sit to Stand (QC): 5 Chair/Bov-dz-Fgqcp Xfer(QC): 5 Toilet Transfer (QC): 5 Car Transfer (QC): 5 Weight Bearing Full Weight Bearing Full Weight Bearing Gait Training Does the Patient Walk?: Yes Distance: 150' x2 Walk 10 feet (QC): 5 Walk 50 ft with 2 Turns(QC): 5 Walk 150 ft (QC): 5 Walking 10ft/uneven surface-QC: 5 Gait Persons Needed: 1 Gait Assistive Device: FWW Stair Training Stair Training: Handrails/: uses walker #of Steps: 1 1 Step (curb) (QC): 4 4 Steps (QC): 9 12 Steps (QC): 9 Stairs: Pattern: Step to Balance Picking up an Object (QC): 4 Special Test Comments PATIENT ACCESS ASSOCIATE recommended a franchise consultant for safety at home. Exercises NuStep Minutes: 13 NuStep Workload: 4 Treatments TF to standing, amb in hallway. Uses NuStep and completes Seated Ex. Pt completes QC scoring items listed above. Amb. in hallway and returns to room to rest, all needs met, call light in hand. Assessment Current Status: Good Progress Pt is fatigued from EGD and focuses on getting lunch soon. PT Short Term Goals Short Term Goals Time Frame: Apr 23, 2020 Sit to lyin Lying to sitting on side of be: 4 Walk 150 feet: 4 1 step (curb): 3 PT Cdl A Driver Goals Senior Living Goals PT Cdl A Driver Goals Time Frame: May 07, 2020 Roll Left & Right (QC): 6 Sit to Lying (QC): 6 Lying-Sitting on Side/Bed(QC): 6 Sit to Stand (QC): 6 Chair/Jus-sx-Nvopo Xfer(QC): 6 Toilet Transfer (QC): 6 Car Transfer (QC): 4 Does the Patient Walk: Yes Walk 10 feet (QC): 6 Walk 50ft with 2 Turns (QC): 6 Walk 150 ft (QC): 6 Walking 10ft on Uneven Surface: 5 1 Step (curb) (QC): 4 4 Steps (QC): 4 12 Steps (QC): 10 Picking up an Object (QC): 10 Does the Pt use WC or Scooter?: No Wheel 50 feet with 2 turns (QC: 9 Wheel 150 feet: 9 PT Plan Problem List Problem List: Activity Tolerance, Functional Strength, Safety Treatment/Plan Treatment Plan: Continue Plan of Care Treatment Plan: Bed Mobility, Education, Functional Activity Lisa, Functional Strength, Group Therapy, Gait, Safety, Therapeutic Exercise, Transfers Treatment Duration: May 07, 2020 Frequency: At least 5 of 7 days/Wk (IRF) Estimated Hrs Per Day: 1.5 hours per day Patient and/or Family Agrees t: Yes Safety Risks/Education Patient Education: Gait Training, Safety Issues Teaching Recipient: Patient Teaching Methods: Discussion Response to Teaching: Verbalize Understanding Time/GCodes Time In: 1000 Time Out: 1100 Total Billed Treatment Time: 60 Total Billed Treatment 1, GT (20m), EX (15m) & FA x2 (25m) SAMUEL OLIVER PATIENT ACCESS ASSOCIATE Apr 29, 2020 11:09
--- NOTE | 2020-04-29 11:15 | NUR ---
HAS BEEN NPO ALL MORNING AND BLOOD SUGAR NOW 127. CLARIFIED WITH DR. MURRAY AND SALUD HEREDIA IS TO BE HELD THIS AM.
--- NOTE | 2020-04-29 11:46 | Occupational Ther Daily Note ---
OT Current Status-Daily Note Subjective Pt laying in bed, agreeable to OT Tx, pt denies pain. ADL-Treatment Therapy Code Descriptions/Definitions Functional [place] Measure: 0=Not Assessed/NA 4=Minimal Assistance 1=Total Assistance 5=Supervision or Setup 2=Maximal Assistance 6=Modified [place]imes 3=Moderate Assistance 7=Complete IndependenceSCALE: Activities may be completed with or without assistive devices. 3-Nfvyfikbem-agmyexi completes the activity by him/herself with no assistance from a helper. 5-Set-up or Clean-up Assistance-helper sets up or cleans up; patient completes activity. [place] assists only prior to or following the activity. 4-Supervision or Touching Assistance-helper provides verbal cues and/or touching/steadying and/or contact guard assistance as patient completes activity. Assistance may be provided throughout the activity or intermittently. 3-Partial/Moderate Assistance-helper does LESS THAN HALF the effort. [place] lifts, holds or supports trunk or limbs, but provides less than half the effort. 2-Substantial/Maximal Assistance-helper does MORE THAN HALF the effort. [place] lifts or holds trunk or limbs and provides more than half the effort. 3-Pkcgjbgnm-kaaifo does ALL the effort. Patient does none of the effort to complete the activity. Or, the assistance of 2 or more helpers is required for the patient to complete the activity. If activity was not attempted, code reason: 7-Patient Refused. 9-Not Applicable-not attempted and the patient did not perform the activity before the current illness, exacerbation or injury. 10-Not Attempted due to Environmental Limitations-(lack of equipment, weather restraints, etc.). 88-Not Attempted due to Medical Conditions or Safety Concerns. Eating (QC): 6 (Pt reports no difficulties with eating) Oral Hygiene (QC): 6 (independent seated at sink) Shower/Bathe Self (QC): 4 (Pt completed shower seated on SC. Pt required SBA in standing while washing periarea and buttocks.) Upper Body Dressing (QC): 5 (set up assist) Lower Body Dressing (QC): 4 (SBA in stand at GBs and FWW while pt completed pant hike. Pt able to thread BLEs into pants) On/Off Footwear: 5 (set up assist, pt able to doff socks without AE, and don socks using sock aide with increased time) Toileting Hygiene (QC): 4 (SBA, pt able to complete clothing management and hygiene.) Toilet Transfer (QC): 4 (SBA on/off toilet) Other Treatment Pt laying in bed, transferred supine to sit, then used FWW to ambulate into restroom and onto toilet. Pt completed toileting, then transferred to shower chair, pt doffed clothes, then completed showering, requiring SBA in stand to wash buttocks and periarea. Pt able to sequence steps for showering but required a verbal reminder to wash periarea and buttocks. Pt completed upper and lower body dressing, transferring to w/c. At w/c, pt able to don BLE socks, asking for "jump rope". OT handed pt sock aide, then pt able to don socks with increased time. Pt taken to bathroom sink, she completed oral care and hair brushing independently. In order to increase BUE strength and functional endurance, pt self propelled w/c around [facility] common area. Pt indicates she needs to use restroom, pt taken back to room, using FWW to transfer onto toilet with SBA. Pt completed toileting, then used FWW to go to sink to wash hands with SBA, then to recliner with SBA, FWW. Post OT tx, pt seated in recliner, call light in reach and all needs met. Education OT Patient Education: Correct positioning, Energy conservation, Modified ADL techniques, Progress toward Goal/Update tx plan, Purpose of tx/functional activities, Safety issues, Transfer techniques, Use of adapted equipment Teaching Recipient: Patient Teaching Methods: Discussion Response to Teaching: Verbalize Understanding OT Short Term Goals Short Term Goals Time Frame: Apr 25, 2020 Toileting hygiene: 4 Lower body dressin Putting on/taking off footwear: 4 OT Alf Goals Labor Relations Specialist Goals Time Frame: May 09, 2020 Eating (QC): 6 (met) Oral Hygiene (QC): 6 (met) Toileting Hygiene (QC): 6 (not met, SBA) Shower/Bathe Self (QC): 6 (not met, SBA) Upper Body Dressing (QC): 6 (not met, set up) Lower Body Dressing (QC): 6 (not met, SBA) On/Off Footwear (QC): 6 (not met, set up) Additional Goals: 1-Demonstrate ADL Tasks, 2-Verbalize Understanding, 3- ImproveStrength/Lisa 1=Demonstrate adherence to instructed precautions during ADL tasks. 2=Patient will verbalize/demonstrate understanding of assistive devices/modifications for ADL. 3=Patient will improve strength/tolerance for activity to enable patient to perform ADL's. OT Education/Plan Problem List/Assessment Assessment: Decreased Activ Tolerance, Decreased UE Strength, Impaired Funct Balance, Impaired I ADL's, Impaired Self-Care Skills Discharge Recommendations Plan/Recommendations: Continue POC Treatment Plan/Plan of Care Patient would benefit from OT for education, treatment and training to promote independence in ADL's, mobility, safety and/or upper extremity function for ADL's. Plan of Care: ADL Retraining, Caregiver Training, Cognitive Retraining, Functional Mobility, Group Exercise/Act as Ind, UE Funct Exercise/Act, W/C Management Training Treatment Duration: May 09, 2020 Frequency: At least 5 of 7 days/Wk (IRF) Estimated Hrs Per Day: 1.5 hours per day Agreement: Yes Rehab Potential: Fair Time/GCodes Start Time: 11:00 Stop Time: 12:15 Total Time Billed (hr/min): 75 Billed Treatment Time 1, ADL 4 (60'), FA (15') PETER YAN OT Apr 29, 2020 11:46
--- NOTE | 2020-04-29 12:33 | Progress Note-Post Operative ---
Post-Operative Progess Note Surgeon (s)/Applied Researcher (s) Surgeon LEVAR ROSAS DO Applied Researcher: none Pre-Operative Diagnosis Anemia Post-Operative Diagnosis Gastritis Hiatal hernia Procedure & Operative Findings Date of Procedure 04/29/20 Procedure Performed/Findings EGD with bx Anesthesia Type IV sedation by INFANTRY INDIRECT FIRE CREWMEMBER Estimated Blood Loss Estimated blood loss (mL): scant Specimens/Packing Specimens Removed Bx of body of stomach LEVAR ROSAS DO Apr 29, 2020 12:33
--- NOTE | 2020-04-29 15:02 | Physical Therapy Daily Note ---
PT Daily Note-Current Subjective Pt laying Supine in bed upon arrival. Pt asked to use BR. Pain Location: No Pain Reported Mental Status Patient Orientation: Person, Place Transfers SCALE: Activities may be completed with or without assistive devices. 7-Laqrylbfkj-jxfokia completes the activity by him/herself with no assistance from a helper. 5-Set-up or Clean-up Assistance-helper sets up or cleans up; patient completes activity. [place] assists only prior to or following the activity. 4-Supervision or Touching Assistance-helper provides verbal cues and/or touching/steadying and/or contact guard assistance as patient completes activity. Assistance may be provided throughout the activity or intermittently. 3-Partial/Moderate Assistance-helper does LESS THAN HALF the effort. [place] lifts, holds or supports trunk or limbs, but provides less than half the effort. 2-Substantial/Maximal Assistance-helper does MORE THAN HALF the effort. [place] lifts or holds trunk or limbs and provides more than half the effort. 1-Eweuvifvl-fubtfb does ALL the effort. Patient does none of the effort to complete the activity. Or, the assistance of 2 or more helpers is required for the patient to complete the activity. If activity was not attempted, code reason: 7-Patient Refused. 9-Not Applicable-not attempted and the patient did not perform the activity before the current illness, exacerbation or injury. 10-Not Attempted due to Environmental Limitations-(lack of equipment, weather restraints, etc.). 88-Not Attempted due to Medical Conditions or Safety Concerns. Toilet Transfer (QC): 5 Weight Bearing Full Weight Bearing Full Weight Bearing Gait Training Does the Patient Walk?: Yes Distance: 20' x2 Walk 10 feet (QC): 5 Gait Persons Needed: 1 Gait Assistive Device: FWW Treatments TF to standing and amb to BR. Able to complete pericare independently and returns to Supine to rest. All needs met, call light in hand. Assessment Current Status: Good Progress Narcisa. tx well. PT Short Term Goals Short Term Goals Time Frame: Apr 23, 2020 Sit to lyin Lying to sitting on side of be: 4 Walk 150 feet: 4 1 step (curb): 3 PT Assisted Goals [employer] Vice President Goals PT Assisted Goals Time Frame: May 07, 2020 Roll Left & Right (QC): 6 Sit to Lying (QC): 6 Lying-Sitting on Side/Bed(QC): 6 Sit to Stand (QC): 6 Chair/Ssi-nl-Utrgb Xfer(QC): 6 Toilet Transfer (QC): 6 Car Transfer (QC): 4 Does the Patient Walk: Yes Walk 10 feet (QC): 6 Walk 50ft with 2 Turns (QC): 6 Walk 150 ft (QC): 6 Walking 10ft on Uneven Surface: 5 1 Step (curb) (QC): 4 4 Steps (QC): 4 12 Steps (QC): 10 Picking up an Object (QC): 10 Does the Pt use WC or Scooter?: No Wheel 50 feet with 2 turns (QC: 9 Wheel 150 feet: 9 PT Plan Problem List Problem List: Activity Tolerance, Functional Strength, Safety Treatment/Plan Treatment Plan: Continue Plan of Care Treatment Plan: Bed Mobility, Education, Functional Activity Lisa, Functional Strength, Group Therapy, Gait, Safety, Therapeutic Exercise, Transfers Treatment Duration: May 07, 2020 Frequency: At least 5 of 7 days/Wk (IRF) Estimated Hrs Per Day: 1.5 hours per day Patient and/or Family Agrees t: Yes Safety Risks/Education Patient Education: Safety Issues Teaching Recipient: Patient Teaching Methods: Discussion Response to Teaching: Verbalize Understanding Time/GCodes Time In: 1345 Time Out: 1400 Total Billed Treatment Time: 15 Total Billed Treatment 1, FA (15m) SAMUEL OLIVER PTA Apr 29, 2020 15:01
--- NOTE | 2020-04-29 15:20 | Speech Therapy Daily Note ---
Speech Daily Progress Note Subjective Date Seen by Provider: Apr 29, 2020 Time Seen by Provider: 00:30 Patient was resting in her bed following her EGD this morning. Objective Patient completed a series of safety awareness questions related to her daily needs upon her return home with 90% given minimal cues. Assessment Assessment Current Status: Good Progress Treatment Plan Continue Plan of Care Speech Short Term Goals Short Term Goals Short Term Goals 1) Patient will complete memory tasks related to her daily needs at 80% or greater. 2) Patient will complete safety awareness tasks related to her daily needs at 80% or greater. 3) Patient will complete problem solving tasks related to her daily needs at 80% or greater. Speech Tobacco Feeder Catcher Goals Snf Goals Patient will improve cognitive-communication ability in order to require decreased assistance with daily tasks. Speech-Plan Patient/Family Goals Patient/Family Goals: Patient is scheduled to return home with family support and home health services. Treatment Plan Speech Therapy Treatment Plan: Continue Plan of Care Treatment Duration: May 01, 2020 Frequency: 4 times per week (Patient will receive ST 4-5 x per week) Estimated Hrs Per Day: .5 hour per day Rehab Potential: Fair Barriers to Learning: Patient's recent medical status, age, cognitive deficits Pt/Family Agrees to Plan: Yes Safety Risks/Education Teaching Recipient: Patient Teaching Methods: Demonstration, Discussion Response to Teaching: Verbalize Understanding, Return Demonstration Education Topics Provided: Continued safety upon her return home Time Speech Therapy Time In: 14:30 Speech Therapy Time Out: 15:00 Total Billed Time: 30 Billed Treatment Time 1, SLTS No QUALITY CODES: EXPRESSION OF IDEAS/WANTS: 4 UNDERSTANDING VERBAL CONTENT: 4 BRIEF INTERVIEW MENTAL STATUS: YES REPETITION OF 3 WORDS: 3 TEMPORAL ORIENTATION: YEAR: CORRECT, MONTH: CORRECT, DAY: CORRECT RECALL SOCK: YES WITH CUE, COLOR: YES, BED: YES WITH CUE MEMORY/RECALL ABILITY: SEASON, LOCATION OF ROOM, THAT SHE IS IN THE HOSPITAL [facility]E [facility] Apr 29, 2020 15:20
--- NOTE | 2020-04-29 16:08 | NUR ---
CM/SS DISCHARGE Patient will discharge home tomorrow as planned. HHC: Referral completed with [facility] for RN PT OT. Will provide agency with final discharge orders and instructions once completed. Spoke with son Bradley and he will be coming for patient mid-morning, time to be finalized tomorrow once team timelines are known. Patient has all DME and supportive services that son will resume on her behalf. DME: She apparently has a blood sugar monitor "on her belly" that son advised would need to be gathered in her personal possessions. RN aware. Followup in a.m.
[2020-04-29 16:24] VITALS: BP 159/70
[2020-04-29] MEDS: SUCRALFATE 1 GM (CARAFATE) TAB PO SCH ×2 (16:27→20:18)
[2020-04-30] MEDS ORDERED: INSU100I29 SQ (04:49)
[2020-04-30] MEDS ORDERED: PANT40TA52 PO (04:49)
[2020-04-30] MEDS ORDERED: SUCR1TAB PO (04:49)
[2020-04-30] MEDS ORDERED: RIVA10T PO (04:49)
[2020-04-30] MEDS ORDERED: POTA10TA6 PO (04:49)
--- NOTE | 2020-04-30 04:50 | D/C HH Face to Face Order ---
D/C Face to Face Orders Reconcile Patient Problems Problems Reviewed?: Yes Instructions for Patient Home Health Patient Instructions/FollowUp: PCP 1 week Physician to follow Patient: [facility] Discharge Diet for Home: ADA Diet Patient Problems: Debility Delirium Gastritis Anemia Patient Data-Allergies,Ht & Wt Patient Allergies: Coded Allergies: codeine (Verified Allergy, Unknown, 10/14/05) furosemide (Verified Allergy, Unknown, 10/14/05) iodine (Verified Allergy, Unknown, 10/14/05) Height (Feet): 5 Height (Inches): 7.00 Weight (Pounds): 206 Home Health Need/Face to Face Date of Face to Face: Apr 30, 2020 Clinical Findings: Generalized weakness and fatigue, Instability, Muscle weakness I have seen Pt [id number]: Yes Discharged To: Home Diagnosis/Conditions: Debility Delirium DM Gastritis Anemia Patient is Homebound due to: CognItive deficits, Delmi fall risk due to instabilty, Muscle weakness Homebound Status Due to the above stated illness, injury or surgical procedure (medical condition or diagnosis) and associated clinical findings, the patient is homeb ound because of his/her inability to leave home except with aid of a supportive device and/or person AND leaving the home requires a considerable and taxing effort or is medically contraindicated. Pt req the following assistanc: Walker Home Health Nursing Orders Home Health Services Order: Nursing Services, Dealer Compliance Representative-Evaluate & Treat, Physical Therapy-Evaluate & Treat Home Health Infusion Therapy Line Start Date: Apr 28, 2020 Certify Stmt I certify that this patient is under my care and that I, a nurse practitioner or a physician; a assistant federal public defender working with me, had a face to face encounter that - meets the physician face to face encounter requirements with this patient as dated. ARMANDO MURRAY DO Apr 30, 2020 04:50
[2020-04-30 05:20] VITALS: BP 132/62
[2020-04-30] MEDS: LEVOTHYROXINE 100 MCG (LEVOTHROID) TAB PO SCH (06:22)
[2020-04-30] MEDS: LEVOTHYROXINE 75 MCG (LEVOTHROID) TABLET PO SCH (06:22)
[2020-04-30] MEDS: SUCRALFATE 1 GM (CARAFATE) TAB PO SCH (06:23)
[2020-04-30] MEDS: KCL 10 MEQ TAB (MICRO K) PO SCH (06:23)
[2020-04-30] MEDS: inSUlin ASPART (NovoLOG) 1 UNIT/0.01 ML (CHARGE PER UNIT) SC SCH (06:24)
[2020-04-30] MEDS: DOCOSANOL 10 % CREAM (ABREVA) 2 GM TP SCH ×2 (06:25→08:32)
--- NOTE | 2020-04-30 07:19 | Progress Note - Surgery ---
Subjective Date Seen by a Provider: Apr 30, 2020 Time Seen by a Provider: 07:00 Subjective/Events-last exam Patient is alert and oriented x 3 this morning. She states she is doing well and currently has no complaints. She is tolerating po well and denies nausea, vomiting, or diarrhea. She reports her last BM was yesterday and denied melena or hematochezia. Vital signs are stable over night. Sat's low 90's on RA. Last H and H were drawn yesterday at 1030 and were 7.9 and 26 respectively. She has no abdominal pain upon palpation and lungs are clear to auscultation bilaterally. Plan is to discharge today per Dr. Wilkins notes. Review of Systems General: No Chills, No Night Sweats; Fatigue (generalized deconditioning) HEENT: No Head Aches, No Visual Changes Pulmonary: No Dyspnea, No Cough Cardiovascular: No: Chest Pain, Palpitations, Edema Gastrointestinal: No: Nausea, Vomiting, Abdominal Pain, Melena, Hematochezia Genitourinary: No Dysuria Musculoskeletal: other (generalized weakness ) Neurological: Weakness; No: Numbness, Change in speech Focused Exam Peripheral Pulses: 2+ Dorsalis Pedis (R), 2+ Left Dors-Pedis (L), 2+ Radial Pulses (R), 2+ Radial Pulses (L) Skin: normal color, warm/dry Objective Exam Vital Signs Date Time Temp Pulse Resp B/P (MAP) Pulse Ox O2 Delivery O2 Flow Rate FiO2 04/30/20 05:20 36.0 92 20 132/62 (85) 91 Room Air 04/29/20 20:00 Nasal Cannula 2.00 04/29/20 17:38 Room Air 04/29/20 16:24 36.4 94 16 159/70 (99) 94 Room Air 04/29/20 09:00 Room Air I & O 04/30/20 07:00 Intake Total 1280 ml Balance 1280 ml Capillary Refill : Less Than 3 Seconds General Appearance: No Apparent Distress, WD/WN, Chronically ill HEENT: PERRL/EOMI, Normal ENT Inspection, Pharynx Normal Neck: Full Range of Motion, Normal Inspection, Non Tender, Supple, Carotid Bruit Respiratory: Chest Non Tender, Lungs Clear, Normal Breath Sounds, No Accessory Muscle Use, No Respiratory Distress Cardiovascular: Regular Rate, Rhythm, No Edema, No Gallop, No Murmur, Normal Peripheral Pulses Peripheral Pulses: 2+ Dorsalis Pedis (R), 2+ Left Dors-Pedis (L), 2+ Radial Pulses (R), 2+ Radial Pulses (L) Gastrointestinal: normal bowel sounds, non tender, soft Extremity: Normal Capillary Refill, Normal Inspection, Normal Range of Motion, Non Tender, No Calf Tenderness, No Pedal Edema Neurologic/Psychiatric: Alert, Oriented x3, No Motor/Sensory Deficits, Normal Mood/Affect, ob tech II-XII Norm as Tested, Motor Weakness (generalized 3/5 all extremities) Skin: Normal Color, Warm/Dry Lymphatic: No Adenopathy Results Lab Laboratory Tests 04/29/20 10:30: Hemoglobin 7.9L, Hematocrit 26L 04/29/20 11:06: Glucometer 127H 04/29/20 15:39: Glucometer 228H 04/29/20 20:15: Glucometer 222H 04/30/20 06:22: Glucometer 189H Assessment/Plan Assessment/Plan Admission Diagonsis UTI AMS Anemia Assessment/Plan Anemia Have patient followup with primary care provider to follow anemia Probable discharge from rehab today per Dr. Wilkins notes. Clinical Quality Measures DVT/VTE Risk/Contraindication: Risk Factor Score Per Nursin RFS Level Per Nursing on Admit: 4+=Very High TY MILLER MED STUDENT Apr 30, 2020 07:19
[2020-04-30 08:00] VITALS: BP 133/60
[2020-04-30] MEDS: DOCUSATE SODIUM 100 MG (COLACE) CAP PO SCH (08:29)
[2020-04-30] MEDS: PREGABALIN 50 MG (LYRICA) CAP PO SCH (08:29)
[2020-04-30] MEDS: SENNA W/DOCUSATE (SENOKOT S) TABLET PO SCH ×2 (08:29→08:30)
[2020-04-30] MEDS: PANTOPRAZOLE 40 MG (PROTONIX) TAB PO SCH (08:29)
[2020-04-30] MEDS: FENOFIBRATE 134 MG (LOFIBRA) CAPSULE PO SCH (08:29)
[2020-04-30] MEDS: polyethylene glycoL POWDER 17 GM (MIRALAX) PACK PO SCH (08:30)
--- NOTE | 2020-04-30 08:35 | Therapy Team Discharge Summary ---
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 Upon evaluation patient performed bed mobility with mod assist, supine <-> sit and sit <-> stand with max assist, transfers with mod assist, ambulated 50' with a rolling walker with min assist. Patient has been performing bed mobility and transfer training, balance and endurance training, functional strengthening, stair training, gait training, and education. Patient has made fair progress but has not met any of her residential goals. Now, patient performs bed mobility with independence, supine <-> sit with setup, transfers with setup, car transfer with setup, ambulates 150' with a rolling walker with setup (including 50' with at least 2 turns of 90 degrees and 10' over an uneven surface), can go up and down 1 step using a rolling walker with CGA, and can tack picker an object from the floor with CGA. Patient is being discharged from this facility today and will be discharged from PT at this time. Occupational Therapy Decreased Activ Tolerance, Decreased UE Strength, Impaired Funct Balance, Impaired I ADL's, Impaired Self-Care Skills PT Group Home Goals Bulb Filler Goals PT Bulb Filler Goals Time Frame: May 07, 2020 Roll Left to Right (QC): 6 Sit to Lying (QC): 6 Lying-Sitting on Side/Bed(QC): 6 Sit to Stand (QC): 6 Chair/Pxi-co-Ulhyu Xfer(QC): 6 Car Transfer (QC): 4 Does the Patient Walk: Yes Walk 10 feet (QC): 6 Walk 10ft-Uneven Surface(QC): 5 Walk 50ft with 2 Turns (QC): 6 Walk 150 ft (QC): 6 Does the Pt use WC or Scooter?: No Wheel 50 feet with 2 turns (QC: 9 1 Step (curb) (QC): 4 4 Steps (QC): 4 12 Steps (QC): 10 Picking up an Object (QC): 10 OT Bulb Filler Goals Bulb Filler Goals Time Frame: May 09, 2020 Eating (QC): 6 (met) Oral Hygiene (QC): 6 (met) Shower/Bathe Self (QC): 6 (not met, SBA) Upper Body Dressing (QC): 6 (not met, set up) Lower Body Dressing (QC): 6 (not met, SBA) On/Off Footwear (QC): 6 (not met, set up) Toileting Hygiene (QC): 6 (not met, SBA) Toilet/Commode Transfer (QC): 6 Additional Goals: 1-Demonstrate ADL Tasks, 2-Verbalize Understanding, 3- ImproveStrength/Lisa 1=Demonstrate adherence to instructed precautions during ADL tasks. 2=Patient will verbalize/demonstrate understanding of assistive devices/modifications for ADL. 3=Patient will improve strength/tolerance for activity to enable patient to perform ADL's. Speech Group Home Goals Group Home Goals Patient will improve cognitive-communication ability in order to require decreased assistance with daily tasks. ITALO ALLEN PT Apr 30, 2020 08:35
--- NOTE | 2020-04-30 09:33 | Discharge Summary ---
Diagnosis/Chief Complaint Date of Admission Apr 16, 2020 at 09:52 Date of Discharge Discharge Date: Apr 16, 2020 Discharge Diagnosis Assessment: Debility Post polio muscle weakness DM HTN HLP Confusion Jang cath will DC Plan: Monitor BP and BS Home meds DC catheter BM regimen 04/17/20: Monitor sugar No pain reported except shingles pain Fall risk Monitor confusion 04/18/20: Lyrica maintained IRF protocol Monitor sugars 04/20/20: Monitor sugars Check labs in am Pain management 04/21/20: Monitor confusion Increase insulin Cough drops for sore throat 04/22/20: Monitor blood sugar Try to motivate Improving 04/23/20: Treat nausea with Zofran Cough drops as needed Sugars are still elevated DC planned for 04/30/20. 04/24/20: Increase motivation Fall risk Monitor sugars and will increase insulin tomorrow if remains high 04/25/20: Increase insulin to 15 BID DC planned next week 04/26/20: Monitor sugar Fall risk 04/27/20: Monitor sugar Monitor pain 04/28/20: Monitor hemoglobin Appreciate hematology consultation Discharge planned on Tuesday Consult Dr. 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 Discharge Summary Discharge Physical Examination Allergies: Coded Allergies: codeine (Verified Allergy, Unknown, 10/14/05) furosemide (Verified Allergy, Unknown, 10/14/05) iodine (Verified Allergy, Unknown, 10/14/05) Vitals & I&Os Vital Signs Date Time Temp Pulse Resp B/P (MAP) Pulse Ox O2 Delivery O2 Flow Rate FiO2 04/30/20 11:14 36.0 79 20 133/60 95 Room Air 2.00 General Appearance: Alert, Oriented X3, Cooperative Respiratory: Clear to Auscultation Cardiovascular: Regular Rate Neuro: Normal Gait, Normal Speech, Strength at 5/5 X4 Ext Psych/Mental Status: Mental Status NL Hospital Course Was the Problem List Reviewed?: Yes Standard but lengthy course after severe delirium from UTI admitted to med-surg. Patient participated in therapies in order to regain strength and function. Insulin increased for high sugars. Lyrica restarted for post herpetic neuralgia. Anemia noted prompting hematology consult due to low platelets also. Xarelto help EGD performed revealing gastritis with small amount of bleeding. Xarelto will be held for 2 weeks and restarted once PCP feels her hgn is stable while on PPI and Carfate. Overall she did well and was DC in improved condition. Labs (last 24 hrs) Laboratory Tests 04/16/20 10:51: Glucometer 334H 04/16/20 15:26: Glucometer 237H 04/16/20 20:01: Glucometer 215H 04/17/20 05:23: Glucometer 283H 04/17/20 06:40: White Blood Count 4.1L, Red Blood Count 3.78L, Hemoglobin 10.1L, Hematocrit 32L, Mean Corpuscular Volume 84, Mean Corpuscular Hemoglobin 27, Mean Corpuscular Hemoglobin Concent 32, Red Cell Distribution Width 14.9H, Platelet Count 76L, Mean Platelet Volume 11.1, Immature Granulocyte % (Auto) 1, Neutrophils (%) (Auto) 66, Lymphocytes (%) (Auto) 21, Monocytes (%) (Auto) 9, Eosinophils (%) (Auto) 4, Basophils (%) (Auto) 1, Neutrophils # (Auto) 2.7, Lymphocytes # (Auto) 0.8L, Monocytes # (Auto) 0.4, Eosinophils # (Auto) 0.2, Basophils # (Auto) 0.0, Immature Granulocyte # (Auto) 0.0, Sodium Level 138, Potassium Level 3.2L, Chloride Level 103, Carbon Dioxide Level 24, Anion Gap 11, Blood Urea Nitrogen 9, Creatinine 0.69, Estimat Glomerular Filtration Rate > 60, BUN/Creatinine Ratio 13, Glucose Level 283H, Calcium Level 8.3L, Corrected Calcium 9.0, Total Bilirubin 0.5, Aspartate Amino Transf (AST/SGOT) 32, Alanine Aminotransferase (ALT/SGPT) 32, Alkaline Phosphatase 103, Total Protein 6.0L, Albumin 3.1L 04/17/20 11:01: Glucometer 298H 04/17/20 16:46: Glucometer 250H 04/17/20 20:39: Glucometer 307H 04/18/20 05:43: Glucometer 170H 04/18/20 11:14: Glucometer 332H 04/18/20 16:22: Glucometer 225H 04/18/20 20:28: Glucometer 281H 04/19/20 06:44: Glucometer 196H 04/19/20 08:40: Stool Occult Blood Immunoassay NEGATIVE 04/19/20 11:59: Glucometer 252H 04/19/20 15:40: Glucometer 321H 04/19/20 21:07: Glucometer 259H 04/20/20 06:10: Glucometer 199H 04/20/20 11:52: Glucometer 217H 04/20/20 15:09: Glucometer 227H 04/20/20 20:27: Glucometer 388H 04/21/20 05:05: White Blood Count 6.0, Red Blood Count 3.18L, Hemoglobin 8.7L, Hematocrit 28L, Mean Corpuscular Volume 87, Mean Corpuscular Hemoglobin 27, Mean Corpuscular Hemoglobin Concent 32, Red Cell Distribution Width 15.6H, Platelet Count 137, Mean Platelet Volume 12.6H, Immature Granulocyte % (Auto) 3, Neutrophils (%) (Auto) 70, Lymphocytes (%) (Auto) 19, Monocytes (%) (Auto) 6, Eosinophils (%) (Auto) 2, Basophils (%) (Auto) 1, Neutrophils # (Auto) 4.1, Lymphocytes # (Auto) 1.1, Monocytes # (Auto) 0.4, Eosinophils # (Auto) 0.1, Basophils # (Auto) 0.0, Immature Granulocyte # (Auto) 0.2H, Sodium Level 138, Potassium Level 4.7, Chloride Level 105, Carbon Dioxide Level 24, Anion Gap 9, Blood Urea Nitrogen 20H, Creatinine 1.15, Estimat Glomerular Filtration Rate 45, BUN/Creatinine Ratio 17, Glucose Level 221H, Calcium Level 8.6, Corrected Calcium 9.3, Total Bilirubin 0.3, Aspartate Amino Transf (AST/SGOT) 23, Alanine Aminotransferase (ALT/SGPT) 26, Alkaline Phosphatase 127, Total Protein 5.8L, Albumin 3.1L 04/21/20 06:07: Glucometer 221H 04/21/20 11:15: Glucometer 237H 04/21/20 15:56: Glucometer 229H 04/21/20 20:57: Glucometer 329H 04/22/20 06:26: Glucometer 181H 04/22/20 11:35: Glucometer 179H 04/22/20 15:52: Glucometer 256H 04/22/20 20:39: Glucometer 313H 04/23/20 06:17: Glucometer 218H 04/23/20 11:04: Glucometer 154H 04/23/20 15:31: Glucometer 214H 04/23/20 20:51: Glucometer 195H 04/24/20 05:48: Glucometer 217H 04/24/20 11:01: Glucometer 228H 04/24/20 16:49: Glucometer 214H 04/24/20 20:14: Glucometer 295H 04/25/20 06:12: Glucometer 133H 04/25/20 11:08: Glucometer 284H 04/25/20 15:37: Glucometer 207H 04/25/20 20:29: Glucometer 252H 04/26/20 05:12: Glucometer 175H 04/26/20 10:53: Glucometer 237H 04/26/20 15:55: Glucometer 283H 04/26/20 20:50: Glucometer 292H 04/27/20 06:32: Glucometer 147H 04/27/20 11:21: Glucometer 200H 04/27/20 16:23: Glucometer 303H 04/27/20 20:21: Glucometer 216H 04/28/20 06:13: White Blood Count 5.1, Red Blood Count 2.57L, Hemoglobin 7.0L, Hematocrit 23L, Mean Corpuscular Volume 89, Mean Corpuscular Hemoglobin 27, Mean Corpuscular Hemoglobin Concent 31L, Red Cell Distribution Width 15.9H, Platelet Count 90L, Mean Platelet Volume 13.7H, Immature Granulocyte % (Auto) 1, Neutrophils (%) (Auto) 64, Lymphocytes (%) (Auto) 25, Monocytes (%) (Auto) 6, Eosinophils (%) (Auto) 3, Basophils (%) (Auto) 1, Neutrophils # (Auto) 3.3, Lymphocytes # (Auto) 1.3, Monocytes # (Auto) 0.3, Eosinophils # (Auto) 0.1, Basophils # (Auto) 0.1, Immature Granulocyte # (Auto) 0.0, Neutrophils % (Manual) 64, Lymphocytes % (Manual) 30, Monocytes % (Manual) 5, Basophils % (Manual) 1, Polychromasia SLIGHT, Hypochromasia MODERATE, Basophilic Stippling MODERATE, Anisocytosis MODERATE, Absolute Reticulocyte Count 144H, Percent Reticulocyte Count 5.61H, Sodium Level 142, Potassium Level 4.5, Chloride Level 105, Carbon Dioxide Level 28, Anion Gap 9, Blood Urea Nitrogen 22H, Creatinine 1.02, Estimat Glomerular Filtration Rate 52, BUN/Creatinine Ratio 22, Glucose Level 140H, Calcium Level 8.9, Corrected Calcium 9.4, Iron Level 24L, Total Iron Binding Capacity 385H, Unsaturated Iron Binding Capacity 361, Transferrin % Saturation 6L, Ferritin 19.0L, Total Bilirubin 0.4, Aspartate Amino Transf (AST/SGOT) 18, Alanine A minotransferase (ALT/SGPT) 13, Alkaline Phosphatase 93, Lactate Dehydrogenase 204, Total Protein 6.2L, Albumin 3.4 04/28/20 11:01: Glucometer 274H 04/28/20 15:39: Glucometer 244H 04/28/20 20:38: Glucometer 229H 04/29/20 05:24: Glucometer 120H 04/29/20 10:30: Hemoglobin 7.9L, Hematocrit 26L 04/29/20 11:06: Glucometer 127H 04/29/20 15:39: Glucometer 228H 04/29/20 20:15: Glucometer 222H 04/30/20 06:22: Glucometer 189H Pending Labs Laboratory Tests 04/16/20 10:51: Glucometer 334 04/16/20 15:26: Glucometer 237 04/16/20 20:01: Glucometer 215 04/17/20 05:23: Glucometer 283 04/17/20 06:40: White Blood Count 4.1, Red Blood Count 3.78, Hemoglobin 10.1, Hematocrit 32, Mean Corpuscular Volume 84, Mean Corpuscular Hemoglobin 27, Mean Corpuscular Hemoglobin Concent 32, Red Cell Distribution Width 14.9, Platelet Count 76, Mean Platelet Volume 11.1, Immature Granulocyte % (Auto) 1, Neutrophils (%) (Auto) 66, Lymphocytes (%) (Auto) 21, Monocytes (%) (Auto) 9, Eosinophils (%) (Auto) 4, Basophils (%) (Auto) 1, Neutrophils # (Auto) 2.7, Lymphocytes # (Auto) 0.8, Monocytes # (Auto) 0.4, Eosinophils # (Auto) 0.2, Basophils # (Auto) 0.0, Immature Granulocyte # (Auto) 0.0, Sodium Level 138, Potassium Level 3.2, Chloride Level 103, Carbon Dioxide Level 24, Anion Gap 11, Blood Urea Nitrogen 9, Creatinine 0.69, Estimat Glomerular Filtration Rate > 60, BUN/Creatinine Ratio 13, Glucose Level 283, Calcium Level 8.3, Corrected Calcium 9.0, Total Bilirubin 0.5, Aspartate Amino Transf (AST/SGOT) 32, Alanine Aminotransferase (ALT/SGPT) 32, Alkaline Phosphatase 103, Total Protein 6.0, Albumin 3.1 04/17/20 11:01: Glucometer 298 04/17/20 16:46: Glucometer 250 04/17/20 20:39: Glucometer 307 04/18/20 05:43: Glucometer 170 04/18/20 11:14: Glucometer 332 04/18/20 16:22: Glucometer 225 04/18/20 20:28: Glucometer 281 04/19/20 06:44: Glucometer 196 04/19/20 08:40: Stool Occult Blood Immunoassay NEGATIVE 04/19/20 11:59: Glucometer 252 04/19/20 15:40: Glucometer 321 04/19/20 21:07: Glucometer 259 04/20/20 06:10: Glucometer 199 04/20/20 11:52: Glucometer 217 04/20/20 15:09: Glucometer 227 04/20/20 20:27: Glucometer 388 04/21/20 05:05: White Blood Count 6.0, Red Blood Count 3.18, Hemoglobin 8.7, Hematocrit 28, Mean Corpuscular Volume 87, Mean Corpuscular Hemoglobin 27, Mean Corpuscular Hemoglobin Concent 32, Red Cell Distribution Width 15.6, Platelet Count 137, Mean Platelet Volume 12.6, Immature Granulocyte % (Auto) 3, Neutrophils (%) (Auto) 70, Lymphocytes (%) (Auto) 19, Monocytes (%) (Auto) 6, Eosinophils (%) (Auto) 2, Basophils (%) (Auto) 1, Neutrophils # (Auto) 4.1, Lymphocytes # (Auto) 1.1, Monocytes # (Auto) 0.4, Eosinophils # (Auto) 0.1, Basophils # (Auto) 0.0, Immature Granulocyte # (Auto) 0.2, Sodium Level 138, Potassium Level 4.7, Chloride Level 105, Carbon Dioxide Level 24, Anion Gap 9, Blood Urea Nitrogen 20, Creatinine 1.15, Estimat Glomerular Filtration Rate 45, BUN/Creatinine Ratio 17, Glucose Level 221, Calcium Level 8.6, Corrected Calcium 9.3, Total Bilirubin 0.3, Aspartate Amino Transf (AST/SGOT) 23, Alanine Aminotransferase (ALT/SGPT) 26, Alkaline Phosphatase 127, Total Protein 5.8, Albumin 3.1 04/21/20 06:07: Glucometer 221 04/21/20 11:15: Glucometer 237 04/21/20 15:56: Glucometer 229 04/21/20 20:57: Glucometer 329 04/22/20 06:26: Glucometer 181 04/22/20 11:35: Glucometer 179 04/22/20 15:52: Glucometer 256 04/22/20 20:39: Glucometer 313 04/23/20 06:17: Glucometer 218 04/23/20 11:04: Glucometer 154 04/23/20 15:31: Glucometer 214 04/23/20 20:51: Glucometer 195 04/24/20 05:48: Glucometer 217 04/24/20 11:01: Glucometer 228 04/24/20 16:49: Glucometer 214 04/24/20 20:14: Glucometer 295 04/25/20 06:12: Glucometer 133 04/25/20 11:08: Glucometer 284 04/25/20 15:37: Glucometer 207 04/25/20 20:29: Glucometer 252 04/26/20 05:12: Glucometer 175 04/26/20 10:53: Glucometer 237 04/26/20 15:55: Glucometer 283 04/26/20 20:50: Glucometer 292 04/27/20 06:32: Glucometer 147 04/27/20 11:21: Glucometer 200 04/27/20 16:23: Glucometer 303 04/27/20 20:21: Glucometer 216 04/28/20 06:13: White Blood Count 5.1, Red Blood Count 2.57, Hemoglobin 7.0, Hematocrit 23, Mean Corpuscular Volume 89, Mean Corpuscular Hemoglobin 27, Mean Corpuscular Hemoglobin Concent 31, Red Cell Distribution Width 15.9, Platelet Count 90, Mean Platelet Volume 13.7, Immature Granulocyte % (Auto) 1, Neutrophils (%) (Auto) 64, Lymphocytes (%) (Auto) 25, Monocytes (%) (Auto) 6, Eosinophils (%) (Auto) 3, Basophils (%) (Auto) 1, Neutrophils # (Auto) 3.3, Lymphocytes # (Auto) 1.3, Monocytes # (Auto) 0.3, Eosinophils # (Auto) 0.1, Basophils # (Auto) 0.1, Immature Granulocyte # (Auto) 0.0, Neutrophils % (Manual) 64, Lymphocytes % (Manual) 30, Monocytes % (Manual) 5, Basophils % (Manual) 1, Polychromasia SLIGHT, Hypochromasia MODERATE, Basophilic Stippling MODERATE, Anisocytosis MODERATE, Absolute Reticulocyte Count 144, Percent Reticulocyte Count 5.61, Sodium Level 142, Potassium Level 4.5, Chloride Level 105, Carbon Dioxide Level 28, Anion Gap 9, Blood Urea Nitrogen 22, Creatinine 1.02, Estimat Glomerular Filtration Rate 52, BUN/Creatinine Ratio 22, Glucose Level 140, Calcium Level 8.9, Corrected Calcium 9.4, Iron Level 24, Total Iron Binding Capacity 385, Unsaturated Iron Binding Capacity 361, Transferrin % Saturation 6, Ferritin 19.0, Total Bilirubin 0.4, Aspartate Amino Transf (AST/SGOT) 18, Alanine Aminotransferase (ALT/SGPT) 13, Alkaline Phosphatase 93, Lactate Dehydrogenase 204, Total Protein 6.2, Albumin 3.4 04/28/20 11:01: Glucometer 274 04/28/20 15:39: Glucometer 244 04/28/20 20:38: Glucometer 229 04/29/20 05:24: Glucometer 120 04/29/20 10:30: Hemoglobin 7.9, Hematocrit 26 04/29/20 11:06: Glucometer 127 04/29/20 15:39: Glucometer 228 04/29/20 20:15: Glucometer 222 04/30/20 06:22: Glucometer 189 Discharge Home Medications: Active Scripts Active Pantoprazole Sodium 40 Mg Tablet.dr 40 Mg PO BID Sucralfate 1 Gm Tablet 1 Gm PO ACHS Klor-Con 10 (Potassium Chloride) 10 Meq Tablet.er 10 Meq PO DAILY@0700 Xarelto Tablet (Rivaroxaban) 10 Mg Tablet 10 Mg PO DAILY@1800 14 Days Hold until approved by your family doctor due to severe anemia and gastritis bleeding Levemir Flextouch (Insulin Detemir) 100 Unit/1 Ml Insuln.pen 10 Units SQ BID 30 Days Reported Fenofibrate (Fenofibrate Nanocrystallized) 145 Mg Tablet 145 Mg PO DAILY Apidra (Insulin Glulisine) 100 Unit/1 Ml Vial 0 SC TID USES PER THE FOLLOWING SLIDING SCALE 150-200=22 UNITS 200-250=24 UNITS 250-300=26 UNITS Tylenol (Acetaminophen) 325 Mg Capsule 650 Mg PO Q6H PRN Preservision Areds 2 Softgel (Vit C/E/Zn/Coppr/Lutein/Zeaxan) 1 Each Capsule 1 Each PO DAILY Benadryl (Diphenhydramine HCl) 25 Mg Capsule 25 Mg PO PRN PRN Levothyroxine Sodium 175 Mcg Tablet 175 Mcg PO DAILY TAKE WITH WATER ONLY ON AN EMPTY STOMACH Atorvastatin Calcium 10 Mg Tablet 10 Mg PO DAILY Pregabalin 50 Mg Capsule 50 Mg PO TID Instructions to patient/family Please see electronic discharge instructions given to patient. 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
--- NOTE | 2020-04-30 10:44 | Therapy Team Discharge Summary ---
Therapy Discharge Summary Discharge Recommendations Date of Discharge Occupational Therapy Pt admitted to ARU with acute exacerbation and post polio. At [facility], pt was living by herself with family nearby that can check in on her, she was independent with bathing and dressing as well as functional mobility using 4WW. At evaluation, pt was independent with feeding and oral care, min A showering, min A showering, total assist lower body dressing, mod assist footwear, and min A toileting. OT txs focused on increasing safety and independence with ADLs and functional mobility, and increasing BUE strength and functional endurance. At discharge, pt was independent with feeding and oral care, SBA showering, set up upper body dressing, SBA lower body dressing, set up footwear and SBA toileting. Pt made progress towards goals, meeting feeding and oral care goal, but did not attain all goals. Pt is discharging from facility on this date, d/c from OT at this time. Decreased Activ Tolerance, Decreased UE Strength, Impaired Funct Balance, Impaired I ADL's, Impaired Self-Care Skills PT Secondary [employer] Registrar Goals Half-Way Goals PT Half-Way Goals Time Frame: May 07, 2020 Roll Left to Right (QC): 6 Sit to Lying (QC): 6 Lying-Sitting on Side/Bed(QC): 6 Sit to Stand (QC): 6 Chair/[id number]-Mpkbm Xfer(QC): 6 Car Transfer (QC): 4 Does the Patient Walk: Yes Walk 10 feet (QC): 6 Walk 10ft-Uneven Surface(QC): 5 Walk 50ft with 2 Turns (QC): 6 Walk 150 ft (QC): 6 Does the Pt use WC or Scooter?: No Wheel 50 feet with 2 turns (QC: 9 1 Step (curb) (QC): 4 4 Steps (QC): 4 12 Steps (QC): 10 Picking up an Object (QC): 10 OT Half-Way Goals [employer] Registrar Goals Time Frame: May 09, 2020 Eating (QC): 6 (met) Oral Hygiene (QC): 6 (met) Shower/Bathe Self (QC): 6 (not met, SBA) Upper Body Dressing (QC): 6 (not met, set up) Lower Body Dressing (QC): 6 (not met, SBA) On/Off Footwear (QC): 6 (not met, set up) Toileting Hygiene (QC): 6 (not met, SBA) Toilet/Commode Transfer (QC): 6 Additional Goals: 1-Demonstrate ADL Tasks, 2-Verbalize Understanding, 3- ImproveStrength/Lisa 1=Demonstrate adherence to instructed precautions during ADL tasks. 2=Patient will verbalize/demonstrate understanding of assistive devices/modifications for ADL. 3=Patient will improve strength/tolerance for activity to enable patient to perform ADL's. Speech [employer] Registrar Goals [employer] Registrar Goals Patient will improve cognitive-communication ability in order to require decreased assistance with daily tasks. PETER YAN OT Apr 30, 2020 10:44
--- NOTE | 2020-04-30 10:53 | NUR ---
CM/SS DISCHARGE Patient discharged home as planned, Unit RN has already spoken with the son and he will be here for apple picking supervisor at 1100. [facility]: Finalized with [facility], provided continuum of care information, discharge instructions and orders. Patient states she does not have the control unit in her blood sugar implant and that she has told her son to look for it at home. IMM2 presented, reviewed, signed, charted. Patient is dressed and ready to leave, preparation for discharge has been over the past 7 days. Provided application for financial assistance because patient has no supplemental insurance to her Medicare.
--- NOTE | 2020-04-30 10:53 | Therapy Team Discharge Summary ---
Therapy Discharge Summary Discharge Recommendations Date of Discharge Occupational Therapy Decreased Activ Tolerance, Decreased UE Strength, Impaired Funct Balance, Impaired I ADL's, Impaired Self-Care Skills Speech-Language Pathology Patient was admitted to the ARU due to a decline in health and weakness. The patient received skilled ST based on her SLUMS score which indicated MNCD. The patient met her ST goals. She is being discharged to her home with family support this date. PT International Trade Teacher Goals Senior Care Goals PT Senior Care Goals Time Frame: May 07, 2020 Roll Left to Right (QC): 6 Sit to Lying (QC): 6 Lying-Sitting on Side/Bed(QC): 6 Sit to Stand (QC): 6 Chair/Ryi-ar-Xozpw Xfer(QC): 6 Car Transfer (QC): 4 Does the Patient Walk: Yes Walk 10 feet (QC): 6 Walk 10ft-Uneven Surface(QC): 5 Walk 50ft with 2 Turns (QC): 6 Walk 150 ft (QC): 6 Does the Pt use WC or Scooter?: No Wheel 50 feet with 2 turns (QC: 9 1 Step (curb) (QC): 4 4 Steps (QC): 4 12 Steps (QC): 10 Picking up an Object (QC): 10 OT International Trade Teacher Goals Senior Care Goals Time Frame: May 09, 2020 Eating (QC): 6 (met) Oral Hygiene (QC): 6 (met) Shower/Bathe Self (QC): 6 (not met, SBA) Upper Body Dressing (QC): 6 (not met, set up) Lower Body Dressing (QC): 6 (not met, SBA) On/Off Footwear (QC): 6 (not met, set up) Toileting Hygiene (QC): 6 (not met, SBA) Toilet/Commode Transfer (QC): 6 Additional Goals: 1-Demonstrate ADL Tasks, 2-Verbalize Understanding, 3- ImproveStrength/Lisa 1=Demonstrate adherence to instructed precautions during ADL tasks. 2=Patient will verbalize/demonstrate understanding of assistive devices/modifications for ADL. 3=Patient will improve strength/tolerance for activity to enable patient to perform ADL's. Speech International Trade Teacher Goals Senior Care Goals Patient will improve cognitive-communication ability in order to require decreased assistance with daily tasks. PAIGE GRECO Apr 30, 2020 10:53
[2020-04-30 11:14] VITALS: BP 133/60
== END 2020-04-30 10:55 | disposition home health service (06) | DRG 689 ==
PROVIDERS: ADMIT Internal Medicine; ATTEND Internal Medicine
DX: N39.0 Urinary tract infection, site not specified (principal); G93.41 Metabolic encephalopathy; K29.71 Gastritis, unspecified, with bleeding; B02.29 Other postherpetic nervous system involvement; B96.20 Unspecified Escherichia coli [E. coli] as the cause of diseases classified elsewhere; R53.1 Weakness; B91 Sequelae of poliomyelitis; E11.65 Type 2 diabetes mellitus with hyperglycemia; I48.91 Unspecified atrial fibrillation; D69.6 Thrombocytopenia, unspecified; D64.9 Anemia, unspecified; I10 Essential (primary) hypertension; I25.10 Atherosclerotic heart disease of native coronary artery without angina pectoris; E78.00 Pure hypercholesterolemia, unspecified; E03.9 Hypothyroidism, unspecified; E78.5 Hyperlipidemia, unspecified; K44.9 Diaphragmatic hernia without obstruction or gangrene; Z79.4 Long term (current) use of insulin; Z95.0 Presence of cardiac pacemaker; Z87.891 Personal history of nicotine dependence; Z95.5 Presence of coronary angioplasty implant and graft; Z79.01 Long term (current) use of anticoagulants
CPT/HCPCS: 36415; 80053; 82274; 82728; 82962; 83540; 83615; 85007; 85014; 85018; 85025; 85027; 85045

== ENCOUNTER 2020-04-29 08:12 | Day surgery (SDC) | payer MEDICARE ==
[~2020-04-29 08:12] MED LIST changes: -ALPRAZolam 0.25 MG (XANAX) TAB PO PRN; -BISACODYL 10 MG SUPP (DULCOLAX) PR PRN; -DOCUSATE SODIUM 100 MG (COLACE) CAP PO PRN; -FLEET ENEMA ADULT 1 EA BTL PR PRN; -LACTULOSE SYRUP 10GM/15ML (ENULOSE) 30ML UDC PO PRN; -LOPERAMIDE 2 MG (IMODIUM) TABLET PO PRN; -diphenhydrAMINE 25 MG TAB (BENADRYL) PO PRN; -guaiFENesin/CODEINE (ROBITUSSIN AC) 10ML UDC PO PRN
[2020-04-29] MEDS ORDERED: PROPOFOL INJECTION 50 ML IV ONE (08:39)
[2020-04-29] MEDS ORDERED: HURRICAINE EXT TUBE (BENZOCAINE) ONE (08:51)
[2020-04-29] MEDS ORDERED: LACTATED RINGERS 1,000 ML IV ONE ×2 (09:00→09:30)
[2020-04-29] MEDS ORDERED: HURRICAINE EXT TUBE (BENZOCAINE) XX PRN (09:15)
[2020-04-29 09:35] VITALS: BP 117/60
--- NOTE | 2020-04-29 09:35 | Anesthesia-General Post-Op ---
MAC Patient Condition Mental Status/LOC: Same as Preop Cardiovascular: Satisfactory Nausea/Vomiting: Absent Respiratory: Satisfactory Pain: Controlled Complications: Absent Post Op Complications Complications None Follow Up Care/Instructions Patient Instructions None needed. Anesthesiology Discharge Order Discharge Order Patient is doing well, no complaints, stable vital signs, no apparent adverse anesthesia problems. No complications reported per nursing. VENESSA CASTILLO CRNA Apr 29, 2020 09:35
[2020-04-29 09:40] VITALS: BP 121/60
[2020-04-29 09:45] VITALS: BP 127/62
[2020-04-29 09:50] VITALS: BP 146/66
--- NOTE | 2020-04-29 23:30 | OPERATIVE REPORT ---
DATE OF SERVICE: PREOPERATIVE DIAGNOSIS: Anemia. POSTOPERATIVE DIAGNOSES: Gastritis, hiatal hernia. PROCEDURE: EGD with biopsy. SURGEON: Abilio Mccabe DO LABORATORY MECHANICAL TECHNICIAN: None. ANESTHESIA: IV sedation by the COOK [employer]SE LABORER. SPECIMEN: Biopsy from the body of stomach. BLOOD LOSS: Scant. FLUIDS: Per anesthesia. POSTOPERATIVE CONDITION: Stable. INDICATION FOR PROCEDURE: The patient is an 85-year-old female who has had a drop in her hemoglobin and she needs a workup. FINDINGS: The patient had some mild gastritis, took a picture of this and then did a biopsy as well as she had a hiatal hernia. PROCEDURE NOTE: After informed consent was obtained, the patient was brought to the endoscopy suite, placed in bed in left lateral decubitus position. She was administered IV sedation by the COOK [employer]SE LABORER who then monitored her vitals the entire time, heart rate, blood pressure and pulse ox and the scope was inserted down the mouth through the esophagus into the stomach. Upon entering, pushed into the duodenum. Duodenum looked fine. Pulled back, antrum looked fine, but the body of stomach looked like there is some gastritis and actually looked like there is some scant blood, but could not find any ulcers. Retroflexed the scope, saw a small hiatal hernia. GE junction looked okay. Suctioned out all the air out of the stomach and then pulled the scope up the esophagus and out the mouth. The patient tolerated the procedure and she was recovered in endoscopy suite. Job ID: [id number] DocumentID: [id number] Dictated Date: 04/29/2020 13:39:13 Sand Blaster Date: 04/29/2020 23:29:28 Dictated By: ABILIO MCCABE DO
[2020-04-30] MEDS ORDERED: INSU100I29 SQ (04:49)
[2020-04-30] MEDS ORDERED: POTA10TA6 PO (04:49)
[2020-04-30] MEDS ORDERED: RIVA10T PO (04:49)
[2020-04-30] MEDS ORDERED: SUCR1TAB PO (04:49)
[2020-04-30] MEDS ORDERED: PANT40TA52 PO (04:49)
== END 2020-04-29 09:54 | disposition designated cancer center or children's hospital (05) ==
LOC: ENDO 08:12
PROVIDERS: ATTEND Surgery
DX: K29.70 Gastritis, unspecified, without bleeding (principal); K44.9 Diaphragmatic hernia without obstruction or gangrene; D64.9 Anemia, unspecified; I10 Essential (primary) hypertension; I25.10 Atherosclerotic heart disease of native coronary artery without angina pectoris; J44.9 Chronic obstructive pulmonary disease, unspecified; E03.9 Hypothyroidism, unspecified; K21.9 Gastro-esophageal reflux disease without esophagitis; E11.9 Type 2 diabetes mellitus without complications; E78.00 Pure hypercholesterolemia, unspecified; R41.82 Altered mental status, unspecified; E66.9 Obesity, unspecified; Z68.32 Body mass index [BMI] 32.0-32.9, adult; Z79.4 Long term (current) use of insulin; Z79.899 Other long term (current) drug therapy; Z88.5 Allergy status to narcotic agent; Z91.041 Radiographic dye allergy status; Z88.8 Allergy status to other drugs, medicaments and biological substances; Z95.5 Presence of coronary angioplasty implant and graft; Z95.0 Presence of cardiac pacemaker; Z87.891 Personal history of nicotine dependence; Z80.49 Family history of malignant neoplasm of other genital organs
CPT/HCPCS: 88305

== ENCOUNTER 2020-06-09 10:02 | Inpatient (IN) | payer MEDICARE ==
[~2020-06-09] VITALS: Ht 170.2 cm; Wt 84.3 kg
[~2020-06-09 10:02] MED LIST changes: +PANT40TA52 PO; +POTA10TA6 PO; +RIVA10T PO; +SUCR1TAB PO
[2020-06-09] MEDS ORDERED: polyethylene glycoL POWDER 17 GM (MIRALAX) PACK PO PRN (10:45)
[2020-06-09] MEDS ORDERED: ANTACID SUSP 30 ML UDC (MYLANTA) PO PRN (10:45)
[2020-06-09] MEDS ORDERED: FUROSEMIDE 40 MG/4 ML INJ (LASIX) IVP NR (10:45)
[2020-06-09] MEDS ORDERED: BISACODYL 10 MG SUPP (DULCOLAX) PR PRN (10:45)
[2020-06-09 11:47] VITALS: BP 128/58
[2020-06-09 11:49] VITALS: BP 128/58
[2020-06-09] MEDS: inSUlin ASPART (NovoLOG) 1 UNIT/0.01 ML (CHARGE PER UNIT) SC SCH ×3 (12:11→21:09)
[2020-06-09] MEDS: FUROSEMIDE 40 MG/4 ML INJ (LASIX) IVP SCH ×2 (13:04→17:38)
[2020-06-09 13:18] LABS: BASOPHILS % (AUTO) 1 % (0-10)
[2020-06-09 13:20] LABS: EOSINOPHILS # (AUTO) 0.1 10^3/uL (0.0-0.3); EOSINOPHILS % (AUTO) 1 % (0-10); HEMATOCRIT 30 % (35-52); HEMOGLOBIN 8.7 g/dL (11.5-16.0); LYMPHOCYTES # (AUTO) 0.9 10^3/uL (1.0-4.0); LYMPHOCYTES % (AUTO) 19 % (12-44); MEAN CORPUSCULAR HEMOGLOBIN 23 pg (25-34); MEAN CORPUSCULAR HGB CONC 29 g/dL (32-36); MEAN CORPUSCULAR VOLUME 80 fL (80-99); MEAN PLATELET VOLUME 12.7 fL (9.0-12.2); MONOCYTES # (AUTO) 0.5 10^3/uL (0.0-1.0); MONOCYTES % (AUTO) 9 % (0-12); NEUTROPHILS # (AUTO) 3.5 10^3/uL (1.8-7.8); NEUTROPHILS % (AUTO) 70 % (42-75); PLATELET COUNT 102 10^3/uL (130-400); WHITE BLOOD COUNT 4.9 10^3/uL (4.3-11.0)
[2020-06-09 13:37] LABS: CREATININE SERUM 0.95 MG/DL (0.60-1.30)
[2020-06-09] MEDS ORDERED: POTA10TA6 PO (13:58)
[2020-06-09] MEDS ORDERED: IRON15TA3 PO (14:07)
[2020-06-09] MEDS ORDERED: IBUP200C11 PO (14:07)
[2020-06-09] MEDS ORDERED: PANT40TA52 PO (14:07)
[2020-06-09] MEDS ORDERED: SUCR1TAB PO (14:07)
[2020-06-09] MEDS ORDERED: CLOT15CR28 TP (14:07)
[2020-06-09] MEDS ORDERED: INSU100I29 SQ (14:07)
[2020-06-09 15:26] VITALS: BP 113/56
--- NOTE | 2020-06-09 15:44 | NUR ---
I SPOKE WITH THE PATIENT ON THE ROOM PHONE, WENT THROUGH THE EXTERNAL MED HISTORY, CALLED HER SON JI, CALLED DR. POLO'S OFFICE AND CALLED KYM SANTOS TO HELP ME COMPLETE THIS MED REC. PATIENT AND SON BOTH STATE THAT SHE TAKES APIDRA AND GETS IT FROM HER DOCTOR'S OFFICE, BUT I HAVEN'T BEEN ABLE TO VERIFY THAT. THE NURSE STATES THAT SHE CAN'T SEE WHERE SHE'S GOTTEN IT FROM THEM SINCE 05/05/2019. SON IS VERY SURE THAT APIDRA IS WHAT SHE HAS BEEN TAKING THEREFORE I LEFT IT ON THE MED REC. OTC: ADVTAZ IRON
--- NOTE | 2020-06-09 16:11 | Occupational Therapy Eval ---
OT Evaluation-General/PLF Medical Diagnosis Admission Date Jun 09, 2020 at 11:45 Medical Diagnosis: Not listed in chart. Per pt report- Anemia. Onset Date: Jun 09, 2020 Therapy Diagnosis Therapy Diagnosis: Decreased ADL status Height/Weight Height (Feet): 5 Height (Inches): 7.00 Weight (Pounds): 206 Precautions Precautions/Isolations: Contact Isolation, Droplet Isolation Referral Referral Reason: Activity Tolerance, Self Care, Evaluation/Treatment, Strengthening/ROM Medical History Pertinent Medical History: DM, HTN, Post Polio Syndrome Current History Pt admits from home 06/09. No HPI at this time. All hx per pt/ nursing. Reviewed History: Yes Social History Home: Single Level Current Living Status: Alone Entry Into Home: Stairs With Railing Steps Into Home: 2 ADL-Prior Level of Function SCALE: Activities may be completed with or without assistive devices. 9-Jyvbjxwazg-eclmrqe completes the activity by him/herself with no assistance from a helper. 5-Set-up or Clean-up Assistance-helper sets up or cleans up; patient completes activity. [place] assists only prior to or following the activity. 4-Supervision or Touching Assistance-helper provides verbal cues and/or touching/steadying and/or contact guard assistance as patient completes activity. Assistance may be provided throughout the activity or intermittently. 3-Partial/Moderate Assistance-helper does LESS THAN HALF the effort. [place] lifts, holds or supports trunk or limbs, but provides less than half the effort. 2-Substantial/Maximal Assistance-helper does MORE THAN HALF the effort. [place] lifts or holds trunk or limbs and provides more than half the effort. 9-Cociomhsf-hqkswk does ALL the effort. Patient does none of the effort to complete the activity. Or, the assistance of 2 or more helpers is required for the patient to complete the activity. If activity was not attempted, code reason: 7-Patient Refused. 9-Not Applicable-not attempted and the patient did not perform the activity before the current illness, exacerbation or injury. 10-Not Attempted due to Environmental Limitations-(lack of equipment, weather restraints, etc.). 88-Not Attempted due to Medical Conditions or Safety Concerns. ADL PLOF Comments Pt states is IND within the home with use of walker or rollator. Pt states son lives blocks away and completes cooking/ grocery shopping/ driving. Self Care: Independent Functional Cognition: Independent DME/Equipment: Bath Chair, Shower DME/Equipment Comments walk in shower, sc, rollator/ walker Drive Self: No OT Current Status Subjective Pt alert/ oriented in room. Pt agrees to OT eval. States pain due to shingles. hospice home health aide notified of pt's pain. Mental Status/Objective Patient Orientation: Person, Place, Situation Attachments: Jang Catheter, Oxygen Current Glasses/Contacts: Yes Hearing Aids: No Dentures/Partials: No Hand Dominance: Right Upper Extremity ROM WFL BUE Upper Extremity Coordination WFL BUE Upper Extremity Sensation WFL BUE Upper Extremity Strength Decreased ADL-Treatment Eating (QC): 6 Oral Hygiene (QC): 6 Toileting Hygiene (QC): 4 Other Treatments Pt in supine on bed. Supine to sit with SBA. Pt sit to stand SBA to walker. Pt able to complete bottom hygiene, new shankar placed under bottom. Pt returns to sit, denies doffing sock as pt states will use AE at home. Pt denies getting to recliner. pt is educated on proper positioning and decrease of PNA if upright. Pt agrees for HOB to be elevated. Pt sits in bed/ all needs met/ call light in reach. pt educated on continued OT for strengthening/ ensure safe d/c home. Education OT Patient Education: Correct positioning, Purpose of tx/functional activities, Safety issues, Transfer techniques Teaching Recipient: Patient Teaching Methods: Demonstration, Discussion Response to Teaching: Verbalize Understanding, Return Demonstration OT Cradle Placer Goals Cradle Placer Goals Time Frame: Jun 16, 2020 Eating (QC): 6 Oral Hygiene (QC): 6 Toileting Hygiene (QC): 6 Shower/Bathe Self (QC): 6 Upper Body Dressing (QC): 6 Lower Body Dressing (QC): 6 On/Off Footwear (QC): 6 Additional Goals: 1-Demonstrate ADL Tasks, 2-Verbalize Understanding, 3- ImproveStrength/Lisa 1=Demonstrate adherence to instructed precautions during ADL tasks. 2=Patient will verbalize/demonstrate understanding of assistive devices/modifications for ADL. 3=Patient will improve strength/tolerance for activity to enable patient to perform ADL's. OT Education/Plan Problem List/Assessment Assessment: Decreased Activ Tolerance, Decreased UE Strength, Dependent Transfers, Impaired Bed Mobility, Impaired Funct Balance, Impaired I ADL's, Impaired Self-Care Skills Discharge Recommendations Plan/Recommendations: Continue POC Therapy Discharge Recommendati: Home & Family Treatment Plan/Plan of Care Treatment,Training & Education: Yes Patient would benefit from OT for education, treatment and training to promote independence in ADL's, mobility, safety and/or upper extremity function for ADL' s. Plan of Care: ADL Retraining, Functional Mobility, UE Funct Exercise/Act Treatment Duration: Jun 16, 2020 Frequency: 5 times per week Estimated Hrs Per Day: .25 hour per day Agreement: Yes Rehab Potential: Fair Time/GCodes Start Time: 15:45 Stop Time: 16:01 Total Time Billed (hr/min): 16 Billed Treatment Time 1, EVM (16) KHLOE ALEX OTR Jun 09, 2020 16:11
[2020-06-09] MEDS ORDERED: RIVAROXABAN 10 MG TABLET (XARELTO) PO SCH (18:00)
[2020-06-09 19:54] VITALS: BP 117/55
--- NOTE | 2020-06-09 20:18 | History & Physical-Hospitalist ---
History of Present Illness HPI/Chief Complaint Bridget Stockton is an 85 year old female with PMH insulin-dependent T2DM, HLD, hypothyroidism, who presented with shortness of breath. She reports that this has been worsening over recent weeks. She denies cough. She denies fevers and chills. She reports having some chest tightness. She denies abdominal pain. She denies nausea and vomiting. She denies dysuria. She denies any known exposure to COVID. She reports leg swelling. She has been taking extra Lasix at home but has worsened nevertheless. Source: patient Exam Limitations: no limitations Date Seen 06/09/20 Time Seen by a Provider: 16:00 Attending Physician Usman Jorge MD PCP Antonio Walker MD Referring Physician Date of Admission Jun 09, 2020 at 11:45 Home Medications & Allergies Home Medications Reviewed patient Home Medication Reconciliation performed by pharmacy medication reconciliations vehicle maintenance technician and/or nursing. Patients Allergies have been reviewed. Allergies Allergies Coded Allergies codeine (Verified Allergy, Unknown, 10/14/05) iodine (Verified Allergy, Unknown, 10/14/05) Past Angyqkz-Cbbala-Bvskfo Hx Past Med/Social Hx: Reviewed Nursing Past Med/Soc Hx Patient Social History Alcohol Use: Denies Use Recreational Drug Use: No Physical Abuse Screen: No Sexual Abuse: No Recent Foreign Travel: No Contact w/other who traveled: No Recent Hopitalizations: No Recent Infectious Disease Expo: No Immunizations Up To Date Pediatric: No Date of Pneumonia Vaccine: Jun 03, 2009 Date of Influenza Vaccine: May 15, 2020 Past Medical History Surgeries: Pacemaker Currently Using CPAP: No Currently Using BIPAP: No Cardiac: High Cholesterol Endocrine: Hyperthyroidism, Diabetes, Non-Insulin dep Are Your Blood Sugars Over 250: No Hearing Impairment: Hard of Hearing Family History Cancer Review of Systems Constitutional: weakness EENTM: no symptoms reported Respiratory: short of breath Cardiovascular: chest pain Gastrointestinal: no symptoms reported Genitourinary: no symptoms reported Musculoskeletal: no symptoms reported Skin: no symptoms reported Psychiatric/Neurological: No Symptoms Reported Physical Exam Physical Exam Vital Signs Vital Signs - First Documented 06/09/20 06/09/20 06/09/20 11:47 12:00 15:26 Temp 35.9 Pulse 81 Resp 22 B/P (MAP) 128/58 Pulse Ox 92 O2 Delivery Room Air O2 Flow Rate 2.00 Capillary Refill : Height, Weight, BMI Height: 5'7.00" Weight: 206lbs. oz. 91.111098iu; 31.82 BMI Method: General Appearance: No Apparent Distress, Obese HEENT: PERRL/EOMI, Pharynx Normal Neck: Normal Inspection, Supple Respiratory: Lungs Clear, Normal Breath Sounds, No Respiratory Distress Cardiovascular: Regular Rate, Rhythm, No Edema, No Murmur Gastrointestinal: Normal Bowel Sounds, Non Tender, Soft Extremity: Normal Inspection, Non Tender, No Pedal Edema Neurologic/Psychiatric: Alert, Oriented x3, No Motor/Sensory Deficits, Normal Mood/Affect Skin: Normal Color, Warm/Dry Results Results/Procedures Labs Laboratory Tests 06/09/20 13:03 Patient resulted labs reviewed. Imaging: Reviewed Imaging Report Assessment/Plan Admission Diagnosis Acute on chronic heart failure with preserved ejection fraction Admission Status: Inpatient Order (span 2 midnights) Reason for Inpatient Admission: HF requring IV diuresis Assessment and Plan Acute on chronic heart failure with preserved ejection fraction Person under investigation for COVID-19 [facility] Check troponin and BNP Lasix Obtain echo COVID TIERRA negative COVID PCR pending Anemia Thrombocytopenia Hgb 8.7, increased from prior, appears at baseline Plt 102, chronically mildly decreased Continue to monitor T2DM Levemir, decreased dose SSI DVT Prophylaxis: Lovenox Diagnosis/Problems Diagnosis/Problems (1) Acute on chronic congestive heart failure Status: Acute Qualifiers: Heart failure type: diastolic Qualified Codes: I50.33 - Acute on chronic diastolic (congestive) heart failure (2) Person under investigation for COVID-19 Status: Acute (3) Anemia Status: Chronic (4) Thrombocytopenia Status: Chronic (5) T2DM (type 2 diabetes mellitus) Status: Chronic Qualifiers: Diabetes mellitus care home insulin use: with care home use Clinical Quality Measures DVT/VTE Risk/Contraindication: Risk Factor Score Per Nursin RFS Level Per Nursing on Admit: 4+=Very High USMAN JORGE MD Jun 09, 2020 20:18
--- NOTE | 2020-06-09 20:23 | Diagnostic Imaging Report ---
EXAMINATION: Portable erect AP chest at 5:42 PM INDICATION: Respiratory distress, shortness of breath The heart is enlarged and the heart has increased in size since the prior exam of 04/13/2020. The central pulmonary vascularity is also prominent and there may be an element of mild pulmonary congestion present. Furthermore, in the interval since the prior study bibasilar pneumonia/atelectasis and small bilateral pleural effusions have developed. Reportedly, the patient is positive for dennison virus. The upper lungs are generally clear. The mediastinum is not widened. The osseous structures are intact. The left-sided pacemaker seen previously is again evident. The loop recorder device noted on the prior exam has been removed, however. IMPRESSION: 1. The appearance of the chest has worsened since the prior study as the heart has increased in size and there is now an element of pulmonary edema present. There is also bibasilar pneumonia/atelectasis and small bilateral pleural effusions. A followup study would be recommended for continued evaluation. Dictated by: Dictated on workstation # [id number]
[2020-06-09] MEDS: PANTOPRAZOLE 40 MG (PROTONIX) TAB PO SCH (21:09)
[2020-06-09] MEDS: DOCUSATE SODIUM 100 MG (COLACE) CAP PO SCH (21:09)
[2020-06-09] MEDS: SENNOSIDES 8.6 MG (SENOKOT) TAB PO SCH (21:09)
--- NOTE | 2020-06-09 21:45 | NUR ---
PT REQUESTING LYRICA. DR. RICHEY CALLED AND INFORMED OF TROPONIN LEVEL AND BNP. DR CRYSTAL LABS WERE TAKEN FROM BLOOD THAT WAS DRAWN HOURS AGO. DR. RICHEY TROPONIN NOW AND LYRICA 50MG TID PRN.
[2020-06-09] MEDS: PREGABALIN 50 MG (LYRICA) CAP PO PRN (22:01)
[2020-06-10] VITALS (7 sets, daily range): BP systolic 103–127; BP diastolic 53–60
[2020-06-10 04:42] LABS: BASOPHILS % (AUTO) 1 % (0-10); EOSINOPHILS # (AUTO) 0.1 10^3/uL (0.0-0.3); EOSINOPHILS % (AUTO) 2 % (0-10); HEMATOCRIT 26 % (35-52); HEMOGLOBIN 7.7 g/dL (11.5-16.0); LYMPHOCYTES # (AUTO) 0.7 10^3/uL (1.0-4.0); LYMPHOCYTES % (AUTO) 19 % (12-44); MEAN CORPUSCULAR HEMOGLOBIN 23 pg (25-34); MEAN CORPUSCULAR HGB CONC 29 g/dL (32-36); MEAN CORPUSCULAR VOLUME 79 fL (80-99); MEAN PLATELET VOLUME 13.1 fL (9.0-12.2); MONOCYTES # (AUTO) 0.4 10^3/uL (0.0-1.0); MONOCYTES % (AUTO) 10 % (0-12); NEUTROPHILS # (AUTO) 2.4 10^3/uL (1.8-7.8); NEUTROPHILS % (AUTO) 68 % (42-75); PLATELET COUNT 88 10^3/uL (130-400); WHITE BLOOD COUNT 3.6 10^3/uL (4.3-11.0)
[2020-06-10 04:54] LABS: POTASSIUM 3.9 MMOL/L (3.6-5.0)
[2020-06-10 04:55] LABS: CALCIUM 8.3 MG/DL (8.5-10.1)
[2020-06-10 04:59] LABS: CREATININE SERUM 0.94 MG/DL (0.60-1.30)
[2020-06-10] MEDS: inSUlin ASPART (NovoLOG) 1 UNIT/0.01 ML (CHARGE PER UNIT) SC SCH ×4 (05:00→20:48)
[2020-06-10] MEDS: FUROSEMIDE 40 MG/4 ML INJ (LASIX) IVP SCH ×2 (05:15→17:15)
[2020-06-10] MEDS: LEVOTHYROXINE 75 MCG (LEVOTHROID) TABLET PO SCH (05:15)
[2020-06-10] MEDS: LEVOTHYROXINE 100 MCG (LEVOTHROID) TAB PO SCH (05:15)
--- NOTE | 2020-06-10 06:52 | NUR ---
COVID SEND OUT IS NEGATIVE. DR. JORGE NOTIFIED. ORDER TO MOVE PT TO DIFFERENT ROOM.
[2020-06-10] MEDS: PANTOPRAZOLE 40 MG (PROTONIX) TAB PO SCH ×2 (09:05→20:48)
[2020-06-10] MEDS: SENNOSIDES 8.6 MG (SENOKOT) TAB PO SCH ×2 (09:05→20:48)
[2020-06-10] MEDS: DOCUSATE SODIUM 100 MG (COLACE) CAP PO SCH ×2 (09:05→20:48)
[2020-06-10] MEDS: ENOXAPARIN 40 MG/0.4 ML (LOVENOX) SYR SC SCH (09:05)
--- NOTE | 2020-06-10 09:47 | Physical Therapy Evaluation ---
PT Evaluation-General Medical Diagnosis Admission Date Jun 09, 2020 at 11:45 Medical Diagnosis: CHF Onset Date: Jun 09, 2020 Therapy Diagnosis Therapy Diagnosis: debility/weakness Height/Weight Height (Feet): 5 Height (Inches): 7.00 Weight (Pounds): 206 Precautions Precautions/Isolations: Standard Precautions Weight Bear Status Right Lower Extremity: Right Full Weight Bearing Left Lower Extremity: Left Full Weight Bearing Referral Physician: Keyshawn Reason for Referral: Evaluation/Treatment Medical History Pertinent Medical History: DM, HTN, Post Polio Syndrome Current History ER secondary to SOA Reviewed History: Yes Social History Home: Single Level Current Living Status: Children Entry Into Home: Stairs With Railing PT Steps Into Home: 2 Prior Prior Level of Function SCALE: Activities may be completed with or without assistive devices. 3-Nsitmbgmqn-brvefjr completes the activity by him/herself with no assistance from a helper. 5-Set-up or Clean-up Assistance-helper sets up or cleans up; patient completes activity. [place] assists only prior to or following the activity. 4-Supervision or Touching Assistance-helper provides verbal cues and/or touching/steadying and/or contact guard assistance as patient completes activity. Assistance may be provided throughout the activity or intermittently. 3-Partial/Moderate Assistance-helper does LESS THAN HALF the effort. [place] lifts, holds or supports trunk or limbs, but provides less than half the effort. 2-Substantial/Maximal Assistance-helper does MORE THAN HALF the effort. [place] lifts or holds trunk or limbs and provides more than half the effort. 5-Zvnslkefx-yxvfym does ALL the effort. Patient does none of the effort to complete the activity. Or, the assistance of 2 or more helpers is required for the patient to complete the activity. If activity was not attempted, code reason: 7-Patient Refused. 9-Not Applicable-not attempted and the patient did not perform the activity before the current illness, exacerbation or injury. 10-Not Attempted due to Environmental Limitations-(lack of equipment, weather restraints, etc.). 88-Not Attempted due to Medical Conditions or Safety Concerns. Bed Mobility: 5 Transfers (B,C,W/C): 5 Gait: 5 Stairs: 4 (assist by son) Indoor Mobility (Ambulation): Independent Stairs: Independent Prior Devices Use: Walker PT Evaluation-Current Subjective Patient is very tearful but agrees to PT. Pain Numeric Pain Scale: 10-Worst Possible Pain Location: Right Location Body Site: Side Pain Description: Chronic (shingles a year ago) Objective Patient Orientation: Normal For Age Attachments: Oxygen, Jang Catheter ROM/Strength ROM Lower Extremities bilateral LE WFL Strength Lower Extremities 4/5 grossly bilateral LE Integumentary/Posture Integumentary refer to nursing notes Bladder Incontinence: Jang Cath Posture trunk flexed posture in stand with FWW Neuromuscular (Tone, Coordination, Reflexes) grossly intact Sensory Vision: Functional Hearing: Functional Hand Dominance: Right Transfers Roll Left to Right (QC): 5 Sit to Lying (QC): 5 Lying to Sitting/Side of Bed(Q: 5 Sit to Stand (QC): 5 Chair/Jqu-bw-Bclng Xfer(QC): 5 Gait Does the Patient Walk?: Yes Mode of Locomotion: Walk Anticipated Mode of Locomotion: Walk Walk 10 feet (QC): 5 Walk 50 ft with 2 Turns(QC): 5 Walk 150 ft (QC): 7 Gait Assistive Device: FWW Comments/Gait Description no deviation Balance Sitting Static: Normal Sitting Dynamic: Normal Standing Static: Normal Standing Dynamic: Normal Assessment/Needs 85 y.o. female, will be seen short term by skilled PT to address functional mobility to ensure safe return to home with family (son). Rehab Potential: Fair PT Roof Bolter Operator Goals Roof Bolter Operator Goals PT Shelter Goals Time Frame: Jun 21, 2020 Roll Left & Right (QC): 5 Sit to Lying (QC): 5 Lying-Sitting on Side/Bed(QC): 5 Sit to Stand (QC): 5 Chair/Pzg-ex-Qmbqg Xfer(QC): 5 Toilet Transfer (QC): 5 Does the Patient Walk: Yes Walk 10 feet (QC): 5 Walk 50ft with 2 Turns (QC): 5 Walk 150 ft (QC): 5 PT Plan Problem List Problem List: Activity Tolerance Treatment/Plan Treatment Plan: Continue Plan of Care Treatment Plan: Education, Functional Activity Lisa, Functional Strength, Gait, Safety, Therapeutic Exercise, Transfers Treatment Duration: Jun 21, 2020 Frequency: 6 times per week Estimated Hrs Per Day: .5 hour per day Patient and/or Family Agrees t: Yes Discharge Recommendations Therapy Discharge Recommendati: Home & Family (home health PT) Time/GCodes Time In: 810 Time Out: 833 Total Billed Treatment Time: 23 [facility] MARIANNE DIAZ PT Jun 10, 2020 09:47
[2020-06-10] MEDS: PREGABALIN 50 MG (LYRICA) CAP PO PRN ×2 (10:12→20:48)
--- NOTE | 2020-06-10 11:58 | Consultation-Cardiology ---
HPI-Cardiology Cardiology Consultation Date of Consultation 06/10/20 Date of Admission Time Seen by Provider: 16:00 Indication: CHF HPI Patient is an 85 y/o female with history of CAD, HLP, DM, SSS s/p PPM. Direct admit from her PCP with complaints of increased dyspnea over the past 2 weeks. Denies any chest pain, dizziness or lightheadedness. C/o occasional right sided rib pain d/t shingles Home Medications & Allergies Allergies: Coded Allergies: codeine (Verified Allergy, Unknown, 10/14/05) iodine (Verified Allergy, Unknown, 10/14/05) Home Medication List Reviewed: Yes ZRG-Yofdpi-Batzpg Hx Patient Social History Marital Status: single Alcohol Use: Denies Use Recreational Drug Use: No Recent Foreign Travel: No Recent Infectious Disease Expo: No Recent Hopitalizations: No Physical Abuse Screen: No Sexual Abuse: No Immunizations Up To Date Date of Pneumonia Vaccine: Jun 03, 2009 Date of Influenza Vaccine: May 15, 2020 Past Medical History CAD, HLP, DM, SSS Family Medical History Significant Family History: Cancer Review of Systems-General Review of Systems Constitutional: see HPI, malaise, weakness EENTM: see HPI, no symptoms reported Respiratory: see HPI, cough, orthopnea, short of breath; No wheezing Cardiovascular: see HPI; No chest pain; edema, Hx of Intervention; No pal pitations, No syncope; vascular heart diseas Gastrointestinal: no symptoms reported Genitourinary: no symptoms reported Musculoskeletal: no symptoms reported Skin: no symptoms reported Psychiatric/Neurological: No Symptoms Reported Reviewed Test Results Reviewed Test Results Lab Laboratory Tests 06/09/20 12:10: Glucometer 110 06/09/20 13:03: White Blood Count 4.9, Red Blood Count 3.74L, Hemoglobin 8.7L, Hematocrit 30L, Mean Corpuscular Volume 80, Mean Corpuscular Hemoglobin 23L, Mean Corpuscular Hemoglobin Concent 29L, Red Cell Distribution Width 17.4H, Platelet Count 102L, Mean Platelet Volume 12.7H, Immature Granulocyte % (Auto) 0, Neutrophils (%) (Auto) 70, Lymphocytes (%) (Auto) 19, Monocytes (%) (Auto) 9, Eosinophils (%) (Auto) 1, Basophils (%) (Auto) 1, Neutrophils # (Auto) 3.5, Lymphocytes # (Auto) 0.9L, Monocytes # (Auto) 0.5, Eosinophils # (Auto) 0.1, Basophils # (Auto) 0.0, Immature Granulocyte # (Auto) 0.0, Sodium Level 135, Potassium Level 4.0, Chloride Level 97L, Carbon Dioxide Level 26, Anion Gap 12, Blood Urea Nitrogen 25H, Creatinine 0.95, Estimat Glomerular Filtration Rate 56, BUN/Creatinine Ra vincenzo 26, Glucose Level 94, Calcium Level 9.0, Troponin I 0.044H, B-Type Natriuretic Peptide 1477.9H, Smear Scan 06/09/20 15:24: Glucometer 94 06/09/20 19:56: Glucometer 215H 06/09/20 22:23: Troponin I 0.030H 06/10/20 04:32: White Blood Count 3.6L, Red Blood Count 3.30L, Hemoglobin 7.7L, Hematocrit 26L, Mean Corpuscular Volume 79L, Mean Corpuscular Hemoglobin 23L, Mean Corpuscular Hemoglobin Concent 29L, Red Cell Distribution Width 17.2H, Platelet Count 88L, Mean Platelet Volume 13.1H, Immature Granulocyte % (Auto) 0, Neutrophils (%) (Auto) 68, Lymphocytes (%) (Auto) 19, Monocytes (%) (Auto) 10, Eosinophils (%) (Auto) 2, Basophils (%) (Auto) 1, Neutrophils # (Auto) 2.4, Lymphocytes # (Auto) 0.7L, Monocytes # (Auto) 0.4, Eosinophils # (Auto) 0.1, Basophils # (Auto) 0.0, Immature Granulocyte # (Auto) 0.0, Sodium Level 135, Potassium Level 3.9, Chloride Level 94L, Carbon Dioxide Level 29, Anion Gap 12, Blood Urea Nitrogen 25H, Creatinine 0.94, Estimat Glomerular Filtration Rate 57, BUN/Creatinine Ratio 27, Glucose Level 141H, Calcium Level 8.3L 06/10/20 11:43: Glucometer 231H Physical Exam Physical Exam Vital Signs Vital Signs - First Documented 06/09/20 06/09/20 06/09/20 11:47 12:00 15:26 Temp 35.9 Pulse 81 Resp 22 B/P (MAP) 128/58 Pulse Ox 92 O2 Delivery Room Air O2 Flow Rate 2.00 Capillary Refill : Less Than 3 Seconds Height, Weight, BMI Height: 5'7.00" Weight: 206lbs. oz. 91.701339op; 31.82 BMI Method: General Appearance: No Apparent Distress, Obese HEENT: PERRL/EOMI, Pharynx Normal Neck: Normal Inspection, Supple Respiratory: Lungs Clear, Normal Breath Sounds, No Respiratory Distress Cardiovascular: Regular Rate, Rhythm, No Murmur, Other (+1-2 BLE edema. ) Gastrointestinal: Normal Bowel Sounds, Non Tender, Soft Extremity: Normal Inspection, Non Tender, No Pedal Edema Neurologic/Psychiatric: Alert, Oriented x3, No Motor/Sensory Deficits, Normal Mood/Affect Skin: Normal Color, Warm/Dry A/P-Cardiology Admission Diagnosis CHF CAD HLP DM Assessment/Plan CHF, elevated BNP, I will evaluate 2D Echo, continue to diuresis CAD- reported hx of stent placement in the remote past. Previously followed with Dr. Holguin in [place], no recent work up. Mildly elevated troponin, trending down, likely type II [place]. Continue to monitor SSS, hx of PPM in the past. Follows with cardiology in [place]. HLP- maintained on statin as outpatient. DM, management per primary care Thank you for allowing us to participate in the management of Ms. Stockton. This is Yaa Castillo PA-C, as a scribe for Dr. Ross. Patient was seen and evaluated with Yaa, examination performed, management plan was discussed, agree with the current scribed note, I made few changes to the note using Italic font Patient was seen at bedside, reporting mild dyspnea on exertion which has been worsening recently History of coronary artery disease, clinically stable at this time Sinus node dysfunction, history of permanent pacemaker I will evaluate 2-D echo. Start aggressive diuresis Clinical Quality Measures DVT/VTE Risk/Contraindication: Risk Factor Score Per Nursin RFS Level Per Nursing on Admit: 4+=Very High YAA SANCHEZ Jun 10, 2020 11:58 am MARGOT ROSS MD Jun 10, 2020 12:58 pm
--- NOTE | 2020-06-10 13:32 | NUR ---
RD ASSESSMENT PMHx: DM; HLD; hypothyroidism; PT INTERACTION: Pt was awake and pleasant during nutrition assessment. Pt states current appetite is good. Note avg PO intake 63% x2meal, per chart review. Pt states following a "no added salt" diet at home, and has no issues with chewing/swallowing food. Pt states some recent issues with nausea, but not vomiting, constipation, or diarrhea, and that her last BM was 06/10. Note pt currently on bowel regimen of colace BID, and senna BID, per chart review. Pt states no recent wt changes. Note recent 4# wt gain x2mon, per chart review. Pt states current DM management is good, according to her. "I think it's pretty good, my son takes care of it. He doesn't think it's as good as it should be." Note unable to determine recent HbA1c, per chart review. ABNORMAL NUTRITION-RELATED LAB VALUES LOW: Cl 94; Ca 8.3; HIGH: BUN 25; glu 141; Est. kcal needs: 6084-7654 kcal | 15-20 kcal/kg Est. Pro needs: 73-91 g Pro | 0.8-1.0 g Pro/kg PES STATEMENT: Inadequate oral intake (NI-2.1) related to loss of appetite and nausea, as evidenced by pt interview and avg PO intake 63% x2meal. INTERVENTION: Continue with current diet order of 2000mg Na diet. Pt may benefit from consistent CHO restriction if blood glucose levels become elevated. Pt may benefit from nutrition supplementation if PO intake declines. Encouraged pt to eat when able. Offered diet education on DM management, but pt declined at this time. May attempt to offer again prior to discharge. Will continue to follow and reassess as pt needs, intake, and status change. Piyush Zhong, MS RD LD
--- NOTE | 2020-06-10 13:37 | Occupational Ther Daily Note ---
OT Current Status-Daily Note Subjective Pt in chair upon entry. Pt states need for BM. Pt denies pain, then later in session requests medication for shingles. Nursing notified. Mental Status/Objective Patient Orientation: Person, Place, Situation Attachments: Jang Catheter, Oxygen ADL-Treatment Therapy Code Descriptions/Definitions Functional [place] Measure: 0=Not Assessed/NA 4=Minimal Assistance 1=Total Assistance 5=Supervision or Setup 2=Maximal Assistance 6=Modified [place] 3=Moderate Assistance 7=Complete IndependenceSCALE: Activities may be completed with or without assistive devices. 7-Rwbccxcfsz-jtzxefk completes the activity by him/herself with no assistance from a helper. 5-Set-up or Clean-up Assistance-helper sets up or cleans up; patient completes activity. [place] assists only prior to or following the activity. 4-Supervision or Touching Assistance-helper provides verbal cues and/or touching/steadying and/or contact guard assistance as patient completes activity. Assistance may be provided throughout the activity or intermittently. 3-Partial/Moderate Assistance-helper does LESS THAN HALF the effort. [place] lifts, holds or supports trunk or limbs, but provides less than half the effort. 2-Substantial/Maximal Assistance-helper does MORE THAN HALF the effort. [place] lifts or holds trunk or limbs and provides more than half the effort. 1-Dviirfryf-cvtqea does ALL the effort. Patient does none of the effort to complete the activity. Or, the assistance of 2 or more helpers is required for the patient to complete the activity. If activity was not attempted, code reason: 7-Patient Refused. 9-Not Applicable-not attempted and the patient did not perform the activity before the current illness, exacerbation or injury. 10-Not Attempted due to Environmental Limitations-(lack of equipment, weather restraints, etc.). 88-Not Attempted due to Medical Conditions or Safety Concerns. Eating (QC): 6 Lower Body Dressing (QC): 3 (mod A for threading BLE, pt pulls up post BM management with CGA) Toileting Hygiene (QC): 3 (Min A for thoroughness) Toilet Transfer (QC): 4 (CGA, use of walker) Other Treatment Pt in recliner, requesting BM. Pt sit to stand with min A, ambulates to BSC placed to R of pt. Pt completes, sit to stand CGA and wipes min A. Pulls up undergarments with CGA, returns to chair with all needs met, call light in reach, LEs elevated. Education OT Patient Education: Correct positioning, Progress toward Goal/Update tx plan, Purpose of tx/functional activities, Safety issues, Transfer techniques Teaching Recipient: Patient Teaching Methods: Demonstration, Discussion Response to Teaching: Verbalize Understanding, Return Demonstration, Reinforcement Needed OT Chcf Goals Chcf Goals Time Frame: Jun 16, 2020 Eating (QC): 6 Oral Hygiene (QC): 6 Toileting Hygiene (QC): 6 Shower/Bathe Self (QC): 6 Upper Body Dressing (QC): 6 Lower Body Dressing (QC): 6 On/Off Footwear (QC): 6 Additional Goals: 1-Demonstrate ADL Tasks, 2-Verbalize Understanding, 3- ImproveStrength/Lisa 1=Demonstrate adherence to instructed precautions during ADL tasks. 2=Patient will verbalize/demonstrate understanding of assistive devices/modifications for ADL. 3=Patient will improve strength/tolerance for activity to enable patient to perform ADL's. OT Education/Plan Problem List/Assessment Assessment: Decreased Activ Tolerance, Dependent Transfers, Impaired Funct Balance, Impaired I ADL's, Impaired Self-Care Skills Discharge Recommendations Plan/Recommendations: Continue POC Therapy Discharge Recommendati: Intermittent Supervision, Home & Family Treatment Plan/Plan of Care Treatment,Training & Education: Yes Patient would benefit from OT for education, treatment and training to promote independence in ADL's, mobility, safety and/or upper extremity function for ADL's. Plan of Care: ADL Retraining, Functional Mobility, UE Funct Exercise/Act Treatment Duration: Jun 16, 2020 Frequency: 5 times per week Estimated Hrs Per Day: .25 hour per day Agreement: Yes Rehab Potential: Fair Time/GCodes Start Time: 09:54 Stop Time: 10:10 Total Time Billed (hr/min): 16 Billed Treatment Time 1, ADL (16) KHLOE ALEX OTR Jun 10, 2020 13:37
--- NOTE | 2020-06-10 14:42 | Progress Note - Hospitalist ---
Subjective HPI/CC On Admission Date Seen by Provider: Jun 10, 2020 Time Seen by Provider: 09:45 Bridget Stockton is an 85 year old female with PMH insulin-dependent T2DM, HLD, hypothyroidism, who presented with shortness of breath. She reports that this has been worsening over recent weeks. She denies cough. She denies fevers and chills. She reports having some chest tightness. She denies abdominal pain. She denies nausea and vomiting. She denies dysuria. She denies any known exposure to COVID. She reports leg swelling. She has been taking extra Lasix at home but has worsened nevertheless. Subjective/Events-last exam She reports sleeping well. She denies shortness of breath. She has been eating and drinking. She has no other complaints or concerns. Objective Exam Vital Signs Vital Signs Date Time Temp Pulse Resp B/P (MAP) Pulse Ox O2 Delivery O2 Flow Rate FiO2 06/10/20 12:00 36.0 70 16 125/60 (81) 94 Nasal Cannula 2.00 Capillary Refill : Less Than 3 Seconds General Appearance: No Apparent Distress, Obese Respiratory: Lungs Clear, Normal Breath Sounds, No Respiratory Distress Cardiovascular: Regular Rate, Rhythm, No Murmur Gastrointestinal: Normal Bowel Sounds, Non Tender, Soft Extremity: Normal Inspection, Non Tender, No Pedal Edema Neurologic/Psychiatric: Alert, Oriented x3, No Motor/Sensory Deficits, Normal Mood/Affect Skin: Normal Color, Warm/Dry Results/Procedures Lab Laboratory Tests 06/10/20 04:32 Patient resulted labs reviewed. 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 dysfunction Echo revealed EF 35-40% with grade II diastolic dysfunction and global hypokinesis Continue Lasix Cardiology consulted, appreciate assistance Pancytopenia WBC 3.6, Hgb 7.7, Plt 88 Check folate level Appears chronic per chart review Post-herpetic neuralgia Lyrica T2DM Levemir SSI Hypothyroidism Synthroid HLD Statin GERD PPI SSS s/p pacemaker Obesity Clinically significant, no acute management needs DVT Prophylaxis: Lovenox Diagnosis/Problems Diagnosis/Problems (1) Acute on chronic congestive heart failure Status: Acute Qualifiers: Heart failure type: combined systolic and diastolic Qualified Codes: I5 0.43 - Acute on chronic combined systolic (congestive) and diastolic (congestive) heart failure (2) Anemia Status: Chronic (3) Thrombocytopenia Status: Chronic (4) T2DM (type 2 diabetes mellitus) Status: Chronic 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
--- NOTE | 2020-06-10 15:43 | NUR ---
CM/SS attempted to visit with patient x2 today. The patient was on the commode for first attempt and second she was peacefully sleeping; therefore, this sw will attempt to visit at a later time. CM/SS received referral for diabetic supplies. CM/SS spoke with the patient's primary care nurse who reports the patient is diabetic and on home insulin. Will assess needs at visit.
[2020-06-10] MEDS: ONDANSETRON 4 MG/2 ML (SDV) Z0FRAN IV PRN (17:33)
[2020-06-11] VITALS (7 sets, daily range): BP systolic 102–117; BP diastolic 52–79
[2020-06-11] MEDS: FUROSEMIDE 40 MG/4 ML INJ (LASIX) IVP SCH ×2 (06:01→17:52)
[2020-06-11] MEDS: LEVOTHYROXINE 100 MCG (LEVOTHROID) TAB PO SCH (06:01)
[2020-06-11] MEDS: LEVOTHYROXINE 75 MCG (LEVOTHROID) TABLET PO SCH (06:01)
[2020-06-11 06:13] LABS: BASOPHILS % (AUTO) 0 % (0-10); HEMOGLOBIN 7.6 g/dL (11.5-16.0)
[2020-06-11 06:15] LABS: EOSINOPHILS # (AUTO) 0.1 10^3/uL (0.0-0.3); EOSINOPHILS % (AUTO) 1 % (0-10); HEMATOCRIT 27 % (35-52); LYMPHOCYTES # (AUTO) 0.7 10^3/uL (1.0-4.0); LYMPHOCYTES % (AUTO) 14 % (12-44); MEAN CORPUSCULAR HEMOGLOBIN 23 pg (25-34); MEAN CORPUSCULAR HGB CONC 28 g/dL (32-36); MEAN CORPUSCULAR VOLUME 81 fL (80-99); MONOCYTES # (AUTO) 0.4 10^3/uL (0.0-1.0); MONOCYTES % (AUTO) 8 % (0-12); NEUTROPHILS # (AUTO) 3.7 10^3/uL (1.8-7.8); NEUTROPHILS % (AUTO) 76 % (42-75); PLATELET COUNT 77 10^3/uL (130-400); WHITE BLOOD COUNT 4.9 10^3/uL (4.3-11.0)
[2020-06-11 06:21] LABS: POTASSIUM 4.7 MMOL/L (3.6-5.0)
[2020-06-11 06:22] LABS: CALCIUM 8.2 MG/DL (8.5-10.1)
[2020-06-11 06:27] LABS: CREATININE SERUM 1.21 MG/DL (0.60-1.30)
[2020-06-11] MEDS: inSUlin ASPART (NovoLOG) 1 UNIT/0.01 ML (CHARGE PER UNIT) SC SCH ×4 (06:33→21:43)
[2020-06-11] MEDS ORDERED: IRON DEXTRAN INJECTION 25 MG in NS (IVPB) 5.75 ML IV ONE (07:45)
[2020-06-11] MEDS ORDERED: IRON DEXTRAN INJECTION 1,000 MG in NS (IVPB) 250 ML IV ONE (07:45)
[2020-06-11] MEDS ORDERED: RT-ALBUTEROL SULF 2.5 MG/3 ML PRE-MIX VIAL IH PRN (07:45)
[2020-06-11] MEDS ORDERED: EPINEPHrine INJECTION 1 MG/ML AMP IM PRN (07:45)
[2020-06-11] MEDS ORDERED: HYDROCORTISONE 100 MG/2 ML (Solu-CORTEF) VIAL IV PRN (07:45)
[2020-06-11] MEDS ORDERED: diphenhydrAMINE 50 MG/ML INJ (BENADRYL) IV PRN (07:45)
[2020-06-11] MEDS: DOCUSATE SODIUM 100 MG (COLACE) CAP PO SCH ×2 (08:26→21:43)
[2020-06-11] MEDS: SENNOSIDES 8.6 MG (SENOKOT) TAB PO SCH ×2 (08:26→21:43)
[2020-06-11] MEDS: FENOFIBRATE 134 MG (LOFIBRA) CAPSULE PO SCH (08:27)
[2020-06-11] MEDS: PANTOPRAZOLE 40 MG (PROTONIX) TAB PO SCH ×2 (08:27→21:43)
[2020-06-11] MEDS: NS IV 500 ML 500 ML IV SCH (08:27)
[2020-06-11] MEDS: ENOXAPARIN 40 MG/0.4 ML (LOVENOX) SYR SC SCH (08:27)
--- NOTE | 2020-06-11 08:30 | NUR ---
Patient tolerated test dose of Infed well. Began administering the primary dose. After about 5 minutes patient states she is feeling dizzy. Dr. Mahajan enters the room at this time. Vitals reported to and documented. Dr. Mahajan consults with pharmacy at this time and orders a one time dose of hydralazine 25mg and to decrease Infed infusion rate to 35ml/hr. Medication administered at this time. Rate slowed to 35ml/hr. Will continue to monitor.
--- NOTE | 2020-06-11 08:50 | Physical Therapy Progress Note ---
Therapy Progress Note Patient refuses therapy, she states that she just woke up and hasn't even eaten breakfast yet. This PT explained the benefits of physical therapy and that it would only take a few minutes and then she could eat breakfast. Patient is uninterested and continues to refuse. ITALO ALLEN PT Jun 11, 2020 08:50
[2020-06-11] MEDS ORDERED: NON-FORMULARY MEDICATION 1 EA EA (Fenofibrate Nanocrystallized (Fenofibrate) 145 MG) PO SCH (09:00)
[2020-06-11] MEDS ORDERED: hydrOXYzine (VISTARIL/ATARAX) 25 MG capsule/tablet ONE (09:22)
--- NOTE | 2020-06-11 09:26 | Cardiology Progress Note ---
Subjective Date Seen by Provider: Jun 11, 2020 Time Seen by Provider: 09:21 Subjective/Events-last exam Patient is sitting up in bed, reports dypsnea improved. Denies any chest pain. Review of Systems General: No Chills, No Night Sweats, No Fatigue, No Malaise, No Appetite, No Other HEENT: No Head Aches, No Visual Changes, No Eye Pain, No Ear Pain, No Dysphasia, No Sinus Congestion, No Post Nasal Drip, No Sore Throat, No Other Pulmonary: No Dyspnea, No Cough, No Pleuritic Chest Pain, No Other Cardiovascular: No: Chest Pain, Palpitations, Orthopnea, Paroxysmal Noc. Dyspnea, Edema, Lt Headedness, Other Objective-Cardiology Exam Last Set of Vital Signs Vital Signs 06/11/20 06/11/20 11:15 12:39 Temp 36.8 Pulse 102 Resp 26 B/P (MAP) 108/55 (72) Capillary Refill : Less Than 3 Seconds I&O Intake and Output 06/11/20 00:00 Intake Total 740 ml Output Total 1675 ml Balance -935 ml Intake Oral 740 ml Output Urine Total 1675 ml # Voids 2 General: Alert, Oriented X3, Cooperative HEENT: Atraumatic, PERRLA Neck: Supple, No JVD, No Thyromegaly Lungs: Clear to Auscultation, Normal Air Movement Heart: Regular Rate, Normal S1, Normal S2, No Murmurs Abdomen: Normal Bowel Sounds, Soft, No Tenderness, No Hepatosplenomegaly, No Masses Extremities: No Clubbing, No Cyanosis, No Edema, Normal Pulses, No Te nderness/Swelling Skin: No Rashes, No Breakdown, No Significant Lesion Neuro: Normal Gait, Normal Speech, Strength at 5/5 X4 Ext, Normal Tone, Sensation Intact Psych/Mental Status: Mental Status NL, Mood NL Results Lab Laboratory Tests 06/11/20 06:00 A/P-Cardiology Admission Diagnosis CHF CAD HLP DM Assessment/Plan Acute CHF, LV systolic dysfunction,2D Echo done 06/10/2020 showing EF35-40%, grade II diastolic dysfunction, mild-mod , mild to mod MR, PA 20-25mmHg. Continue to diurese. CAD- reported hx of stent placement in the remote past. Previously followed with Dr. Holguin in [place], no recent work up. Mildly elevated troponin, trending down, likely type II ID. Continue to monitor SSS, hx of PPM in the past. Follows with cardiology in [place]. HLP- maintained on statin as outpatient. DM, management per primary care Patient was seen and evaluated with Ananya, examination performed, management plan was discussed, agree with the current scribed note, I made few changes to the note using Italic font Patient is laying down in bed, no new complaint Conservative management with diuretics. Continue on current medication and monitor Clinical Quality Measures DVT/VTE Risk/Contraindication: Risk Factor Score Per Nursin RFS Level Per Nursing on Admit: 4+=Very High ANANYA SANCHEZ Jun 11, 2020 09:26 MARGOT STOVER MD Jun 11, 2020 16:51
[2020-06-11] MEDS ORDERED: hydrOXYzine (ATARAX) 10 MG TAB PO ONE (09:30)
--- NOTE | 2020-06-11 10:18 | Occupational Ther Daily Note ---
OT Current Status-Daily Note Subjective Pt in bed/ supine. Pt alert/ oriented. Just finished with SW. Pt agrees to tx, though denies OOB. Pt states severely dizzy, denies opening eyes at times. Toward end of session pt states she is less dizzy. Mental Status/Objective Patient Orientation: Person, Place, Situation Attachments: Dinero Catheter, IV, Oxygen, Telemetry ADL-Treatment Therapy Code Descriptions/Definitions Functional [place] Measure: 0=Not Assessed/NA 4=Minimal Assistance 1=Total Assistance 5=Supervision or Setup 2=Maximal Assistance 6=Modified [place] 3=Moderate Assistance 7=Complete IndependenceSCALE: Activities may be completed with or without assistive devices. 6-Chsfhpsioq-qjmbxtz completes the activity by him/herself with no assistance from a helper. 5-Set-up or Clean-up Assistance-helper sets up or cleans up; patient completes activity. [place] assists only prior to or following the activity. 4-Supervision or Touching Assistance-helper provides verbal cues and/or touching/steadying and/or contact guard assistance as patient completes activity. Assistance may be provided throughout the activity or intermittently. 3-Partial/Moderate Assistance-helper does LESS THAN HALF the effort. [place] lifts, holds or supports trunk or limbs, but provides less than half the effort. 2-Substantial/Maximal Assistance-helper does MORE THAN HALF the effort. [place] lifts or holds trunk or limbs and provides more than half the effort. 2-Hvvevgyjv-itefug does ALL the effort. Patient does none of the effort to complete the activity. Or, the assistance of 2 or more helpers is required for the patient to complete the activity. If activity was not attempted, code reason: 7-Patient Refused. 9-Not Applicable-not attempted and the patient did not perform the activity before the current illness, exacerbation or injury. 10-Not Attempted due to Environmental Limitations-(lack of equipment, weather restraints, etc.). 88-Not Attempted due to Medical Conditions or Safety Concerns. Eating (QC): 6 (per pt completed IND) Shower/Bathe Self (QC): 2 Upper Body Dressing (QC): 3 (min A due to lines/ gown.) Lower Body Dressing (QC): 1 (TD (threaded in bed, donned in stance post-BM)) On/Off Footwear: 1 (socks doffed/ donned in bed with TD.) Toileting Hygiene (QC): 1 (TD due to safety concerns and Ax2) Toilet Transfer (QC): 1 (TD due to mod A x2) Other Treatment Pt agrees to sponge bath in bed. Pt is provided cloths, denies cleansing LE's/ bottom. This is completed for pt, pt completes UB washing/ dressing. Pt rolls to doff soiled briefs, maintains this position for OT to bring briefs up toward groin. Pt states need for BM. graphic design assistant enters and assists with transfer as pt continues to state dizziness. Pt reaches EOB from supine with mod A. Sit to stand with mod A and transfers to toilet with mod Ax2. Pt completes BM. Sit to stand mod Ax2 and is cleaned with TD/ LB with TD. Pt returns to bed with use of walker and max encouragement for steps (min A for transfer). Pt returns to HOB/ supine with mod A for LB management. Pt c/o dizziness, HOB elevated, pt is encouraged to maintain this position through day or get to recliner. All needs met, call light in reach, pt's bed alarm set. Pt's dinero drained of 450 cc's fluid. Education OT Patient Education: Correct positioning, Modified ADL techniques, Purpose of tx/functional activities, Safety issues, Transfer techniques Teaching Recipient: Patient Teaching Methods: Demonstration, Discussion Response to Teaching: Verbalize Understanding, Return Demonstration, Reinforcement Needed OT Half-Way Goals Flight Operations Inspector Goals Time Frame: Jun 16, 2020 Eating (QC): 6 Oral Hygiene (QC): 6 Toileting Hygiene (QC): 6 Shower/Bathe Self (QC): 6 Upper Body Dressing (QC): 6 Lower Body Dressing (QC): 6 On/Off Footwear (QC): 6 Additional Goals: 1-Demonstrate ADL Tasks, 2-Verbalize Understanding, 3-ImproveStrength/Lisa 1=Demonstrate adherence to instructed precautions during ADL tasks. 2=Patient will verbalize/demonstrate understanding of assistive devices/modifications for ADL. 3=Patient will improve strength/tolerance for activity to enable patient to perform ADL's. OT Education/Plan Problem List/Assessment Assessment: Decreased Activ Tolerance, Decreased Safety Aware, Decreased UE Strength, Dependent Transfers, Edema, Impaired Bed Mobility, Impaired Funct Balance, Impaired I ADL's, Impaired Self-Care Skills Discharge Recommendations Plan/Recommendations: Continue POC Therapy Discharge Recommendati: 24 Hour Supervision, Assisted Living, Post Acute OT Treatment Plan/Plan of Care Treatment,Training & Education: Yes Patient would benefit from OT for education, treatment and training to promote independence in ADL's, mobility, safety and/or upper extremity function for ADL's. Plan of Care: ADL Retraining, Functional Mobility, UE Funct Exercise/Act Treatment Duration: Jun 16, 2020 Frequency: 5 times per week Estimated Hrs Per Day: .25 hour per day Agreement: Yes Rehab Potential: Fair Time/GCodes Start Time: 09:40 Stop Time: 10:06 Total Time Billed (hr/min): 26 Billed Treatment Time 1, ADL 2 (26) KHLOE ALEX OTR Jun 11, 2020 10:18
--- NOTE | 2020-06-11 10:40 | NUR ---
CM/SS visited with the patient for social service consult. The patient was lying in bed closing her eye's with her hands over her face. She reports that she is feeling dizzy today more so than usual. The patient is moaning and tearful today. Home: The patient reports that she lives at home alone. She states that she is independent but does use a front wheeled walker and/or a four wheeled walker to get around. The patient verbalized that she does dishes, laundry, cooks, and can complete her ADL's. Home Health: The patient is on service with [facility]. CM/SS contacted them to inform them of patient's admission. Equipment: A FWW and Dknc-riwuxem-mtgusf. The patient is wearing oxygen in the room but does not wear oxygen at baseline. Caregiver/homemaker: The patient reports she does not have a caregiver or someone paid to assist with household duties. Support: The patient does have her son who reportedly visits the home x3 a day to assist with cooking, shopping, and other needed tasks. Diabetic supplies: The patient has Medicare and reports that she does not have any trouble affording her diabetic supplies at this time. CM/SS will continue to follow.
--- NOTE | 2020-06-11 13:15 | Physical Therapy Progress Note ---
Therapy Progress Note Patient refuses therapy again this afternoon. Patient states she has diarrhea and doesn't feel well and does not want to do physical therapy at all today. She says maybe tomorrow. Patient educated on the benefits of PT and she still refuses. Will check back in the morning. ITALO ALLEN PT Jun 11, 2020 13:15
--- NOTE | 2020-06-11 13:17 | Progress Note - Hospitalist ---
Subjective HPI/CC On Admission Date Seen by Provider: Jun 11, 2020 Time Seen by Provider: 09:10 Bridget Stockton is an 85 year old female with PMH insulin-dependent T2DM, HLD, hypothyroidism, who presented with shortness of breath. She reports that this has been worsening over recent weeks. She denies cough. She denies fevers and chills. She reports having some chest tightness. She denies abdominal pain. She denies nausea and vomiting. She denies dysuria. She denies any known exposure to COVID. She reports leg swelling. She has been taking extra Lasix at home but has worsened nevertheless. Subjective/Events-last exam She is very dizzy this morning. She denies nausea. She is uncomfortable. Objective Exam Vital Signs Vital Signs Date Time Temp Pulse Resp B/P (MAP) Pulse Ox O2 Delivery O2 Flow Rate FiO2 06/11/20 11:15 36.8 95 26 108/55 (72) 97 Nasal Cannula 2.50 Capillary Refill : Less Than 3 Seconds General Appearance: Anxious, Moderate Distress (dizzy), Obese Respiratory: Lungs Clear, Normal Breath Sounds, No Respiratory Distress Cardiovascular: Regular Rate, Rhythm, No Murmur Gastrointestinal: Normal Bowel Sounds, Non Tender, Soft Extremity: Normal Inspection, Pedal Edema Neurologic/Psychiatric: Alert, No Motor/Sensory Deficits Skin: Normal Color, Warm/Dry Results/Procedures Lab Laboratory Tests 06/11/20 06:00 Patient resulted labs reviewed. 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 dysfunction Acute respiratory failure with hypoxia Echo revealed EF 35-40% with grade II diastolic dysfunction and global hypokinesis Continue Lasix Cardiology consulted, appreciate assistance Pancytopenia Iron deficiency anemia Appears chronic per chart review WBC 4.5, Hgb 7.6, Plt 77 Folate normal Iron infusion Post-herpetic neuralgia Lyrica T2DM Levemir SSI Hypothyroidism Synthroid HLD Statin GERD PPI SSS s/p pacemaker Obesity Clinically significant, no acute management needs DVT Prophylaxis: Lovenox Diagnosis/Problems Diagnosis/Problems (1) Acute on chronic congestive heart failure Status: Acute Qualifiers: Heart failure type: combined systolic and diastolic Qualified Codes: I50.43 - Acute on chronic combined systolic (congestive) and diastolic (congestive) heart failure (2) Anemia Status: Chronic (3) Thrombocytopenia Status: Chronic (4) T2DM (type 2 diabetes mellitus) Status: Chronic Qualifiers: Diabetes mellitus manager long term care insulin use: with manager long term care use (5) Person under investigation for COVID-19 Status: Resolved Resolution Date/Time: 06/10/20 @ 14:44 Clinical Quality Measures DVT/VTE Risk/Contraindication: Risk Factor Score Per Nursin RFS Level Per Nursing on Admit: 4+=Very High USMAN JORGE MD Jun 11, 2020 13:17
--- NOTE | 2020-06-11 15:03 | NUR ---
SPO2 95% ON O2 @ 2.5 LPM. REMOVED AND PLACED PT ON ROOM AIR. SPO2 DROPPED TO 75% AFTER 5 MINUTES. PLACED PT BACK ON O2 @ 3 LPM. SPO2 INCREASED TO 90%. Addendum: 06/11/20 at 1518 by ALEJO CULP RT Amended: Links added.
--- NOTE | 2020-06-11 16:41 | NUR ---
CM/SS finalized discharge plan. Plan: The patient will discharge home tomorrow 06/12 on new oxygen and a resumption of home health. The patient's son will picker packer. DME: The patient qualified for home oxygen at 3 L continuous. The patient was provided with a patient preference list. She chose [facility]. CM/SS contacted the agency and spoke with Petra. They have delivered the patient's portable oxygen to the hospital. Home Health: The patient is already set up with [facility]. CM/SS contacted Anyi and informed her of patient's discharge tomorrow. CM/SS faxed home health orders. No further needs.
--- NOTE | 2020-06-11 17:01 | D/C HH Face to Face Order ---
D/C Face to Face Orders Reconcile Patient Problems Problems Reviewed?: Yes Instructions for Patient [facility] [employer], Patient Instructions/FollowUp: PCP in one week Physician to follow Patient: Denise Discharge Diet for Home: Low Sodium Diet Patient Data-Allergies,Ht & Wt Patient Allergies: Coded Allergies: codeine (Verified Allergy, Unknown, 10/14/05) iodine (Verified Allergy, Unknown, 10/14/05) Height (Feet): 5 Height (Inches): 7.00 Weight (Pounds): 206 Home Health Need/Face to Face Date of Face to Face: Jun 11, 2020 Clinical Findings: Generalized weakness and fatigue, Muscle weakness I have seen Pt knnr-[id number]: Yes Discharged To: Home Diagnosis/Conditions: Heart failure Problems/Diagnosis/Condition: (1) Acute on chronic congestive heart failure (2) Debility Patient is Homebound due to: Delmi fall risk due to instabilty, Muscle weakness Homebound Status Due to the above stated illness, injury or surgical procedure (medical condition or diagnosis) and associated clinical findings, the patient is homebound because of his/her inability to leave home except with aid of a supportive device and/or person AND leaving the home requires a considerable and taxing effort or is medically contraindicated. Pt req the following assistanc: Aid of another person Home Health Nursing Orders Home Health Services Order: Nursing Services, Senior Portfolio Manager-Evaluate & Treat, Physical Therapy-Evaluate & Treat Home Health Infusion Therapy Line Start Date: Jun 09, 2020 Therapy Orders Therapy Orders: OT (must have SN or PT order), Physical Therapy Therapy Specific Orders: Eval assistive deivces, Teach enviro modifications/safety, Gait training, Increase strength/endurance Certify Stmt I certify that this patient is under my care and that I, a nurse practitioner or a physician; a assistant program manager working with me, had a face to face encounter that - meets the physician face to face encounter requirements with this patient as dated. USMAN JORGE MD Jun 11, 2020 17:00
[2020-06-11] MEDS: MELATONIN 3 MG TABLET PO PRN (21:43)
[2020-06-11] MEDS: ONDANSETRON 4 MG (ZOFRAN) ORAL DISSOLVE TAB PO PRN (23:02)
[2020-06-11] MEDS: ACETAMINOPHEN 325 MG TABLET PO PRN (23:02)
[2020-06-12 00:33] VITALS: BP 100/63
[2020-06-12] MEDS: NS IV 500 ML 500 ML IV SCH ×2 (00:47→17:02)
[2020-06-12 04:00] VITALS: BP 109/59
[2020-06-12 05:33] LABS: BASOPHILS % (AUTO) 1 % (0-10); EOSINOPHILS % (AUTO) 1 % (0-10); HEMATOCRIT 28 % (35-52); LYMPHOCYTES # (AUTO) 0.8 10^3/uL (1.0-4.0); LYMPHOCYTES % (AUTO) 20 % (12-44); MEAN CORPUSCULAR HEMOGLOBIN 23 pg (25-34); MEAN CORPUSCULAR HGB CONC 28 g/dL (32-36); MEAN CORPUSCULAR VOLUME 81 fL (80-99); MONOCYTES # (AUTO) 0.5 10^3/uL (0.0-1.0); MONOCYTES % (AUTO) 12 % (0-12); NEUTROPHILS # (AUTO) 2.6 10^3/uL (1.8-7.8); NEUTROPHILS % (AUTO) 66 % (42-75); PLATELET COUNT 59 10^3/uL (130-400); WHITE BLOOD COUNT 3.9 10^3/uL (4.3-11.0)
[2020-06-12 06:09] LABS: POTASSIUM 4.6 MMOL/L (3.6-5.0)
[2020-06-12 06:11] LABS: CALCIUM 8.4 MG/DL (8.5-10.1)
[2020-06-12 06:15] LABS: CREATININE SERUM 1.48 MG/DL (0.60-1.30)
[2020-06-12] MEDS: inSUlin ASPART (NovoLOG) 1 UNIT/0.01 ML (CHARGE PER UNIT) SC SCH ×4 (06:25→21:22)
[2020-06-12] MEDS: FUROSEMIDE 40 MG/4 ML INJ (LASIX) IVP SCH (06:50)
[2020-06-12] MEDS: LEVOTHYROXINE 75 MCG (LEVOTHROID) TABLET PO SCH (06:50)
[2020-06-12] MEDS: LEVOTHYROXINE 100 MCG (LEVOTHROID) TAB PO SCH (06:50)
[2020-06-12 08:00] VITALS: BP 119/58
--- NOTE | 2020-06-12 08:00 | NUR ---
PATIENT C/O OF NOT FEELING GOOD BUT IS UNABLE TO TELL NURSE WHAT IS WRONG, AFEBRILE, O2 SAT 96 PERCENT ON O2 AT 2 LITERS, ESTEBAN PATENT, DENIES PAIN OR SOB, DR JORGE AT BEDSIDE, PATIENT WILL NOT PERFORM ANY ADLS FOR HERSELF, NURSE FEED PATIENT, ATE 25 PERCENT.
[2020-06-12] MEDS ORDERED: FURO-124 PO (08:14)
[2020-06-12] MEDS ORDERED: FERR325T18 PO (08:14)
[2020-06-12] MEDS ORDERED: MTP25TSR PO (08:14)
[2020-06-12] MEDS: FERROUS SULF 325 MG (IRON) TAB PO SCH ×3 (09:11→17:56)
[2020-06-12] MEDS: FENOFIBRATE 134 MG (LOFIBRA) CAPSULE PO SCH (09:11)
[2020-06-12] MEDS: PANTOPRAZOLE 40 MG (PROTONIX) TAB PO SCH ×2 (09:12→21:21)
[2020-06-12] MEDS: SENNOSIDES 8.6 MG (SENOKOT) TAB PO SCH ×2 (09:12→21:20)
[2020-06-12] MEDS: DOCUSATE SODIUM 100 MG (COLACE) CAP PO SCH ×2 (09:13→21:21)
[2020-06-12] MEDS: ENOXAPARIN 40 MG/0.4 ML (LOVENOX) SYR SC SCH (09:15)
--- NOTE | 2020-06-12 10:00 | NUR ---
FAMILY NOTIFIED THAT PATIENT NOT BEING DISMISSED TODAY
[2020-06-12] MEDS: ONDANSETRON 4 MG/2 ML (SDV) Z0FRAN IV PRN (10:03)
--- NOTE | 2020-06-12 11:00 | Cardiology Progress Note ---
Subjective Date Seen by Provider: Jun 12, 2020 Time Seen by Provider: 10:59 Subjective/Events-last exam Patient is laying down in bed, complaining of generalized fatigue and loss of energy Review of Systems General: No Chills, No Night Sweats; Fatigue, Malaise; No Appetite, No Other HEENT: No Head Aches, No Visual Changes, No Eye Pain, No Ear Pain, No Dysphasia, No Sinus Congestion, No Post Nasal Drip, No Sore Throat, No Other Pulmonary: No Dyspnea, No Cough, No Pleuritic Chest Pain, No Other Cardiovascular: No: Chest Pain, Palpitations, Orthopnea, Paroxysmal Noc. Dyspnea, Edema, Lt Headedness, Other Objective-Cardiology Exam Last Set of Vital Signs Vital Signs 06/12/20 08:00 Temp 36.0 Pulse 98 Resp 20 B/P (MAP) 119/58 (78) Pulse Ox 96 O2 Delivery Nasal Cannula O2 Flow Rate 2.00 Capillary Refill : Less Than 3 Seconds I&O Intake and Output 06/12/20 00:00 Intake Total 1006.25 ml Output Total 875 ml Balance 131.25 ml Intake Oral 730 ml IV Total 276.25 ml Output Urine Total 875 ml # Bowel Movements 2 General: Alert, Oriented X3, Cooperative HEENT: Atraumatic, PERRLA Neck: Supple, No JVD, No Thyromegaly Lungs: Clear to Auscultation, Normal Air Movement Heart: Regular Rate, Normal S1, Normal S2, No Murmurs Abdomen: Normal Bowel Sounds, Soft, No Tenderness, No Hepatosplenomegaly, No Masses Extremities: No Clubbing, No Cyanosis, No Edema, Normal Pulses, No Tenderness/Swelling Skin: No Rashes, No Breakdown, No Significant Lesion Neuro: Normal Gait, Normal Speech, Strength at 5/5 X4 Ext, Normal Tone, Sensation Intact Psych/Mental Status: Mental Status NL, Mood NL Results Lab Laboratory Tests 06/12/20 04:25 A/P-Cardiology Admission Diagnosis CHF CAD HLP DM Assessment/Plan Acute CHF, LV systolic dysfunction,2D Echo done 06/10/2020 showing EF35-40%, grade II diastolic dysfunction, mild-mod , mild to mod MR, PA 20-25mmHg. Continue to diurese. CAD- reported hx of stent placement in the remote past. Previously followed with Dr. Holguin in [place], no recent work up. Mildly elevated troponin, trending down, likely type II GA. Patient will follow with her primary certified welder in [place] as an outpatient SSS, hx of PPM in the past. Follows with cardiology in [place]. HLP- maintained on statin as outpatient. DM, management per primary care Clinical Quality Measures DVT/VTE Risk/Contraindication: Risk Factor Score Per Nursin RFS Level Per Nursing on Admit: 4+=Very High MARGOT STOVER MD Jun 12, 2020 11:00 am
[2020-06-12] MEDS: PREGABALIN 50 MG (LYRICA) CAP PO PRN ×2 (11:51→21:20)
--- NOTE | 2020-06-12 12:02 | Progress Note - Hospitalist ---
Subjective HPI/CC On Admission Date Seen by Provider: Jun 12, 2020 Time Seen by Provider: 09:25 Bridget Stockton is an 85 year old female with PMH insulin-dependent T2DM, HLD, hypothyroidism, who presented with shortness of breath. She reports that this has been worsening over recent weeks. She denies cough. She denies fevers and chills. She reports having some chest tightness. She denies abdominal pain. She denies nausea and vomiting. She denies dysuria. She denies any known exposure to COVID. She reports leg swelling. She has been taking extra Lasix at home but has worsened nevertheless. Subjective/Events-last exam She reports not feeling well. She is unable to tell me exactly how she feels unwell. She is lying in bed moaning. She is unwilling to try to get out of bed. She denies being in any pain. She is not feeling short of breath. Objective Exam Vital Signs Vital Signs Date Time Temp Pulse Resp B/P (MAP) Pulse Ox O2 Delivery O2 Flow Rate FiO2 06/12/20 08:00 Nasal Cannula 2.00 06/12/20 08:00 36.0 98 20 119/58 (78) 96 Capillary Refill : Less Than 3 Seconds General Appearance: No Apparent Distress, Chronically ill, Obese Respiratory: Lungs Clear, Normal Breath Sounds, No Respiratory Distress Cardiovascular: Regular Rate, Rhythm, No Edema, No Murmur Gastrointestinal: Normal Bowel Sounds, Non Tender, Soft Extremity: Normal Inspection, Non Tender, No Pedal Edema Neurologic/Psychiatric: Alert, Depressed Affect Skin: Normal Color, Warm/Dry Results/Procedures Lab Laboratory Tests 06/12/20 04:25 Patient resulted labs reviewed. Imaging: Reviewed Imaging Report Assessment/Plan Assessment and Plan Assess & Plan/Chief Complaint Debility PT/OT May require placement Acute on chronic heart failure with reduced ejection fraction and diastolic dysfunction Acute respiratory failure with hypoxia Acute kidney injury Echo revealed EF 35-40% with grade II diastolic dysfunction and global hypokinesis Cr increasing, fluid overload resolved, stop IV Lasix Transition to oral Lasix tomorrow Started on Toprol ACEi not started due to low blood pressures Cardiology consulted, appreciate assistance Pancytopenia Iron deficiency anemia Appears chronic per chart review WBC 3.9, Hgb 8, Plt 59 s/p Iron infusion Continue oral iron supplementation Post-herpetic neuralgia Lyrica T2DM Levemir SSI Hypothyroidism Synthroid HLD Statin GERD PPI SSS s/p pacemaker Obesity Clinically significant, no acute management needs DVT Prophylaxis: Lovenox Diagnosis/Problems Diagnosis/Problems (1) Acute on chronic congestive heart failure Status: Acute Qualifiers: Heart failure type: combined systolic and diastolic Qualified Codes: I50.43 - Acute on chronic combined systolic (congestive) and diastolic (congestive) heart failure (2) Anemia Status: Chronic (3) Thrombocytopenia Status: Chronic (4) T2DM (type 2 diabetes mellitus) Status: Chronic Qualifiers: 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
[2020-06-12 14:31] VITALS: BP 109/83
[2020-06-12 16:00] VITALS: BP 115/56
--- NOTE | 2020-06-12 16:00 | NUR ---
SON CALLED NURSE TO CHECK ON PATIENT, QUESTIONED NURSE IF PATIENT HAD A UA DONE BECAUSE SHE GETS UTI, DR JORGE NOTIFIED AND INSTRUCTED NURSE TO MONITOR FOR SYMPTOMS AND HE WILL ORDER IF SYMPTOMS DEVELOPS.
[2020-06-12 20:00] VITALS: BP 114/56
[2020-06-12] MEDS: MELATONIN 3 MG TABLET PO PRN (21:20)
[2020-06-12] MEDS: ONDANSETRON 4 MG (ZOFRAN) ORAL DISSOLVE TAB PO PRN (21:21)
[2020-06-13 00:36] VITALS: BP 109/58
[2020-06-13 04:00] VITALS: BP 120/58
[2020-06-13 04:57] LABS: HEMOGLOBIN 8.2 g/dL (11.5-16.0)
[2020-06-13 04:59] LABS: BASOPHILS % (AUTO) 0 % (0-10); EOSINOPHILS % (AUTO) 0 % (0-10); HEMATOCRIT 29 % (35-52); LYMPHOCYTES # (AUTO) 0.8 10^3/uL (1.0-4.0); LYMPHOCYTES % (AUTO) 15 % (12-44); MEAN CORPUSCULAR HEMOGLOBIN 23 pg (25-34); MEAN CORPUSCULAR HGB CONC 29 g/dL (32-36); MEAN CORPUSCULAR VOLUME 80 fL (80-99); MONOCYTES # (AUTO) 0.5 10^3/uL (0.0-1.0); MONOCYTES % (AUTO) 9 % (0-12); NEUTROPHILS % (AUTO) 74 % (42-75); PLATELET COUNT 87 10^3/uL (130-400); WHITE BLOOD COUNT 5.4 10^3/uL (4.3-11.0)
[2020-06-13 05:13] LABS: POTASSIUM 5.2 MMOL/L (3.6-5.0)
[2020-06-13 05:14] LABS: CALCIUM 8.6 MG/DL (8.5-10.1)
[2020-06-13 05:19] LABS: CREATININE SERUM 1.44 MG/DL (0.60-1.30); PHOSPHORUS 4.1 MG/DL (2.3-4.7)
[2020-06-13 05:21] LABS: MAGNESIUM 2.1 MG/DL (1.6-2.4)
[2020-06-13] MEDS: inSUlin ASPART (NovoLOG) 1 UNIT/0.01 ML (CHARGE PER UNIT) SC SCH ×4 (06:17→21:47)
[2020-06-13] MEDS: LEVOTHYROXINE 100 MCG (LEVOTHROID) TAB PO SCH (06:17)
[2020-06-13] MEDS: LEVOTHYROXINE 75 MCG (LEVOTHROID) TABLET PO SCH (06:17)
[2020-06-13] MEDS ORDERED: FUROSEMIDE 40 MG (LASIX) TAB PO SCH (07:00)
[2020-06-13] MEDS ORDERED: KCL 10 MEQ TAB (MICRO K) PO SCH (07:00)
[2020-06-13 08:00] VITALS: BP 128/61
[2020-06-13] MEDS: FERROUS SULF 325 MG (IRON) TAB PO SCH ×3 (08:17→18:34)
[2020-06-13] MEDS: PANTOPRAZOLE 40 MG (PROTONIX) TAB PO SCH ×2 (08:17→21:46)
[2020-06-13] MEDS: FENOFIBRATE 134 MG (LOFIBRA) CAPSULE PO SCH (08:17)
[2020-06-13] MEDS: DOCUSATE SODIUM 100 MG (COLACE) CAP PO SCH ×2 (08:18→21:46)
[2020-06-13] MEDS: SENNOSIDES 8.6 MG (SENOKOT) TAB PO SCH ×2 (08:18→21:46)
[2020-06-13] MEDS: ENOXAPARIN 40 MG/0.4 ML (LOVENOX) SYR SC SCH (08:18)
[2020-06-13] MEDS: ONDANSETRON 4 MG/2 ML (SDV) Z0FRAN IV PRN (09:56)
--- NOTE | 2020-06-13 10:30 | NUR ---
CM/SS follow up. Plan: Updated plan due to change in patient's status and abilities. The patient will discharge to a longterm facility. SNF: CM/SS provided the patient with a patient preference form. She did not want to choose and wanted her son to pick the facility. The patient's son stated his first choice is [facility] and second is [facility]. CM/SS contacted [place] and made a referral. Awaiting acceptance/denial. DME: CM/SS contacted [facility] to discuss picking back up the oxygen due to patient's updated discharge plan. They were at the hospital and picked o2 up while here. [facility]: CM/SS spoke with Anyi and informed her of new plan. She verbalized understanding but will hold on to her paperwork. CM/SS contacted the patient's son Pranav ([phone]) to discuss the patient's current needs for discharge. Pranav was agreeable with patient discharging to a longterm facility. He understood that with straight Medicare the patient will only be allotted 20 days covered. CM/SS discussed alternative options after discharge from facility.
--- NOTE | 2020-06-13 11:00 | Physical Therapy Daily Note ---
PT Daily Note-Current Subjective Pt is very lethargic, but she was able to consent to therapy. Mental Status Patient Orientation: Confused Transfers SCALE: Activities may be completed with or without assistive devices. 3-Kxdddpuzgl-zdnbkuw completes the activity by him/herself with no assistance from a helper. 5-Set-up or Clean-up Assistance-helper sets up or cleans up; patient completes activity. [place] assists only prior to or following the activity. 4-Supervision or Touching Assistance-helper provides verbal cues and/or touc dania/steadying and/or contact guard assistance as patient completes activity. Assistance may be provided throughout the activity or intermittently. 3-Partial/Moderate Assistance-helper does LESS THAN HALF the effort. [place] lifts, holds or supports trunk or limbs, but provides less than half the effort. 2-Substantial/Maximal Assistance-helper does MORE THAN HALF the effort. [place] lifts or holds trunk or limbs and provides more than half the effort. 4-Qahwkhjgg-wawgfg does ALL the effort. Patient does none of the effort to complete the activity. Or, the assistance of 2 or more helpers is required for the patient to complete the activity. If activity was not attempted, code reason: 7-Patient Refused. 9-Not Applicable-not attempted and the patient did not perform the activity before the current illness, exacerbation or injury. 10-Not Attempted due to Environmental Limitations-(lack of equipment, weather restraints, etc.). 88-Not Attempted due to Medical Conditions or Safety Concerns. Roll Left & Right (QC): 1 Weight Bearing Right Lower Extremity: Right Full Weight Bearing Left Lower Extremity: Left Full Weight Bearing Exercises Supine Ex: LE Protocol Supine Reps: 15 Treatments Worked with nursing to assist pt with rolling (B) to change sheets and clothing due to incontinence. Pt was able to reach with the upper body to hold onto the bed rail, but did not assist with LE movement. Assessment Pt was able to participate 10-15% during bed ex and bed mobility. PT Mcc Goals Mcc Goals PT Mcc Goals Time Frame: Jun 21, 2020 Roll Left & Right (QC): 5 Sit to Lying (QC): 5 Lying-Sitting on Side/Bed(QC): 5 Sit to Stand (QC): 5 Chair/Tyn-ma-Ogshc Xfer(QC): 5 Toilet Transfer (QC): 5 Does the Patient Walk: Yes Walk 10 feet (QC): 5 Walk 50ft with 2 Turns (QC): 5 Walk 150 ft (QC): 5 PT Plan Treatment/Plan Treatment Plan: Continue Plan of Care Treatment Plan: Education, Functional Activity Lisa, Functional Strength, Gait, Safety, Therapeutic Exercise, Transfers Treatment Duration: Jun 21, 2020 Frequency: 6 times per week Estimated Hrs Per Day: .5 hour per day Patient and/or Family Agrees t: Yes Time/GCodes Time In: 0832 Time Out: 08 Total Billed Treatment Time: 15 Total Billed Treatment 1, ex 15 MEJIA ZENG PT Jun 13, 2020 11:00
--- NOTE | 2020-06-13 11:28 | Cardiology Progress Note ---
Subjective Date Seen by Provider: Jun 13, 2020 Time Seen by Provider: 11:26 Subjective/Events-last exam Patient is laying down in bed, lethargic, trying to respond to demand, follows some demand. Unable to provide full history Review of Systems General: No Chills, No Night Sweats; Fatigue, Malaise; No Appetite, No Other HEENT: No Head Aches, No Visual Changes, No Eye Pain, No Ear Pain, No Dysphasia, No Sinus Congestion, No Post Nasal Drip, No Sore Throat, No Other Pulmonary: No Dyspnea, No Cough, No Pleuritic Chest Pain, No Other Cardiovascular: No: Chest Pain, Palpitations, Orthopnea, Paroxysmal Noc. Dyspnea, Edema, Lt Headedness, Other Objective-Cardiology Exam Last Set of Vital Signs Vital Signs 06/13/20 08:00 Temp 35.6 Pulse 87 Resp 18 B/P (MAP) 128/61 (83) Pulse Ox 96 O2 Delivery Nasal Cannula O2 Flow Rate 2.00 Capillary Refill : Less Than 3 Seconds I&O Intake and Output 06/13/20 00:00 Intake Total 1050 ml Output Total 700 ml Balance 350 ml Intake Oral 1050 ml Output Urine Total 700 ml # Voids 4 # Bowel Movements 1 General: Alert, Oriented X3, No Acute Distress HEENT: Atraumatic, PERRLA Neck: Supple, No JVD, No Thyromegaly Lungs: Clear to Auscultation, Normal Air Movement Heart: Regular Rate, Normal S1, Normal S2, No Murmurs Abdomen: Normal Bowel Sounds, Soft, No Tenderness, No Hepatosplenomegaly, No Masses Extremities: No Clubbing, No Cyanosis, No Edema, Normal Pulses, No Tenderness/Swelling Skin: No Rashes, No Breakdown, No Significant Lesion Neuro: Normal Gait, Normal Speech, Strength at 5/5 X4 Ext, Normal Tone, Sensa tion Intact Psych/Mental Status: Mental Status NL, Mood NL Results Lab Laboratory Tests 06/13/20 04:35 A/P-Cardiology Admission Diagnosis CHF CAD HLP DM Assessment/Plan Change in mental status, acute. History of depression. Could be secondary to psychological abnormality. I will evaluate CT of the head. Acute renal insufficiency, probably secondary to aggressive diuresis, I will stop Lasix and potassium at this point Hyperkalemia, has been on potassium 10 mEq daily I will hold that at this point and monitor Acute CHF, LV systolic dysfunction,2D Echo done 06/10/2020 showing EF35-40%, grade II diastolic dysfunction, mild-mod , mild to mod MR, PA 20-25mmHg. discontinue diuretics at this point and monitor CAD- reported hx of stent placement in the remote past. Previously followed with Dr. Holguin in [place], no recent work up. Mildly elevated troponin, trending down, likely type II AL. 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 Follows with cardiology in [place]. HLP- maintained on statin as outpatient. DM, management per primary care Clinical Quality Measures DVT/VTE Risk/Contraindication: Risk Factor Score Per Nursin RFS Level Per Nursing on Admit: 4+=Very High MARGOT STOVER MD Jun 13, 2020 11:28
--- NOTE | 2020-06-13 11:32 | Progress Note - Hospitalist ---
Subjective HPI/CC On Admission Date Seen by Provider: Jun 13, 2020 Time Seen by Provider: 09:05 Bridget Stockton is an 85 year old female with PMH insulin-dependent T2DM, HLD, hypothyroidism, who presented with shortness of breath. She reports that this has been worsening over recent weeks. She denies cough. She denies fevers and chills. She reports having some chest tightness. She denies abdominal pain. She denies nausea and vomiting. She denies dysuria. She denies any known exposure to COVID. She reports leg swelling. She has been taking extra Lasix at home but has worsened nevertheless. Subjective/Events-last exam She is not cooperative with my exam. She says she feels "sick". She is unable or unwilling to elaborate. She is able to answer questions, but appears to shut down when she does not want to answer. She denies pain. She denies trouble breathing. Objective Exam Vital Signs Vital Signs Date Time Temp Pulse Resp B/P (MAP) Pulse Ox O2 Delivery O2 Flow Rate FiO2 06/13/20 08:00 Nasal Cannula 2.00 06/13/20 08:00 35.6 87 18 128/61 (83) 96 Capillary Refill : Less Than 3 Seconds General Appearance: No Apparent Distress, Obese Respiratory: Lungs Clear, Normal Breath Sounds, No Respiratory Distress Cardiovascular: Regular Rate, Rhythm, No Edema, No Murmur Gastrointestinal: Normal Bowel Sounds, Non Tender, Soft Extremity: Normal Inspection, Non Tender, No Pedal Edema Neurologic/Psychiatric: Alert, Oriented x3, No Motor/Sensory Deficits, Normal Mood/Affect Skin: Normal Color, Warm/Dry Results/Procedures Lab Laboratory Tests 06/13/20 04:35 Patient resulted labs reviewed. Imaging: Reviewed Imaging Report Assessment/Plan Assessment and Plan Assess & Plan/Chief Complaint Debility PT/OT May require placement Acute on chronic heart failure with reduced ejection fraction and diastolic dysfunction Acute respiratory failure with hypoxia Acute kidney injury Echo revealed EF 35-40% with grade II diastolic dysfunction and global hypokinesis Cr increased, stable Continue oral Lasix Continue Toprol ACEi not started due to low blood pressures Cardiology consulted, appreciate assistance Pancytopenia Iron deficiency anemia Appears chronic per chart review s/p Iron infusion Continue oral iron supplementation Post-herpetic neuralgia Lyrica T2DM Levemir SSI Hypothyroidism Synthroid HLD Statin GERD PPI SSS s/p pacemaker Obesity Clinically significant, no acute management needs DVT Prophylaxis: Lovenox Diagnosis/Problems Diagnosis/Problems (1) Acute on chronic congestive heart failure Status: Acute Qualifiers: Heart failure type: combined systolic and diastolic Qualified Codes: I50.43 - Acute on chronic combined systolic (congestive) and diastolic (congestive) heart failure (2) Anemia Status: Chronic (3) Thrombocytopenia Status: Chronic (4) T2DM (type 2 diabetes mellitus) Status: Chronic Qualifiers: 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
[2020-06-13] MEDS ORDERED: morphine INJ 4 MG/ML 1 ML (VIAL/SYRINGE) ONE (11:38)
[2020-06-13] MEDS ORDERED: morphine INJ 10 MG/ML 1ML (SYR OR VIAL) IVP STA (11:38)
--- NOTE | 2020-06-13 11:42 | NUR ---
pt groaning loudly in bed, eyes closed. rn asked her if she was in pain and she said yes but when asked where pain is, she would not respond. ct came to get pt and asked if she could have something for pain. this rn called dr sharma and he ordered one time dose of 2 mg of morphine iv. rn administered prior to her leaving to go to ct.
[2020-06-13 12:00] VITALS: BP 128/77
--- NOTE | 2020-06-13 12:22 | Diagnostic Imaging Report ---
INDICATION: Mental status change TECHNIQUE: Routine non contrast-enhanced axial images were obtained from the skull base to the vertex. Auto Exposure Controls were utilized during the CT exam to meet ALARA standards for radiation dose reduction COMPARISON: 04/14/2020 FINDINGS: The ventricles and cortical sulci are diffusely prominent, compatible with age-related volume loss. There are confluent areas of abnormal, low attenuation in the periventricular white matter. This is consistent with chronic small vessel ischemic changes. There is no midline shift or mass-effect. No acute intra-axial hemorrhage is seen. There are no abnormal areas of increased or decreased density to suggest acute hemorrhage or edema. No extra-axial masses or collections are present. The bony calvarium is intact. The visualized paranasal sinuses are unremarkable. The mastoid air cells are clear. IMPRESSION: 1. No acute intracranial abnormality. No CT evidence of mass, acute infarct or intracranial hemorrhage. 2. Chronic small vessel ischemic changes in the deep white matter. Dictated by: Dictated on workstation # [id number]
--- NOTE | 2020-06-13 12:24 | NUR ---
JOSEFINA/NANO update. Plan: The patient will discharge to [facility] skilled on Thursday 06/14. JOSEFINA/NANO received a call from Mariel the social security assessor at the facility. They are going to accept patient for admission on Tuesday. They had questions regarding primary care physician. JOSEFINA/SS verified it was Dr. Walker. JOSEFINA/SS contacted the patient's son Pranav to inform him of acceptance. He had no further questions.
[2020-06-13 16:15] VITALS: BP 104/65
[2020-06-13 20:29] VITALS: BP 124/58
[2020-06-14] VITALS: BP 117/56
[2020-06-14] MEDS: ACETAMINOPHEN 325 MG TABLET PO PRN ×3 (03:23→21:15)
[2020-06-14 04:00] VITALS: BP 114/59
[2020-06-14 05:26] LABS: HEMOGLOBIN 7.7 g/dL (11.5-16.0)
[2020-06-14 05:28] LABS: BASOPHILS % (AUTO) 1 % (0-10); EOSINOPHILS # (AUTO) 0.1 10^3/uL (0.0-0.3); EOSINOPHILS % (AUTO) 2 % (0-10); HEMATOCRIT 27 % (35-52); LYMPHOCYTES # (AUTO) 0.9 10^3/uL (1.0-4.0); LYMPHOCYTES % (AUTO) 15 % (12-44); MEAN CORPUSCULAR HEMOGLOBIN 23 pg (25-34); MEAN CORPUSCULAR HGB CONC 29 g/dL (32-36); MEAN CORPUSCULAR VOLUME 80 fL (80-99); MEAN PLATELET VOLUME 13.3 fL (9.0-12.2); MONOCYTES # (AUTO) 0.6 10^3/uL (0.0-1.0); MONOCYTES % (AUTO) 11 % (0-12); NEUTROPHILS # (AUTO) 3.9 10^3/uL (1.8-7.8); NEUTROPHILS % (AUTO) 71 % (42-75); PLATELET COUNT 79 10^3/uL (130-400); WHITE BLOOD COUNT 5.6 10^3/uL (4.3-11.0)
[2020-06-14] MEDS: LEVOTHYROXINE 100 MCG (LEVOTHROID) TAB PO SCH (05:40)
[2020-06-14] MEDS: LEVOTHYROXINE 75 MCG (LEVOTHROID) TABLET PO SCH (05:40)
[2020-06-14 05:42] LABS: POTASSIUM 5.3 MMOL/L (3.6-5.0)
[2020-06-14 05:43] LABS: CALCIUM 8.9 MG/DL (8.5-10.1)
[2020-06-14 05:48] LABS: CREATININE SERUM 1.53 MG/DL (0.60-1.30)
[2020-06-14] MEDS: inSUlin ASPART (NovoLOG) 1 UNIT/0.01 ML (CHARGE PER UNIT) SC SCH ×4 (06:46→21:16)
[2020-06-14 06:51] LABS: SMEAR SCAN COMMENT YES
[2020-06-14 08:00] VITALS: BP 110/59
[2020-06-14] MEDS ORDERED: SOD POLYSTERENE 15 GM/60 ML (KAYEXALATE) UNIT DOSE PO ONE (08:00)
[2020-06-14] MEDS ORDERED: NS IV 1000 ML 1,000 ML IV SCH (08:00)
[2020-06-14 08:09] LABS: BILIRUBIN,URINE NEGATIVE (NEGATIVE); CLARITY,URINE TURBID; COLOR,URINE YELLOW; GLUCOSE, URINE (UA) NEGATIVE (NEGATIVE); KETONES,URINE NEGATIVE (NEGATIVE); LEUKOCYTE ESTERASE ,URINE 2+ (NEGATIVE); NITRITE,URINE NEGATIVE (NEGATIVE); PH,URINE 6.5 (5-9); PROTEIN,URINE 1+ (NEGATIVE)
[2020-06-14 08:22] LABS: BACTERIA,URINE LARGE /HPF; WBC,URINE TNTC /HPF
[2020-06-14] MEDS: FERROUS SULF 325 MG (IRON) TAB PO SCH ×3 (09:00→17:26)
[2020-06-14] MEDS: cefTRIAXone FOR IV USE 2,000 MG in WATER (STERILE) FOR INJECTION 20 ML IV SCH (09:00)
[2020-06-14] MEDS: DOCUSATE SODIUM 100 MG (COLACE) CAP PO SCH ×2 (09:02→21:18)
[2020-06-14] MEDS: FENOFIBRATE 134 MG (LOFIBRA) CAPSULE PO SCH (09:02)
[2020-06-14] MEDS: PANTOPRAZOLE 40 MG (PROTONIX) TAB PO SCH ×2 (09:02→21:15)
[2020-06-14] MEDS: polyethylene glycoL POWDER 17 GM (MIRALAX) PACK PO SCH ×2 (09:02→21:18)
[2020-06-14] MEDS: SENNOSIDES 8.6 MG (SENOKOT) TAB PO SCH ×2 (09:02→21:19)
[2020-06-14] MEDS: ENOXAPARIN 40 MG/0.4 ML (LOVENOX) SYR SC SCH (09:03)
--- NOTE | 2020-06-14 09:34 | Physical Therapy Daily Note ---
PT Daily Note-Current Subjective Patient in bed pre tx, doesn't want to do therapy but agrees to get into a recliner. Patient is moaning, nurse is in room. Appearance Patient in recliner post tx with nurse call, phone, tray, all needs met. chair alarm on Mental Status Patient Orientation: Person, Confused Attachments: IV Transfers SCALE: Activities may be completed with or without assistive devices. 3-Itttbrcoyk-uzbxdrl completes the activity by him/herself with no assistance from a helper. 5-Set-up or Clean-up Assistance-helper sets up or cleans up; patient completes activity. [place] assists only prior to or following the activity. 4-Supervision or Touching Assistance-helper provides verbal cues and/or touching/steadying and/or contact guard assistance as patient completes activity. Assistance may be provided throughout the activity or intermittently. 3-Partial/Moderate Assistance-helper does LESS THAN HALF the effort. [place] lifts, holds or supports trunk or limbs, but provides less than half the effort. 2-Substantial/Maximal Assistance-helper does MORE THAN HALF the effort. [place] lifts or holds trunk or limbs and provides more than half the effort. 3-Cewtidczt-aiqsdt does ALL the effort. Patient does none of the effort to co mplete the activity. Or, the assistance of 2 or more helpers is required for the patient to complete the activity. If activity was not attempted, code reason: 7-Patient Refused. 9-Not Applicable-not attempted and the patient did not perform the activity before the current illness, exacerbation or injury. 10-Not Attempted due to Environmental Limitations-(lack of equipment, weather restraints, etc.). 88-Not Attempted due to Medical Conditions or Safety Concerns. Roll Left & Right (QC): 3 Lying to Sitting/Side of Bed(Q: 3 Sit to Stand (QC): 2 Chair/Qdj-dx-Qmdum Xfer(QC): 2 Attempted to get patient to stand to a rolling walker but she would not, performed a max assist stand pivot into the recliner, ananda sling under patient. Weight Bearing Right Lower Extremity: Right Full Weight Bearing Left Lower Extremity: Left Full Weight Bearing Treatments bed mobility and transfers Assessment Current Status: Poor Progress confusion, very little assist with functional mobility PT Correction Goals [employer] Dies Goals PT [employer] Dies Goals Time Frame: Jun 21, 2020 Roll Left & Right (QC): 5 Sit to Lying (QC): 5 Lying-Sitting on Side/Bed(QC): 5 Sit to Stand (QC): 5 Chair/Cqs-sl-Ubgth Xfer(QC): 5 Toilet Transfer (QC): 5 Does the Patient Walk: Yes Walk 10 feet (QC): 5 Walk 50ft with 2 Turns (QC): 5 Walk 150 ft (QC): 5 PT Plan Problem List Problem List: Activity Tolerance, Functional Strength, Safety, Balance, Gait, Transfer, Bed Mobility, ROM Treatment/Plan Treatment Plan: Continue Plan of Care Treatment Plan: Education, Functional Activity Lisa, Functional Strength, Gait, Safety, Therapeutic Exercise, Transfers Treatment Duration: Jun 21, 2020 Frequency: 6 times per week Estimated Hrs Per Day: .5 hour per day Patient and/or Family Agrees t: Yes Safety Risks/Education Patient Education: Transfer Techniques, Correct Positioning, Safety Issues Teaching Recipient: Patient Teaching Methods: Demonstration, Discussion Response to Teaching: Reinforcement Needed Time/GCodes Time In: 905 Time Out: 917 Total Billed Treatment Time: 12 Total Billed Treatment 1 visit FA ITALO ALCANTARA PT Jun 14, 2020 09:34
[2020-06-14 12:00] VITALS: BP 117/70
--- NOTE | 2020-06-14 12:50 | Cardiology Progress Note ---
Subjective Date Seen by Provider: Jun 14, 2020 Time Seen by Provider: 12:48 Subjective/Events-last exam Patient was seen at bedside, sitting comfortably, still not following commands and complaining of generalized fatigue Review of Systems General: No Chills, No Night Sweats; Fatigue, Malaise; No Appetite, No Other HEENT: No Head Aches, No Visual Changes, No Eye Pain, No Ear Pain, No Dysphasia, No Sinus Congestion, No Post Nasal Drip, No Sore Throat, No Other Pulmonary: No Dyspnea, No Cough, No Pleuritic Chest Pain, No Other Cardiovascular: No: Chest Pain, Palpitations, Orthopnea, Paroxysmal Noc. Dyspnea, Edema, Lt Headedness, Other Objective-Cardiology Exam Last Set of Vital Signs Vital Signs Capillary Refill : Less Than 3 Seconds I&O Intake and Output 06/14/20 00:00 Intake Total 1200 ml Output Total 3 ml Balance 1197 ml Intake Oral 700 ml IV Total 500 ml Output Urine Total 3 ml # Voids 3 # Urine Diapers 1 General: Alert, Oriented X3, No Acute Distress HEENT: Atraumatic, PERRLA Neck: Supple, No JVD, No Thyromegaly Lungs: Clear to Auscultation, Normal Air Movement Heart: Regular Rate, Normal S1, Normal S2, No Murmurs Abdomen: Normal Bowel Sounds, Soft, No Tenderness, No Hepatosplenomegaly, No Masses Extremities: No Clubbing, No Cyanosis, No Edema, Normal Pulses, No Tenderness/Swelling Skin: No Rashes, No Breakdown, No Significant Lesion Neuro: Normal Gait, Normal Speech, Strength at 5/5 X4 Ext, Normal Tone, Sensation Intact Psych/Mental Status: Mental Status NL, Mood NL Results Lab Laboratory Tests 06/14/20 04:57 06/14/20 04:59 A/P-Cardiology Admission Diagnosis CHF CAD HLP DM Assessment/Plan Change in mental status, acute. History of depression. CT of the head did not show any acute abnormality, managed by primary care team Acute renal insufficiency, probably secondary to aggressive diuresis, currently Lasix is on hold, continue to monitor renal function Hyperkalemia, has been on potassium 10 mEq daily, continue to hold and monitor Acute CHF, LV systolic dysfunction,2D Echo done 06/10/2020 showing EF35-40%, grade II diastolic dysfunction, mild-mod , mild to mod MR, PA 20-25mmHg. discontinue diuretics at this point and monitor CAD- reported hx of stent placement in the remote past. Previously followed with Dr. Holguin in [place], no recent work up. Mildly elevated troponin, trending down, likely type II IN. 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 Follows with cardiology in [place]. HLP- maintained on statin as outpatient. DM, management per primary care Clinical Quality Measures DVT/VTE Risk/Contraindication: Risk Factor Score Per Nursin RFS Level Per Nursing on Admit: 4+=Very High MARGOT STOVER MD Jun 14, 2020 12:50 pm
--- NOTE | 2020-06-14 13:22 | Progress Note - Hospitalist ---
Subjective HPI/CC On Admission Date Seen by Provider: Jun 14, 2020 Time Seen by Provider: 09:50 Bridget Stockton is an 85 year old female with PMH insulin-dependent T2DM, HLD, hypothyroidism, who presented with shortness of breath. She reports that this has been worsening over recent weeks. She denies cough. She denies fevers and chills. She reports having some chest tightness. She denies abdominal pain. She denies nausea and vomiting. She denies dysuria. She denies any known exposure to COVID. She reports leg swelling. She has been taking extra Lasix at home but has worsened nevertheless. Subjective/Events-last exam She says she is "sick". She will not elaborate about why she is sick. She will not say if she is in pain. She will not answer questions. She says my name spontaneously. Objective Exam Vital Signs Vital Signs Date Time Temp Pulse Resp B/P (MAP) Pulse Ox O2 Delivery O2 Flow Rate FiO2 06/14/20 08:00 35.6 71 20 110/59 (76) 96 Nasal Cannula 4.00 Capillary Refill : Less Than 3 Seconds General Appearance: No Apparent Distress, Obese Respiratory: Lungs Clear, Normal Breath Sounds, No Respiratory Distress Cardiovascular: Regular Rate, Rhythm, No Edema, No Murmur Gastrointestinal: Normal Bowel Sounds, Soft Extremity: Normal Inspection, No Pedal Edema Neurologic/Psychiatric: Alert, Other (uncooperative) Skin: Normal Color, Warm/Dry Results/Procedures Lab Laboratory Tests 06/14/20 04:57 06/14/20 04:59 Patient resulted labs reviewed. 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 Possible UTI Urine culture pending Rocephin Acute on chronic heart failure with reduced ejection fraction and diastolic dysfunction Acute respiratory failure with hypoxia Acute kidney injury Echo revealed EF 35-40% with grade II diastolic dysfunction and global hypokinesis Cr increased, stable Continue oral Lasix Continue Toprol ACEi not started due to low blood pressures Cardiology consulted, appreciate assistance Pancytopenia Iron deficiency anemia Appears chronic per chart review s/p Iron infusion Continue oral iron supplementation Post-herpetic neuralgia Lyrica T2DM Levemir SSI Hypothyroidism Synthroid HLD Statin GERD PPI SSS s/p pacemaker Obesity Clinically significant, no acute management needs DVT Prophylaxis: Lovenox Diagnosis/Problems Diagnosis/Problems (1) Acute on chronic congestive heart failure Status: Acute Qualifiers: Heart failure type: combined systolic and diastolic Qualified Codes: I50.43 - Acute on chronic combined systolic (congestive) and diastolic (congestive) heart failure (2) Anemia Status: Chronic (3) Thrombocytopenia Status: Chronic (4) T2DM (type 2 diabetes mellitus) Status: Chronic Qualifiers: 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
[2020-06-14 16:02] VITALS: BP 117/53
[2020-06-14] MEDS: PREGABALIN 50 MG (LYRICA) CAP PO PRN (16:52)
--- NOTE | 2020-06-14 16:52 | Diagnostic Imaging Report ---
EXAMINATION: Chest, 1 view. HISTORY: Hypoxia. COMPARISON: 06/09/2020. FINDINGS: Left subclavian pacemaker is present. Loop recorder is present. There has been an increase in the bibasilar airspace opacities, right greater than left. No pneumothorax. There is a small right pleural effusion. Heart size is normal. IMPRESSION: Increase in bibasilar airspace opacities, right greater than left, with small right pleural effusion. Differential is edema versus pneumonia. Dictated by: Dictated on workstation # [id number]
--- NOTE | 2020-06-14 17:04 | NUR ---
PT 02 SATS BEGAN TO DROP IN 80'S. RT, MADAI, AND DR JORGE NOTIFIED. MADAI PUT PT ON HIGH FLOW [address] JORGE ORDERED COVID RAPID AND INFLUENZA SWABS ALONG WITH CHEST XRAY. COVID DID COME BACK NEGATIVE. STILL AWAITING INFLUENZA. DR JORGE NOTIFIED OF COVID RESULTS. PT IS AWAKE AND AT 4L HIGH FLOW AND SATTING AT 98%.
[2020-06-14 19:18] VITALS: BP 126/60
[2020-06-14] MEDS: MELATONIN 3 MG TABLET PO PRN (21:16)
[2020-06-15] VITALS (7 sets, daily range): BP systolic 119–148; BP diastolic 53–63
[2020-06-15] MEDS: LEVOTHYROXINE 75 MCG (LEVOTHROID) TABLET PO SCH (06:28)
[2020-06-15] MEDS: inSUlin ASPART (NovoLOG) 1 UNIT/0.01 ML (CHARGE PER UNIT) SC SCH ×4 (06:28→21:01)
[2020-06-15] MEDS: LEVOTHYROXINE 100 MCG (LEVOTHROID) TAB PO SCH (06:28)
[2020-06-15 06:29] LABS: EOSINOPHILS # (AUTO) 0.3 10^3/uL (0.0-0.3)
[2020-06-15 06:30] LABS: BASOPHILS % (AUTO) 0 % (0-10); EOSINOPHILS % (AUTO) 6 % (0-10); HEMATOCRIT 27 % (35-52); HEMOGLOBIN 7.8 g/dL (11.5-16.0); LYMPHOCYTES # (AUTO) 0.7 10^3/uL (1.0-4.0); LYMPHOCYTES % (AUTO) 16 % (12-44); MEAN CORPUSCULAR HEMOGLOBIN 24 pg (25-34); MEAN CORPUSCULAR HGB CONC 29 g/dL (32-36); MEAN CORPUSCULAR VOLUME 81 fL (80-99); MONOCYTES # (AUTO) 0.4 10^3/uL (0.0-1.0); MONOCYTES % (AUTO) 9 % (0-12); NEUTROPHILS # (AUTO) 3.1 10^3/uL (1.8-7.8); NEUTROPHILS % (AUTO) 69 % (42-75); PLATELET COUNT 67 10^3/uL (130-400); WHITE BLOOD COUNT 4.5 10^3/uL (4.3-11.0)
[2020-06-15 06:46] LABS: POTASSIUM 4.4 MMOL/L (3.6-5.0)
[2020-06-15 06:47] LABS: CALCIUM 8.5 MG/DL (8.5-10.1)
[2020-06-15 06:51] LABS: CREATININE SERUM 1.03 MG/DL (0.60-1.30)
[2020-06-15] MEDS: FERROUS SULF 325 MG (IRON) TAB PO SCH ×3 (08:30→17:19)
[2020-06-15] MEDS: ACETAMINOPHEN 325 MG TABLET PO PRN (08:30)
[2020-06-15] MEDS: PANTOPRAZOLE 40 MG (PROTONIX) TAB PO SCH ×2 (08:30→20:32)
[2020-06-15] MEDS: FENOFIBRATE 134 MG (LOFIBRA) CAPSULE PO SCH (08:30)
[2020-06-15] MEDS: FUROSEMIDE 40 MG (LASIX) TAB PO SCH (08:31)
[2020-06-15] MEDS: PREGABALIN 50 MG (LYRICA) CAP PO PRN ×2 (08:31→15:04)
[2020-06-15] MEDS: cefTRIAXone FOR IV USE 2,000 MG in WATER (STERILE) FOR INJECTION 20 ML IV SCH (08:32)
[2020-06-15] MEDS: ENOXAPARIN 40 MG/0.4 ML (LOVENOX) SYR SC SCH (08:32)
--- NOTE | 2020-06-15 08:54 | Cardiology Progress Note ---
Subjective Date Seen by Provider: Jun 15, 2020 Time Seen by Provider: 08:52 Subjective/Events-last exam Patient is laying down in bed, complaining of generalized body ache and loss of energy. Review of Systems General: No Chills, No Night Sweats; Fatigue, Malaise; No Appetite, No Other HEENT: No Head Aches, No Visual Changes, No Eye Pain, No Ear Pain, No Dysphasia, No Sinus Congestion, No Post Nasal Drip, No Sore Throat, No Other Pulmonary: No Dyspnea, No Cough, No Pleuritic Chest Pain, No Other Cardiovascular: No: Chest Pain, Palpitations, Orthopnea, Paroxysmal Noc. Dyspnea, Edema, Lt Headedness, Other Gastrointestinal: Abdominal Pain Musculoskeletal: neck pain, shoulder pain Objective-Cardiology Exam Last Set of Vital Signs Vital Signs 06/15/20 04:00 Temp 36.6 Pulse 75 Resp 18 B/P (MAP) 126/61 (82) Pulse Ox 97 O2 Delivery Nasal Cannula O2 Flow Rate 3.00 Capillary Refill : Less Than 3 Seconds I&O Intake and Output 06/15/20 00:00 Intake Total 2280 ml Balance 2280 ml Intake Oral 2280 ml # Voids 10 # Bowel Movements 5 General: Alert, Oriented X3, No Acute Distress HEENT: Atraumatic, PERRLA Neck: Supple, No JVD, No Thyromegaly Lungs: Clear to Auscultation, Normal Air Movement Heart: Regular Rate, Normal S1, Normal S2, No Murmurs Abdomen: Normal Bowel Sounds, Soft, No Tenderness, No Hepatosplenomegaly, No Masses Extremities: No Clubbing, No Cyanosis, No Edema, Normal Pulses, No Tenderness/Swelling Skin: No Rashes, No Breakdown, No Significant Lesion Neuro: Normal Gait, Normal Speech, Strength at 5/5 X4 Ext, Normal Tone, Sensation Intact Psych/Mental Status: Mental Status NL, Mood NL Results Lab Laboratory Tests 06/15/20 06:20 A/P-Cardiology Admission Diagnosis CHF CAD HLP DM Assessment/Plan Change in mental status, depression, generalized fatigue and loss of energy, generalized body ache, had a CT of the head which did not show any acute abnormality, managed by primary care team. Acute renal insufficiency, probably secondary to aggressive diuresis, currently Lasix is on hold, continue to monitor renal function Hyperkalemia, has been on potassium 10 mEq daily, continue to hold and monitor Acute CHF, LV systolic dysfunction,2D Echo done 06/10/2020 showing EF35-40%, grade II diastolic dysfunction, mild-mod , mild to mod MR, PA 20-25mmHg. discontinue diuretics at this point and monitor CAD- reported hx of stent placement in the remote past. Previously followed with Dr. Holguin in [place], no recent work up. Mildly elevated troponin, trending down, likely type II IN. 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 Follows with cardiology in [place]. HLP- maintained on statin as outpatient. DM, management per primary care Clinical Quality Measures DVT/VTE Risk/Contraindication: Risk Factor Score Per Nursin RFS Level Per Nursing on Admit: 4+=Very High MARGOT STOVER MD Jun 15, 2020 8:54 am
[2020-06-15] MEDS: polyethylene glycoL POWDER 17 GM (MIRALAX) PACK PO SCH ×2 (09:06→20:28)
[2020-06-15] MEDS: DOCUSATE SODIUM 100 MG (COLACE) CAP PO SCH ×2 (09:06→20:28)
[2020-06-15] MEDS: SENNOSIDES 8.6 MG (SENOKOT) TAB PO SCH ×2 (09:06→20:28)
--- NOTE | 2020-06-15 16:06 | Progress Note - Hospitalist ---
Subjective HPI/CC On Admission Date Seen by Provider: Jun 15, 2020 Time Seen by Provider: 09:45 Bridget Stockton is an 85 year old female with PMH insulin-dependent T2DM, HLD, hypothyroidism, who presented with shortness of breath. She reports that this has been worsening over recent weeks. She denies cough. She denies fevers and chills. She reports having some chest tightness. She denies abdominal pain. She denies nausea and vomiting. She denies dysuria. She denies any known exposure to COVID. She reports leg swelling. She has been taking extra Lasix at home but has worsened nevertheless. Subjective/Events-last exam She is doing better today. She is more talkative. She does not report any pain. She does not have any complaints. Objective Exam Vital Signs Vital Signs Date Time Temp Pulse Resp B/P (MAP) Pulse Ox O2 Delivery O2 Flow Rate FiO2 06/15/20 12:00 35.7 73 24 124/63 (83) 94 Nasal Cannula 3.00 Capillary Refill : Less Than 3 Seconds General Appearance: No Apparent Distress, Obese Respiratory: Lungs Clear, Normal Breath Sounds, No Respiratory Distress Cardiovascular: Regular Rate, Rhythm, No Edema, No Murmur Gastrointestinal: Normal Bowel Sounds, Non Tender, Soft Extremity: Normal Inspection, Non Tender, No Pedal Edema Neurologic/Psychiatric: Alert, No Motor/Sensory Deficits, Normal Mood/Affect Skin: Normal Color, Warm/Dry Results/Procedures Lab Laboratory Tests 06/15/20 06:20 Patient resulted labs reviewed. 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 dysfunction Acute respiratory failure with hypoxia Acute kidney injury, resolved Echo revealed EF 35-40% with grade II diastolic dysfunction and global hy pokinesis Cr improved Continue oral Lasix Continue Toprol ACEi not started due to low blood pressures Cardiology consulted, appreciate assistance Pancytopenia Iron deficiency anemia Appears chronic per chart review s/p Iron infusion Continue oral iron supplementation Post-herpetic neuralgia Lyrica T2DM Levemir SSI Hypothyroidism Synthroid HLD Statin GERD PPI SSS s/p pacemaker Obesity Clinically significant, no acute management needs DVT Prophylaxis: Lovenox Diagnosis/Problems Diagnosis/Problems (1) Acute on chronic congestive heart failure Status: Acute Qualifiers: Heart failure type: combined systolic and diastolic Qualified Codes: I50.43 - Acute on chronic combined systolic (congestive) and diastolic (congestive) heart failure (2) Anemia Status: Chronic (3) Thrombocytopenia Status: Chronic (4) T2DM (type 2 diabetes mellitus) Status: Chronic Qualifiers: 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
[2020-06-16 04:04] VITALS: BP 139/62
[2020-06-16] MEDS: LEVOTHYROXINE 75 MCG (LEVOTHROID) TABLET PO SCH (05:45)
[2020-06-16] MEDS: LEVOTHYROXINE 100 MCG (LEVOTHROID) TAB PO SCH (05:45)
[2020-06-16] MEDS: inSUlin ASPART (NovoLOG) 1 UNIT/0.01 ML (CHARGE PER UNIT) SC SCH ×2 (05:53→11:49)
[2020-06-16 06:06] LABS: BASOPHILS % (AUTO) 0 % (0-10); HEMOGLOBIN 8.4 g/dL (11.5-16.0)
[2020-06-16 06:08] LABS: EOSINOPHILS # (AUTO) 0.3 10^3/uL (0.0-0.3); EOSINOPHILS % (AUTO) 5 % (0-10); HEMATOCRIT 29 % (35-52); LYMPHOCYTES # (AUTO) 0.7 10^3/uL (1.0-4.0); LYMPHOCYTES % (AUTO) 15 % (12-44); MEAN CORPUSCULAR HEMOGLOBIN 24 pg (25-34); MEAN CORPUSCULAR HGB CONC 29 g/dL (32-36); MEAN CORPUSCULAR VOLUME 82 fL (80-99); MEAN PLATELET VOLUME 13.3 fL (9.0-12.2); MONOCYTES # (AUTO) 0.4 10^3/uL (0.0-1.0); MONOCYTES % (AUTO) 9 % (0-12); NEUTROPHILS # (AUTO) 3.4 10^3/uL (1.8-7.8); NEUTROPHILS % (AUTO) 70 % (42-75); PLATELET COUNT 76 10^3/uL (130-400); WHITE BLOOD COUNT 4.8 10^3/uL (4.3-11.0)
[2020-06-16 06:20] LABS: CHLORIDE 95 MMOL/L (98-107); POTASSIUM 4.2 MMOL/L (3.6-5.0); SODIUM 141 MMOL/L (135-145)
[2020-06-16 06:21] LABS: CALCIUM 8.6 MG/DL (8.5-10.1)
[2020-06-16 06:22] LABS: GLUCOSE 203 MG/DL (70-105)
[2020-06-16 06:23] LABS: CARBON DIOXIDE 35 MMOL/L (21-32)
[2020-06-16 06:25] LABS: CREATININE SERUM 0.78 MG/DL (0.60-1.30); GFR ESTIMATED > 60
[2020-06-16 06:26] LABS: BUN/CREATININE RATIO 36
[2020-06-16 08:00] VITALS: BP 144/62
--- NOTE | 2020-06-16 08:19 | Progress Note - Hospitalist ---
Subjective HPI/CC On Admission Date Seen by Provider: Jun 16, 2020 Time Seen by Provider: 08:15 Bridget Stockton is an 85 year old female with PMH insulin-dependent T2DM, HLD, hypothyroidism, who presented with shortness of breath. She reports that this has been worsening over recent weeks. She denies cough. She denies fevers and chills. She reports having some chest tightness. She denies abdominal pain. She denies nausea and vomiting. She denies dysuria. She denies any known exposure to COVID. She reports leg swelling. She has been taking extra Lasix at home but has worsened nevertheless. Objective Exam Vital Signs Vital Signs Date Time Temp Pulse Resp B/P (MAP) Pulse Ox O2 Delivery O2 Flow Rate FiO2 06/16/20 04:04 36.1 90 18 139/62 (87) 93 Nasal Cannula 4.00 Capillary Refill : Less Than 3 Seconds General Appearance: No Apparent Distress, Chronically ill Respiratory: Lungs Clear, No Accessory Muscle Use, Other (on NC) Cardiovascular: Regular Rate, Rhythm, No Murmur Gastrointestinal: Normal Bowel Sounds, Non Tender, Soft Neurologic/Psychiatric: Alert, Oriented x3 Results/Procedures Lab Laboratory Tests 06/16/20 05:50 Patient resulted labs reviewed. 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 fraction and diastolic dysfunction Acute respiratory failure with hypoxia Acute kidney injury, resolved Echo revealed EF 35-40% with grade II diastolic dysfunction and global hypokinesis Cr improved Continue oral Lasix Continue Toprol ACEi not started due to low blood pressures Cardiology consulted, appreciate assistance Pancytopenia Iron deficiency anemia Appears chronic per chart review s/p Iron infusion Continue oral iron supplementation Post-herpetic neuralgia Lyrica T2DM Levemir SSI Hypothyroidism Synthroid HLD Statin GERD PPI SSS s/p pacemaker Obesity Clinically significant, no acute management needs DVT Prophylaxis: Lovenox Diagnosis/Problems Diagnosis/Problems (1) Altered behavior Status: Acute (2) Debility Status: Acute (3) RESPIRATORY FAILURE, UNSP, UNSP W HYPOXIA OR HYPERCAPNIA (4) Acute on chronic congestive heart failure Status: Acute Qualifiers: Heart failure type: combined systolic and diastolic Qualified Codes: I50.43 - Acute on chronic combined systolic (congestive) and diastolic (congestive) heart failure (5) T2DM (type 2 diabetes mellitus) Status: Chronic Qualifiers: 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
[2020-06-16] MEDS: DOCUSATE SODIUM 100 MG (COLACE) CAP PO SCH (09:04)
[2020-06-16] MEDS: FUROSEMIDE 40 MG (LASIX) TAB PO SCH (09:04)
[2020-06-16] MEDS: FERROUS SULF 325 MG (IRON) TAB PO SCH ×2 (09:04→13:49)
[2020-06-16] MEDS: FENOFIBRATE 134 MG (LOFIBRA) CAPSULE PO SCH (09:04)
[2020-06-16] MEDS: PANTOPRAZOLE 40 MG (PROTONIX) TAB PO SCH (09:04)
[2020-06-16] MEDS: ENOXAPARIN 40 MG/0.4 ML (LOVENOX) SYR SC SCH (09:05)
[2020-06-16] MEDS: SENNOSIDES 8.6 MG (SENOKOT) TAB PO SCH (09:05)
[2020-06-16] MEDS: polyethylene glycoL POWDER 17 GM (MIRALAX) PACK PO SCH (09:05)
[2020-06-16] MEDS: cefTRIAXone FOR IV USE 2,000 MG in WATER (STERILE) FOR INJECTION 20 ML IV SCH (09:06)
--- NOTE | 2020-06-16 09:58 | NUR ---
CM/SS follow up. CM/SS visited with the patient. The patient was alert this morning and was asking questions about if she is going home. She stated "the aide told me I'm going home today". CM/SS attempted to discuss the conversation had by this sw and the patient about penitentiary placement. CM/SS also attempted to tell her that this sw spoke with son regarding placement due to patient not being able to complete her ADL'S or basic care on Wednesday 06/13. The patient stated "You did not talk to me on Tuesday and you did not talk to my son". She verbalized "If you want to start telling the truth then I will talk with you, you are lying". The patient asked to speak with the brew house supervisor Dr. Jamison who she states is her Primary Care Physician. The patient was not cooperative in the discussion. This sw dialed the patient's son number with room phone for them to talk. CM/SS will follow up and meet with patient again regarding discharge. She states she is not going into a penitentiary but doesn't know what she want's to do for discharge. JOSEFINA/SS informed the physician regarding the conversation. The physician reports the patient was willing for a penitentiary this morning during her visit. CM/SS will continue to follow.
--- NOTE | 2020-06-16 10:09 | Cardiology Progress Note ---
Subjective Date Seen by Provider: Jun 16, 2020 Time Seen by Provider: 10:08 Subjective/Events-last exam Patient is laying down in bed, feeling better today. Not confused. Review of Systems General: No Chills, No Night Sweats, No Fatigue, No Malaise, No Appetite, No Other HEENT: No Head Aches, No Visual Changes, No Eye Pain, No Ear Pain, No Dysphasia, No Sinus Congestion, No Post Nasal Drip, No Sore Throat, No Other Pulmonary: No Dyspnea, No Cough, No Pleuritic Chest Pain, No Other Cardiovascular: No: Chest Pain, Palpitations, Orthopnea, Paroxysmal Noc. Dyspnea, Edema, Lt Headedness, Other Objective-Cardiology Exam Last Set of Vital Signs Vital Signs 06/16/20 06/16/20 04:04 09:57 Temp 36.1 Pulse 90 Resp 18 B/P (MAP) 139/62 (87) Pulse Ox 93 O2 Delivery Nasal Cannula O2 Flow Rate 3.00 Capillary Refill : Less Than 3 Seconds I&O Intake and Output 06/16/20 00:00 Intake Total 2110 ml Balance 2110 ml Intake Oral 2110 ml # Voids 6 # Bowel Movements 2 General: Alert, Oriented X3, No Acute Distress HEENT: Atraumatic, PERRLA Neck: Supple, No JVD, No Thyromegaly Lungs: Clear to Auscultation, Normal Air Movement Heart: Regular Rate, Normal S1, Normal S2, No Murmurs Abdomen: Normal Bowel Sounds, Soft, No Tenderness, No Hepatosplenomegaly, No Masses Extremities: No Clubbing, No Cyanosis, No Edema, Normal Pulses, No Tenderness/Swelling Skin: No Rashes, No Breakdown, No Significant Lesion Neuro: Normal Gait, Normal Speech, Strength at 5/5 X4 Ext, Normal Tone, Sensation Intact Psych/Mental Status: Mental Status NL, Mood NL Results Lab Laboratory Tests 06/16/20 05:50 A/P-Cardiology Admission Diagnosis CHF CAD HLP DM Assessment/Plan Change in mental status, delirium, better today. Workup has been negative. Managed by direct care physician Acute renal insufficiency, probably secondary to aggressive diuresis, currently Lasix is on hold, continue to monitor renal function Hyperkalemia, has been on potassium 10 mEq daily, continue to hold and monitor Acute CHF, LV systolic dysfunction,2D Echo done 06/10/2020 showing EF35-40%, grade II diastolic dysfunction, mild-mod , mild to mod MR, PA 20-25mmHg. discontinue diuretics at this point and monitor CAD- reported hx of stent placement in the remote past. Previously followed with Dr. Holguin in [place], no recent work up. Mildly elevated troponin, trending down, likely type II MD. 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 Follows with cardiology in [place]. HLP- maintained on statin as outpatient. DM, management per primary care Clinical Quality Measures DVT/VTE Risk/Contraindication: Risk Factor Score Per Nursin RFS Level Per Nursing on Admit: 4+=Very High MARGOT STOVER MD Jun 16, 2020 10:09 am
[2020-06-16 12:00] VITALS: BP 128/68
--- NOTE | 2020-06-16 12:21 | Discharge Inst-Skilled Nursing ---
Discharge Inst-Skilled NF Chief Complaint Bridget Stockton is an 85 year old female with PMH insulin-dependent T2DM, HLD, hypothyroidism, who presented with shortness of breath. She reports that this has been worsening over recent weeks. She denies cough. She denies fevers and chills. She reports having some chest tightness. She denies abdominal pain. She denies nausea and vomiting. She denies dysuria. She denies any known exposure to COVID. She reports leg swelling. She has been taking extra Lasix at home but has worsened nevertheless. Consult/Follow Up/Orders Follow Up Appt.: With Dr Walker in 1 week. Skilled NF Admit to: [facility] Certification (SNF) I certify that SNF services are required to be given on an inpatient basis because of the above named patient's need for intermediate care on a continuing basis for the conditions(s) for which he/she was receiving inpatient hospital services prior to his/her transfer to the SNF. Group Home Facility Order: Nursing Services, Compliance Representative Dealer-Evaluate & Treat, Physical Therapy-Evaluate & Treat Oxygen Delivery Method: Nasal Cannula Oxygen Flow Rate L/min (Range): 3lpm Discharge Diet: Low Sodium Diet Daily Activity as Tolerated: Yes Resuscitation Status: Full Code New & Resume Previous Orders Pardeep Enriquez Jun 16, 2020 12:19 PARDEEP ENRIQUEZ MD Jun 16, 2020 12:21
--- NOTE | 2020-06-16 12:50 | NUR ---
CM/SS finalized plan: Plan: Patient will discharge to [facility] today. Transportation is set up for 2-2:30 p.m. CM/SS went back to visit the patient with the physician. She appeared to still believe that everyone was lying to her and stated that to the physician. CM/SS contacted the patient's son to discuss the patient discharging to [facility] with her current level of functioning. CM/SS visited a third time today to assess patient's cognition. She was in better spirits and at that moment and was oriented x3. She was in bed just stating that she does not feel good but could not tell this sw why she didn't feel well. CM/SS asked what the patient's plans were. She stated that she doesn't know but she will just go home. JOSEFINA/SS informed her of what her son said. He reported she could not come home unless she was stronger because he could not take care of her. JOSEFINA/SS informed her of what her son stated. She verbalized that she would be willing to go into [facility] today. CM/SS contacted Tami at the facility. They set up a cotton picker time of 2 to 2:30. CM/SS faxed discharge orders and updated clinical. CM/SS will continue to follow.
--- NOTE | 2020-06-16 13:37 | Discharge Summary ---
Diagnosis/Chief Complaint Date of Admission Jun 09, 2020 at 11:45 Date of Discharge Discharge Date: Jun 16, 2020 Admission Diagnosis Acute on chronic heart failure with preserved ejection fraction Primary Care Antonio Walker MD Discharge Diagnosis (1) Altered behavior Status: Acute (2) Debility Status: Acute (3) RESPIRATORY FAILURE, UNSP, UNSP W HYPOXIA OR HYPERCAPNIA (4) Acute on chronic congestive heart failure Status: Acute (5) T2DM (type 2 diabetes mellitus) Status: Chronic (6) Thrombocytopenia Status: Chronic (7) Anemia Status: Chronic (8) DVT prophylaxis Status: Acute (9) E-coli UTI Status: Acute (10) HLD (hyperlipidemia) Status: Chronic (11) HTN (hypertension) Status: Chronic (12) Hypothyroidism Status: Chronic Discharge Summary Discharge Physical Exam Allergies: Coded Allergies: codeine (Verified Allergy, Unknown, 10/14/05) iodine (Verified Allergy, Unknown, 10/14/05) Vitals & I&Os Vital Signs Date Time Temp Pulse Resp B/P (MAP) Pulse Ox O2 Delivery O2 Flow Rate FiO2 06/16/20 15:21 36.4 82 18 144/62 95 Nasal Cannula 2.50 General Appearance: No Apparent Distress, Chronically ill Respiratory: Lungs Clear, No Respiratory Distress Cardiovascular: Regular Rate, Rhythm, No Murmur Hospital Course Labs (last 24 hrs) Laboratory Tests 06/16/20 05:43: Glucometer 209H 06/16/20 05:50: White Blood Count 4.8, Red Blood Count 3.57L, Hemoglobin 8.4L, Hematocrit 29L, Mean Corpuscular Volume 82, Mean Corpuscular Hemoglobin 24L, Mean Corpuscular Hemoglobin Concent 29L, Red Cell Distribution Width 17.5H, Platelet Count 76L, Mean Platelet Volume 13.3H, Immature Granulocyte % (Auto) 0, Neutrophils (%) (Auto) 70, Lymphocytes (%) (Auto) 15, Monocytes (%) (Auto) 9, Eosinophils (%) (A uto) 5, Basophils (%) (Auto) 0, Neutrophils # (Auto) 3.4, Lymphocytes # (Auto) 0.7L, Monocytes # (Auto) 0.4, Eosinophils # (Auto) 0.3, Basophils # (Auto) 0.0, Immature Granulocyte # (Auto) 0.0, Sodium Level 141, Potassium Level 4.2, Chloride Level 95L, Carbon Dioxide Level 35H, Anion Gap 11, Blood Urea Nitrogen 28H, Creatinine 0.78, Estimat Glomerular Filtration Rate > 60, BUN/Creatinine Ratio 36, Glucose Level 203H, Calcium Level 8.6 06/16/20 11:26: Glucometer 309H Microbiology 06/14/20 Urine Culture - Preliminary, Resulted Escherichia coli Proteus mirabilis See Comments Patient resulted labs reviewed. Pending Labs Imaging: Reviewed Imaging Report Discharge Home Medications: Active Scripts Active Lasix (Furosemide) 40 Mg Tablet 40 Mg PO DAILY 30 Days Ferrous Sulfate 325 Mg Tablet 325 Mg PO TIDWM 30 Days Metoprolol Succinate 25 Mg Tab.er.24h 25 Mg PO DAILY 30 Days Reported Iron Chews (Iron,Carbonyl) 15 Mg Tab.chew 15 Mg PO BID Advil (Ibuprofen) 200 Mg Capsule 200 Mg PO Q4H PRN Clotrimazole 15 Gm Cream..g. 1 Applic TP PRN PRN APPLIES TO IRRITATION ON LEGS Pantoprazole Sodium 40 Mg Tablet.dr 40 Mg PO BID Sucralfate 1 Gm Tablet 1 Gm PO QIDACHS Levemir Flextouch (Insulin Detemir) 100 Unit/1 Ml Insuln.pen 10 Unit SQ BID Klor-Con 10 (Potassium Chloride) 10 Meq Tablet.er 10 Meq PO DAILY Fenofibrate (Fenofibrate Nanocrystallized) 145 Mg Tablet 145 Mg PO DAILY Apidra (Insulin Glulisine) 100 Unit/1 Ml Vial 0 SC TID USES PER THE FOLLOWING SLIDING SCALE 150-200=22 UNITS 200-250=24 UNITS 250-300=26 UNITS Tylenol (Acetaminophen) 325 Mg Capsule 650 Mg PO Q6H PRN Preservision Areds 2 Softgel (Vit C/E/Zn/Coppr/Lutein/Zeaxan) 1 Each Capsule 1 Each PO HS Levothyroxine Sodium 175 Mcg Tablet 175 Mcg PO HS Atorvastatin Calcium 10 Mg Tablet 10 Mg PO HS Pregabalin 50 Mg Capsule 50 Mg PO TID PRN Instructions to patient/family Please see electronic discharge instructions given to patient. Clinical Quality Measures DVT/VTE Risk/Contraindication: Risk Factor Score Per Nursin RFS Level Per Nursing on Admit: 4+=Very High Problem Qualifiers (1) Acute on chronic congestive heart failure: Heart failure type: combined systolic and diastolic Qualified Codes: I50.43 - Acute on chronic combined systolic (congestive) and diastolic (congestive) heart failure (2) T2DM (type 2 diabetes mellitus): Diabetes mellitus senior living insulin use: with senior living use PARDEEP RICHEY MD Jun 16, 2020 13:37
[2020-06-16 15:21] VITALS: BP 144/62
== END 2020-06-16 15:08 | DRG 280 ==
LOC: 4TH 11:45
PROVIDERS: ADMIT Internal Medicine; ATTEND Internal Medicine
DX: I50.43 Acute on chronic combined systolic (congestive) and diastolic (congestive) heart failure (principal); I21.A1 Myocardial infarction type 2; J96.01 Acute respiratory failure with hypoxia; D61.818 Other pancytopenia; B02.29 Other postherpetic nervous system involvement; N17.9 Acute kidney failure, unspecified; N39.0 Urinary tract infection, site not specified; I08.0 Rheumatic disorders of both mitral and aortic valves; I25.10 Atherosclerotic heart disease of native coronary artery without angina pectoris; Z20.828 Contact with and (suspected) exposure to other viral communicable diseases; E11.9 Type 2 diabetes mellitus without complications; D69.6 Thrombocytopenia, unspecified; D50.9 Iron deficiency anemia, unspecified; E87.5 Hyperkalemia; R53.1 Weakness; K21.9 Gastro-esophageal reflux disease without esophagitis; E78.00 Pure hypercholesterolemia, unspecified; E78.5 Hyperlipidemia, unspecified; E03.9 Hypothyroidism, unspecified; E66.9 Obesity, unspecified; B96.20 Unspecified Escherichia coli [E. coli] as the cause of diseases classified elsewhere; Z95.0 Presence of cardiac pacemaker; Z95.5 Presence of coronary angioplasty implant and graft; Z68.31 Body mass index [BMI] 31.0-31.9, adult; Z79.4 Long term (current) use of insulin
CPT/HCPCS: 36415; 70450; 71045; 76937; 80048; 81000; 82728; 82746; 82962; 83540; 83735; 83880; 84100; 84145; 84484; 85025; 85379; 87088; 87635; 93306; 94760; 94761